=== PATIENT | female | born 1990 | race Caucasian/White ===

== ENCOUNTER 2019-03-07 17:06 | Emergency (ER) | payer MEDICARE, OTHER ==
[2019-03-07 17:26] VITALS: TEMP 98.6
[2019-03-07] MEDS ORDERED: SODIUM CHLORIDE 0.9% 1,000 ML IV STA (17:28)
[2019-03-07 18:34] LABS: Basophils % (A) 0 %; Eosinophils # (A) 0.1 k/uL (0-0.7); Eosinophils % (A) 2 %; HCT 38.7 % (34.0-46.0); HGB 12.7 gm/dL (11.4-16.0); Lymphocytes # (A) 0.8 k/uL (1.0-4.8); Lymphocytes % (A) 11 %; MCH 27.1 pg (25.0-35.0); MCHC 32.8 g/dL (31.0-37.0); MCV 82.4 fL (80.0-100.0); Mean Platelet Volume 7.7; Monocytes # (A) 0.3 k/uL (0-1.0); Monocytes % (A) 5 %; Neutrophils # (A) 5.6 k/uL (1.3-7.7); Neutrophils % (A) 82 %; Platelet Count 222 k/uL (150-450); RDW 13.9 % (11.5-15.5); WBC 6.9 k/uL (3.8-10.6)
[2019-03-07 18:42] LABS: ALT 19 U/L (9-52); AST 19 U/L (14-36); Acetaminophen <10.0 ug/mL; Albumin 4.2 g/dL (3.5-5.0); Alkaline Phosphatase 82 U/L (38-126); Anion Gap 9 mmol/L; Blood Urea Nitrogen 13 mg/dL (7-17); Carbon Dioxide 24 mmol/L (22-30); Chloride 105 mmol/L (98-107); Glucose 104 mg/dL (74-99); Potassium 3.7 mmol/L (3.5-5.1); Salicylate <1.0 mg/dL; Sodium 138 mmol/L (137-145); Total Bilirubin 0.7 mg/dL (0.2-1.3)
[2019-03-07 18:55] LABS: Carbamazepine (Tegretol) <3.0 ug/mL; Phenytoin (Dilantin) <3.0 ug/mL
[2019-03-07 18:56] LABS: Valproic Acid (Depakene) <10.0 ug/mL
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
[2019-03-07 20:35] VITALS: BP 115/70; PULSE 92; RESP 18
== END 2019-03-07 20:25 | disposition home or self-care (01) ==
LOC: EC 17:06
DX: G40.909 Epilepsy, unspecified, not intractable, without status epilepticus (principal); Z79.899 Other long term (current) drug therapy; Z88.5 Allergy status to narcotic agent
CPT/HCPCS: 36415; 93005; 80156; 80164; 80053; 80185; 85025; 83520; 99284; 96360; G0480; 80329

== ENCOUNTER 2019-08-04 00:09 | Emergency (ER) | payer MEDICARE, OTHER ==
[2019-08-04 00:19] VITALS: TEMP 98.1
--- NOTE | 2019-08-04 00:33 | ED ---
General Adult HPI - General Chief complaint: Recheck/Abnormal Lab/Rx Stated complaint: Medication Withdraw Time Seen by Provider: 08/04/19 00:25 Source: patient, family, RN notes reviewed Mode of arrival: ambulatory Limitations: physical limitation - History of Present Illness Initial comments: this a 29-year-old female presents emergency Department chief complaint of medication problems. Patient states that she stopped all of her medications 52 days ago because she does not want to take him and feels that she does not need them. Mom states that she's had increased aggressive and manic behavior. Patient states that she has a history of seizures, bipolar disorder, depression. Mom states that she does not feel safe with her. Patient denies being suicidal or homicidal. Patient denies any physical complaints. - Related Data Home Medications Medication Instructions Recorded Confirmed Omeprazole 20 mg PO HS 03/07/19 03/07/19 Previous Rx's Medication Instructions Recorded QUEtiapine [SEROquel] 100 mg PO HS #30 tab 07/26/14 QUEtiapine [SEROquel] 200 mg PO HS #7 tablet 08/04/19 Allergies Allergy/AdvReac Type Severity Reaction Status Date / Time morphine Allergy Itching Verified 08/04/19 00:19 Review of Systems ROS Statement: Those systems with pertinent positive or pertinent negative responses have been documented in the HPI. ROS Other: All systems not noted in ROS Statement are negative. Past Medical History Past Medical History: Seizure Disorder Additional Past Medical History / Comment(s): cerebral palsy History of Any Multi-Drug Resistant Organisms: None Reported Past Surgical History: Orthopedic Surgery Additional Past Surgical History / Comment(s): femurs rotated and achilles tendon lengthened and one yr. later metal hardware/plates were removed. Past Anesthesia/Blood Transfusion Reactions: No Reported Reaction Past Psychological History: Anxiety, Depression Smoking Status: Never smoker Past Alcohol Use History: None Reported Past Drug Use History: None Reported General Exam Limitations: physical limitation General appearance: alert, in no apparent distress Head exam: Present: atraumatic, normocephalic, normal inspection Eye exam: Present: normal appearance, PERRL, EOMI. Absent: scleral icterus, conjunctival injection, periorbital swelling ENT exam: Present: normal exam, mucous membranes moist Neck exam: Present: normal inspection, full ROM. Absent: tenderness, meningismus, lymphadenopathy Respiratory exam: Present: normal lung sounds bilaterally. Absent: respiratory distress, wheezes, rales, rhonchi, stridor Cardiovascular Exam: Present: normal rhythm, tachycardia, normal heart sounds. Absent: systolic murmur, diastolic murmur, rubs, gallop, clicks GI/Abdominal exam: Present: soft, normal bowel sounds. Absent: distended, tenderness, guarding, rebound, rigid Neurological exam: Present: alert, oriented X3 Psychiatric exam: Present: normal affect, normal mood Skin exam: Present: warm, dry, intact, normal color. Absent: rash Course Vital Signs 08/04/19 00:14 Temperature 98.1 F Pulse Rate 111 H Respiratory 20 Rate Blood Pressure 135/98 O2 Sat by Pulse 96 Oximetry Medical Decision Making - Medical Decision Making Patient evaluated by EPS case discussed with Dr. Shahid on-call for psychiatry, patient recommended to have increased her Seroquel at nighttime will follow-up outpatient return for any worsening symptoms. Disposition Clinical Impression: Depression, Nonadherence to medication Disposition: HOME SELF-CARE Condition: Stable Instructions (If sedation given, give patient instructions): Depression (ED) Additional Instructions: Please return to the Emergency Department if symptoms worsen or any other concerns. Prescriptions: QUEtiapine [SEROquel] 200 mg PO HS #7 tablet Is patient prescribed a controlled substance at d/c from ED?: No Referrals: Maximilian Rivera DO [Primary Care Provider] - 1-2 days Time of Disposition: 03:21
[2019-08-04] MEDS ORDERED: QUEtiapine 200 MG TAB PO STA (03:19)
[2019-08-04 03:36] VITALS: BP 125/82; PULSE 90; RESP 19
== END 2019-08-04 04:09 | disposition home or self-care (01) ==
LOC: EC 00:09
DX: F31.9 Bipolar disorder, unspecified (principal); Z91.14 Patient's other noncompliance with medication regimen; G80.9 Cerebral palsy, unspecified; G40.909 Epilepsy, unspecified, not intractable, without status epilepticus; Z88.5 Allergy status to narcotic agent
CPT/HCPCS: 82075; 99284

== ENCOUNTER 2019-08-04 05:02 | Inpatient (IN) | payer MEDICARE, MEDICAID ==
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
[2019-08-04] MEDS ORDERED: MAGNESIUM HYDROXIDE 2,400 MG/10 ML CUP PO PRN (13:12)
[2019-08-04] MEDS ORDERED: ACETAMINOPHEN TAB 325 MG TAB PO PRN (13:12)
[2019-08-04] MEDS ORDERED: MAG HYDROX/AL HYDROX/SIMETH 30 ML CUP PO PRN (13:12)
[2019-08-04 13:49] LABS: Appearance,Urine Clear (Clear); Bacteria,Urine Rare /hpf; Bilirubin,Urine Negative (Negative); Blood,Urine Moderate (Negative); Color,Urine Yellow; Glucose,Urine (UA) Negative (Negative); Ketones,Urine 4+ (Negative); Leukocyte Esterase,Urine Small (Negative); Mucus,Urine Few /hpf; Nitrite,Urine Negative (Negative); Protein,Urine 1+ (Negative); RBC,Urine 70 /hpf (0-5); Specific Gravity,Urine 1.033 (1.001-1.035); Squamous Epithelial Cell,Urine 3 /hpf (0-4); WBC,Urine 3 /hpf (0-5)
[2019-08-04 13:59] LABS: Amphetamine Screen,Urine Not Detected (NotDetected); Barbiturate Screen,Urine Not Detected (NotDetected); Benzodiazepines Screen,Urine Not Detected (NotDetected); Cocaine Screen,Urine Not Detected (NotDetected); Methadone Screen, Urine Not Detected (NotDetected); Opiate Screen,Urine Not Detected (NotDetected); Oxycodone Screen, Urine Not Detected (NotDetected); Phencyclidine Screen,Urine Not Detected (NotDetected); Tricyclic Antidepressant,Urine Detected (NotDetected); Urn Cannabinoid Scrn Not Detected (NotDetected)
[2019-08-04] MEDS: ESCITALOPRAM 10 MG TAB PO SCH (14:37)
[2019-08-04] MEDS: levETIRAcetam 500 MG TAB PO SCH ×2 (15:17→21:33)
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
[2019-08-04] MEDS: LORazepam 1 MG TAB PO PRN (19:43)
[2019-08-04] MEDS: QUEtiapine 200 MG TAB PO SCH (21:33)
[2019-08-05] MEDS: ESCITALOPRAM 10 MG TAB PO SCH (07:59)
[2019-08-05] MEDS: levETIRAcetam 500 MG TAB PO SCH ×3 (07:59→20:17)
[2019-08-05 09:02] LABS: Basophils # (A) 0.1 k/uL (0-0.2); Basophils % (A) 1 %; Eosinophils # (A) 0.1 k/uL (0-0.7); Eosinophils % (A) 1 %; HCT 43.5 % (34.0-46.0); HGB 14.1 gm/dL (11.4-16.0); Lymphocytes # (A) 2.5 k/uL (1.0-4.8); Lymphocytes % (A) 22 %; MCH 28.2 pg (25.0-35.0); MCHC 32.4 g/dL (31.0-37.0); MCV 86.9 fL (80.0-100.0); Mean Platelet Volume 6.5; Monocytes # (A) 0.6 k/uL (0-1.0); Monocytes % (A) 5 %; Neutrophils # (A) 7.9 k/uL (1.3-7.7); Neutrophils % (A) 69 %; Platelet Count 349 k/uL (150-450); RDW 13.9 % (11.5-15.5); WBC 11.4 k/uL (3.8-10.6)
[2019-08-05 09:11] LABS: ALT 15 U/L (9-52); AST 23 U/L (14-36); African American GFR (CKD) >90 (>60 ml/min/1.73 sqM); Albumin 4.7 g/dL (3.5-5.0); Alkaline Phosphatase 90 U/L (38-126); Anion Gap 18 mmol/L; Blood Urea Nitrogen 17 mg/dL (7-17); Calcium 9.6 mg/dL (8.4-10.2); Carbon Dioxide 20 mmol/L (22-30); Chloride 104 mmol/L (98-107); Cholesterol 139 mg/dL (<200); Glucose 58 mg/dL (74-99); HDL Cholesterol 51 mg/dL (40-60); LDL Cholesterol,Calculated 69 mg/dL (0-99); Potassium 3.6 mmol/L (3.5-5.1); Sodium 142 mmol/L (137-145); Total Bilirubin 1.4 mg/dL (0.2-1.3); Total Protein 7.9 g/dL (6.3-8.2); Triglycerides 94 mg/dL (<150)
[2019-08-05 09:17] LABS: T4, Free (Free Thyroxine) 2.02 ng/dL (0.78-2.19)
[2019-08-05 09:17] LABS: Glucose,Whole Blood 63 mg/dL (75-99)
[2019-08-05 09:57] LABS: Glucose,Whole Blood 85 mg/dL (75-99)
[2019-08-05] MEDS: LACTATED RINGERS 1,000 ML IV SCH ×2 (12:38→20:40)
--- NOTE | 2019-08-05 12:57 | P.PN ---
Progress Note - Text Progress Note Date: 08/05/19 Chief complaint: "I'm still hearing the voices " Subjective: The patient has been seen today as follow-up, chart reviewed, case discussed with the treatment team. Patient reports poor sleep last night. Patient has not been going to groups and other unit activities. Patient reports decreased appetite. Patient reports feeling tired and still hearing voices of her mother telling her" I would kill you". Patient reports visual hallucinations but she couldn't explain what this visual hallucinations about. She reports feeling paranoid but she couldn't give any further details. According to nursing report, the patient had any episodes yesterday of severe agitation and she was crying telling them" I don't want to hurt myself or hurt anybody". Patient is delusional about being and she was talking about wanting to get rid of the baby. Nursing report patient had episodes of severe tachycardia last night was incidence of her heart rate was 179, hospitalist was consulted and EKG was obtained and IV fluids recommended. Hospitalist/medical team will continue follow-up with the patient. The patient is compliant with her medications and denies any adverse reactions. Objective: Vital Signs - 8 hr 08/05/19 08/05/19 08/05/19 06:20 08:00 08:33 Temperature 97.6 F Pulse Rate [ Right Sitting] Pulse Rate [ Right Standing] Pulse Rate [ Right Supine] Pulse Rate [ 123 H 179 H 144 H Right] Respiratory 18 18 Rate Blood Pressure [Right Arm Sitting] Blood Pressure [Right Arm Standing] Blood Pressure [Right Arm Supine] Blood Pressure 99/56 166/87 [Right Arm] 08/05/19 08:57 Temperature Pulse Rate [ 127 H Right Sitting] Pulse Rate [ 137 H Right Standing] Pulse Rate [ 113 H Right Supine] Pulse Rate [ Right] Respiratory 20 Rate Blood Pressure 115/72 [Right Arm Sitting] Blood Pressure 112/80 [Right Arm Standing] Blood Pressure 131/76 [Right Arm Supine] Blood Pressure [Right Arm] Mental status examination; Appearance: Appears older than stated age, poorly groomed, above average body built, and 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 Gait/ posture: Unsteady waddling gait, increased arm swinging, no abnormal movements. Attitude and Behavior: Cooperative, engaged, intermittent eye contact during course of interview. Motor Activity: Increased psychomotor activity. Speech: spontaneous, abnormal rate, rhythm, and articulation which is most probably due to cerebral palsy. Normal volume. Not pressured. Language: Articulating, naming objects and repeat phrases. Mood: Irritable Affect: Constricted. Thought process: Disorganized, paranoid. Association: To some degree circumstantial. Thought content: Paranoid delusions, denies suicidal thoughts, denies homicidal thoughts, denies intentions, or plans. Perception: Denies any current auditory or visual hallucinations Alertness: No impairment. Concentration: Impaired Orientation: Oriented to place, person, and situation but not fully oriented to time Insight regarding psychiatric condition: Poor Judgment regarding daily activities and social situation: Limited Impulse control: Unpredictable Assessment: Bipolar disorder, unspecified with psychotic features. Unspecified anxiety disorder. Rule out generalized anxiety disorder. Rule out posttraumatic stress disorder. Cerebral palsy. Seizure disorder. Tachycardia Plan: Continue treatment of bipolar disorder, and psychotic symptoms. Psych education regarding her diagnosis, and treatment option. The patient will also be provided with individual therapy, group therapy, substance abuse counseling, gain insight, and coping skills. Consider medical consultation if any acute medical issue arise-medical team consultation for tachycardia. Medications: Continue Lexapro 10 mg daily for anxiety and depression symptoms. Increase Seroquel 50 mg in the morning and 200 mg at bedtime for mood stabilization and psychotic symptoms Continue trazodone 50 mg at bedtime as needed for insomnia. Continue Vistaril 25 mg 4 times a day daily as needed for anxiety. Continue Keppra 500 mg 3 times a day for seizure disorder. Labs: Obtain CBC and CMP results reviewed. hemoglobin A1c, lipid panel, and TSH still pending. Prognosis is guarded, considering the patient has limited coping skills, and has physical limitation due to seizure disorder and history of cerebral palsy. Prognosis could be fair Contingent on patient has been compliant with his medications and has been followed up closely with outpatient mental health provider after discharge. The patient will be assessed on daily basis for his depression, suicidal ideation, and will be discharged back to his outpatient mental health provider upon stabilization. EXPECTED LENGTH OF STAY: 5-7 days.
[2019-08-05] MEDS: QUEtiapine 50 MG TAB PO SCH (13:48)
[2019-08-05 15:08] LABS: Glucose,Whole Blood 99 mg/dL (75-99)
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
[2019-08-05] MEDS: QUEtiapine 200 MG TAB PO SCH (20:15)
[2019-08-05] MEDS: LORazepam 1 MG TAB PO PRN (20:15)
[2019-08-06] MEDS: ESCITALOPRAM 10 MG TAB PO SCH (09:21)
[2019-08-06] MEDS: levETIRAcetam 500 MG TAB PO SCH ×3 (09:22→22:41)
[2019-08-06] MEDS: QUEtiapine 50 MG TAB PO SCH (09:22)
[2019-08-06] MEDS: LACTATED RINGERS 1,000 ML IV SCH ×2 (09:47→10:12)
[2019-08-06 10:03] VITALS: BMI 25.2
--- NOTE | 2019-08-06 12:36 | P.PN ---
Progress Note - Text Progress Note Date: 08/06/19 Chief complaint: "My thoughts are still confused " Subjective: The patient has been seen today as follow-up, chart reviewed, case discussed with the treatment team. Patient reports still having the racing thoughts and her thoughts doesn't make sense. She reports is still feeling confused about her thoughts. Reports paranoid ideation that feels people against her. She reports is still having auditory hallucinations sometimes telling her positive things and other times negative things about her. She reports sometimes hearing her father's voice telling her to hurt herself but denies any commanding hallucinations to hurt others. She reports continued to have poor sleep and decreased appetite. Patient reports feeling frustrated but denies feeling hopeless and he denies any suicidal or homicidal ideation. The patient is compliant with her medications and denies any adverse reactions. Objective: Vital signs, reviewed patient is still showing tachycardia. 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 Gait/ posture: Patient is currently in wheelchair because she is not able to walk, increased arm swinging, no abnormal movements. Attitude and Behavior: Cooperative, engaged, intermittent eye contact during course of interview. Motor Activity: Increased psychomotor activity. Speech: spontaneous, abnormal rate, rhythm, and articulation which is most probably due to cerebral palsy. Normal volume. Not pressured. Mood: Irritable Affect: Constricted. Thought process: Disorganized, paranoid. Thought content: Paranoid delusions, denies suicidal thoughts, denies homicidal thoughts, denies intentions, or plans. Perception: Reports current auditory, denies visual hallucinations Alertness: No impairment. Concentration: Impaired Orientation: Oriented to place, person, and situation but not fully oriented to time Insight regarding psychiatric condition: Limited Judgment regarding daily activities and social situation: Limited Assessment: Bipolar disorder, unspecified with psychotic features. Unspecified anxiety disorder. Rule out generalized anxiety disorder. Rule out posttraumatic stress disorder. Cerebral palsy. Seizure disorder. Tachycardia Plan: Continue inpatient psychiatric hospitalization due to psychotic symptoms, mood instability, and for better stabilization on medications. Continue 15 minutes check. Continue treatment of bipolar disorder, and psychotic symptoms. Psych education regarding her diagnosis, and treatment option. The patient will also be provided with individual therapy, group therapy, substance abuse counseling, gain insight, and coping skills. Consulting the medical team-hospitalist- for abnormal heart rate patient continued to have tachycardia. Heart rate showing improvement currently 99, patient was seen by hospitalist today and no further treatment is recommended I recommend for patient to follow up with general service officer after discharge for further evaluation and treatment of tachycardia Medications: Continue Lexapro 10 mg daily for anxiety and depression symptoms. Increase Seroquel 100 mg in the morning and 300 mg at bedtime for mood stabilization and psychotic symptoms Continue trazodone 50 mg at bedtime as needed for insomnia. Continue Vistaril 25 mg 4 times a day daily as needed for anxiety. EKG reviewed and shows no QTC prolongation Continue Keppra 500 mg 3 times a day for seizure disorder. Labs: Obtain CBC and CMP results reviewed. hemoglobin A1c, lipid panel, and TSH results reviewed. Prognosis: Minimal improvement. The patient will be assessed on daily basis for his depression, suicidal ideation, and will be discharged back to his outpatient mental health provider upon stabilization. EXPECTED LENGTH OF STAY: 4-6 days.
--- NOTE | 2019-08-06 16:22 | P.PN ---
Progress Note - Text Progress Note Date: 08/06/19 Consultation: This is a 29-year-old patient who lives with her family. Has a history of cerebral palsy seizures. Patient overall. Her diabetes progressively becoming more and more depressed. Patient in the ER mentioned that she felt the room was bound and she was being washed, camera. At home apparently she was on the ground kicking and screaming. Patient did mention to the psychiatrist that she may have been reported recently. By her father. Mother doesn't believe the same. Patient is rather reluctant forthcoming with history. Has not been eating much. Not been drinking much. Feels tired and rundown. States she doesn't want to live like this. Admitted with bipolar disorder unspecified with psychotic features. Also with severe dehydration and sinus tachycardia therefore. Patient started and IV fluids. Today-patient received IV fluids overnight. This morning after eating better. Heart rate is come down. Patient does feel tired. Review of systems: Was done for constitutional, cardiovascular, GI, pulmonary. relevant finding as above Active Medications Acetaminophen (Tylenol Tab) 650 mg PO Q4HR PRN PRN Reason: Pain/Discomfort Al Hydroxide/Mg Hydroxide (Maalox) 30 ml PO Q4HR PRN PRN Reason: GI Upset Last Admin: 08/05/19 20:19 Dose: 30 ml Documented by: Escitalopram Oxalate (Lexapro) 10 mg PO DAILY [facility] Last Admin: 08/06/19 09:21 Dose: 10 mg Documented by: Levetiracetam (Keppra) 500 mg PO TID [facility] Last Admin: 08/06/19 09:22 Dose: 500 mg Documented by: Lorazepam (Ativan) 1 mg PO BID PRN PRN Reason: Anxiety, Agitation Last Admin: 08/05/19 20:15 Dose: 1 mg Documented by: Magnesium Hydroxide (Milk Of Magnesia) 2,400 mg PO DAILY PRN PRN Reason: Constipation Quetiapine Fumarate (Seroquel) 100 mg PO DAILY [facility] Quetiapine Fumarate (Seroquel) 300 mg PO HS [facility] Physical examination: VITAL SIGNS: 98, 92, 16, 138/100, 99% room air GENERAL: Laying in bed, appeared still withdrawn but less than yesterday. EYES: Pupils equal. Conjunctiva normal. HEENT: External appearance of nose and ears normal, oral cavity more moist today.. NECK: JVD not raised; masses not palpable. HEART: First and second heart sounds are normal; no edema. LUNGS: Respiratory rate normal; clear to auscultation. ABDOMEN: Soft, nontender, liver spleen not palpable, no masses palpable. PSYCH: Hesitant about asking answering questions INVESTIGATIONS, reviewed in the clinical context: No labs from today Previous testing: White count 11.4 hemoglobin 14.1 potassium 3.6 bun 17 creatinine 0.70 Accu-Cheks 63, 85, blood glucose 58 TSH normal, free T4 normal EKG tracing personally reviewed by me-sinus tachycardia Assessment: -Sinus tachycardia from dehydration from poor oral intake, currently improved -Severe dehydration from poor oral intake, improving -Hypoglycemia from poor oral intake -Cerebral palsy -Epilepsy disorder Plan: To discuss with nurse. Patient's oral intake has improved. If oral intake was down to slightly need IV fluids. With the help of the nurse I did wean the patient down to the group session. Patient relates constant encouragement for intake wishes very likely to get dehydrated again and would likely need IV fluids. Thank you Dr. bonds
[2019-08-06] MEDS: QUEtiapine 100 MG TAB PO SCH (21:53)
[2019-08-07] MEDS: QUEtiapine 100 MG TAB PO SCH ×2 (08:54→21:00)
[2019-08-07] MEDS: ESCITALOPRAM 10 MG TAB PO SCH (08:54)
[2019-08-07] MEDS: levETIRAcetam 500 MG TAB PO SCH ×3 (08:54→22:00)
--- NOTE | 2019-08-07 15:07 | P.PN ---
Progress Note - Text Progress Note Date: 08/07/19 Interval history: Patient is seen in cross coverage today. She makes reference to feeling as though she is writing for discharge. She seems to relay that sleep and appetite are improving. She does not verbalize any adverse psychotropic medication side effects. Mental status exam: She is alert and cooperative with the interview. Her speech is fluent, not rapid or pressured. She denies any thoughts of harm to self or others. She denies any hallucinations. Mood overall seems to be improved. She does not show any agitation. Plan: Patient will be maintained on current psychotropic medication regimen. Continue to monitor for any medication side effects and monitor her ongoing response to treatment.
[2019-08-07] MEDS: LORazepam 1 MG TAB PO PRN (16:43)
[2019-08-07] MEDS ORDERED: SODIUM CHLORIDE 0.9% 1,000 ML IV ONE (18:34)
[2019-08-08 08:18] LABS: ALT 15 U/L (9-52); AST 20 U/L (14-36); African American GFR (CKD) >90 (>60 ml/min/1.73 sqM); Albumin 3.9 g/dL (3.5-5.0); Alkaline Phosphatase 63 U/L (38-126); Anion Gap 8 mmol/L; Blood Urea Nitrogen 10 mg/dL (7-17); Calcium 9.4 mg/dL (8.4-10.2); Carbon Dioxide 29 mmol/L (22-30); Chloride 103 mmol/L (98-107); Glucose 81 mg/dL (74-99); Potassium 4.2 mmol/L (3.5-5.1); Sodium 140 mmol/L (137-145); Total Bilirubin 0.6 mg/dL (0.2-1.3); Total Protein 6.7 g/dL (6.3-8.2)
[2019-08-08] MEDS: QUEtiapine 100 MG TAB PO SCH ×2 (09:14→20:26)
[2019-08-08] MEDS: levETIRAcetam 500 MG TAB PO SCH ×3 (09:14→21:36)
[2019-08-08] MEDS: ESCITALOPRAM 10 MG TAB PO SCH (09:14)
[2019-08-08 11:01] LABS: Glucose,Whole Blood 102 mg/dL (75-99)
[2019-08-08] MEDS: LORazepam 1 MG TAB PO PRN ×2 (13:34→20:29)
--- NOTE | 2019-08-08 14:52 | P.PN ---
Progress Note - Text Progress Note Date: 08/08/19 Interval history: Patient seen in [facility] today again. She reports that she slept well last night. She feels like she is eating better but still could be improved. She did have some elevated pulses earlier today was given an Ativan and the most recent one was 97. She is encouraged to keep up her fluids. She inquires regarding discharge planning. New Mental status exam: She is alert and cooperative with the interview. She is seen with female nursing staff present. She seems to describe that her mood is doing good. She does not verbalize any thoughts of harm to self or others. She does not show any active symptoms of psychosis. There is no agitation present. Plan: Patient will be maintained on current psychotropic medication regimen. Continue to monitor for any medication side effects and monitor her ongoing response to treatment.
[2019-08-09] MEDS: QUEtiapine 100 MG TAB PO SCH ×2 (08:30→22:23)
[2019-08-09] MEDS: ESCITALOPRAM 10 MG TAB PO SCH (08:30)
[2019-08-09] MEDS: levETIRAcetam 500 MG TAB PO SCH ×3 (08:30→22:24)
--- NOTE | 2019-08-09 15:04 | P.PN ---
Progress Note - Text Progress Note Date: 08/09/19 Clinical Problems: Bipolar disorder unspecified with psychotic features, probable developmental disability, cerebral palsy, seizure disorder, dehydration resolved Interim history: I reviewed the medical record, interviewed the patient and discussed her treatment and treatment plan during team meeting. She is a 29-year-old single female admitted to psychiatric voluntarily with acute onset of agitation, paranoia and paranoid delusions and possible auditory and/or visual hallucinations. Since admission to the unit we increased the dose of Seroquel to 400 mg daily. Her speech was difficult to understand because of her dysarthria. She stated that she does not feel frightened or scared and denied experiencing auditory hallucinations. She is able to talk about the belief she held that her father had raped her. She stated that she no longer believes this and could not expla in why she held disbelief. She is attending therapeutic groups and activities. She shown no behavioral problems and is sleeping throughout most of the night. She has had no periods of agitation aggression or behavioral dyscontrol since admission to the unit. She denied side effects to her current psychotropic medications (Lexapro and Seroquel). Mental status exam: She presented as a tall disheveled appearing 29-year-old woman who was pleasant on approach. She did not appear to maintain eye contact but attended to the interview. Her gait was in stable and she showed a partial). She had a flat facial expression. Her speech was spontaneous and dysarthric. Her affect was blunted. She denied suicidal ideation or wishes. She denied homicidal ideation. She denied feeling hopeless, helpless or worthless. She did not express ideas reference, paranoid ideation, magical ideation or clear delusional thoughts. Her thinking was very concrete but her associations appeared organized. She denied hallucinations and did not appear to be responding to internal stimuli. Assessment: Her psychotic symptoms have appeared to resolve with the increased dose of the Seroquel. She continues have negative symptoms including a blunted affect and slowed cognition. Plan: Continue participation in a multimodal therapy. Continue safety precautions. Continue Seroquel 100 mg daily and 300 mg at bedtime, continue Lexapro 10 mg daily. Continue Keppra 500 mg by mouth 3 times a day for treatment of chronic seizure disorder. automotive worker to coordinate discharge and aftercare. Encouraged continued participation in therapeutic groups and activities. Evaluate clinical status response to treatment daily basis.
[2019-08-10] MEDS: LORazepam 1 MG TAB PO PRN ×2 (00:07→16:23)
[2019-08-10] MEDS: levETIRAcetam 500 MG TAB PO SCH ×3 (11:00→21:53)
[2019-08-10] MEDS: QUEtiapine 100 MG TAB PO SCH ×2 (11:00→21:54)
[2019-08-10] MEDS: ESCITALOPRAM 10 MG TAB PO SCH (11:00)
--- NOTE | 2019-08-10 13:26 | P.PN ---
Progress Note - Text Progress Note Date: 08/10/19 Clinical Problems: Bipolar disorder unspecified with psychotic features, probable developmental disability, cerebral palsy, seizure disorder, dehydration resolved Interim history: I reviewed the medical record, interviewed the patient and discuss her treatment and treatment plan during team meeting. She did not sleep well last night. She complained about frequent interruptions and again expressed her desire to be discharged and return home. She denied that she's been feeling paranoid or suspicious. She recognized the false beliefs that led to this hospitalization including the belief that her father had placed cameras inside the house despite her and her mother. She interprets her behavioral dyscontrol at home as an expression of her frustration and recognizes that it was inappropriate. She has not participated in therapeutic groups and activities. She stated that she feels uncomfortable in groups due to her physical disabilities. Mental status exam: She presented as a disheveled appearing 29-year-old female who was pleasant on approach. She maintained eye contact and appeared to attend to interview. She had prominent physical active abnormalities involving her lower limbs. Her gait was awkward and unsteady. She had a blunted facial expression. She was oriented to person, place and time. Her speech was spontaneous and at times dysarthric. Her affect is blunted but stable and appropriate. She denied suicidal ideation or wishes. She denied homicidal ideation. She denied experiencing such depressive cognitions as hopelessness, helplessness or worthlessness. He did not ruminate about her father or the paranoid beliefs that led to this hospitalizations. She denied ideas reference, paranoid ideation, magical ideation or delusional thoughts. Her thinking was concrete but her associations were coherent and logical. She denied hallucinations did not appear to be responding to internal stimuli. Assessment: Overall, she is much improved from admission and that her behaviors control, she is less paranoid and not experiencing auditory hallucinations or preoccupation with paranoid beliefs. Plan: Continue safety precautions, continue to encourage her to participate in therapeutic groups and activities, conversion worker to coordinate a family meeting, continue Lexapro 10 mg daily and Seroquel 100 mg daily and 300 mg at bedtime. Continue Keppra 500 mg 3 times a day with the treatment of chronic seizure disorder. Evaluate clinical status response to treatment daily basis. Plan for discharge on 08/11/2019.
[2019-08-10 14:54] VITALS: RESP 16
[2019-08-11 07:08] VITALS: BP 117/58; PULSE 88; TEMP 98
[2019-08-11] MEDS: ESCITALOPRAM 10 MG TAB PO SCH (09:52)
[2019-08-11] MEDS: QUEtiapine 100 MG TAB PO SCH (09:52)
[2019-08-11] MEDS: levETIRAcetam 500 MG TAB PO SCH (09:52)
--- NOTE | 2019-08-11 12:00 | P.DS ---
Providers Date of admission: 08/04/19 09:49 Attending physician: Gauarv Waldrop MD Consults: 08/04/19 13:12 Consult Physician Routine Consulting Provider: Venancio Lora Consult Reason/Comments: H and P Do you want consulting provider notified?: Yes Primary care physician: Maximilian Rivera - Discharge Diagnosis(es) (1) Agitation Current Visit: Yes Status: Resolved Priority: High (2) Psychosis Current Visit: Yes Status: Resolved Priority: High (3) Delusions Current Visit: No Status: Resolved Priority: Medium (4) Cerebral palsy Current Visit: Yes Status: Chronic Priority: Medium (5) Seizure disorder Current Visit: Yes Status: Chronic Priority: Medium Hospital Course: The patient is a 29-year-old single female with a history of cerebral palsy and seizure disorder. Her mother brought [facility] because she was "acting bizarre and psychotic". Her mother reported that she was "very agitated" and expressed belief that her father was in her room (her parents are and her father does not live in the house). She thought that her father had placed a "bug" in room and was watching her on cameras. She had an episode where she fell to ground and began kicking and screaming. She expressed a belief that her father had raped her and mother denied that father has been present recently on with her. We admitted her voluntarily to the psychiatric unit and provided a comprehensive multidisciplinary evaluation. When she arrived on the unit she was tachycardic and dehydrated. The medical staffing coordinator ordered lactated Ringer's initially at 150 mL/H and later decreased to 100 mL per hour. The tachycardia resolved following the electrolyte infusion. We continued Keppra 500 mg 3 times a day for treatment of her seizure disorder. We also continue Lexapro 10 mg daily prescribed outpatient for symptoms depression and anxiety. We increased her outpatient dose of Seroquel from 100 mg at night to 100 mg in the morning and 300 mg at nighttime. She did not participate in therapeutic groups and activities. She felt self- conscious about her physical disabilities and dysarthria. She had no seizures during this hospital admission. The agitation and delusional beliefs quickly subsided. She denied that she believes that her father had raped her or place cameras in her home. She was unable to explain the change her behavior other that she was "upset". At time of discharge she was pleasant on approach. She denied feeling depressed or having thoughts of or suicide. She denied the belief that her mother father had raped her or that her father was placing cameras and spying on her. [facility] the social media project manager has made arrangements [facility]. Patient Condition at Discharge: Stable Plan - Discharge Summary Discharge Rx Participant: No New Discharge Prescriptions: New QUEtiapine [SEROquel] 100 mg PO DAILY 30 Days #30 tab QUEtiapine [SEROquel] 300 mg PO HS 30 Days #30 tab Continue levETIRAcetam [Keppra] 500 mg PO TID 30 Days #90 tab Escitalopram Oxalate [Lexapro] 10 mg PO DAILY 30 Days #30 tab Discontinued QUEtiapine [SEROquel] 100 mg PO HS #30 tab Discharge Medication List Escitalopram Oxalate [Lexapro] 10 mg PO DAILY 30 Days #30 tab 08/11/19 [Rx] QUEtiapine [SEROquel] 100 mg PO DAILY 30 Days #30 tab 08/11/19 [Rx] QUEtiapine [SEROquel] 300 mg PO HS 30 Days #30 tab 08/11/19 [Rx] levETIRAcetam [Keppra] 500 mg PO TID 30 Days #90 tab 08/11/19 [Rx] Follow up Appointment(s)/Referral(s): [facility] [Outside] - 08/12/19 (walk in intake, tomorrow 08/12/19 between 830am - 3pm) Maximilian Rivera DO [Primary Care Provider] - 1-2 days Patient Instructions/Handouts: Bipolar Disorder (DC), Depression (DC) Activity/Diet/Wound Care/Special Instructions: Activity and diet as tolerated. Avoid the use of street drugs and alcohol. Take all medications as prescribed. When you are in need of refills on your medications please contact your medical provider and/or outpatient psychiatrist to have this done. Please go to scheduled outpatient appointment for aftercare. If symptoms return or become worse call the crisis line at and/or go to the nearest emergency room for an evaluation. Discharge Disposition: HOME SELF-CARE
== END 2019-08-11 12:01 | disposition home or self-care (01) | DRG 885 ==
LOC: EC 05:02 → 3MHU 09:49
PROVIDERS: ADMIT Psychiatry & Neurology Psychiatry; ATTEND Psychiatry & Neurology Psychiatry
DX: F29 Unspecified psychosis not due to a substance or known physiological condition (principal); R45.851 Suicidal ideations; G40.909 Epilepsy, unspecified, not intractable, without status epilepticus; E86.0 Dehydration; F31.9 Bipolar disorder, unspecified; F41.0 Panic disorder [episodic paroxysmal anxiety]; F43.10 Post-traumatic stress disorder, unspecified; G80.9 Cerebral palsy, unspecified; R00.0 Tachycardia, unspecified; E16.2 Hypoglycemia, unspecified; Z62.810 Personal history of physical and sexual abuse in childhood; Z79.899 Other long term (current) drug therapy; Z91.14 Patient's other noncompliance with medication regimen; Z88.5 Allergy status to narcotic agent; Z56.0 Unemployment, unspecified
CPT/HCPCS: 80053; 80061; 80306; 81001; 81025; 82075; 83036; 84439; 84443; 85025; 93005; 99285

== ENCOUNTER 2020-10-17 17:06 | Inpatient (IN) | payer MEDICARE, MEDICAID ==
--- NOTE | 2020-10-17 18:40 | ED ---
Psych HPI - General Chief Complaint: Psychiatric Symptoms Stated Complaint: Mental Health Time Seen by Provider: 10/17/20 17:35 Source: patient, family, RN notes reviewed Mode of arrival: ambulatory - History of Present Illness Initial Comments: This is a 30-year-old female who was brought in by her mother for evaluation. She apparently is becoming more paranoid thinking that her dad is trying to poison her. Is getting worse and worse she's now becoming confrontational with her mother. She denies any thoughts of hurting herself and my evaluation. No drugs were all reported she did apparently have her medication doses increase it to be in the mental health recently. He does not seem to be working. She apparently become more delusional per her mother. MD Complaint: other - Related Data Home Medications Medication Instructions Recorded Confirmed QUEtiapine FUMARATE [SEROquel] 25 mg PO TID 10/17/20 10/17/20 QUEtiapine FUMARATE [SEROquel] 600 mg PO HS 10/17/20 10/17/20 Previous Rx's Medication Instructions Recorded Escitalopram Oxalate [Lexapro] 10 mg PO DAILY 30 Days #30 tab 08/11/19 levETIRAcetam [Keppra] 500 mg PO TID 30 Days #90 tab 08/11/19 Allergies Allergy/AdvReac Type Severity Reaction Status Date / Time morphine Allergy Itching Verified 10/17/20 18:11 Review of Systems ROS Statement: Those systems with pertinent positive or pertinent negative responses have been documented in the HPI. ROS Other: All systems not noted in ROS Statement are negative. Past Medical History Past Medical History: Seizure Disorder Additional Past Medical History / Comment(s): cerebral palsy History of Any Multi-Drug Resistant Organisms: None Reported Past Surgical History: Orthopedic Surgery Additional Past Surgical History / Comment(s): femurs rotated and achilles tendon lengthened and one yr. later metal hardware/plates were removed. Past Anesthesia/Blood Transfusion Reactions: No Reported Reaction Past Psychological History: Anxiety, Depression Past Alcohol Use History: None Reported Past Drug Use History: None Reported General Exam - General Exam Comments Initial Comments: This is a well-developed well-nourished awake alert oriented 3 female Limitations: no limitations General appearance: in no apparent distress Head exam: Present: atraumatic, normocephalic, normal inspection Eye exam: Present: normal appearance, PERRL, EOMI. Absent: scleral icterus, conjunctival injection, periorbital swelling ENT exam: Present: normal exam, mucous membranes moist Neck exam: Present: normal inspection. Absent: tenderness, meningismus, lymphadenopathy Respiratory exam: Present: normal lung sounds bilaterally. Absent: respiratory distress, wheezes, rales, rhonchi, stridor Cardiovascular Exam: Present: regular rate, normal rhythm, normal heart sounds. Absent: systolic murmur, diastolic murmur, rubs, gallop, clicks GI/Abdominal exam: Present: soft, normal bowel sounds. Absent: distended, tenderness, guarding, rebound, rigid Extremities exam: Present: normal inspection, full ROM, normal capillary refill. Absent: tenderness, pedal edema, joint swelling, calf tenderness Back exam: Present: normal inspection Neurological exam: Present: alert, oriented X3, CN II-XII intact Psychiatric exam: Present: flat affect, other (Paranoid ideation) Skin exam: Present: warm, dry, intact, normal color. Absent: rash Course Vital Signs 10/17/20 17:07 Temperature 98.0 F Pulse Rate 92 Respiratory 18 Rate Blood Pressure 122/94 O2 Sat by Pulse 97 Oximetry Medical Decision Making - Medical Decision Making Patient was evaluated by the EPS service and will be admitted for inpatient treatment. Disposition Clinical Impression: Psychosis Disposition: TRANSFER TO PSYCH HOSP/UNIT Condition: Fair Referrals: Maximilian Rivera DO [Primary Care Provider] - 1-2 days
[2020-10-17] MEDS ORDERED: LORazepam 1 MG TAB PO STA (19:21)
[2020-10-17] MEDS ORDERED: LORazepam 1 MG TAB PO PRN (22:00)
[2020-10-17] MEDS: QUEtiapine 25 MG TAB PO SCH (22:19)
[2020-10-17] MEDS: QUEtiapine 200 MG TAB PO SCH (22:19)
[2020-10-17] MEDS: levETIRAcetam 500 MG TAB PO SCH (22:19)
[2020-10-17] MEDS ORDERED: HALOPERIDOL LACTATE 5 MG/ML 1 ML VIAL IM PRN (23:00)
[2020-10-17] MEDS ORDERED: haloperidoL 5 MG TAB PO PRN (23:00)
[2020-10-17] MEDS ORDERED: ACETAMINOPHEN TAB 325 MG TAB PO PRN (23:00)
[2020-10-18] MEDS ORDERED: MAG HYDROX/AL HYDROX/SIMETH 30 ML CUP PO PRN
[2020-10-18] MEDS ORDERED: LORazepam 2 MG/ML INJ IM PRN
[2020-10-18 07:44] LABS: Basophils % (A) 0 %; Eosinophils # (A) 0.1 k/uL (0-0.7); Eosinophils % (A) 1 %; Lymphocytes # (A) 2.1 k/uL (1.0-4.8); Lymphocytes % (A) 28 %; MCH 28.6 pg (25.0-35.0); MCHC 33.4 g/dL (31.0-37.0); MCV 85.6 fL (80.0-100.0); Mean Platelet Volume 7.2; Monocytes # (A) 0.5 k/uL (0-1.0); Monocytes % (A) 6 %; Neutrophils # (A) 4.7 k/uL (1.3-7.7); Neutrophils % (A) 63 %; Platelet Count 311 k/uL (150-450); RBC 4.56 m/uL (3.80-5.40); WBC 7.4 k/uL (3.8-10.6)
[2020-10-18 07:47] LABS: ALT 12 U/L (4-34); AST 20 U/L (14-36); African American GFR (CKD) >90 (>60 ml/min/1.73 sqM); Albumin 4.3 g/dL (3.5-5.0); Alkaline Phosphatase 93 U/L (38-126); Anion Gap 8 mmol/L; Blood Urea Nitrogen 12 mg/dL (7-17); Calcium 9.6 mg/dL (8.4-10.2); Carbon Dioxide 26 mmol/L (22-30); Chloride 105 mmol/L (98-107); Cholesterol 139 mg/dL (<200); Glucose 99 mg/dL (74-99); HDL Cholesterol 47 mg/dL (40-60); LDL Cholesterol,Calculated 79 mg/dL (0-99); Non-African American GFR(CKD) >90 (>60 ml/min/1.73 sqM); Sodium 139 mmol/L (137-145); Total Bilirubin 0.8 mg/dL (0.2-1.3); Total Protein 7.5 g/dL (6.3-8.2); Triglycerides 63 mg/dL (<150)
[2020-10-18] MEDS: QUEtiapine 25 MG TAB PO SCH ×3 (08:12→22:35)
[2020-10-18] MEDS: levETIRAcetam 500 MG TAB PO SCH ×3 (08:12→22:35)
[2020-10-18] MEDS ORDERED: MAGNESIUM HYDROXIDE 2,400 MG/10 ML CUP PO PRN (09:00)
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
[2020-10-18] MEDS: QUEtiapine 200 MG TAB PO SCH (22:35)
[2020-10-19] MEDS: QUEtiapine 25 MG TAB PO SCH ×3 (08:07→21:32)
[2020-10-19] MEDS: levETIRAcetam 500 MG TAB PO SCH ×3 (08:07→21:32)
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
--- NOTE | 2020-10-19 16:54 | EEG ---
ELECTROENCEPHALOGRAM REPORT DATE OF SERVICE: 10/19/2020 This is a 30-year-old woman with reported history of cerebral palsy and seizure that presents with acute schizophrenia versus psychotic disorder due to her seizures. The video EEG is obtained to evaluate for seizures and epileptiform activity. RELEVANT MEDICATION: The patient received 2 mg of Ativan on 10/18/2020. EEG TYPE: A routine 21 channel EEG is performed with video using the 10/20 electrode placement system. DESCRIPTION: Wakefulness and drowsiness are obtained. The patient is awake during most of the study. During wakefulness, there is a posterior dominant rhythm of low to moderate voltage, reactive, well modulated, of 6-7 hertz activity. During brief drowsiness there is slowing attenuation of the background activity. There is no physiological stage 2 sleep seen. INTERICTAL AND ICTAL: None. ACTIVATION PROCEDURES: Photic stimulation did not evoke a posterior driving response. Hyperventilation is not performed. CLINICAL INTERPRETATION: This is an abnormal routine EEG. The background slowing is suggestive of mild to moderate encephalopathy of unspecified etiology. There are no focal slowing, epileptiform discharges or seizure during the study. Clinical correlation is recommended. MMODL / IJN: [id number] / JIMMY
[2020-10-19] MEDS ORDERED: QUEtiapine 200 MG TAB PO SCH (21:00)
[2020-10-20] MEDS: QUEtiapine 25 MG TAB PO SCH ×3 (08:16→21:25)
[2020-10-20] MEDS: levETIRAcetam 500 MG TAB PO SCH ×3 (08:16→21:25)
[2020-10-20] MEDS: ARIPiprazole 10 MG TAB PO SCH (08:16)
--- NOTE | 2020-10-20 10:56 | P.PN ---
Progress Note - Text Progress Note Date: 10/20/20 Clinical Problems: Encephalopathy without epileptiform activity, psychotic disorder due to chronic seizure disorder, developmental disability, cerebral palsy, seizure disorder Interim history: I reviewed the medical record, interviewed the patient and discussed her treatment and treatment plan during team meeting. She denied side effects to the inital Dose of Abilify although she appears more sedated than on prior encounters. When I asked about her father she replied "that's not a problem." She denied that she is concerned that her father is trying to harm her or trying to harm her family. I asked her why she was sitting in a wheelchair she replied that I told her that Olaf Roman her legal guardian. She appeared confused when denied that I told her that Olaf Roman was her guardian and reminded her that she had told me that her mother's was her guardian. EEG report appreciated. Clinical interpretation is that the EEG was abnormal. The background slowing is suggestive of mild to moderate encephalopathy of unspecified etiology. There is no focal slowing, a little performed a charges or seizures during the study. Mental status exam: She presented as a mildly obese disheveled appearing 30-year-old female who was sitting in a wheelchair. She is pleasant on approach and engaged in interview. Hair was long and unkempt. Her speech was slightly dysarthric. She did not express feelings of hopelessness, helplessness or worthlessness. She denied suicidal ideation, intent or plan. Her thinking was concrete but her associations not fully coherent. She appeared confused. She she did not appear paranoid and denied paranoid ideation or paranoid delusional beliefs about her father. She denied hallucinations and did not appear to be responding to internal stimuli. Assessment: She is much less paranoid than on admission but she appears confused and sedated. The EEG suggesting an encephalopathy which might be the underlying reasons for the paranoia and confusion. Plan: Continue inpatient treatment. Safety precautions. Continue Keppra 500 mg 3 times a day. Obtain a levetiracetam level. Contue seroquel taper. Continue Abilify 10 mg daily and titrated according to clinical response and tolerance. Once we establish tolerance to Abilify and begin Abilify Maintena a 400 mg IM monthly. Consult neurology regarding evaluation of seizure disorder and encephalopathy. Encourage participation in therapeutic groups and activities. Evaluate clinical status response to treatment daily basis.
[2020-10-20] MEDS ORDERED: QUEtiapine 100 MG TAB PO SCH (21:00)
[2020-10-21] MEDS: ARIPiprazole 10 MG TAB PO SCH (08:34)
[2020-10-21] MEDS: QUEtiapine 25 MG TAB PO SCH ×3 (08:34→21:18)
[2020-10-21] MEDS: levETIRAcetam 500 MG TAB PO SCH ×3 (08:34→21:18)
--- NOTE | 2020-10-21 10:37 | P.PN ---
Progress Note - Text Progress Note Date: 10/21/20 Interval history: Patient was seen wandering the hallways and was directable and agreeable to speak with singer songwriter. The patient states that she is feeling "okay." She is not reporting any suicidal or homicidal ideation, intention, and/or plan. She is not reporting any auditory or visual hallucinations. She does continue to endorse paranoid delusional thoughts and does express concern for her safety at home. She reports that she feels like she is misunderstood and that what is going on at home is really happening. She has been adherent with her medications and not reporting any significant side effects. Abilify is being titrated and the patient appears to be tolerating the medication well. She appears to be alert and oriented in all spheres today. Mental status exam: General Appearance: Patient appears to be stated age is alert, directable, and cooperative. Hygiene and grooming are good. Obese body habitus. Behavior: No agitated behavior. Patient is calm and directable. Patient has cerebral palsy and ambulates with a wide-based gait. Speech: Patient's speech is fluent and nonpressured. Mood/Affect: Mood is improving mildly, affect is congruent and constricted. Suicidality/Homicidality: Patient denies having any suicidal or homicidal ideation intent or plan. Perceptions: Patient denies any auditory or visual hallucinations. Though content/process: Patient remains paranoid regarding her situation at home. She does report that she does not feel entirely safe. Memory and concentration: AOX3, grossly intact for the purposes of this session Judgment and insight: improving mildly Assessment/Plan: Continue with current diagnosis. Patient continues to meet criteria for inpatient psychiatric admission for symptom stabilization and safety. Patient will be maintained on current psychotropic medication regimen with the exception of her Abilify being increased to 15 mg by mouth daily. As per Dr Waldrop's plan, we will continue to titrate in response to treatment with plans to transition to abilify maintena. Monitor for medication compliance and for any psychotropic medication side effects. Will continue to monitor ongoing response to treatment. Encouraged participation in milieu.
[2020-10-21] MEDS ORDERED: QUEtiapine 200 MG TAB PO SCH (21:00)
[2020-10-22] MEDS: ARIPiprazole 15 MG TAB PO SCH (08:25)
[2020-10-22] MEDS: levETIRAcetam 500 MG TAB PO SCH ×3 (08:25→21:07)
[2020-10-22] MEDS: QUEtiapine 25 MG TAB PO SCH ×3 (08:25→21:07)
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
[2020-10-22] MEDS: QUEtiapine 100 MG TAB PO SCH (21:06)
[2020-10-23] MEDS: levETIRAcetam 500 MG TAB PO SCH ×3 (09:07→20:58)
[2020-10-23] MEDS: ARIPiprazole 15 MG TAB PO SCH (09:07)
[2020-10-23] MEDS: QUEtiapine 25 MG TAB PO SCH ×3 (09:08→20:58)
--- NOTE | 2020-10-23 11:05 | P.PN ---
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 She denied problems or concerns. She asked me to speak with her mother before we make any medication changes or discharge her. Over the weekend she had no episodes of behavioral dyscontrol. The covering physician noted that she remains paranoid and expressed the paranoid delusional belief that her father is attempting to harm her. He increased the Abilify to 15 mg daily. She admitted that she is "worried" about her father but denies that she believes her father will hurt her The high school social studies teacher spoke with her mother early this morning about guardianship. Mental status exam: She presented as a mildly obese casually groomed 30-year-old female who was pleasant on approach. She made eye contact and attended to the interview. Her speech was slightly dysarthric. She had a blunted but bright affect. She did not express feelings of hopelessness, helplessness or worthlessness. She denied suicidal ideation, intent or plan. Her thinking was concrete but her associations were organized and goal directed. She she did not appear paranoid and denied paranoid ideation or paranoid delusional beliefs about her father. She denied hallucinations and did not appear to be responding to internal stimuli. Assessment: She is less paranoid and less confused than on admission.. The EEG suggesting an encephalopathy which might be the underlying reasons for the paranoia and confusion. Plan: Continue inpatient treatment. Safety precautions. Continue Keppra 500 mg 3 times a day. Obtain a levetiracetam level. Contue seroquel taper. Continue Abilify 15 mg daily and titrated according to clinical response and tolerance. Begin Abilify Maintena a 400 mg IM monthly prior to discharge. Discuss with her mother follow-up with her neurologist. Encourage participation in therapeutic groups and activities. Evaluate clinical status response to treatment daily basis.
[2020-10-23] MEDS: QUEtiapine 100 MG TAB PO SCH (20:58)
[2020-10-24 06:31] VITALS: BP 130/72; PULSE 84; RESP 16; TEMP 97.5
[2020-10-24] MEDS: ARIPiprazole 15 MG TAB PO SCH (07:49)
[2020-10-24] MEDS: QUEtiapine 25 MG TAB PO SCH (07:49)
[2020-10-24] MEDS: levETIRAcetam 500 MG TAB PO SCH (08:37)
[2020-10-24] MEDS ORDERED: ARIPiprazole IM 400 MG VIAL (NO COST) PHARMACY STOCK IM SCH (08:45)
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
[2020-10-24] MEDS ORDERED: QUEtiapine 50 MG TAB PO SCH (21:00)
== END 2020-10-24 12:35 | disposition home or self-care (01) | DRG 72 ==
LOC: EC 17:06 → 3MHU 21:41
PROVIDERS: ADMIT Psychiatry & Neurology Psychiatry; ATTEND Psychiatry & Neurology Psychiatry
DX: G93.49 Other encephalopathy (principal); R45.850 Homicidal ideations; G80.9 Cerebral palsy, unspecified; G40.909 Epilepsy, unspecified, not intractable, without status epilepticus; Z20.822 Contact with and (suspected) exposure to COVID-19; F79 Unspecified intellectual disabilities; F41.9 Anxiety disorder, unspecified; E66.9 Obesity, unspecified; Z68.34 Body mass index [BMI] 34.0-34.9, adult; Z79.899 Other long term (current) drug therapy; Z87.39 Personal history of other diseases of the musculoskeletal system and connective tissue; Z98.890 Other specified postprocedural states; Z88.5 Allergy status to narcotic agent; Z81.8 Family history of other mental and behavioral disorders; Z81.1 Family history of alcohol abuse and dependence
CPT/HCPCS: 80053; 80061; 82075; 83036; 84443; 85025; 87635; 95816; 99285

== ENCOUNTER 2020-12-22 10:31 | Inpatient (IN) | payer MEDICARE, MEDICAID ==
[2020-12-22 11:58] LABS: Amphetamine Screen,Urine Not Detected (NotDetected); Barbiturate Screen,Urine Not Detected (NotDetected); Benzodiazepines Screen,Urine Not Detected (NotDetected); Cocaine Screen,Urine Not Detected (NotDetected); Methadone Screen, Urine Not Detected (NotDetected); Opiate Screen,Urine Not Detected (NotDetected); Oxycodone Screen, Urine Not Detected (NotDetected); Phencyclidine Screen,Urine Not Detected (NotDetected); Tricyclic Antidepressant,Urine Detected (NotDetected); Urn Cannabinoid Scrn Not Detected (NotDetected)
--- NOTE | 2020-12-22 12:16 | ED ---
General Adult HPI - General Source: patient, family, RN notes reviewed Mode of arrival: ambulatory Limitations: physical limitation <Rob Razo - Last Filed: 12/22/20 14:52> <Rm Correa - Last Filed: 12/22/20 15:52> - General Chief complaint: Psychiatric Symptoms Stated complaint: Mental Health - History of Present Illness Initial comments: 20-year-old female with a past medical history of cerebral palsy, seizure disorder, anxiety, depression presents to the emergency room for a chief complaint of suicidal thoughts. Patient reports that she has had suicidal thoughts for the past week or so. States she has not had these before. Patient has had bouts of depression however this is much worse than normal. Mother states that she is very concerned about patient. States that she has never seen her like this before. States that today patient told her and her sister that they would be better off without her. States that they have been making her sleep on the futon because they're afraid she is going to hurt herself. They have been trying to take her for drives and walks but it does not seem to be helping her state. They do see [facility] and her try to follow-up but haven't been able to get in and she seems to be worsening.Patient has no other complaints at this time including shortness of breath, chest pain, abdominal pain, nausea or vomiting, headache, or visual changes. (Rob Razo) - Related Data Home Medications Medication Instructions Recorded Confirmed ARIPiprazole [Abilify Maintena] 400 mg IM Q30D 12/22/20 12/22/20 Previous Rx's Medication Instructions Recorded QUEtiapine [SEROquel] 50 mg PO HS #30 tab 10/24/20 levETIRAcetam [Keppra] 500 mg PO TID 30 Days #90 tab 10/24/20 Allergies Allergy/AdvReac Type Severity Reaction Status Date / Time morphine Allergy Itching Verified 12/22/20 12:39 Review of Systems ROS Other: All systems not noted in ROS Statement are negative. <Rob Razo - Last Filed: 12/22/20 14:52> ROS Other: All systems not noted in ROS Statement are negative. <Rm Correa - Last Filed: 12/22/20 15:52> ROS Statement: Those systems with pertinent positive or pertinent negative responses have been documented in the HPI. Past Medical History Past Medical History: Seizure Disorder Additional Past Medical History / Comment(s): cerebral palsy History of Any Multi-Drug Resistant Organisms: None Reported Past Surgical History: Orthopedic Surgery Additional Past Surgical History / Comment(s): femurs rotated and achilles tendon lengthened and one yr. later metal hardware/plates were removed. Past Anesthesia/Blood Transfusion Reactions: No Reported Reaction Past Psychological History: Anxiety, Depression Smoking Status: Never smoker Past Alcohol Use History: None Reported Past Drug Use History: None Reported <Rob Razo - Last Filed: 12/22/20 14:52> General Exam Limitations: physical limitation General appearance: alert, in no apparent distress Head exam: Present: atraumatic, normocephalic, normal inspection Eye exam: Present: normal appearance, PERRL, EOMI. Absent: scleral icterus, conjunctival injection, periorbital swelling ENT exam: Present: normal exam, mucous membranes moist Neck exam: Present: normal inspection, full ROM. Absent: tenderness, meningismus, lymphadenopathy Respiratory exam: Present: normal lung sounds bilaterally. Absent: respiratory distress, wheezes, rales, rhonchi, stridor Cardiovascular Exam: Present: regular rate, normal rhythm, normal heart sounds. Absent: systolic murmur, diastolic murmur, rubs, gallop, clicks GI/Abdominal exam: Present: soft, normal bowel sounds. Absent: distended, tenderness, guarding, rebound, rigid Back exam: Absent: CVA tenderness (R), CVA tenderness (L) Neurological exam: Present: alert <Rob Razo - Last Filed: 12/22/20 14:52> Course Vital Signs 12/22/20 12/22/20 10:43 14:56 Temperature 98.5 F 97.9 F Pulse Rate 132 H 102 H Respiratory 22 18 Rate Blood Pressure 133/87 138/89 O2 Sat by Pulse 96 95 Oximetry Medical Decision Making <Rob Razo - Last Filed: 12/22/20 14:52> - Medical Decision Making EPS recommending admission, patient is signing in (Rob Razo) - Lab Data Lab Results 12/22/20 12/22/20 Range/Units 11:29 11:29 Urine Opiates Screen Not Detected (NotDetected) Ur Oxycodone Screen Not Detected (NotDetected) Urine Methadone Screen Not Detected (NotDetected) Ur Propoxyphene Screen Not Detected (NotDetected) Ur Barbiturates Screen Not Detected (NotDetected) U Tricyclic Antidepress Detected H (NotDetected) Ur Phencyclidine Scrn Not Detected (NotDetected) Ur Amphetamines Screen Not Detected (NotDetected) U Methamphetamines Scrn Not Detected (NotDetected) U Benzodiazepines Scrn Not Detected (NotDetected) Urine Cocaine Screen Not Detected (NotDetected) U Marijuana (THC) Screen Not Detected (NotDetected) Coronavirus (PCR) Not Detected (Not Detectd) Disposition Is patient prescribed a controlled substance at d/c from ED?: No Time of Disposition: 14:53 <Rob Razo - Last Filed: 12/22/20 14:52> <Rm Correa - Last Filed: 12/22/20 15:52> Clinical Impression: Suicidal thoughts Disposition: TRANSFER TO PSYCH HOSP/UNIT Condition: Stable
[2020-12-22] MEDS ORDERED: MAGNESIUM HYDROXIDE 2,400 MG/10 ML CUP PO PRN (15:37)
[2020-12-22] MEDS ORDERED: MAG HYDROX/AL HYDROX/SIMETH 30 ML CUP PO PRN (15:37)
[2020-12-22] MEDS ORDERED: LORazepam 2 MG/ML INJ IM PRN (15:44)
[2020-12-22] MEDS ORDERED: HALOPERIDOL LACTATE 5 MG/ML 1 ML VIAL IM PRN (15:46)
[2020-12-22] MEDS ORDERED: ARIPiprazole IM SYRINGE 400 MG (NO CHARGE) PHARMACY STOCK IM ONE (16:00)
[2020-12-22 18:32] LABS: Appearance,Urine Turbid (Clear); Bacteria,Urine Rare /hpf; Bilirubin,Urine Negative (Negative); Blood,Urine Small (Negative); Color,Urine Yellow; Glucose,Urine (UA) Negative (Negative); Ketones,Urine 4+ (Negative); Leukocyte Esterase,Urine Trace (Negative); Mucus,Urine Many /hpf; Nitrite,Urine Negative (Negative); PH, Urine 6.5 (5.0-8.0); Protein,Urine 1+ (Negative); RBC,Urine 33 /hpf (0-5); Specific Gravity,Urine 1.028 (1.001-1.035); Squamous Epithelial Cell,Urine 9 /hpf (0-4); Urobilinogen,Urine <2.0 mg/dL (<2.0); WBC,Urine 9 /hpf (0-5)
[2020-12-22] MEDS: LORazepam 1 MG TAB PO PRN (18:53)
[2020-12-23] MEDS: ACETAMINOPHEN TAB 325 MG TAB PO PRN (04:55)
[2020-12-23] MEDS: LORazepam 1 MG TAB PO PRN (04:55)
[2020-12-23] MEDS: levETIRAcetam 500 MG TAB PO SCH ×3 (09:23→21:06)
[2020-12-23 10:01] LABS: Basophils % (A) 0 %; Eosinophils # (A) 0.1 k/uL (0-0.7); Eosinophils % (A) 1 %; HCT 40.7 % (34.0-46.0); HGB 12.8 gm/dL (11.4-16.0); Lymphocytes % (A) 11 %; MCH 26.5 pg (25.0-35.0); MCHC 31.4 g/dL (31.0-37.0); MCV 84.3 fL (80.0-100.0); Monocytes # (A) 0.4 k/uL (0-1.0); Monocytes % (A) 4 %; Neutrophils # (A) 7.7 k/uL (1.3-7.7); Neutrophils % (A) 83 %; Platelet Count 339 k/uL (150-450); RBC 4.82 m/uL (3.80-5.40); RDW 14.5 % (11.5-15.5); WBC 9.3 k/uL (3.8-10.6)
[2020-12-23 10:24] LABS: ALT 21 U/L (4-34); AST 26 U/L (14-36); African American GFR (CKD) >90 (>60 ml/min/1.73 sqM); Alkaline Phosphatase 78 U/L (38-126); Anion Gap 8 mmol/L; Blood Urea Nitrogen 18 mg/dL (7-17); Calcium 9.5 mg/dL (8.4-10.2); Carbon Dioxide 27 mmol/L (22-30); Chloride 105 mmol/L (98-107); Cholesterol 126 mg/dL (<200); Glucose 114 mg/dL (74-99); HDL Cholesterol 57 mg/dL (40-60); LDL Cholesterol,Calculated 60 mg/dL (0-99); Non-African American GFR(CKD) >90 (>60 ml/min/1.73 sqM); Potassium 3.6 mmol/L (3.5-5.1); Sodium 140 mmol/L (137-145); Total Bilirubin 0.6 mg/dL (0.2-1.3); Total Protein 6.6 g/dL (6.3-8.2); Triglycerides 45 mg/dL (<150)
--- NOTE | 2020-12-23 16:23 | P.HP ---
Psychiatric H&P - . H&P Date: 12/23/20 History & Physical: Allergies Allergy/AdvReac Type Severity Reaction Status Date / Time morphine Allergy Itching Verified 12/22/20 12:39 Vital Signs Temp 98.1 F 12/23/20 04:49 Pulse 144 H 12/23/20 04:49 Resp 18 12/22/20 17:00 BP 144/91 12/23/20 04:49 Pulse Ox 96 12/22/20 17:00 Intake & Output 12/22/20 12/23/20 12/23/20 18:59 06:59 18:59 Weight 95.254 kg Laboratory Last Values WBC 9.3 k/uL (3.8-10.6) 12/23/20 09:40 RBC 4.82 m/uL (3.80-5.40) 12/23/20 09:40 Hgb 12.8 gm/dL (11.4-16.0) 12/23/20 09:40 Hct 40.7 % (34.0-46.0) 12/23/20 09:40 MCV 84.3 fL (80.0-100.0) 12/23/20 09:40 MCH 26.5 pg (25.0-35.0) 12/23/20 09:40 MCHC 31.4 g/dL (31.0-37.0) 12/23/20 09:40 RDW 14.5 % (11.5-15.5) 12/23/20 09:40 Plt Count 339 k/uL (150-450) 12/23/20 09:40 MPV 7.0 12/23/20 09:40 Neutrophils % 83 % 12/23/20 09:40 Lymphocytes % 11 % 12/23/20 09:40 Monocytes % 4 % 12/23/20 09:40 Eosinophils % 1 % 12/23/20 09:40 Basophils % 0 % 12/23/20 09:40 Neutrophils # 7.7 k/uL (1.3-7.7) 12/23/20 09:40 Lymphocytes # 1.0 k/uL (1.0-4.8) 12/23/20 09:40 Monocytes # 0.4 k/uL (0-1.0) 12/23/20 09:40 Eosinophils # 0.1 k/uL (0-0.7) 12/23/20 09:40 Basophils # 0.0 k/uL (0-0.2) 12/23/20 09:40 Sodium 140 mmol/L (137-145) 12/23/20 09:40 Potassium 3.6 mmol/L (3.5-5.1) 12/23/20 09:40 Chloride 105 mmol/L (98-107) 12/23/20 09:40 Carbon Dioxide 27 mmol/L (22-30) 12/23/20 09:40 Anion Gap 8 mmol/L 12/23/20 09:40 BUN 18 mg/dL (7-17) H 12/23/20 09:40 Creatinine 0.64 mg/dL (0.52-1.04) 12/23/20 09:40 Est GFR (CKD-EPI)AfAm >90 (>60 ml/min/1.73 sqM) 12/23/20 09:40 Est GFR (CKD-EPI)NonAf >90 (>60 ml/min/1.73 sqM) 12/23/20 09:40 Glucose 114 mg/dL (74-99) H 12/23/20 09:40 Calcium 9.5 mg/dL (8.4-10.2) 12/23/20 09:40 Total Bilirubin 0.6 mg/dL (0.2-1.3) 12/23/20 09:40 AST 26 U/L (14-36) 12/23/20 09:40 ALT 21 U/L (4-34) 12/23/20 09:40 Alkaline Phosphatase 78 U/L (38-126) 12/23/20 09:40 Total Protein 6.6 g/dL (6.3-8.2) 12/23/20 09:40 Albumin 4.0 g/dL (3.5-5.0) 12/23/20 09:40 Triglycerides 45 mg/dL (<150) 12/23/20 09:40 Cholesterol 126 mg/dL (<200) 12/23/20 09:40 LDL Cholesterol, Calc 60 mg/dL (0-99) 12/23/20 09:40 HDL Cholesterol 57 mg/dL (40-60) 12/23/20 09:40 TSH 3.960 mIU/L (0.465-4.680) 12/23/20 09:40 Urine Color Yellow 12/22/20 11:29 Urine Appearance Turbid (Clear) H 12/22/20 11:29 Urine pH 6.5 (5.0-8.0) 12/22/20 11:29 Ur Specific Agency 1.028 (1.001-1.035) 12/22/20 11:29 Urine Protein 1+ (Negative) H 12/22/20 11:29 Urine Glucose (UA) Negative (Negative) 12/22/20 11:29 Urine Ketones 4+ (Negative) H 12/22/20 11:29 Urine Blood Small (Negative) H 12/22/20 11:29 Urine Nitrite Negative (Negative) 12/22/20 11: Urine Bilirubin Negative (Negative) 12/22/20 11: Urine Urobilinogen <2.0 mg/dL (<2.0) 12/22/20 11:29 Ur Leukocyte Esterase Trace (Negative) H 12/22/20 11:29 Urine RBC 33 /hpf (0-5) H 12/22/20 11:29 Urine WBC 9 /hpf (0-5) H 12/22/20 11:29 Ur Squamous Epith Cells 9 /hpf (0-4) H 12/22/20 11:29 Urine Bacteria Rare /hpf (None) H 12/22/20 11:29 Urine Mucus Many /hpf (None) H 12/22/20 11:29 Urine HCG, Qual Not Detected (Not Detectd) 12/22/20 11:29 Urine Opiates Screen Not Detected (NotDetected) 12/22/20 11:29 Ur Oxycodone Screen Not Detected (NotDetected) 12/22/20 11:29 Urine Methadone Screen Not Detected (NotDetected) 12/22/20 11:29 Ur Propoxyphene Screen Not Detected (NotDetected) 12/22/20 11:29 Ur Barbiturates Screen Not Detected (NotDetected) 12/22/20 11:29 U Tricyclic Antidepress Detected (NotDetected) H 12/22/20 11:29 Ur Phencyclidine Scrn Not Detected (NotDetected) 12/22/20 11:29 Ur Amphetamines Screen Not Detected (NotDetected) 12/22/20 11:29 U Methamphetamines Scrn Not Detected (NotDetected) 12/22/20 11:29 U Benzodiazepines Scrn Not Detected (NotDetected) 12/22/20 11:29 Urine Cocaine Screen Not Detected (NotDetected) 12/22/20 11:29 U Marijuana (THC) Screen Not Detected (NotDetected) 12/22/20 11:29 Coronavirus (PCR) Not Detected (Not Detectd) 12/22/20 11:29 12/23/20 16:20 CC: Patient stated that she is really depressed and has suicidal thoughts. She does not feel like doing anything and does not find [place] in anything at all. History of present illness: She stated she feels depressed and anxious since 2013. She stated she usually has a psychosis. She stated that she has a history of seeing things and hearing voices that are not there. She stated she also has mood swings at times and goes from irritability depression to euphoria. Past history: She stated she has been in psychiatric hospital for 3 times since 2013. She is under treatment at the [facility] mental [facility] outpatient. She has been in treatment for 1 year now. Family history: She stated that her mother and sister have depression. She stat ed nobody in the family has attempted to suicide. She stated her mother drinks alcohol. She stated that her sister also drinks alcohol occasionally. She stated that alcohol is a quite heavy in her family. Medical history: She stated that she can usually walk with the help of a walker but has been given these care in the hospital. She stated she has a history of cerebral palsy, depression and psychosis. Social history: She stated she has a 2 years of college degree. 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 She stated she was working since 2008 and has quit her job. Medication history: Seroquel, Abilify,Keppra Substance abuse history: She denies any history of abusing alcohol or drugs. History of suicide and homicide: She never attempted suicide but just talked about it. She denies any history of assaulting others. Legal history: She denies any history of legal problems. ALLERGIES: Morphine Lamictal Mental status examination: This patient is alert and oriented to time place and person. she was laying in the bed had appearance is disheveled. Her behavior is cooperative and she was talking in a low monotonous voice. Her mood and affect is depressed and rather her affect is flat. She complains of auditory hallucinations but does not know the content of her voices. She denies history of any paranoia. She speaks in a low monotonous voice which is barely audible. She was able to do similarities and differences between the common objects she was able to interpret commonly used proverbs. Her judgment is poor and her impulse control is poor as well. Her cognitive functions including memory for immediate and remote memory is intact. Diagnostic impression: Major depression recurrent with psychotic features History of seizure disorder History of cerebral palsy Treatment plan: She will be maintained on her medications. She will be encouraged to participate in unit activities. She will be monitored in the milieu and will be helped because of walking problems.
[2020-12-23] MEDS: QUEtiapine 50 MG TAB PO SCH (21:06)
[2020-12-23 22:04] LABS: Hemoglobin A1C 5.3 % (4.0-6.0)
--- NOTE | 2020-12-23 22:28 | P.CONS ---
History of Present Illness - Reason for Consult Consult date: 12/23/20 Medical management Requesting physician: Berlin Grajeda - Chief Complaint Depressed - History of Present Illness Consultation: This is a 30-year-old patient who follows Dr. Zainab Rivera. Has a known history of cerebral palsy. Does use a walker. Also seizure disorder for which she takes Keppra. She been brought in because patient been having increasing depression and suicidal ideation. Appetite has been okay. No bowel or urinary symptoms. Denies respiratory symptoms. No fever no chills. No cough. Presented to the ER. She did eat earlier today. Patient somewhat of a limited historian Review of systems: GEN.: None EYES: None HEENT: None NECK: None RESPIRATORY: None CARDIOVASCULAR: None GASTROINTESTINAL: None GENITOURINARY: None MUSCULOSKELETAL: None LYMPHATICS: None HEMATOLOGICAL: None PSYCHIATRY: Depressed NEUROLOGICAL: None Past medical history to include: Cerebral palsy, use a walker, seizure disorder, anxiety depression Social history: No history of smoking or alcohol. Family history: Reviewed, noncontributory to presentation Physical examination: VITAL SIGNS: 98.1, 120, 18, 144/91, 96% room air GENERAL: BMI 32.9, laying in bed, comfortable a bit depressed appearing. EYES: Pupils equal. Conjunctiva normal. HEENT: External appearance of nose and ears normal, oral cavity grossly normal. NECK: JVD not raised; masses not palpable. HEART: First and second heart sounds are normal; no edema. LUNGS: Respiratory rate normal; clear to auscultation. ABDOMEN: Soft, nontender, liver spleen not palpable, no masses palpable. PSYCH: Answering simple questions. Mood affect withdrawnl. NEUROLOGICAL: Cranial nerves grossly intact; no facial asymmetry, power and sensation grossly intact. LYMPHATICS: No lymph nodes palpable in the axilla and neck INVESTIGATIONS, reviewed in the clinical context: WBC 9.3 hemoglobin 12.8 platelets 339 potassium 3.6 creatinine 0.64 UA-contaminated sample Urine drug screen-positive for tricyclic antidepressants Coronavirus [PCR]-not detected Assessment and plan: -Obesity BMI 32.9. Patient to: Restricted calorie diet when she returns to her place of residence. -Chronic epilepsy. Continue with Keppra -Chronic gait dysfunction does use a walker -Major depression recurrent with psychotic features. Treatment is per psychiatry. Patient should follow with the family doctor upon discharge. Thank you Dr. Grajeda Past Medical History Past Medical History: Seizure Disorder Additional Past Medical History / Comment(s): cerebral palsy History of Any Multi-Drug Resistant Organisms: None Reported Past Surgical History: Orthopedic Surgery Additional Past Surgical History / Comment(s): femurs rotated and achilles tendon lengthened and one yr. later metal hardware/plates were removed. Past Anesthesia/Blood Transfusion Reactions: No Reported Reaction Smoking Status: Never smoker Medications and Allergies Home Medications Medication Instructions Recorded Confirmed Type QUEtiapine [SEROquel] 50 mg PO HS #30 tab 10/24/20 12/22/20 Rx levETIRAcetam [Keppra] 500 mg PO TID 30 Days #90 tab 10/24/20 12/22/20 Rx ARIPiprazole [Abilify Maintena] 400 mg IM Q30D 12/22/20 12/22/20 History Allergies Allergy/AdvReac Type Severity Reaction Status Date / Time morphine Allergy Itching Verified 12/22/20 12:39 Physical Exam Vitals: Vital Signs Temp Pulse Pulse Resp BP BP Pulse Ox 12/23/20 04:49 98.1 F 144 H 144/91 12/22/20 19:01 138/79 12/22/20 17:00 98.9 F 120 H 18 148/109 96 12/22/20 14:56 97.9 F 102 H 18 138/89 95 Intake and Output 12/22/20 12/23/20 12/23/20 22:59 06:59 14:59 Other: Weight 95.254 kg Results CBC & Chem 7: 12/23/20 09:40 12/23/20 09:40 Labs: Abnormal Lab Results - Last 24 Hours (Table) 12/22/20 12/22/20 12/23/20 Range/Units 11:29 11:29 09:40 BUN 18 H (7-17) mg/dL Glucose 114 H (74-99) mg/dL Urine Appearance Turbid H (Clear) Urine Protein 1+ H (Negative) Urine Ketones 4+ H (Negative) Urine Blood Small H (Negative) Ur Leukocyte Esterase Trace H (Negative) Urine RBC 33 H (0-5) /hpf Urine WBC 9 H (0-5) /hpf Ur Squamous Epith Cells 9 H (0-4) /hpf Urine Bacteria Rare H (None) /hpf Urine Mucus Many H (None) /hpf U Tricyclic Antidepress Detected H (NotDetected)
[2020-12-24] MEDS: levETIRAcetam 500 MG TAB PO SCH ×3 (08:45→21:03)
--- NOTE | 2020-12-24 12:34 | P.PN ---
Progress Note - Text Progress Note Date: 12/24/20 Frances George continues to struggle with depression which rather severe. Affect is flattened. She is quiet and withdrawn and isolative. She walks with the help of a walker but her gait is unsteady so she was asked to be in wheelchair. She was asked not to walk with the help of a walker. Her speech is extremely low in volume and monotonous and monosyllable. Her speech is a hardly productive. Patient has a history of cerebral palsy. She does have multiple physical limitations. She continues to have suicidal thoughts. She stayed in her room and mostly in her bed. She continues to stare at the ceiling. Patient will continue to be encouraged to come out of room in wheel chair and participate in the milieu activity. She will be maintained on medication. She has no insight into her problems and her judgment is impaired. She continues to be a high risk for self-harm.
[2020-12-24] MEDS: LORazepam 1 MG TAB PO PRN (13:02)
[2020-12-24] MEDS: QUEtiapine 50 MG TAB PO SCH (21:03)
[2020-12-25] MEDS: levETIRAcetam 500 MG TAB PO SCH ×3 (08:19→20:32)
[2020-12-25] MEDS ORDERED: ESCITALOPRAM 10 MG TAB PO STA (09:57)
--- NOTE | 2020-12-25 11:58 | P.PN ---
Progress Note - Text Progress Note Date: 12/25/20 Interval History: Patient was seen attending group and was directable and agreeable to speak with adjusto writer operator in the office. The patient reports that she has been feeling increasingly depressed since she was last discharge. Furthermore, the patient was discharged with a prescription for Lexapro which she states that she has not been taking. The patient was also scheduled for her Abilify maintena to be administered on 12/22/2020 but did not get her dose due to concerns that she was exposed to COVID. She is currently not reporting any suicidal or homicidal ideation, intention, and/or plan. She is denying any auditory or visual hallucinations. She is denying any paranoia or other delusions. She reports sleep has been difficult. She reports low appetite. She is otherwise been adherent to the medication is not reporting any significant side effects at this time. Mental Status Exam: General Appearance: Patient appears to be stated age is alert, directable, and cooperative. Patient ambulates via wheelchair. She is also been noted to ambulate without a wheelchair and with a walker. Behavior: Patient is calmly seated without any agitated behavior. Psychomotor activity appears slow. Eye contact is poor. Speech: Patient's speech is fluent and nonpressured. Monotone and nonspontaneous. Mood/Affect: Mood is described as depressed, affect is congruent and blunted. Suicidality/Homicidality: Patient denies having any suicidal or homicidal ideation intent or plan. Perceptions: Patient denies any visual hallucinations and denies any auditory hallucinations Though content/process: There is no evidence of any delusional thought content and thought process is linear and goal-directed. Memory and concentration: AOX3, grossly intact for the purposes of this session Judgment and insight: Improving mildly Assessment Major depressive disorder Seizure disorder Cerebral palsy Development mental disability Plan: -Patient continues to meet criteria for inpatient psychiatric admission for symptom stabilization and safety. Patient has signed adult voluntary form and medication consent and was placed in patient's chart. -Medications: Restart Lexapro 10 mg by mouth daily for depression/anxiety Start Remeron 7.5 mg by mouth at bedtime for insomnia/depression/appetite stimulation We will administer Abilify maintena 400 mg IM tomorrow Stop Seroquel 50 mg by mouth at bedtime. -When necessary Ativan and Haldol for agitation/aggression. -SW on board for discharge planning. Encouraged the patient to participate in milieu.
[2020-12-25] MEDS ORDERED: MIRTAZAPINE 15 MG TAB PO SCH (21:00)
[2020-12-26] MEDS: levETIRAcetam 500 MG TAB PO SCH ×3 (08:34→22:12)
[2020-12-26] MEDS ORDERED: ESCITALOPRAM 10 MG TAB PO SCH (09:00)
--- NOTE | 2020-12-26 11:29 | P.PN ---
Progress Note - Text Progress Note Date: 12/26/20 Interval History: Patient was seen attending group and was directable and agreeable to speak with film writer in her room. Patient reports that she is feeling depressed. She states that she feels like she is unable to do anything. Despite this, the patient has been more active and ambulating without her wheelchair and using a walker. She is also been able to address her ADLs and her personal hygiene. The patient states that she has been feeling depressed and endorses mild suicidal ideation. She denies any intention or plan at this time. She denies any homicidal ideation, intention, and/or plan. She is not reporting any auditory or visual hallucinations. She denies any paranoia or other delusions. She has been adherent with her medications and reports slightly increased appetite but no other significant side effects at this time. Mental Status Exam: General Appearance: Patient appears to be stated age is alert, directable, and cooperative. Patient relates with a walker. Hygiene and grooming appear good. Behavior: Patient is calmly seated without any agitated behavior. Psychomotor activity appears slow. Eye contact is intermittent. Speech: Patient's speech is fluent and nonpressured. Monotone and nonspontaneous. Mood/Affect: Mood is described as depressed, affect is congruent and blunted. Suicidality/Homicidality: Patient denies having any suicidal or homicidal ideation intent or plan. Perceptions: Patient denies any visual hallucinations and denies any auditory hallucinations Though content/process: There is no evidence of any delusional thought content and thought process is linear and goal-directed. Memory and concentration: AOX3, grossly intact for the purposes of this session Judgment and insight: Improving mildly Assessment Major depressive disorder Seizure disorder Cerebral palsy Development mental disability Plan: -Patient continues to meet criteria for inpatient psychiatric admission for symptom stabilization and safety. Patient has signed adult voluntary form and medication consent and was placed in patient's chart. -This provider will reattempt to contact the patient's mother. -Medications: Increase Lexapro to 20 mg by mouth daily for depression/anxiety Increase Remeron to 15 mg by mouth at bedtime for insomnia/depression/appetite stimulation Abilify Maintena 400 mg IM was given on 12/22/2020. -When necessary Ativan and Haldol for agitation/aggression. -SW on board for discharge planning. Encouraged the patient to participate in milieu.
[2020-12-26 15:11] VITALS: BMI 30.8
[2020-12-26] MEDS ORDERED: MIRTAZAPINE 15 MG TAB PO SCH (21:00)
[2020-12-27] MEDS: ESCITALOPRAM 20 MG TAB PO SCH (10:00)
[2020-12-27] MEDS: levETIRAcetam 500 MG TAB PO SCH ×3 (10:00→21:29)
--- NOTE | 2020-12-27 10:29 | P.PN ---
Progress Note - Text Progress Note Date: 12/27/20 Interval History: Patient was seen attending group and was directable and agreeable to speak with journalists and other writers in her room. The patient continues to endorse significant depression. She is requesting that she goes home, but despite this she states that her depression is bad and that she has been expressing suicidal ideation. She denies any intention or plan at this time. Furthermore, the patient continues to report low appetite and difficulty swallowing her meals. She is not reporting any homicidal ideation, intention, and/or plan. She denied any paranoia or delusions. She is not reporting any auditory or visual hallucinations. She has been adherent with her medications not been any significant side effects at this time. The patient is agreeable to increasing her dose of Remeron to help address her lack of appetite. Mental Status Exam: General Appearance: Patient appears to be stated age is alert, directable, and cooperative. Hygiene and grooming appear good. Patient is lying in bed comfortably. Behavior: Patient is calmly seated without any agitated behavior. Psychomotor activity appears slow. Eye contact is poor. Speech: Patient's speech is fluent and nonpressured. Monotone and nonspontaneous. Mood/Affect: Mood is described as depressed, affect is congruent and blunted. Suicidality/Homicidality: Patient denies having any suicidal or homicidal ideation intent or plan. Perceptions: Patient denies any visual hallucinations and denies any auditory hallucinations Though content/process: There is no evidence of any delusional thought content and thought process is linear and goal-directed. Some somatic symptoms are endorsed. Memory and concentration: AOX3, grossly intact for the purposes of this session Judgment and insight: Improving mildly Assessment Major depressive disorder Seizure disorder Cerebral palsy Development mental disability Plan: -Patient continues to meet criteria for inpatient psychiatric admission for symptom stabilization and safety. Patient has signed adult voluntary form and medication consent and was placed in patient's chart. -This provider will reattempt to contact the patient's mother. -Medications: Continue Lexapro 20 mg by mouth daily for depression/anxiety Increase Remeron to 30 mg by mouth at bedtime for insomnia/depression/appetite stimulation Abilify Maintena 400 mg IM was given on 12/22/2020. -When necessary Ativan and Haldol for agitation/aggression. -SW on board for discharge planning. Encouraged the patient to participate in milieu.
[2020-12-27] MEDS: LORazepam 1 MG TAB PO PRN (15:32)
[2020-12-27] MEDS: ACETAMINOPHEN TAB 325 MG TAB PO PRN (15:32)
[2020-12-27] MEDS ORDERED: CYCLOBENZAPRINE 5 MG TAB PO PRN (18:03)
[2020-12-27] MEDS: BENZTROPINE MESYLATE 1 MG TAB PO SCH (21:29)
[2020-12-27] MEDS: MIRTAZAPINE 15 MG TAB PO SCH (21:29)
[2020-12-28] MEDS: ESCITALOPRAM 20 MG TAB PO SCH (09:42)
[2020-12-28] MEDS: levETIRAcetam 500 MG TAB PO SCH (09:42)
[2020-12-28] MEDS: BENZTROPINE MESYLATE 1 MG TAB PO SCH ×2 (09:42→21:48)
--- NOTE | 2020-12-28 11:55 | P.PN ---
Progress Note - Text Progress Note Date: 12/28/20 Interval History: Patient was seen attending group and was directable and agreeable to speak with the fiction writer in her room. The patient is reporting she is feeling better and is requesting to go home. She is currently not endorsing any suicidal or homicidal ideation, intention, or plan. She is not reporting any auditory or visual hallucinations. She is denying any paranoia or delusions. The patient continues to endorse low appetite. She denies any issues with sleep. Staff and patient note her movements have improved. She did have a fall this morning but states no serious harm happened. Mental Status Exam: General Appearance: Patient appears to be stated age is alert, directable, and cooperative. Hygiene and grooming appear good. Patient is ambulating with a wheelchair. Behavior: Patient is calmly seated without any agitated behavior. Psychomotor activity appears slow at baseline. Eye contact is good. Speech: Patient's speech is fluent and nonpressured. Monotone and nonspontaneous. Mood/Affect: Mood is described as depressed, affect is congruent and blunted. Suicidality/Homicidality: Patient denies having any suicidal or homicidal ideation intent or plan. Perceptions: Patient denies any visual hallucinations and denies any auditory hallucinations Though content/process: There is no evidence of any delusional thought content and thought process is linear and goal-directed. Memory and concentration: AOX3, grossly intact for the purposes of this session Judgment and insight: Improving mildly Assessment Major depressive disorder Seizure disorder Cerebral palsy Development mental disability Plan: -Patient continues to meet criteria for inpatient psychiatric admission for symptom stabilization and safety. Patient has signed adult voluntary form and medication consent and was placed in patient's chart. -This provider will reattempt to contact the patient's mother. -Medications: Continue Lexapro 20 mg by mouth daily for depression/anxiety Continue Remeron 30 mg by mouth at bedtime for insomnia/depression/appetite stimulation Discontinue Keppra due to concern for anorexia. Start Depakote 500 mg by mouth twice daily for seizure disorder. Abilify Maintena 400 mg IM was given on 12/22/2020. -When necessary Ativan and Haldol for agitation/aggression. -SW on board for discharge planning. Encouraged the patient to participate in milieu.
[2020-12-28 12:21] LABS: ALT 22 U/L (4-34); AST 49 U/L (14-36); African American GFR (CKD) >90 (>60 ml/min/1.73 sqM); Albumin 4.6 g/dL (3.5-5.0); Alkaline Phosphatase 91 U/L (38-126); Anion Gap 10 mmol/L; Blood Urea Nitrogen 23 mg/dL (7-17); Calcium 9.8 mg/dL (8.4-10.2); Carbon Dioxide 29 mmol/L (22-30); Chloride 103 mmol/L (98-107); Glucose 100 mg/dL (74-99); Non-African American GFR(CKD) >90 (>60 ml/min/1.73 sqM); Potassium 3.8 mmol/L (3.5-5.1); Sodium 142 mmol/L (137-145); Total Bilirubin 0.9 mg/dL (0.2-1.3); Total Protein 7.4 g/dL (6.3-8.2)
[2020-12-28] MEDS ORDERED: levETIRAcetam 500 MG TAB PO SCH (21:00)
[2020-12-28] MEDS: MIRTAZAPINE 15 MG TAB PO SCH (21:47)
[2020-12-28] MEDS: DIVALPROEX 500 MG TABLET.DR PO SCH (21:47)
[2020-12-29 03:53] LABS: Folate, Serum 12.5 ng/mL
[2020-12-29] MEDS: DIVALPROEX 500 MG TABLET.DR PO SCH ×2 (08:48→20:59)
[2020-12-29] MEDS: ESCITALOPRAM 20 MG TAB PO SCH (08:48)
[2020-12-29] MEDS: BENZTROPINE MESYLATE 1 MG TAB PO SCH ×2 (08:48→20:59)
--- NOTE | 2020-12-29 11:33 | P.PN ---
Progress Note - Text Progress Note Date: 12/29/20 Clinical Problems: Depressive disorder, rule out major depressive disorder, rule out medication induced depressive disorder, rule out parkinsonism secondary to antipsychotic medications, seizure disorder, cerebral palsy, developmental disability Interim history: I reviewed the medical record, interviewed the patient and discussed her treatment and treatment plan during team meeting. She is a 30-year-old single female known to this rewriter from prior admissions. 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 Her mother brought her to the [facility] concerns that she had been expressing suicidal ideation. She told the [facility] nurse that she is a burden to her family and they would be better off if she were gone. Mother reported that she has never seen her daughter distressed depressed. During our interview she spoke little. She had difficulty concentrating and attending to the interview. She she expresses feelings depression and vague thoughts of suicide without plan. Nursing staff reported that she is unsteady on her feet and is having difficulties performing ADLs. She is not currently taking the antipsychotic and, according to record, she is past due for her monthly injection of Abilify. During team meeting we discussed referred her to a specialized neuro psychiatric facility. Mental status exam: She presented as a disheveled 30-year-old occasion female who was sitting in a wheelchair. She did not make eye contact. She was able to focus on my finger and showed no abnormality in horizontal or vertical eye movements. She had masked faces, marked psychomotor slowing and increased muscle tone in her wrist, elbows and shoulder. Her gait was slow and unsteady. Her speech was slow, soft and at times difficult to understand. She had marked paucity of speech. Her affect was flat and unreactive. She express suicidal ideation and wishes. She expressed feelings of hopelessness, helplessness and worthlessness. She has vague paranoid ideation regarding her father wishing to harm her and her family. She did not express ideas reference or clear delusional thoughts. Her thinking was very concrete. She had poverty of thought content poverty of content. She denied hallucinations and did not appear to be responding to internal stimuli. Assessment: She has marked psychomotor slowing, depressive cognitions with suicidal ideation and signs and symptoms of parkinsonism. Differential diagnosis includes a major mood disorder as well as adverse effects to her psychotropic medications. Plan: Continue inpatient treatment. Safety precautions. Continue use of the walker and/or wheelchair to assist with ambulation. Hold antipsychotic medications. Increase Cogentin 1 mg twice a day. Continue current dose of Lexapro and mirtazapine. Flexeril 5 mg by mouth every 6 hours when necessary for muscle contractures spasms. Continue Depakote 500 mg twice a day for the treatment of her chronic seizure disorder. conversion worker to discuss transfer to a specialized unit with her mother. Encouraged continued participation in therapeutic groups and activities. Evaluate clinical status response to treatment daily basis.
[2020-12-29] MEDS: MIRTAZAPINE 15 MG TAB PO SCH (20:59)
[2020-12-30] MEDS: DIVALPROEX 500 MG TABLET.DR PO SCH ×2 (08:51→21:21)
[2020-12-30] MEDS: ESCITALOPRAM 20 MG TAB PO SCH (08:51)
[2020-12-30] MEDS: BENZTROPINE MESYLATE 1 MG TAB PO SCH ×2 (08:51→21:21)
--- NOTE | 2020-12-30 14:30 | P.PN ---
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 She complained of feeling depressed, hopeless and helpless. She has no energy and was not able to participate in therapeutic activities. She has difficulty with concentration and attention. She told nursing that she believes that her physical condition is getting worse. She was not able to get herself out of bed yesterday and was incontinent. She could not use the walker to go to the bathroom. Mental status exam: She presented as a moderately obese disheveled appearing 30-year-old female who was sitting complained wheelchair. She had marked psychomotor slowing and a flat facial expression. She continued to have bilateral muscle stiffness but without cogwheeling Her speech was not sp ontaneous and had decreased rate and volume. She did not express suicidal ideation or wishes but described persistent hopelessness, helplessness and worthlessness. She did not express paranoid ideation or delusional thoughts. Thinking was concrete and slowed. She had poverty of thought and content of thought. She denied hallucinations did not appear to be responding to internal stimuli. Assessment: She has marked declined and her self-care and mobility. She appears markedly depressed, lethargic and sedated. Primary concern that her condition is related to her medications and she may still be withdrawing from the effects of Abilify. She also may be experiencing sedation and declining functional impairment from Depakote. Plan: Continue inpatient treatment. Safety precautions. Continue Cogentin 1 mg twice a day, Lexapro 20 mg daily and Remeron 30 mg at bedtime. Continue Depakote 5 mg twice a day but consider an alternative antiseizure medication. Encourage participation in therapeutic groups and activities. Evaluate clinical status response to treatment daily basis.
[2020-12-30] MEDS: MIRTAZAPINE 15 MG TAB PO SCH (21:21)
[2020-12-31 06:44] VITALS: BP 144/98; PULSE 107; RESP 20; TEMP 97.8
[2020-12-31] MEDS: ESCITALOPRAM 20 MG TAB PO SCH (09:06)
[2020-12-31] MEDS: DIVALPROEX 500 MG TABLET.DR PO SCH ×2 (09:06→21:16)
[2020-12-31] MEDS: BENZTROPINE MESYLATE 1 MG TAB PO SCH ×2 (09:06→21:16)
--- NOTE | 2020-12-31 15:10 | P.PN ---
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 She is feeling better today. She reports that her affect has improved, she is smiling and she has demonstrated improved self care. However, she complains of continued problems with concentration and attention where she is unable to maintain sustained focus to read. She began attending therapeutic groups and activities yesterday. Therapy staff note that her psychomotor activity as improved but her focus remains poor. She slept 6 hours last night. Mental status exam: She presented as a moderately obese disheveled appearing 30-year-old female who is now walking with the assistance of a wheeled walker. She continues to have psychomotor slowing. She has a blunted but bright facial expression. There is less resistance with passive movements of her wrist, elbow and shoulder. She has a slight hand tremor is worse on the right and left. Her speech was not spontaneous and had decreased rate and volume. She did not express suicidal ideation or wishes and denied persistent hopelessness, helplessness and worthlessness. She did not express paranoid ideation or delusional thoughts. Thinking was concrete and slowed. She had poverty of thought and content of thought. She denied hallucinations did not appear to be responding to internal stimuli. Assessment: Her self-care, ability to to ambulate independently and engagement in activities has improved. She is showing decrease muscle stiffness to passive movement. I suspect that she developed a parkinsonism from the long-acting Abilify that is improved since admission. Given her history of psychosis and paranoia she will probably need treatment with an antipsychotic but at lower doses. Plan: Continue inpatient treatment. Safety precautions. Continue Cogentin 1 mg twice a day, Lexapro 20 mg daily and Remeron 30 mg at bedtime. Continue Depakote 500 mg twice a day but consider an alternative antiseizure medication. Encourage participation in therapeutic groups and activities. Evaluate clinical status response to treatment daily basis.
[2020-12-31] MEDS: MIRTAZAPINE 15 MG TAB PO SCH (21:15)
[2021-01-01] MEDS: ESCITALOPRAM 20 MG TAB PO SCH (08:37)
[2021-01-01] MEDS: DIVALPROEX 500 MG TABLET.DR PO SCH (08:37)
[2021-01-01] MEDS: BENZTROPINE MESYLATE 1 MG TAB PO SCH (08:37)
--- NOTE | 2021-01-01 10:13 | P.DS ---
Providers Date of admission: 12/22/20 15:28 Expected date of discharge: 01/01/21 Attending physician: Sunny Winslow MD Consults: 12/22/20 15:37 Consult Physician Routine Consulting Provider: Venancio Lora Consult Reason/Comments: medical management Do you want consulting provider notified?: Yes Primary care physician: Maximilian Rivera - Discharge Diagnosis(es) (1) Major depressive disorder Current Visit: Yes Status: Acute Priority: High (2) Cerebral palsy Current Visit: Yes Status: Chronic Priority: Medium (3) Developmental disability Current Visit: Yes Status: Chronic Priority: Medium (4) Seizure disorder Current Visit: No Status: Chronic Priority: Medium Hospital Course: Admission HPI: Initial psychiatric evaluation was completed by Dr. Gonzalez on 12/23/20 who wrote: "Patient stated that she is really depressed and has suicidal thoughts. She does not feel like doing anything and does not find [place] in anything at all. History of present illness: She stated she feels depressed and anxious since 2013. She stated she usually has a psychosis. She stated that she has a history of seeing things and hearing voices that are not there. She stated she also has mood swings at times and goes from irritability depression to euphoria. Past history: She stated she has been in psychiatric hospital for 3 times since 2013. She is under treatment at the [facility] mental health outpatient. She has been in treatment for 1 year now. Family history: She stated that her mother and sister have depression. She stated nobody in the family has attempted to suicide. She stated her mother drinks alcohol. She stated that her sister also drinks alcohol occasionally. She stated that alcohol is a quite heavy in her family. Medical history: She stated that she can usually walk with the help of a walker but has been given these care in the hospital. She stated she has a history of cerebral palsy, depression and psychosis. Social history: She stated she has a 2 years of college degree. 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 She stated she was working since 2008 and has quit her job." Hospital course: Upon admission to the unit patient was initially was significant symptoms of depression including psychomotor slowing, anorexia, and suicidal ideation. Patient was however directable and agreeable to commence treatment. The patient was restarted on her Abilify maintena on 12/22/2020 and was administered 400 mg IM. Upon evaluation by this provider, the patient was also started on Remeron for management of depression and anorexia. Furthermore, the patient's Seroquel was discontinued due to concern for EPS symptoms and pseudoparkinsonism secondary to antipsychotic medications. The patient's Remeron was gradually titrated and the patient was continued on her home dose of Lexapro. Furthermore, the patient was switched from Keppra for seizure disorder to Depakote after significant discussion over the risks, benefits, and alternatives treatments for the management of her seizure disorder. Keppra has a significant side effect of anorexia and therefore was discontinued. The patient denied any plans to get and was agreeable to starting Depakote. Over the course of hospitalization, the patient gradually improved and regards to her mood, suicidal thoughts, appetite, and sleep. She tolerated her medications well. She was also started on Cogentin 1 mg by mouth twice a day for management of EPS symptoms. On the day of discharge, the patient is not reporting any suicidal or homicidal ideation, intention, and/or plan. She displays and increased ability to care for self was improved hygiene and grooming. She is not reporting any auditory or visual hallucinations. She denies any active firearms or other weapons. She reports no paranoia or other delusions. The patient was counseled on her medications and need for regular compliance was encouraged to follow-up with her outpatient appointments for mental health and for primary care. Her to discharge, family meeting will be arranged by home health care social worker to answer any questions to ensure safety. Mental status exam: General Appearance: Patient appears to be stated age is alert, pleasant, and cooperative. Patient presents with good hygiene and grooming and is ambulating with the assistance of a walker. Patient is in no acute distress. Behavior: Patient is calmly seated without any agitated behavior. Speech: Patient's speech is fluent and nonpressured. Monotone but spontaneous. Mood/Affect: Patient reports their mood is "much better", affect is congruent and constricted at baseline. Suicidality/Homicidality: Patient denies having any suicidal or homicidal ideation intent or plan. Perceptions: Patient denies any auditory or visual hallucinations. Though content/process: There is no evidence of any delusional thought content and thought process is linear and goal-directed. Future oriented. Memory and concentration: AOX3, grossly intact for the purposes of this session. Can spell "WORLD" backwards correctly. Judgment and insight: Improved with guarded prognosis Impression: Major depressive disorder Seizure disorder Cerebral palsy Development disability Plan: -Continue with discharge today as patient has improved and stabilized psychiatrically and is not currently an imminent threat to herself and/or others. Patient will remain at chronically elevated risk for harm to self and/or others due to her disability and treatment resistant depression -Continue medications: Lexapro 20 mg daily for depressionanxiety Cogentin 1 mg by mouth twice a day for EPS symptoms Depakote 500 mg by mouth twice a day for seizure disorder - Recommend Depakote level in the outpatient setting to monitor for therapeutic dose and toxicity. Remeron 30 mg daily at bedtime for depression/insomnia/appetite stimulation Abilify maintena 400 mg IM every 30 days - Consider decreasing to 300 mg IM due to concern for pseudoparkinsonism and other EPS symptoms. -Patient was counseled on the need for medication compliance and appropriate follow-up at mental health and also primary care for medical issues. Patient verbalized understanding and agreed. -Social work to arrange for and conduct family meeting to ensure safety upon discharge and answer any questions/concerns. Social work also to arrange for [facility] follow up appointments with [facility] for psychiatric care along with follow up with primary care provider. -Patient counseled on abstaining from recreational drugs and marijuana and alcohol. Was informed/educated on the adverse effects on their physical and mental health. Patient verbally agreed and understood. -Patient was instructed to return to the hospital or seek immediate medical care if their psychiatric or medical symptoms do worsen or reoccur. -Psychoeducation and supportive therapy provided to patient. Risks and benefits of pharmacological treatment versus the risks and benefits of nontreatment weight and discussed. Informed consent discussion held. Common side effects of psychotropics discussed such as, but not limited to headache, GI disturbance, sexual dysfunction, movement disorders, sedation, and orthostatic hypotension. Life threatening and blackbox warnings of prescribed medications also discussed. Potential risks of operating a vehicle or heavy machinery discussed with patient at length. Advised on importance of compliance and a reliable and responsible manner. Patient advised to review FDA consumer labeling of all medications prior to taking. Patient verbalized understanding of potential risks, and agrees with current treatment plan. Patient advised to medically contact physician/emergency personnel if any acute changes in condition occur. Vital Signs Temp 97.8 F 03/21/21 06:42 Pulse 107 H 12/31/20 06:42 Resp 20 12/31/20 06:42 BP 144/98 12/31/20 06:42 Pulse Ox 93 L 12/29/20 07:05 Laboratory Results WBC 9.3 k/uL (3.8-10.6) 12/23/20 09:40 RBC 4.82 m/uL (3.80-5.40) 12/23/20 09:40 Hgb 12.8 gm/dL (11.4-16.0) 12/23/20 09:40 Hct 40.7 % (34.0-46.0) 12/23/20 09:40 MCV 84.3 fL (80.0-100.0) 12/23/20 09:40 MCH 26.5 pg (25.0-35.0) 12/23/20 09:40 MCHC 31.4 g/dL (31.0-37.0) 12/23/20 09:40 RDW 14.5 % (11.5-15.5) 12/23/20 09:40 Plt Count 339 k/uL (150-450) 12/23/20 09:40 MPV 7.0 12/23/20 09:40 Neutrophils % 83 % 12/23/20 09:40 Lymphocytes % 11 % 12/23/20 09:40 Monocytes % 4 % 12/23/20 09:40 Eosinophils % 1 % 12/23/20 09:40 Basophils % 0 % 12/23/20 09:40 Neutrophils # 7.7 k/uL (1.3-7.7) 12/23/20 09:40 Lymphocytes # 1.0 k/uL (1.0-4.8) 12/23/20 09:40 Monocytes # 0.4 k/uL (0-1.0) 12/23/20 09:40 Eosinophils # 0.1 k/uL (0-0.7) 12/23/20 09:40 Basophils # 0.0 k/uL (0-0.2) 12/23/20 09:40 Sodium 142 mmol/L (137-145) 12/28/20 11:40 Potassium 3.8 mmol/L (3.5-5.1) 12/28/20 11:40 Chloride 103 mmol/L (98-107) 12/28/20 11:40 Carbon Dioxide 29 mmol/L (22-30) 12/28/20 11:40 Anion Gap 10 mmol/L 12/28/20 11:40 BUN 23 mg/dL (7-17) H 12/28/20 11:40 Creatinine 0.62 mg/dL (0.52-1.04) 12/28/20 11:40 Est GFR (CKD-EPI)AfAm >90 (>60 ml/min/1.73 sqM) 12/28/20 11:40 Est GFR (CKD-EPI)NonAf >90 (>60 ml/min/1.73 sqM) 12/28/20 11:40 Glucose 100 mg/dL (74-99) H 12/28/20 11:[address] Glu mg/dL 105 12/23/20 09:40 Hemoglobin A1c 5.3 % (4.0-6.0) 12/23/20 09:40 Calcium 9.8 mg/dL (8.4-10.2) 12/28/20 11:40 Magnesium 2.0 mg/dL (1.6-2.3) 12/27/20 16:24 Total Bilirubin 0.9 mg/dL (0.2-1.3) 12/28/20 11:40 AST 49 U/L (14-36) H 12/28/20 11:40 ALT 22 U/L (4-34) 12/28/20 11:40 Alkaline Phosphatase 91 U/L (38-126) 12/28/20 11:40 Total Protein 7.4 g/dL (6.3-8.2) 12/28/20 11:40 Albumin 4.6 g/dL (3.5-5.0) 12/28/20 11:40 Triglycerides 45 mg/dL (<150) 12/23/20 09:40 Cholesterol 126 mg/dL (<200) 12/23/20 09:40 LDL Cholesterol, Calc 60 mg/dL (0-99) 12/23/20 09:40 HDL Cholesterol 57 mg/dL (40-60) 12/23/20 09:40 Vitamin B12 421.0 pg/mL (200.0-944.0) 12/28/20 11:40 Folate 12.5 ng/mL 12/28/20 11:40 TSH 3.960 mIU/L (0.465-4.680) 12/23/20 09:40 Urine Color Yellow 12/22/20 11:29 Urine Appearance Turbid (Clear) H 12/22/20 11:29 Urine pH 6.5 (5.0-8.0) 12/22/20 11:29 Ur Specific [place] 1.028 (1.001-1.035) 12/22/20 11:29 Urine Protein 1+ (Negative) H 12/22/20 11:29 Urine Glucose (UA) Negative (Negative) 12/22/20 11:29 Urine Ketones 4+ (Negative) H 12/22/20 11:29 Urine Blood Small (Negative) H 12/22/20 11: Urine Nitrite Negative (Negative) 12/22/20 11: Urine Bilirubin Negative (Negative) 12/22/20 11:29 Urine Urobilinogen <2.0 mg/dL (<2.0) 12/22/20 11:29 Ur Leukocyte Esterase Trace (Negative) H 12/22/20 11:29 Urine RBC 33 /hpf (0-5) H 12/22/20 11:29 Urine WBC 9 /hpf (0-5) H 12/22/20 11:29 Ur Squamous Epith Cells 9 /hpf (0-4) H 12/22/20 11:29 Urine Bacteria Rare /hpf (None) H 12/22/20 11:29 Urine Mucus Many /hpf (None) H 12/22/20 11:29 Urine HCG, Qual Not Detected (Not Detectd) 12/22/20 11:29 Urine Opiates Screen Not Detected (NotDetected) 12/22/20 11:29 Ur Oxycodone Screen Not Detected (NotDetected) 12/22/20 11:29 Urine Methadone Screen Not Detected (NotDetected) 12/22/20 11:29 Ur Propoxyphene Screen Not Detected (NotDetected) 12/22/20 11:29 Ur Barbiturates Screen Not Detected (NotDetected) 12/22/20 11:29 U Tricyclic Antidepress Detected (NotDetected) H 12/22/20 11:29 Ur Phencyclidine Scrn Not Detected (NotDetected) 12/22/20 11:29 Ur Amphetamines Screen Not Detected (NotDetected) 12/22/20 11:29 U Methamphetamines Scrn Not Detected (NotDetected) 12/22/20 11:29 U Benzodiazepines Scrn Not Detected (NotDetected) 12/22/20 11:29 Urine Cocaine Screen Not Detected (NotDetected) 12/22/20 11:29 U Marijuana (THC) Screen Not Detected (NotDetected) 12/22/20 11:29 Coronavirus (PCR) Not Detected (Not Detectd) 12/22/20 11:29 Allergies Allergy/AdvReac Type Severity Reaction Status Date / Time morphine Allergy Itching Verified 12/22/20 12:39 Patient Condition at Discharge: Stable Plan - Discharge Summary New Discharge Prescriptions: New Escitalopram [Lexapro] 20 mg PO DAILY 30 Days tab Benztropine Mesylate [Cogentin] 1 mg PO BID 30 Days tab Divalproex [Depakote] 500 mg PO BID 30 Days tablet. Mirtazapine [Remeron] 30 mg PO HS 30 Days tab Continue ARIPiprazole [Abilify Maintena] 400 mg IM Q30D #1 Discontinued QUEtiapine [SEROquel] 50 mg PO HS #30 tab levETIRAcetam [Keppra] 500 mg PO TID 30 Days #90 tab Discharge Medication List ARIPiprazole [Abilify Maintena] 400 mg IM Q30D #1 01/01/21 [Rx] Benztropine Mesylate [Cogentin] 1 mg PO BID 30 Days tab 01/01/21 [Rx] Divalproex [Depakote] 500 mg PO BID 30 Days tablet. 01/01/21 [Rx] Escitalopram [Lexapro] 20 mg PO DAILY 30 Days tab 01/01/21 [Rx] Mirtazapine [Remeron] 30 mg PO HS 30 Days tab 01/01/21 [Rx] Follow up Appointment(s)/Referral(s): [facility] [Outside] - 12/28/20 1:30 pm (12-28-20 @ 1:30 with HIPOLITO Damico at [facility] office 01-04-21 @ 11:00 with Mikki Salomon at [facility] office) Maximilian Rivera DO [Primary Care Provider] - 1-2 days Patient Instructions/Handouts: Bipolar Disorder (GEN) Activity/Diet/Wound Care/Special Instructions: Activity and diet as tolerated. Avoid the use of street drugs and alcohol. Take all medications as prescribed. When you are in need of refills on your medications please contact your medical provider and/or outpatient psychiatrist to have this done. Please go to scheduled outpatient appointment for aftercare treatment. If symptoms return or become worse, call the crisis line at and/or go to the nearest emergency room for evaluation.
== END 2021-01-01 11:48 | disposition home or self-care (01) | DRG 885 ==
LOC: EC 10:31 → 3MHU 15:28
PROVIDERS: ADMIT Psychiatry & Neurology Psychiatry; ATTEND Psychiatry & Neurology Psychiatry
DX: F33.3 Major depressive disorder, recurrent, severe with psychotic symptoms (principal); R45.851 Suicidal ideations; G40.909 Epilepsy, unspecified, not intractable, without status epilepticus; F41.8 Other specified anxiety disorders; E66.9 Obesity, unspecified; G47.00 Insomnia, unspecified; G80.9 Cerebral palsy, unspecified; R13.10 Dysphagia, unspecified; Z91.81 History of falling; Z20.822 Contact with and (suspected) exposure to COVID-19; Z68.32 Body mass index [BMI] 32.0-32.9, adult; Z79.899 Other long term (current) drug therapy; Z81.8 Family history of other mental and behavioral disorders; R63.0 Anorexia; Z81.1 Family history of alcohol abuse and dependence; R26.9 Unspecified abnormalities of gait and mobility; Z88.5 Allergy status to narcotic agent
CPT/HCPCS: 80053; 80061; 80306; 81001; 81025; 82075; 82607; 82746; 83036; 83735; 84443; 85025; 87635; 99285

== ENCOUNTER 2021-03-27 10:25 | Inpatient (IN) | payer MEDICARE, MEDICAID ==
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
[2021-03-27 12:25] LABS: Amphetamine Screen,Urine Not Detected (NotDetected); Barbiturate Screen,Urine Not Detected (NotDetected); Benzodiazepines Screen,Urine Not Detected (NotDetected); Cocaine Screen,Urine Not Detected (NotDetected); Methadone Screen, Urine Not Detected (NotDetected); Opiate Screen,Urine Not Detected (NotDetected); Oxycodone Screen, Urine Not Detected (NotDetected); Phencyclidine Screen,Urine Not Detected (NotDetected); Tricyclic Antidepressant,Urine Not Detected (NotDetected); Urn Cannabinoid Scrn Not Detected (NotDetected)
[2021-03-27 13:47] LABS: Basophils % (A) 1 %; Eosinophils % (A) 0 %; HCT 38.5 % (34.0-46.0); Lymphocytes # (A) 1.1 k/uL (1.0-4.8); Lymphocytes % (A) 13 %; MCH 28.6 pg (25.0-35.0); MCHC 33.7 g/dL (31.0-37.0); MCV 84.8 fL (80.0-100.0); Mean Platelet Volume 7.1; Monocytes # (A) 0.4 k/uL (0-1.0); Monocytes % (A) 5 %; Neutrophils # (A) 7.2 k/uL (1.3-7.7); Neutrophils % (A) 81 %; Platelet Count 301 k/uL (150-450); RBC 4.55 m/uL (3.80-5.40); RDW 14.2 % (11.5-15.5); WBC 8.9 k/uL (3.8-10.6)
[2021-03-27 14:00] LABS: ALT 17 U/L (4-34); AST 30 U/L (14-36); African American GFR (CKD) >90 (>60 ml/min/1.73 sqM); Albumin 4.1 g/dL (3.5-5.0); Alkaline Phosphatase 79 U/L (38-126); Anion Gap 10 mmol/L; Blood Urea Nitrogen 16 mg/dL (7-17); Calcium 9.5 mg/dL (8.4-10.2); Carbon Dioxide 27 mmol/L (22-30); Chloride 103 mmol/L (98-107); Glucose 97 mg/dL (74-99); Non-African American GFR(CKD) >90 (>60 ml/min/1.73 sqM); Potassium 3.3 mmol/L (3.5-5.1); Sodium 140 mmol/L (137-145); Total Bilirubin 0.4 mg/dL (0.2-1.3); Total Protein 6.8 g/dL (6.3-8.2)
[2021-03-27 14:07] LABS: Valproic Acid (Depakene) 104.1 ug/mL
[2021-03-27] MEDS ORDERED: LORazepam 1 MG TAB PO PRN (17:12)
[2021-03-27] MEDS ORDERED: MAG HYDROX/AL HYDROX/SIMETH 30 ML CUP PO PRN (18:19)
[2021-03-27] MEDS ORDERED: MAGNESIUM HYDROXIDE 2,400 MG/10 ML CUP PO PRN (18:19)
[2021-03-27] MEDS ORDERED: ACETAMINOPHEN TAB 325 MG TAB PO PRN (18:19)
[2021-03-27 21:42] LABS: Hemoglobin A1C 4.9 % (4.0-6.0)
[2021-03-27] MEDS: DIVALPROEX 500 MG TABLET.DR PO SCH (21:49)
[2021-03-27] MEDS: MIRTAZAPINE 15 MG TAB PO SCH (21:49)
[2021-03-28 05:36] LABS: Chol/HDL Ratio 2.88; Cholesterol 150 mg/dL (0-200); LDL Cholesterol,Calculated 87.8 mg/dL (0.0-131.0)
[2021-03-28] MEDS: LEVOTHYROXINE 25 MCG TAB PO SCH (06:28)
[2021-03-28] MEDS: DIVALPROEX 500 MG TABLET.DR PO SCH ×2 (08:36→21:12)
[2021-03-28] MEDS: ESCITALOPRAM 20 MG TAB PO SCH (08:37)
[2021-03-28] MEDS: hydroCHLOROthiazide 25 MG TAB PO SCH (08:37)
--- NOTE | 2021-03-28 15:23 | P.HP ---
Psychiatric H&P - . H&P Date: 03/28/21 History & Physical: Allergies Allergy/AdvReac Type Severity Reaction Status Date / Time lamotrigine From Lamictal Allergy Rash/Hives Verified 03/27/21 11:33 morphine Allergy Itching Verified 03/27/21 11:32 Vital Signs Temp 97.4 F L 03/28/21 08:39 Pulse 129 H 03/28/21 08:39 Resp 20 03/28/21 08:39 BP 136/86 03/28/21 08:39 Pulse Ox 97 03/27/21 16:42 Intake & Output 03/27/21 03/28/21 03/28/21 18:59 06:59 18:59 Weight 95.283 kg Laboratory Last Values WBC 8.9 k/uL (3.8-10.6) 03/27/21 13:24 RBC 4.55 m/uL (3.80-5.40) 03/27/21 13:24 Hgb 13.0 gm/dL (11.4-16.0) 03/27/21 13:24 Hct 38.5 % (34.0-46.0) 03/27/21 13:24 MCV 84.8 fL (80.0-100.0) 03/27/21 13:24 MCH 28.6 pg (25.0-35.0) 03/27/21 13:24 MCHC 33.7 g/dL (31.0-37.0) 03/27/21 13:24 RDW 14.2 % (11.5-15.5) 03/27/21 13:24 Plt Count 301 k/uL (150-450) 03/27/21 13:24 MPV 7.1 03/27/21 13:24 Neutrophils % 81 % 03/27/21 13:24 Lymphocytes % 13 % 03/27/21 13:24 Monocytes % 5 % 03/27/21 13:24 Eosinophils % 0 % 03/27/21 13:24 Basophils % 1 % 03/27/21 13:24 Neutrophils # 7.2 k/uL (1.3-7.7) 03/27/21 13:24 Lymphocytes # 1.1 k/uL (1.0-4.8) 03/27/21 13:24 Monocytes # 0.4 k/uL (0-1.0) 03/27/21 13:24 Eosinophils # 0.0 k/uL (0-0.7) 03/27/21 13:24 Basophils # 0.0 k/uL (0-0.2) 03/27/21 13:24 Sodium 140 mmol/L (137-145) 03/27/21 13:24 Potassium 3.3 mmol/L (3.5-5.1) L 03/27/21 13:24 Chloride 103 mmol/L (98-107) 03/27/21 13:24 Carbon Dioxide 27 mmol/L (22-30) 03/27/21 13:24 Anion Gap 10 mmol/L 03/27/21 13:24 BUN 16 mg/dL (7-17) 03/27/21 13:24 Creatinine 0.59 mg/dL (0.52-1.04) 03/27/21 13:24 Est GFR (CKD-EPI)AfAm >90 (>60 ml/min/1.73 sqM) 03/27/21 13:24 Est GFR (CKD-EPI)NonAf >90 (>60 ml/min/1.73 sqM) 03/27/21 13:24 Glucose 97 mg/dL (74-99) 03/27/21 13:[address] Glu mg/dL 94 03/27/21 13:24 Hemoglobin A1c 4.9 % (4.0-6.0) 03/27/21 13:24 Calcium 9.5 mg/dL (8.4-10.2) 03/27/21 13:24 Total Bilirubin 0.4 mg/dL (0.2-1.3) 03/27/21 13:24 AST 30 U/L (14-36) 03/27/21 13:24 ALT 17 U/L (4-34) 03/27/21 13:24 Alkaline Phosphatase 79 U/L (38-126) 03/27/21 13:24 Total Protein 6.8 g/dL (6.3-8.2) 03/27/21 13:24 Albumin 4.1 g/dL (3.5-5.0) 03/27/21 13:24 Triglycerides 51.0 mg/dL (0.0-149.0) 03/27/21 13:24 Cholesterol 150 mg/dL (0-200) 03/27/21 13:24 LDL Cholesterol, Calc 87.8 mg/dL (0.0-131.0) 03/27/21 13:24 VLDL Cholesterol, Calc 10.20 mg/dL (5.00-40.00) 03/27/21 13:24 HDL Cholesterol 52.0 mg/dL (40.0-60.0) 03/27/21 13:24 Cholesterol/HDL Ratio 2.88 03/27/21 13:24 TSH 5.240 mIU/L (0.465-4.680) H 03/27/21 13:24 Free T4 2.00 ng/dL (0.78-2.19) 03/27/21 13:24 Urine Opiates Screen Not Detected (NotDetected) 03/27/21 12:07 Ur Oxycodone Screen Not Detected (NotDetected) 03/27/21 12:07 Urine Methadone Screen Not Detected (NotDetected) 03/27/21 12:07 Ur Propoxyphene Screen Not Detected (NotDetected) 03/27/21 12:07 Ur Barbiturates Screen Not Detected (NotDetected) 03/27/21 12:07 Valproic Acid 104.1 ug/mL 03/27/21 13:24 U Tricyclic Antidepress Not Detected (NotDetected) 03/27/21 12:07 Ur Phencyclidine Scrn Not Detected (NotDetected) 03/27/21 12:07 Ur Amphetamines Screen Not Detected (NotDetected) 03/27/21 12:07 U Methamphetamines Scrn Not Detected (NotDetected) 03/27/21 12:07 U Benzodiazepines Scrn Not Detected (NotDetected) 03/27/21 12:07 Urine Cocaine Screen Not Detected (NotDetected) 03/27/21 12:07 U Marijuana (THC) Screen Not Detected (NotDetected) 03/27/21 12:07 Coronavirus (PCR) Not Detected (Not Detectd) 03/27/21 12:45 03/28/21 15:15 IDENTIFYING DATA: Patient is a 30-year-old female with a history of cerebral palsy who is currently living with her mother and sister and [id number] and niece in the house. HPI: Patient presented to the hospital with depression and suicidal thoughts. She had cleaned in the ER that she was not feeling safe to go home. She claimed that she had a knife and put it to her wrist and has superficial cuts on it. Patient's mother apparently has stated that patient has been "manic" and not sleeping for the past 3 days. Patient's UDS was negative for any substances. Patient was admitted voluntarily and agreeable to speak to policy writer today. She claims that she has been feeling depressed. Anxiety as well. She states that she has been having poor sleep for the past few days. She claims that she had did have a stressor recently where she believes that her father was doing harmful things to her family and was fairly focused on this during the in [place]. She states that she has been taking her medications at home is denying any issues with it. She claims to have poor energy during the day however has fair appetite. She states that she has been doing mildly better since being in the hospital and feels safer. She is claiming that she still has suicidal thoughts at times however they have been improving since she has been admitted. No intent or plan. Denies any homicidal ideations intent or plan. At this time patient denies any auditory or visual hallucinations. Patient denies any flight of ideas racing thoughts and increased in goal directed behavior. Patient admits to using no recreational drugs PAST PSYCHIATRIC HISTORY: Patient states that she has a history of depression and anxiety. Patient is on Abilify Maintenna 300 mg IM every monthly and also Depakote 500 mg twice a day. Patient is also on Lexapro and Remeron. Patient has been psychiatrically hospitalized several times in the past most recently in December 2020. [facility] patient currently follows up with [facility]. Patient denies any history of suicide attempts in the past. PMH: Seizures and cerebral palsy ALLERGIES: as per EMR CHEMICAL DEPENDENCY HISTORY: as per HPI FAMILY PSYCHIATRIC/SUBSTANCE USE HISTORY: She stated that her mother and sister have depression. She stated nobody in the family has attempted to suicide. She stated her mother drinks alcohol. She stated that her sister also drinks alcohol occasionally. She stated that alcohol is a quite heavy in her family. SOCIAL HISTORY: She stated she has a 2 years of college degree. 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 She stated she was working since 2008 and has quit her job. MENTAL STATUS EXAM: General Appearance: Patient appears to be overweight, wearing glasses, stated a ge is alert, directable, and attempts to cooperate. Patient appears to have poor hygiene and grooming. Behavior: Patient is seated without any agitated behavior. Appears to be depressed Speech: Patient's speech is fluent and nonpressured. Mood/Affect: Patient reports their mood is depressed and anxious, affect is congruent and constricted. Suicidality/Homicidality: Patient denies having any homicidal ideation intent or plan. Admitting to suicidal thoughts however no intent or plan. Perceptions: Patient denies any visual hallucinations and denies any auditory hallucinations Though content/process: There is no evidence of any delusional thought content and thought process is linear and goal-directed. [place] and focused on her stressors. Memory and concentration: AOX3, grossly intact for the purposes of this session. Can spell "WORLD" backwards Judgment and insight: poor STRENGTHS/WEAKNESSES: strength is that patient is resilient. Weakness is that patient has poor judgment and is impulsive INTELLECT: Below average IMPRESSIONS: Major depressive disorder, recurrent, severe Intellectual disability Cerebral palsy Anxiety disorder unspecified PLAN: -Patient is admitted under voluntary status to MHU for stabilization of psychiatric symptoms and safety. Patient has signed adult voluntary form and is placed in patient's chart. -Medications : Will start patient on her home dose of Lexapro 20 mg daily for mood/anxiety, Remeron 30 mg daily at bedtime for insomnia/mood, Depakote 500 mg twice a day for mood stabilization. I added melatonin 5 mg daily at bedtime for insomnia. Patient receives Abilify Maintenna long-acting injection 300 mg every monthly, according to [facility] report, her last dose was given on 03/19 and will be due for her next dose on 04/22 -Ativan and Haldol PRN for agitation/aggression -Patient was informed of the risks, benefits and side effects of the medication and patient verbally consented to taking the medications. Patient signed med consent form and was placed in chart. -Internal Medicine consult to perform medical evaluation and physical. -NRT - not needed as patient does not smoke -SW on board for discharge planning. Encourage patient to participate in groups to work on coping skills.
[2021-03-28] MEDS: MIRTAZAPINE 15 MG TAB PO SCH (21:12)
[2021-03-28] MEDS: MELATONIN 3 MG TABLET PO SCH (21:12)
--- NOTE | 2021-03-28 21:12 | P.MDCNMH ---
History of Present Illness H&P Date: 03/28/21 Chief Complaint: Suicidal ideation. Patient is a 30-year-old female with a known history of cerebral opacity, seizure disorder, anxiety/depression was sent to left wrist ER due to complaints of depression suicidal ideation. Patient has not slept for the past 3 days and try to cut her left wrist with a knife. Otherwise patient denied any complaints of recent illness. No chest pain or shortness of breath. No headache or dizziness or lightheadedness. No fever no chills. No cough or sputum production. Laboratory data showed diabetes 8.9 hemoglobin 13.0 platelets 301 sodium 140 potassium 3.3 chloride 103 BUN 16 creatinine 0.59 TSH 5.24 and free T4 level is 2.0 Review of Systems Constitutional: Patient denies any fever or chills . No generalized weakness or weight loss. Abdomen: Patient denied nausea vomiting and diarrhea and abdominal pain. Cardiovascular: Patient denies any chest pain or short of breath no palpitations. Respiratory: patient denied any cough or sputum production. No shortness of breath Neurologic: Patient denied any numbness or tingling headache. Musculoskeletal: Patient denies any complaints of joint swelling or deformity. Skin: Negative Psychiatric: Negative Endocrine: No heat or cold intolerance. No recent weight gain. Genitourinary: No dysuria or hematuria. All other 14 point ROS negative except the above Past Medical History Past Medical History: Seizure Disorder Additional Past Medical History / Comment(s): cerebral palsy, pt unsure of date of last seizure and states that "it's been a long time." pt also states that she takes medications which have been effective in preventing seizures. History of Any Multi-Drug Resistant Organisms: None Reported Past Surgical History: Orthopedic Surgery Additional Past Surgical History / Comment(s): femurs rotated and achilles tendon lengthened and one yr. later metal hardware/plates were removed. Past Anesthesia/Blood Transfusion Reactions: No Reported Reaction Past Psychological History: Anxiety, Depression Additional Psychological History / Comment(s): Hx. of [facility] Counseling/[facility] Smoking Status: Never smoker Past Alcohol Use History: None Reported Past Drug Use History: None Reported - Past Family History Father Family Medical History: No Reported History Mother Family Medical History: No Reported History Medications and Allergies Home Medications Medication Instructions Recorded Confirmed Type RX: ARIPiprazole [Abiliryan Maintena] 400 mg IM Q30D #1 01/01/21 03/27/21 Rx RX: Divalproex [Depakote] 500 mg PO BID 30 Days tablet. 01/01/21 03/27/21 Rx RX: Escitalopram [Lexapro] 20 mg PO DAILY 30 Days tab 01/01/21 03/27/21 Rx RX: Mirtazapine [Remeron] 30 mg PO HS 30 Days tab 01/01/21 03/27/21 Rx Acetaminophen/Diphenhydramine 2 tab PO ONCE PRN 03/27/21 03/27/21 History [Tylenol PM 500-25mg] Levothyroxine Sodium [Synthroid] 25 mcg PO DAILY 03/27/21 03/27/21 History RX: hydroCHLOROthiazide 25 mg PO DAILY 03/27/21 03/27/21 History [Hydrodiuril] Allergies Allergy/AdvReac Type Severity Reaction Status Date / Time lamotrigine [From Lamictal] Allergy Rash/Hives Verified 03/27/21 11:33 morphine Allergy Itching Verified 03/27/21 11:32 Physical Exam Vitals: Vital Signs Temp Pulse Pulse Resp BP BP Pulse Ox 03/28/21 08:39 97.4 F L 129 H 20 136/86 03/27/21 16:42 98.5 F 102 H 18 128/91 97 PHYSICAL EXAMINATION: Patient is lying in the bed comfortably, no acute distress, awake alert and oriented.Slow to respond and appears depressed.. HEENT: Normocephalic. Neck is supple. Pupils reactive. Nostrils clear. Oral cavity is moist. Neck reveals no JVD, carotid bruits, or thyromegaly. CHEST EXAMINATION: Trachea is central. Symmetrical expansion. Lung dejesus clear to auscultation and percussion. CARDIAC: Normal S1, S2 with no gallops. No murmurs ABDOMEN: Soft. Bowel sounds normal. No organomegaly. No abdominal bruits. Extremities: reveal no edema. No clubbing or cyanosis Neurologically awake, alert, oriented x3 with well-coordinated movements. No gross focal deficits noted Skin: No rash or skin lesions. Psychiatric: Coperative. Nonsuicidal currently. Musculoskeletal: No joint swelling or deformity. Normal range of motion. Cranial Nerve Examination - Cranial Nerves Cranial Nerve I- Olfactory: Intact Cranial Nerve II- Optic: Intact Cranial Nerve III- Oculomotor: Intact Cranial Nerve IV- Trochlear: Intact Cranial Nerve V- Trigeminal: Intact Cranial Nerve - Abducens: Intact Cranial Nerve VII- Facial: Intact Cranial Nerve VIII- Auditory: Intact Cranial Nerve IX- Glossopharyngeal: Intact Cranial Nerve X- Vagus: Intact Cranial Nerve XI- Accessory: Intact Cranial Nerve XII- Hypoglossal: Intact Results CBC & Chem 7: 03/27/21 13:24 03/27/21 13:24 Assessment and Plan Assessment: Major depression with suicidal ideation Cerebral palsy Seizure disorder Anxiety/depression Hypokalemia DVT prophylaxis with early ambulation. Plan: Patient will be continued on current psychiatric medications and management. Continue with antiplatelet medications. Slight elevated TSH level but free T4 level is within normal limits. Request to follow-up with primary care physician and repeat levels in the next 6 weeks. Encourage oral intake and replace potassium. Further recommendations based on clinical course. Thank you for your consult.
[2021-03-29] MEDS: LEVOTHYROXINE 25 MCG TAB PO SCH (05:52)
[2021-03-29 06:55] VITALS: RESP 16
[2021-03-29] MEDS: hydroCHLOROthiazide 25 MG TAB PO SCH (09:30)
[2021-03-29] MEDS: DIVALPROEX 500 MG TABLET.DR PO SCH ×2 (09:30→20:36)
[2021-03-29] MEDS: ESCITALOPRAM 20 MG TAB PO SCH (09:30)
--- NOTE | 2021-03-29 11:48 | P.PN ---
Progress Note - Text Progress Note Date: 03/29/21 Interval History: Patient was seen [wandering the hallways] and was directable and agreeable to speak with video game script writer in her room. Patient claims that she just finished showering and attempted to go to a group earlier. She initially stated that she was doing better overall however when asked further she states that "I'm still feeling suicidal" and when asked about a plan she claims that she did not have one. She states that she does not feel safe to go home today and appears to be fairly anxious. She claims that she was able to see better last night and has been eating her meals 3 times a day. She claims that she is having no problems with her medications. She was asking about potential discharge soon. At this time patient denies any homical ideations, intent or plan. Patient denies any auditory, visual hallucinations and denies any paranoia. Patient denies any side effects from the medications and has been compliant with meds. Mental Status Exam: General Appearance: Patient appears to be overweight, wearing glasses, stated age is alert, directable, and attempts to cooperate. Patient appears to have improving hygiene and grooming. Behavior: Patient is seated without any agitated behavior. Appears to be anxious Speech: Patient's speech is fluent and nonpressured. Mood/Affect: Patient reports their mood is depressed and , improving mildly affect is congruent and constricted. Suicidality/Homicidality: Patient denies having any homicidal ideation intent or plan. Admitting to suicidal thoughts however no intent or plan. Perceptions: Patient denies any visual hallucinations and denies any auditory hallucinations Though content/process: Poverty of content. [place]. Vague Memory and concentration: AOX3, grossly intact for the purposes of this session. Judgment and insight: poor, improving mildly Assessment Major depressive disorder, recurrent, severe Intellectual disability Cerebral palsy Anxiety disorder unspecified Plan: -Patient continues to meet criteria for inpatient psychiatric admission for symptom stabilization and safety. Patient has signed [adult voluntary form and] was placed in patient's chart. -Medications: Continue Lexapro 20 mg daily for mood/anxiety, increase Remeron 45 mg daily at bedtime for insomnia/mood, Depakote 500 mg twice a day for mood stabilization. continue with melatonin 5 mg daily at bedtime for insomnia. added lithium 150 mg bid for mood stabilization/suicidal thoughts. Patient receives Abilify Maintenna long-acting injection 300 mg every monthly, according to [facility] report, her last dose was given on 03/19 and will be due for her next dose on 04/22 -When necessary Ativan and Haldol for agitation/aggression. -NRT - not needed as patient does not smoke. -SW on board for discharge planning. Encouraged the patient to participate in milieu. likely discharge in 1-2 days back home.
[2021-03-29] MEDS: LITHIUM CARBONATE 150 MG CAP PO SCH ×2 (12:25→20:36)
[2021-03-29] MEDS: MELATONIN 3 MG TABLET PO SCH (20:36)
[2021-03-29] MEDS ORDERED: MIRTAZAPINE 45 MG TABLET PO SCH (21:00)
[2021-03-30] MEDS: LEVOTHYROXINE 25 MCG TAB PO SCH (07:02)
[2021-03-30 07:08] VITALS: PULSE 111; TEMP 98
[2021-03-30 07:09] VITALS: BP 133/68
[2021-03-30] MEDS: DIVALPROEX 500 MG TABLET.DR PO SCH (09:45)
[2021-03-30] MEDS: hydroCHLOROthiazide 25 MG TAB PO SCH (09:46)
[2021-03-30] MEDS: LITHIUM CARBONATE 150 MG CAP PO SCH (09:46)
[2021-03-30] MEDS: ESCITALOPRAM 20 MG TAB PO SCH (09:46)
--- NOTE | 2021-03-30 11:22 | P.DS ---
Providers Date of admission: 03/27/21 16:05 Expected date of discharge: 03/30/21 Attending physician: Berlin Grajeda MD Consults: 03/27/21 18:19 Consult Physician Routine Consulting Provider: Donavon Strickland Consult Reason/Comments: H&P and medical Do you want consulting provider notified?: Already Contacted Primary care physician: Maximilian Rivera - Discharge Diagnosis(es) (1) Major depressive disorder, severe Current Visit: Yes Status: Acute Priority: High (2) Intellectual disability Current Visit: Yes Status: Acute Priority: Medium (3) Cerebral palsy Current Visit: Yes Status: Acute Priority: Medium (4) Anxiety disorder, unspecified Current Visit: Yes Status: Acute Priority: Medium Hospital Course: Admission HPI: Admission note was completed by ad writer "Patient is a 30-year-old female with a history of cerebral palsy who is currently living with her mother and sister and [id number] and niece in the house. Patient presented to the hospital with depression and suicidal thoughts. She had cleaned in the ER that she was not feeling safe to go home. She claimed that she had a knife and put it to her wrist and has superficial cuts on it. Patient's mother apparently has stated that patient has been "manic" and not sleeping for the past 3 days. Patient's UDS was negative for any substances. Patient was admitted voluntarily and agreeable to speak to ad writer today. She claims that she has been feeling depressed. Anxiety as well. She states that she has been having poor sleep for the past few days. She claims that she had did have a stressor recently where she believes that her father was doing harmful things to her family and was fairly focused on this during the interview. She states that she has been taking her medications at home is denying any issues with it. She claims to have poor energy during the day however has fair appetite. She states that she has been doing mildly better since being in the hospital and feels safer. She is claiming that she still has suicidal thoughts at times however they have been improving since she has been admitted. No intent or plan. Denies any homicidal ideations intent or plan. At this time patient denies any auditory or visual hallucinations. Patient denies any flight of ideas racing thoughts and increased in goal directed behavior. Patient admits to using no recreational drugs." Hospital course: Upon admission to the unit patient was initially depressed and suicidal. Patient was however directable and agreeable to commence treatment and signed adult voluntary form. Patient got along well with other patients on the unit and followed unit protocol. Patient was compliant with the medications and denied any side effects throughout hospital course. Patient was started on her home dose of Lexapro 20 mg daily for mood/anxiety, Remeron was increased to 45 mg daily at bedtime for insomnia/mood. Patient was resumed back on her Depakote 500 mg twice a day for mood stabilization. I did melatonin 5 mg daily at bedtime for insomnia. Added lithium 150 mg twice a day for mood stabilization/suicidal thoughts. Patient currently receives Abilify Maintenna long-acting injection 300 mg every monthly at [facility] and her last dose was given on 03/19 and will be due for her next dose on 04/22. Patient spoke of her stressors and engaged in therapy both group and individual. Patient was also seen by medical team for history and physical exam. Throughout the course of the hospitalization patient gradually improved with regards to mood, anxiety, suicidal thoughts, sleep and became more future oriented and returned back to her baseline level of functioning. On the day of discharge patient denied any suicidal or homicidal ideations intent or plan denied any auditory or visual hallucinations. Patient endorsed wanting to live for her future and her family. The patient denied any access to guns or weapons. Patient denied any paranoia and did not endorse any delusions. Patient does not have a significant history of substance abuse however was counseled on abstaining from all substances including alcohol and marijuana. Patient was also counseled on the medications and need for regular compliance and was encouraged to follow-up with their outpatient appointment for mental health and also for primary care. Prior to discharge a family meeting will be arranged by psychosocial rehabilitation counselor to answer any questions and ensure safety upon discharge. Mental status exam: General Appearance: Patient appears to be overweight, using a walker, wearing glasses, stated age is alert, pleasant, and cooperative. Patient is in no acute distress and has improved hygiene and grooming Behavior: Patient is calmly seated without any agitated behavior. Speech: Patient's speech is fluent and nonpressured. Mood/Affect: Patient reports their mood is "better", affect is congruent and euthymic. Suicidality/Homicidality: Patient denies having any suicidal or homicidal ideation intent or plan. Perceptions: Patient denies any auditory or visual hallucinations. Though content/process: There is no evidence of any delusional thought content and thought process is linear and goal-directed. more future oriented Memory and concentration: AOX3, grossly intact for the purposes of this session. Can spell "WORLD" backwards correctly. Judgment and insight: chronically poor, however has improved with guarded prognosis Impression: Major depressive disorder, recurrent, severe Anxiety disorder unspecified Intellectual disability Cerebral palsy Plan: -Continue with discharge today as patient has improved and stabilized psychiatrically and is not currently an imminent threat to herself and/or others. Patient will remain at chronically elevated risk for harm to self and/or others due to her chronically poor impulse control and insight. -Continue medications: Patient currently receives Abilify Maintenna long-acting injection 300 mg every monthly at [facility] and her last dose was given on 03/19 and will be due for her next dose on 04/22. Continue lithium 1500 mg twice a day for mood stabilization/suicidal thoughts, Depakote 500 mg twice a day for mood stabilization, melatonin 500 mg daily at bedtime for insomnia, Remeron 45 mg daily at bedtime for insomnia/mood, Lexapro 20 mg daily for mood/anxiety. -Patient was counseled on the need for medication compliance and appropriate follow-up at mental health and also primary care for medical issues. Patient verbalized understanding and agreed. -Social work to arrange for and conduct family meeting to ensure safety upon discharge and answer any questions/concerns. Social work also to arrange for patients follow up appointments with [facility] for psychiatric care along with follow up with primary care provider. Patient will need a lithium and depakote level check in one to 2 weeks. -Patient counseled on abstaining from recreational drugs and marijuana and alcohol. Was informed/educated on the adverse effects on their physical and mental health. Patient verbally agreed and understood. -Patient was instructed to return to the hospital or seek immediate medical care if their psychiatric or medical symptoms do worsen or reoccur. Allergies Allergy/AdvReac Type Severity Reaction Status Date / Time lamotrigine [From Lamictal] Allergy Rash/Hives Verified 03/27/21 11:33 morphine Allergy Itching Verified 03/27/21 11:32 Laboratory Results WBC 8.9 k/uL (3.8-10.6) 03/27/21 13:24 RBC 4.55 m/uL (3.80-5.40) 03/27/21 13:24 Hgb 13.0 gm/dL (11.4-16.0) 03/27/21 13:24 Hct 38.5 % (34.0-46.0) 03/27/21 13:24 MCV 84.8 fL (80.0-100.0) 03/27/21 13:24 MCH 28.6 pg (25.0-35.0) 03/27/21 13:24 MCHC 33.7 g/dL (31.0-37.0) 03/27/21 13:24 RDW 14.2 % (11.5-15.5) 03/27/21 13:24 Plt Count 301 k/uL (150-450) 03/27/21 13:24 MPV 7.1 03/27/21 13:24 Neutrophils % 81 % 03/27/21 13:24 Lymphocytes % 13 % 03/27/21 13:24 Monocytes % 5 % 03/27/21 13:24 Eosinophils % 0 % 03/27/21 13:24 Basophils % 1 % 03/27/21 13:24 Neutrophils # 7.2 k/uL (1.3-7.7) 03/27/21 13:24 Lymphocytes # 1.1 k/uL (1.0-4.8) 03/27/21 13:24 Monocytes # 0.4 k/uL (0-1.0) 03/27/21 13:24 Eosinophils # 0.0 k/uL (0-0.7) 03/27/21 13:24 Basophils # 0.0 k/uL (0-0.2) 03/27/21 13:24 Sodium 140 mmol/L (137-145) 03/27/21 13:24 Potassium 3.3 mmol/L (3.5-5.1) L 03/27/21 13:24 Chloride 103 mmol/L (98-107) 03/27/21 13:24 Carbon Dioxide 27 mmol/L (22-30) 03/27/21 13:24 Anion Gap 10 mmol/L 03/27/21 13:24 BUN 16 mg/dL (7-17) 03/27/21 13:24 Creatinine 0.59 mg/dL (0.52-1.04) 03/27/21 13:24 Est GFR (CKD-EPI)AfAm >90 (>60 ml/min/1.73 sqM) 03/27/21 13:24 Est GFR (CKD-EPI)NonAf >90 (>60 ml/min/1.73 sqM) 03/27/21 13:24 Glucose 97 mg/dL (74-99) 03/27/21 13:[address] Glu mg/dL 94 03/27/21 13:24 Hemoglobin A1c 4.9 % (4.0-6.0) 03/27/21 13:24 Calcium 9.5 mg/dL (8.4-10.2) 03/27/21 13:24 Total Bilirubin 0.4 mg/dL (0.2-1.3) 03/27/21 13:24 AST 30 U/L (14-36) 03/27/21 13:24 ALT 17 U/L (4-34) 03/27/21 13:24 Alkaline Phosphatase 79 U/L (38-126) 03/27/21 13:24 Total Protein 6.8 g/dL (6.3-8.2) 03/27/21 13:24 Albumin 4.1 g/dL (3.5-5.0) 03/27/21 13:24 Triglycerides 51.0 mg/dL (0.0-149.0) 03/27/21 13:24 Cholesterol 150 mg/dL (0-200) 03/27/21 13:24 LDL Cholesterol, Calc 87.8 mg/dL (0.0-131.0) 03/27/21 13:24 VLDL Cholesterol, Calc 10.20 mg/dL (5.00-40.00) 03/27/21 13:24 HDL Cholesterol 52.0 mg/dL (40.0-60.0) 03/27/21 13:24 Cholesterol/HDL Ratio 2.88 03/27/21 13:24 TSH 5.240 mIU/L (0.465-4.680) H 03/27/21 13:24 Free T4 2.00 ng/dL (0.78-2.19) 03/27/21 13:24 Urine Opiates Screen Not Detected (NotDetected) 03/27/21 12:07 Ur Oxycodone Screen Not Detected (NotDetected) 03/27/21 12:07 Urine Methadone Screen Not Detected (NotDetected) 03/27/21 12:07 Ur Propoxyphene Screen Not Detected (NotDetected) 03/27/21 12:07 Ur Barbiturates Screen Not Detected (NotDetected) 03/27/21 12:07 Valproic Acid 104.1 ug/mL 03/27/21 13:24 U Tricyclic Antidepress Not Detected (NotDetected) 03/27/21 12:07 Ur Phencyclidine Scrn Not Detected (NotDetected) 03/27/21 12:07 Ur Amphetamines Screen Not Detected (NotDetected) 03/27/21 12:07 U Methamphetamines Scrn Not Detected (NotDetected) 03/27/21 12:07 U Benzodiazepines Scrn Not Detected (NotDetected) 03/27/21 12:07 Urine Cocaine Screen Not Detected (NotDetected) 03/27/21 12:07 U Marijuana (THC) Screen Not Detected (NotDetected) 03/27/21 12:07 Coronavirus (PCR) Not Detected (Not Detectd) 03/27/21 12:45 Vital Signs Temp 98 F 03/30/21 06:56 Pulse 111 H 03/30/21 06:56 Resp 16 03/30/21 06:56 BP 133/68 03/30/21 06:56 Pulse Ox 97 03/27/21 16:42 Patient Condition at Discharge: Stable Plan - Discharge Summary Discharge Rx Participant: No New Discharge Prescriptions: New [place] Carbonate 150 mg PO BID 30 Days cap Mirtazapine [Remeron] 45 mg PO HS 30 Days tablet Divalproex [Depakote] 500 mg PO BID 30 Days tablet. Escitalopram [Lexapro] 20 mg PO DAILY 30 Days tab Melatonin 6 mg PO HS 30 Days tablet Levothyroxine Sodium [Synthroid] 25 mcg PO DAILY@0630 30 Days tab Acetaminophen Tab [Tylenol] 650 mg PO Q4HR PRN tab PRN Reason: Pain/Discomfort Continue ARIPiprazole [Abilify Maintena] 400 mg IM Q30D #1 hydroCHLOROthiazide [Hydrodiuril] 25 mg PO DAILY 30 Days tab Acetaminophen/Diphenhydramine [Tylenol PM 500-25mg] 2 tab PO ONCE PRN PRN Reason: Insomnia Discontinued Escitalopram [Lexapro] 20 mg PO DAILY 30 Days tab Levothyroxine Sodium [Synthroid] 25 mcg PO DAILY Divalproex [Depakote] 500 mg PO BID 30 Days tablet. Mirtazapine [Remeron] 30 mg PO HS 30 Days tab Discharge Medication List ARIPiprazole [Abilify Maintena] 400 mg IM Q30D #1 01/01/21 [Rx] Acetaminophen/Diphenhydramine [Tylenol PM 500-25mg] 2 tab PO ONCE PRN 03/27/21 [History] Acetaminophen Tab [Tylenol] 650 mg PO Q4HR PRN tab 03/30/21 [Rx] Divalproex [Depakote] 500 mg PO BID 30 Days tablet. 03/30/21 [Rx] Escitalopram [Lexapro] 20 mg PO DAILY 30 Days tab 03/30/21 [Rx] Levothyroxine Sodium [Synthroid] 25 mcg PO DAILY@0630 30 Days tab 03/30/21 [Rx] [place] Carbonate 150 mg PO BID 30 Days cap 03/30/21 [Rx] Melatonin 6 mg PO HS 30 Days tablet 03/30/21 [Rx] Mirtazapine [Remeron] 45 mg PO HS 30 Days tablet 03/30/21 [Rx] hydroCHLOROthiazide [Hydrodiuril] 25 mg PO DAILY 30 Days tab 03/30/21 [Rx] Follow up Appointment(s)/Referral(s): Maximilian Rivera DO [Primary Care Provider] - 1-2 days Activity/Diet/Wound Care/Special Instructions: Activity and diet as tolerated. Avoid the use of street drugs and alcohol. Take all medications as prescribed. When you are in need of refills on your medications please contact your medical provider and/or outpatient psychiatrist to have this done. Please go to scheduled outpatient appointment for aftercare treatment. If symptoms return or become worse, call the crisis line at [phone]- [phone] and/or go to the nearest emergency room for evaluation. Discharge Disposition: HOME SELF-CARE
== END 2021-03-30 15:05 | disposition home or self-care (01) | DRG 885 ==
LOC: EC 10:25 → 3MHU 16:05
PROVIDERS: ADMIT Psychiatry & Neurology Psychiatry; ATTEND Psychiatry & Neurology Psychiatry
DX: F32.2 Major depressive disorder, single episode, severe without psychotic features (principal); R45.851 Suicidal ideations; F41.9 Anxiety disorder, unspecified; F79 Unspecified intellectual disabilities; G40.909 Epilepsy, unspecified, not intractable, without status epilepticus; G47.00 Insomnia, unspecified; G80.9 Cerebral palsy, unspecified; S61.512A Laceration without foreign body of left wrist, initial encounter; Z79.890 Hormone replacement therapy; Z79.899 Other long term (current) drug therapy; Z81.8 Family history of other mental and behavioral disorders; Z20.822 Contact with and (suspected) exposure to COVID-19
CPT/HCPCS: 36415; 80053; 80061; 80164; 80306; 82075; 83036; 84439; 84443; 85025; 87635; 99285

== ENCOUNTER 2021-11-17 02:31 | Emergency (ER) | payer MEDICARE, OTHER ==
[2021-11-17 02:40] VITALS: TEMP 98.1
--- NOTE | 2021-11-17 03:03 | ED ---
Psych HPI - General Chief Complaint: Psychiatric Symptoms Stated Complaint: Mental health Time Seen by Provider: 11/17/21 02:43 Source: patient Mode of arrival: ambulatory - History of Present Illness MD Complaint: suicidal ideation, feels depressed -: week(s) Associated Psychiatric Symptoms: depression, suicidal ideation History of same: Yes Quality: getting worse Improves With: none Worsens With: none Associated Symptoms: insomnia - Related Data Previous Rx's Medication Instructions Recorded ARIPiprazole [Abilify Maintena] 400 mg IM Q30D #1 each 11/27/21 Divalproex [Depakote] 1,000 mg PO HS 30 Days tablet 11/27/21 Levothyroxine Sodium [Synthroid] 50 mcg PO DAILY@0630 30 Days tab 11/27/21 Mirtazapine [Remeron] 15 mg PO HS 30 Days tab 11/27/21 Venlafaxine HCl ER [Effexor XR] 150 mg PO DAILY 30 Days 11/27/21 Allergies Allergy/AdvReac Type Severity Reaction Status Date / Time lamotrigine [From Lamictal] Allergy Rash/Hives Verified 11/19/21 14:30 morphine Allergy Itching Verified 11/19/21 14:30 Review of Systems ROS Statement: Those systems with pertinent positive or pertinent negative responses have been documented in the HPI. ROS Other: All systems not noted in ROS Statement are negative. Constitutional: Denies: fever Eyes: Denies: vision change Respiratory: Denies: cough, dyspnea Cardiovascular: Denies: chest pain, palpitations, syncope Gastrointestinal: Denies: abdominal pain, vomiting, diarrhea Genitourinary: Denies: dysuria, hematuria Musculoskeletal: Denies: back pain Skin: Denies: rash Neurological: Denies: headache, weakness Psychiatric: Reports: depression, auditory hallucinations, suicidal thoughts. Denies: visual hallucinations, homicidal thoughts Past Medical History Past Medical History: Seizure Disorder Additional Past Medical History / Comment(s): cerebral palsy, pt unsure of date of last seizure and states that "it's been a long time." pt also states that she takes medications which have been effective in preventing seizures. History of Any Multi-Drug Resistant Organisms: None Reported Past Surgical History: Orthopedic Surgery Additional Past Surgical History / Comment(s): femurs rotated and achilles tendon lengthened and one yr. later metal hardware/plates were removed. Past Anesthesia/Blood Transfusion Reactions: No Reported Reaction Past Psychological History: Anxiety, Depression Smoking Status: Never smoker Past Alcohol Use History: None Reported Past Drug Use History: None Reported - Past Family History Father Family Medical History: No Reported History Mother Family Medical History: No Reported History General Exam General appearance: alert, in no apparent distress Head exam: Present: atraumatic, normocephalic Eye exam: Present: normal appearance Respiratory exam: Present: normal lung sounds bilaterally. Absent: respiratory distress, wheezes, rales, rhonchi, stridor Cardiovascular Exam: Present: normal rhythm, tachycardia, normal heart sounds. Absent: systolic murmur, diastolic murmur, rubs, gallop GI/Abdominal exam: Present: soft. Absent: distended, tenderness, guarding, rebound, rigid, mass Extremities exam: Present: normal inspection, normal capillary refill. Absent: pedal edema, calf tenderness Back exam: Present: normal inspection. Absent: CVA tenderness (R), CVA tenderness (L) Neurological exam: Present: alert Psychiatric exam: Present: depressed, flat affect, suicidal ideation. Absent: agitated, anxious, homicidal ideation Skin exam: Present: warm, dry, intact, normal color. Absent: rash Course Vital Signs 11/17/21 11/17/21 02:35 04:40 Temperature 98.1 F Pulse Rate 115 H 72 Respiratory 19 16 Rate Blood Pressure 152/90 142/91 O2 Sat by Pulse 96 98 Oximetry Disposition Clinical Impression: Mood disorder Disposition: HOME SELF-CARE Condition: Good Instructions (If sedation given, give patient instructions): Depression (ED) Is patient prescribed a controlled substance at d/c from ED?: No Referrals: Maximilian Rivera DO [Primary Care Provider] - 1-2 days
[2021-11-17 04:48] VITALS: BP 142/91; PULSE 72; RESP 16
== END 2021-11-17 05:24 | disposition home or self-care (01) ==
LOC: EC 02:31
DX: F39 Unspecified mood [affective] disorder (principal); F32.A Depression, unspecified; F41.9 Anxiety disorder, unspecified; G40.909 Epilepsy, unspecified, not intractable, without status epilepticus; Z79.890 Hormone replacement therapy; Z79.899 Other long term (current) drug therapy
CPT/HCPCS: 99284

== ENCOUNTER 2022-01-03 13:51 | Inpatient (IN) | payer MEDICARE, OTHER ==
--- NOTE | 2022-01-03 18:01 | ED ---
Psych HPI - General Source: patient, RN notes reviewed, old records reviewed Mode of arrival: wheelchair - History of Present Illness MD Complaint: suicidal ideation, feels depressed -: days(s) (1) Associated Psychiatric Symptoms: depression, suicidal ideation History of same: Yes (d/c 11/27/21) Improves With: none Associated Symptoms: denies other symptoms Treatments Prior to Arrival: none If Self Harm: admits thoughts of self harm, has plan (OD on depakote) <Aguilar Guzmán - Last Filed: 01/03/22 19:23> <Rm Correa - Last Filed: 01/03/22 23:00> - General Chief Complaint: Psychiatric Symptoms Stated Complaint: Mental health eval Time Seen by Provider: 01/03/22 17:48 - History of Present Illness Initial Comments: 31-year-old female, alert and oriented 4, presents to the emergency room with complaints of suicidal ideation today. Patient states that she was going to take all her Depakote pills in attempt to kill herself. Patient states that she was recently discharged from the hospital for suicidal ideation and depression on November 27. She states that she was off of her medications for 6 days and just started taking them again yesterday. She has a history of cerebral palsy, depression, bipolar and seizure disorder. (Aguilar Guzmán) - Related Data Previous Rx's Medication Instructions Recorded ARIPiprazole [Abilify Maintena] 400 mg IM Q30D #1 each 11/27/21 Divalproex [Depakote] 1,000 mg PO HS 30 Days tablet 11/27/21 Levothyroxine Sodium [Synthroid] 50 mcg PO DAILY@0630 30 Days tab 11/27/21 Mirtazapine [Remeron] 15 mg PO HS 30 Days tab 11/27/21 Venlafaxine HCl ER [Effexor XR] 150 mg PO DAILY 30 Days 11/27/21 Allergies Allergy/AdvReac Type Severity Reaction Status Date / Time lamotrigine [From Lamictal] Allergy Rash/Hives Verified 01/03/22 22:30 morphine Allergy Itching Verified 01/03/22 22:30 Review of Systems ROS Other: All systems not noted in ROS Statement are negative. <Aguilar Guzmán - Last Filed: 01/03/22 19:23> ROS Other: All systems not noted in ROS Statement are negative. <Rm Correa - Last Filed: 01/03/22 23:00> ROS Statement: Those systems with pertinent positive or pertinent negative responses have been documented in the HPI. Past Medical History Past Medical History: Seizure Disorder Additional Past Medical History / Comment(s): cerebral palsy, pt's mother reports that last seizure was over a year ago and that her seizures have been managed well with medications. History of Any Multi-Drug Resistant Organisms: None Reported Past Surgical History: Orthopedic Surgery Additional Past Surgical History / Comment(s): femurs rotated and achilles tendon lengthened and one yr. later metal hardware/plates were removed. Past Anesthesia/Blood Transfusion Reactions: No Reported Reaction Past Psychological History: Anxiety, Depression Smoking Status: Never smoker Past Alcohol Use History: None Reported Past Drug Use History: None Reported - Past Family History Father Family Medical History: No Reported History Mother Family Medical History: No Reported History <Aguilar Guzmán - Last Filed: 01/03/22 19:23> General Exam Limitations: no limitations General appearance: alert, in no apparent distress Head exam: Present: atraumatic Eye exam: Present: EOMI, nystagmus (Bilateral horizontal). Absent: scleral icterus, conjunctival injection, periorbital swelling, periorbital tenderness ENT exam: Present: mucous membranes dry (Lips are cracked) Neck exam: Present: full ROM. Absent: tenderness, meningismus Respiratory exam: Present: normal lung sounds bilaterally. Absent: respiratory distress, wheezes, rhonchi, stridor, accessory muscle use Cardiovascular Exam: Present: tachycardia, normal heart sounds. Absent: JVD GI/Abdominal exam: Present: soft. Absent: distended, tenderness Extremities exam: Present: normal capillary refill Back exam: Present: normal inspection. Absent: tenderness, CVA tenderness (R), CVA tenderness (L), rash noted Neurological exam: Present: alert, oriented X3 Expanded Patient oriented to: Present: person, place, time Speech: Present: fluid speech Eye Response: (4) open spontaneously Motor Response: (6) obeys commands Verbal Response: (5) oriented Carlos Total: 15 Psychiatric exam: Present: normal affect, normal mood, depressed, suicidal ideation. Absent: agitated, homicidal ideation Skin exam: Present: warm, dry, normal color. Absent: cyanosis, diaphoretic, petechiae, pallor <Aguilar Guzmán - Last Filed: 01/03/22 19:23> Course <Rm Correa - Last Filed: 01/03/22 23:00> Vital Signs 01/03/22 01/03/22 01/03/22 14:24 19:42 21:23 Temperature 98.5 F Pulse Rate 133 H 137 H 131 H Respiratory 18 17 Rate Blood Pressure 129/78 145/88 O2 Sat by Pulse 97 95 Oximetry - Reevaluation(s) Reevaluation #1: 01/03/22 22:59 Patient was endorsed me at sign out pending completion evaluation the patient remains tachycardic with sinus tachycardia opiate rate of 140. Interval 161 QRS 82 QT since QTC 320/410 patient's heart rate did not very much from 11/12/1939 units IV fluids. I did discuss the case with Dr. Logan patient will be admitted with cardiology consultation as well as psychiatric consultation a sitter will be ordered (Rm Correa) Medical Decision Making - Lab Data Result diagrams: 01/03/22 19:12 - EKG Data Rate: tachycardia (Ventricular rate of 140, [place] interval 0.161, QRS 0.82, QTC 0.410) <Aguilar Gzumán - Last Filed: 01/03/22 19:23> - Lab Data Result diagrams: 01/03/22 19:12 01/03/22 19:12 <Rm Correa - Last Filed: 01/03/22 23:00> - Medical Decision Making 31-year-old female presents to the emergency room with suicidal ideations. She had intentions of taking all her Depakote in an attempt to kill herself today. Patient states that she's been off of her medications for the past 6 days and just resumed them yesterday. Upon arrival patient's heart rate was 133, EKG was performed showing sinus tachycardia with a rate of 140. Patient denies any chest pain or difficulty breathing no nausea vomiting diarrhea or fevers. Labs were ordered along with chest x-ray. Patient is tolerating oral fluids. Case was signed out to Dr. Correa for continuation of care. (Aguilar Guzmán) - Lab Data Lab Results 01/03/22 01/03/22 01/03/22 Range/Units 19:12 19:12 19:12 WBC 10.0 (3.8-10.6) k/uL RBC 4.54 (3.80-5.40) m/uL Hgb 13.3 (11.4-16.0) gm/dL Hct 40.2 (34.0-46.0) % MCV 88.5 (80.0-100.0) fL MCH 29.4 (25.0-35.0) pg MCHC 33.2 (31.0-37.0) g/dL RDW 14.8 (11.5-15.5) % Plt Count 321 (150-450) k/uL MPV 7.3 Neutrophils % 74 % Lymphocytes % 20 % Monocytes % 4 % Eosinophils % 1 % Basophils % 0 % Neutrophils # 7.4 (1.3-7.7) k/uL Lymphocytes # 2.0 (1.0-4.8) k/uL Monocytes # 0.4 (0-1.0) k/uL Eosinophils # 0.1 (0-0.7) k/uL Basophils # 0.0 (0-0.2) k/uL PT 10.5 (9.0-12.0) sec INR 1.0 (<1.2) APTT 22.6 (22.0-30.0) sec D-Dimer 0.54 (<0.60) mg/L FEU Sodium 138 (137-145) mmol/L Potassium 3.6 (3.5-5.1) mmol/L Chloride 106 (98-107) mmol/L Carbon Dioxide 21 L (22-30) mmol/L Anion Gap 11 mmol/L BUN 15 (7-17) mg/dL Creatinine 0.62 (0.52-1.04) mg/dL Est GFR (CKD-EPI)AfAm >90 (>60 ml/min/1.73 sqM) Est GFR (CKD-EPI)NonAf >90 (>60 ml/min/1.73 sqM) Glucose 111 H (74-99) mg/dL Calcium 9.1 (8.4-10.2) mg/dL Magnesium 1.7 (1.6-2.3) mg/dL Total Bilirubin 0.6 (0.2-1.3) mg/dL AST 42 H (14-36) U/L ALT 26 (4-34) U/L Alkaline Phosphatase 91 (38-126) U/L Troponin I (0.000-0.034) ng/mL Total Protein 7.6 (6.3-8.2) g/dL Albumin 4.3 (3.5-5.0) g/dL TSH 6.620 H (0.465-4.680) mIU/L Free T4 2.23 H (0.78-2.19) ng/dL Free T3 pg/mL 5.7 H (2.8-5.3) pg/ml HCG, Qual Urine Color Urine Appearance (Clear) Urine pH (5.0-8.0) Ur Specific [place] (1.001-1.035) Urine Protein (Negative) Urine Glucose (UA) (Negative) Urine Ketones (Negative) Urine Blood (Negative) Urine Nitrite (Negative) Urine Bilirubin (Negative) Urine Urobilinogen (<2.0) mg/dL Ur Leukocyte Esterase (Negative) Urine RBC (0-5) /hpf Urine WBC (0-5) /hpf Ur Squamous Epith Cells (0-4) /hpf Urine Bacteria (None) /hpf Hyaline Casts (0-2) /lpf Urine Mucus (None) /hpf Urine Opiates Screen (NotDetected) Ur Oxycodone Screen (NotDetected) Urine Methadone Screen (NotDetected) Ur Propoxyphene Screen (NotDetected) Ur Barbiturates Screen (NotDetected) Valproic Acid ug/mL U Tricyclic Antidepress (NotDetected) Ur Phencyclidine Scrn (NotDetected) Ur Amphetamines Screen (NotDetected) U Methamphetamines Scrn (NotDetected) U Benzodiazepines Scrn (NotDetected) Urine Cocaine Screen (NotDetected) U Marijuana (THC) Screen (NotDetected) 01/03/22 01/03/22 01/03/22 Range/Units 19:12 19:12 19:40 WBC (3.8-10.6) k/uL RBC (3.80-5.40) m/uL Hgb (11.4-16.0) gm/dL Hct (34.0-46.0) % MCV (80.0-100.0) fL MCH (25.0-35.0) pg MCHC (31.0-37.0) g/dL RDW (11.5-15.5) % Plt Count (150-450) k/uL MPV Neutrophils % % Lymphocytes % % Monocytes % % Eosinophils % % Basophils % % Neutrophils # (1.3-7.7) k/uL Lymphocytes # (1.0-4.8) k/uL Monocytes # (0-1.0) k/uL Eosinophils # (0-0.7) k/uL Basophils # (0-0.2) k/uL PT (9.0-12.0) sec INR (<1.2) APTT (22.0-30.0) sec D-Dimer (<0.60) mg/L FEU Sodium (137-145) mmol/L Potassium (3.5-5.1) mmol/L Chloride (98-107) mmol/L Carbon Dioxide (22-30) mmol/L Anion Gap mmol/L BUN (7-17) mg/dL Creatinine (0.52-1.04) mg/dL Est GFR (CKD-EPI)AfAm (>60 ml/min/1.73 sqM) Est GFR (CKD-EPI)NonAf (>60 ml/min/1.73 sqM) Glucose (74-99) mg/dL Calcium (8.4-10.2) mg/dL Magnesium (1.6-2.3) mg/dL Total Bilirubin (0.2-1.3) mg/dL AST (14-36) U/L ALT (4-34) U/L Alkaline Phosphatase (38-126) U/L Troponin I <0.012 (0.000-0.034) ng/mL Total Protein (6.3-8.2) g/dL Albumin (3.5-5.0) g/dL TSH (0.465-4.680) mIU/L Free T4 (0.78-2.19) ng/dL Free T3 pg/mL (2.8-5.3) pg/ml HCG, Qual Not Detected Urine Color Yellow Urine Appearance Cloudy H (Clear) Urine pH 6.0 (5.0-8.0) Ur Specific [place] 1.029 (1.001-1.035) Urine Protein 1+ H (Negative) Urine Glucose (UA) Negative (Negative) Urine Ketones 2+ H (Negative) Urine Blood Moderate H (Negative) Urine Nitrite Negative (Negative) Urine Bilirubin Negative (Negative) Urine Urobilinogen <2.0 (<2.0) mg/dL Ur Leukocyte Esterase Moderate H (Negative) Urine RBC 122 H (0-5) /hpf Urine WBC 38 H (0-5) /hpf Ur Squamous Epith Cells 46 H (0-4) /hpf Urine Bacteria Rare H (None) /hpf Hyaline Casts 4 H (0-2) /lpf Urine Mucus Many H (None) /hpf Urine Opiates Screen (NotDetected) Ur Oxycodone Screen (NotDetected) Urine Methadone Screen (NotDetected) Ur Propoxyphene Screen (NotDetected) Ur Barbiturates Screen (NotDetected) Valproic Acid ug/mL U Tricyclic Antidepress (NotDetected) Ur Phencyclidine Scrn (NotDetected) Ur Amphetamines Screen (NotDetected) U Methamphetamines Scrn (NotDetected) U Benzodiazepines Scrn (NotDetected) Urine Cocaine Screen (NotDetected) U Marijuana (THC) Screen (NotDetected) 01/03/22 01/03/22 Range/Units 19:40 19:53 WBC (3.8-10.6) k/uL RBC (3.80-5.40) m/uL Hgb (11.4-16.0) gm/dL Hct (34.0-46.0) % MCV (80.0-100.0) fL MCH (25.0-35.0) pg MCHC (31.0-37.0) g/dL RDW (11.5-15.5) % Plt Count (150-450) k/uL MPV Neutrophils % % Lymphocytes % % Monocytes % % Eosinophils % % Basophils % % Neutrophils # (1.3-7.7) k/uL Lymphocytes # (1.0-4.8) k/uL Monocytes # (0-1.0) k/uL Eosinophils # (0-0.7) k/uL Basophils # (0-0.2) k/uL PT (9.0-12.0) sec INR (<1.2) APTT (22.0-30.0) sec D-Dimer (<0.60) mg/L FEU Sodium (137-145) mmol/L Potassium (3.5-5.1) mmol/L Chloride (98-107) mmol/L Carbon Dioxide (22-30) mmol/L Anion Gap mmol/L BUN (7-17) mg/dL Creatinine (0.52-1.04) mg/dL Est GFR (CKD-EPI)AfAm (>60 ml/min/1.73 sqM) Est GFR (CKD-EPI)NonAf (>60 ml/min/1.73 sqM) Glucose (74-99) mg/dL Calcium (8.4-10.2) mg/dL Magnesium (1.6-2.3) mg/dL Total Bilirubin (0.2-1.3) mg/dL AST (14-36) U/L ALT (4-34) U/L Alkaline Phosphatase (38-126) U/L Troponin I (0.000-0.034) ng/mL Total Protein (6.3-8.2) g/dL Albumin (3.5-5.0) g/dL TSH (0.465-4.680) mIU/L Free T4 (0.78-2.19) ng/dL Free T3 pg/mL (2.8-5.3) pg/ml HCG, Qual Urine Color Urine Appearance (Clear) Urine pH (5.0-8.0) Ur Specific [place] (1.001-1.035) Urine Protein (Negative) Urine Glucose (UA) (Negative) Urine Ketones (Negative) Urine Blood (Negative) Urine Nitrite (Negative) Urine Bilirubin (Negative) Urine Urobilinogen (<2.0) mg/dL Ur Leukocyte Esterase (Negative) Urine RBC (0-5) /hpf Urine WBC (0-5) /hpf Ur Squamous Epith Cells (0-4) /hpf Urine Bacteria (None) /hpf Hyaline Casts (0-2) /lpf Urine Mucus (None) /hpf Urine Opiates Screen Not Detected (NotDetected) Ur Oxycodone Screen Not Detected (NotDetected) Urine Methadone Screen Not Detected (NotDetected) Ur Propoxyphene Screen Not Detected (NotDetected) Ur Barbiturates Screen Not Detected (NotDetected) Valproic Acid 46.5 ug/mL U Tricyclic Antidepress Not Detected (NotDetected) Ur Phencyclidine Scrn Not Detected (NotDetected) Ur Amphetamines Screen Not Detected (NotDetected) U Methamphetamines Scrn Not Detected (NotDetected) U Benzodiazepines Scrn Not Detected (NotDetected) Urine Cocaine Screen Not Detected (NotDetected) U Marijuana (THC) Screen Not Detected (NotDetected) Disposition <Aguialr Guzmán - Last Filed: 01/03/22 19:23> <Rm Correa - Last Filed: 01/03/22 23:00> Clinical Impression: Suicidal ideation, Tachycardia Disposition: ADMITTED IP TO THIS [facility] Condition: Fair Referrals: Maximilian Rivera DO [Primary Care Provider] - 1-2 days
[2022-01-03] MEDS ORDERED: SODIUM CHLORIDE 0.9% 1,000 ML IV STA (19:01)
[2022-01-03 19:20] LABS: Basophils % (A) 0 %; Eosinophils # (A) 0.1 k/uL (0-0.7); Eosinophils % (A) 1 %; HCT 40.2 % (34.0-46.0); HGB 13.3 gm/dL (11.4-16.0); Lymphocytes % (A) 20 %; MCH 29.4 pg (25.0-35.0); MCHC 33.2 g/dL (31.0-37.0); MCV 88.5 fL (80.0-100.0); Mean Platelet Volume 7.3; Monocytes # (A) 0.4 k/uL (0-1.0); Monocytes % (A) 4 %; Neutrophils # (A) 7.4 k/uL (1.3-7.7); Neutrophils % (A) 74 %; Platelet Count 321 k/uL (150-450); RBC 4.54 m/uL (3.80-5.40); RDW 14.8 % (11.5-15.5)
[2022-01-03 19:32] LABS: ALT 26 U/L (4-34); AST 42 U/L (14-36); African American GFR (CKD) >90 (>60 ml/min/1.73 sqM); Albumin 4.3 g/dL (3.5-5.0); Alkaline Phosphatase 91 U/L (38-126); Anion Gap 11 mmol/L; Blood Urea Nitrogen 15 mg/dL (7-17); Calcium 9.1 mg/dL (8.4-10.2); Carbon Dioxide 21 mmol/L (22-30); Chloride 106 mmol/L (98-107); Glucose 111 mg/dL (74-99); Magnesium 1.7 mg/dL (1.6-2.3); Non-African American GFR(CKD) >90 (>60 ml/min/1.73 sqM); Potassium 3.6 mmol/L (3.5-5.1); Sodium 138 mmol/L (137-145); Total Bilirubin 0.6 mg/dL (0.2-1.3); Total Protein 7.6 g/dL (6.3-8.2)
[2022-01-03 19:37] LABS: Partial Thromboplastin Time 22.6 sec (22.0-30.0); Prothrombin Time 10.5 sec (9.0-12.0)
[2022-01-03 19:56] LABS: Appearance,Urine Cloudy (Clear); Bacteria,Urine Rare /hpf; Bilirubin,Urine Negative (Negative); Blood,Urine Moderate (Negative); Color,Urine Yellow; Glucose,Urine (UA) Negative (Negative); Hyaline Casts,Urine 4 /lpf (0-2); Ketones,Urine 2+ (Negative); Leukocyte Esterase,Urine Moderate (Negative); Mucus,Urine Many /hpf; Nitrite,Urine Negative (Negative); Protein,Urine 1+ (Negative); RBC,Urine 122 /hpf (0-5); Specific Gravity,Urine 1.029 (1.001-1.035); Squamous Epithelial Cell,Urine 46 /hpf (0-4); Urobilinogen,Urine <2.0 mg/dL (<2.0); WBC,Urine 38 /hpf (0-5)
--- NOTE | 2022-01-03 19:59 | XR ---
EXAMINATION TYPE: XR chest 3V DATE OF EXAM: 01/03/2022 COMPARISON: None HISTORY: dysrhythmia TECHNIQUE: AP and 2 lateral views of the chest are obtained. FINDINGS: There is no focal air space opacity, pleural effusion, or pneumothorax seen. The cardiac silhouette size is within normal limits. The osseous structures are intact. IMPRESSION: No acute cardiopulmonary process.
[2022-01-03 20:03] LABS: Amphetamine Screen,Urine Not Detected (NotDetected); Barbiturate Screen,Urine Not Detected (NotDetected); Benzodiazepines Screen,Urine Not Detected (NotDetected); Cocaine Screen,Urine Not Detected (NotDetected); Methadone Screen, Urine Not Detected (NotDetected); Opiate Screen,Urine Not Detected (NotDetected); Oxycodone Screen, Urine Not Detected (NotDetected); Phencyclidine Screen,Urine Not Detected (NotDetected); Tricyclic Antidepressant,Urine Not Detected (NotDetected); Urn Cannabinoid Scrn Not Detected (NotDetected)
[2022-01-03 20:54] LABS: T4, Free (Free Thyroxine) 2.23 ng/dL (0.78-2.19)
[2022-01-03] MEDS ORDERED: NALOXONE 0.4 MG/ML 1 ML VIAL IV PRN (23:04)
[2022-01-03] MEDS ORDERED: METOPROLOL TARTRATE 25 MG TAB PO SCH (23:45)
[2022-01-03] MEDS ORDERED: atenoloL 25 MG TAB PO SCH (23:45)
[2022-01-04] MEDS: SODIUM CHLORIDE 0.9% 1,000 ML IV SCH ×4 (00:19→21:22)
[2022-01-04] MEDS: MIRTAZAPINE 15 MG TAB PO SCH ×2 (00:19→21:00)
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
[2022-01-04] MEDS: ACETAMINOPHEN TAB 325 MG TAB PO PRN ×2 (04:44→16:20)
[2022-01-04] MEDS: atenoloL 25 MG TAB PO SCH ×2 (04:46→10:04)
[2022-01-04] MEDS ORDERED: LEVOTHYROXINE 50 MCG TAB PO SCH (06:30)
[2022-01-04] MEDS: VENLAFAXINE HCL ER 150 MG CAP PO SCH (10:04)
[2022-01-04] MEDS: HEPARIN SODIUM,PORCINE/PF 5,000 UNIT/0.5 ML SYRINGE SQ SCH ×3 (10:04→23:46)
--- NOTE | 2022-01-04 10:24 | P.CRDCN ---
History of Present Illness Consult date: 01/04/22 History of present illness: HISTORY OF PRESENT ILLNESS: This is a 31 year old female with a past medical history significant for hypothyroidism, cerebral palsy, seizures, depression, and bipolar disorder. Patient does not follow with a outsole paraffiner. We have been asked to see the patient in consultation for tachycardia. Patient examined at the bedside. Patient presented to the hospital with suicidal ideations. Patient has a health and safety trainer at the bedside. EKG on arrival revealed sinus tachycardia. Patient was started on atenolol 25mg daily per internal medicine. Patient denies chest pain or pressure. She denies shortness of breath. She does report occasion palpitations. She has a history of hypothyroidism. It is unclear if she has been taking her medications or not at home. * EKG reveals sinus tachycardia * Chest xray negative for acute process * Laboratory data: WBC 10.0. Hemoglobin 13.3. Platelet count 321. D-dimer 0.54. Sodium 130. Potassium 3.6. BUN 15. Creatinine 0.62. Troponin negative 3. TSH 6.6-0. Free T4 2.23. * Current home cardiac medications include none REVIEW OF SYSTEMS: At the time of my exam: CONSTITUTIONAL: Denies fever or chills. HEENT: Denies blurred vision, vision changes, or eye pain. Denies hemoptysis CARDIOVASCULAR: Denies chest pain. Denies orthopnea. Denies PND. Denies palpitations RESPIRATORY: Denies shortness of breath. GASTROINTESTINAL: Denies abdominal pain. Denies nausea or vomiting. HEMATOLOGIC: Denies bleeding disorders. GENITOURINARY: Denies any blood in urine. SKIN: Denies pruitis. Denies rash. PHYSICAL EXAM: VITAL SIGNS: Reviewed. GENERAL: Well-developed in no acute distress. HEENT: Head is normocephalic. Pupils are equal, round. Sclerae anicteric. Mucous membranes of the mouth are moist. Neck supple. No JVD or thyromegaly LUNGS: Respirations even and unlabored. Lungs essentially clear to auscultation bilaterally. HEART: Tachycardic. Regular rate and rhythm. S1 and S2 heard. ABDOMEN: Soft. Nondistended. Nontender. EXTREMITIES: Normal range of motion. No clubbing or cyanosis. Peripheral pulses intact. No lower extremity edema NEUROLOGIC: Awake and alert. Oriented x 3. ASSESSMENT: Suicidal ideation Sinus tachycardia History of hypothyroidism Secondary hyperthyroidism History of cerebral palsy History of seizures Depression Bipolar disorder PLAN: Obtain 2D echo to assess cardiac structure and function Continue atenolol Tachycardia likely secondary to hyperthyroidism and psychological conditions. Recommend treatment of underlying conditions and suspect improvement of tachycardia We will sign off. Please reconsult if needed. Nurse practitioner note has been reviewed by physician. Signing provider agrees with the documented findings, assessment, and plan of care. Past Medical History Past Medical History: Seizure Disorder Additional Past Medical History / Comment(s): cerebral palsy, pt's mother reports that last seizure was over a year ago and that her seizures have been managed well with medications History of Any Multi-Drug Resistant Organisms: None Reported Past Surgical History: Orthopedic Surgery Additional Past Surgical History / Comment(s): femurs rotated and achilles tendon lengthened and one yr. later metal hardware/plates were removed. Past Anesthesia/Blood Transfusion Reactions: No Reported Reaction Past Psychological History: Anxiety, Bipolar, Depression Additional Psychological History / Comment(s): Hx. of [facility] Smoking Status: Never smoker Past Alcohol Use History: None Reported Past Drug Use History: None Reported - Past Family History Father Family Medical History: No Reported History Mother Family Medical History: No Reported History Medications and Allergies Home Medications Medication Instructions Recorded Confirmed Type ARIPiprazole [Abilify Maintena] 400 mg IM Q30D #1 each 11/27/21 01/03/22 Rx Divalproex [Depakote] 1,000 mg PO HS 30 Days tablet 11/27/21 01/03/22 Rx Levothyroxine Sodium [Synthroid] 50 mcg PO DAILY@0630 30 Days tab 11/27/21 01/03/22 Rx Mirtazapine [Remeron] 15 mg PO HS 30 Days tab 11/27/21 01/03/22 Rx Venlafaxine HCl ER [Effexor XR] 150 mg PO DAILY 30 Days 11/27/21 01/03/22 Rx Allergies Allergy/AdvReac Type Severity Reaction Status Date / Time lamotrigine [From Lamictal] Allergy Rash/Hives Verified 01/03/22 22:30 morphine Allergy Itching Verified 01/03/22 22:30 Physical Exam Vitals: Vital Signs Temp Pulse Pulse Resp BP BP Pulse Ox 01/04/22 04:00 98.0 F 106 H 18 127/77 96 01/04/22 01:51 117 H 17 01/03/22 23:35 118 H 18 150/97 97 01/03/22 21:23 131 H 17 145/88 95 01/03/22 19:42 137 H 01/03/22 14:24 98.5 F 133 H 18 129/78 97 Intake and Output 01/03/22 01/04/22 01/04/22 22:59 06:59 14:59 Other: Voiding Method Bedside Commode # Voids 1 Weight 104.326 kg Results 01/03/22 19:12 01/03/22 19:12 Cardiac Enzymes 01/03/22 01/03/22 01/04/22 Range/Units 19:12 19:12 01:02 AST 42 H (14-36) U/L Troponin I <0.012 <0.012 (0.000-0.034) ng/mL 01/04/22 Range/Units 02:47 AST (14-36) U/L Troponin I <0.012 (0.000-0.034) ng/mL Coagulation 01/03/22 Range/Units 19:12 PT 10.5 (9.0-12.0) sec APTT 22.6 (22.0-30.0) sec CBC 01/03/22 Range/Units 19:12 WBC 10.0 (3.8-10.6) k/uL RBC 4.54 (3.80-5.40) m/uL Hgb 13.3 (11.4-16.0) gm/dL Hct 40.2 (34.0-46.0) % Plt Count 321 (150-450) k/uL Comprehensive Metabolic Panel 01/03/22 Range/Units 19:12 Sodium 138 (137-145) mmol/L Potassium 3.6 (3.5-5.1) mmol/L Chloride 106 (98-107) mmol/L Carbon Dioxide 21 L (22-30) mmol/L BUN 15 (7-17) mg/dL Creatinine 0.62 (0.52-1.04) mg/dL Glucose 111 H (74-99) mg/dL Calcium 9.1 (8.4-10.2) mg/dL AST 42 H (14-36) U/L ALT 26 (4-34) U/L Alkaline Phosphatase 91 (38-126) U/L Total Protein 7.6 (6.3-8.2) g/dL Albumin 4.3 (3.5-5.0) g/dL Current Medications Generic Name Dose Route Start Last Admin Trade Name Freq PRN Reason Stop Dose Admin Acetaminophen 650 mg 01/04/22 03:06 01/04/22 04:44 Acetaminophen Tab 325 Mg Tab PO 650 mg Q6HR PRN Administration Fever and/ or Pain Aripiprazole 400 mg 01/16/22 09:00 Aripiprazole Im Syringe 400 Mg (No Charge) Pharmacy Stock IM Q30D [facility] Atenolol 25 mg 01/03/22 23:45 01/04/22 04:46 Atenolol 25 Mg Tab PO Not Given DAILY EVA Divalproex Sodium 1,000 mg 01/04/22 21:00 Divalproex 500 Mg Tablet.Dr PO HS EVA Heparin Sodium (Porcine) 5,000 unit 01/04/22 08:00 Heparin Sodium,Porcine/Pf 5,000 Unit/0.5 Ml Syringe SQ Q8HR [facility] Sodium Chloride 1,000 mls @ 130 mls/hr 01/03/22 23:15 01/04/22 06:09 Saline 0.9% IV Not Given .Q7H42M EVA Mirtazapine 15 mg 01/04/22 00:00 01/04/22 00:19 Mirtazapine 15 Mg Tab PO 15 mg HS EVA Administration Naloxone HCl 0.2 mg 01/03/22 23:04 Naloxone 0.4 Mg/Ml 1 Ml Vial IV Q2M PRN Opioid Reversal Venlafaxine HCl 150 mg 01/04/22 09:00 Venlafaxine Hcl Er 150 Mg Cap PO DAILY EVA Intake and Output 01/03/22 01/04/22 01/04/22 22:59 06:59 14:59 Other: Voiding Method Bedside Commode # Voids 1 Weight 104.326 kg 01/03/22 19:12 01/03/22 19:12
[2022-01-04 10:32] VITALS: BMI 36.0
--- NOTE | 2022-01-04 10:58 | ECHOF ---
Referral Reason:tachycardia MEASUREMENTS -------- HEIGHT: 170.2 cm WEIGHT: 104.3 kg BP: 127/77 RVIDd: 3.6 cm (< 3.3) IVSd: 1.3 cm (0.6 - 1.1) LVIDd: 3.6 cm (3.9 - 5.3) LVPWd: 1.2 cm (0.6 - 1.1) IVSs: 1.4 cm LVIDs: 2.6 cm LVPWs: 1.6 cm LAESV Index (A-L): 25.34 ml/m Ao Diam: 2.5 cm (2.0 - 3.7) AV Cusp: 2.0 cm (1.5 - 2.6) LA Diam: 3.5 cm (2.7 - 3.8) MV EXCURSION: 24.595 mm (> 18.000) MV EF SLOPE: 178 mm/s (70 - 150) EPSS: 0.5 cm MV E Moisés: 0.95 m/s MV DecT: 69 ms MV A Moisés: 1.31 m/s MV E/A Ratio: 0.72 RAP: 5.00 mmHg RVSP: 42.25 mmHg FINDINGS -------- Resting tachycardia (HR>100bpm). This was a technically difficult study with suboptimal apical views. The left ventricular size is normal. There is mild concentric left ventricular hypertrophy. Overa ll left ventricular systolic function is normal with, an EF between 55 - 60 %. The right ventricle is mildly enlarged. Normal LA size by volume 22+/-6 ml/m2. The right atrial size is normal. 5.0mg of Lumason was utilized for enhancement of images Interatrial and interventricular septum intact. There is no evidence of aortic regurgitation. There is no evidence of aortic stenosis. No mitral regurgitation. Mild tricuspid regurgitation present. There is mild pulmonary hypertension. The right ventricular systolic pressure, as measured by Doppler, is 42.25mmHg. There is no pulmonic regurgitation present. The aortic root size is normal. IVC Not well visulized. There is no pericardial effusion. CONCLUSIONS -------- 1. The left ventricular size is normal. 2. There is mild concentric left ventricular hypertrophy. 3. Overall left ventricular systolic function is normal with, an EF between 55 - 60 %. 4. The right ventricle is mildly enlarged. 5. There is mild pulmonary hypertension. 6. The right ventricular systolic pressure, as measured by Doppler, is 42.25mmHg. HOME CARE PHYSICAL THERAPIST: Jamila Montana RDCS
--- NOTE | 2022-01-04 13:47 | P.CN ---
Psychiatric Consult - . Consult date: 01/04/22 Consult:: 01/04/22 13:45 IDENTIFYING DATA: This patient is a Patient is a 31-year-old female significant history of cerebral palsy who lives with her mother and family was presenting to the emergency department for suicidal ideation with a plan to overdose on her Depakote medication. HISTORY OF PRESENT ILLNESS: The patient presented to the hospital on 01/03/2022, who presents emergency Department with suicidal ideation with a plan to overdose on her Depakote pills. She was admitted medically due to a heart rate of 140 with a cardiac consultation and psychiatric consultation. The patient reports that she has been off her medication for the past 6 days after missing an appointment with [facility]. She reports that she began experiencing worsening depression and suicidal ideation. Furthermore, the patient reports that she has been experiencing auditory hallucinations and visual hallucinations. She describes hearing voices that are telling her to hurt herself and seeing masked figures around. Furthermore, the patient expresses severe paranoia. She states that her family, her father in particular, are going to try to kill her. The patient was last admitted onto our psychiatric unit from 11/20/21 to 11/27/21. She was discharged on a regimen of Depakote, Effexor, Remeron, and Abilify maintena 400 mg IM with her next dose scheduled for 12/18/2021. It is uncertain whether the patient received her next dose of abilify maintena. PAST PSYCHIATRIC HISTORY: Patient has a significant history of major depressive disorder, intellectual disability, cervical palsy, and delusional disorder. The patient's home regimen currently includes Remeron, Lexapro, Abilify maintena, lithium, and Depakote. She has also had previous trials of Seroquel. Due to seizure disorder, patient is also been previously on Keppra and is receiving Depakote for seizure disorder at this time. The patient has had 6 prior inpatient psychiatric hospitalization since 2013. She was last hospitalized on this mental health unit in November of 2021. She currently receives care with [facility]. Patient does admit to prior attempts at suicide. PAST MEDICAL HISTORY: Past Medical History: Seizure Disorder Additional Past Medical History / Comment(s): cerebral palsy, pt's mother reports that last seizure was over a year ago and that her seizures have been managed well with medications. History of Any Multi-Drug Resistant Organisms: None Reported Past Surgical History: Orthopedic Surgery Additional Past Surgical History / Comment(s): femurs rotated and achilles tendon lengthened and one yr. later metal hardware/plates were removed. Past Anesthesia/Blood Transfusion Reactions: No Reported Reaction Past Psychological History: Anxiety, Depression Smoking Status: Never smoker Past Alcohol Use History: None Reported Past Drug Use History: None Reported ALLERGIES: Lamotrigine, morphine CHEMICAL DEPENDENCY HISTORY:Patient denies any tobacco, alcohol, marijuana, or illicit drug use. FAMILY PSYCHIATRIC/SUBSTANCE USE HISTORY: Sister with depression SOCIAL HISTORY: Patient has attended some college. 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 She currently lives with her mother, sister, [id number], nephew, and niece. MENTAL STATUS EXAM: General Appearance: Patient appears to be stated age is alert and cooperative. Patient appears to have poor hygiene and grooming wearing hospital gown with poor eye contact. Patient appears diaphoretic. Behavior: Elevated psychomotor activity. Speech: Patient's speech is fluent and nonpressured. Mood/Affect: Patient reports their mood is "depressed and suicidal", affect is congruent and anxious. Suicidality/Homicidality: Patient endorses suicidal ideation. Perceptions: Patient reports with auditory and visual hallucinations. Though content/process: There is no evidence of any delusional thought content and thought process is linear and goal-directed. Memory and concentration: AOX3, grossly intact for the purposes of this session. Can spell "WORLD" backwards Judgment and insight: Fair Vital Signs Temp 98.1 F 01/04/22 08:00 Pulse 94 01/04/22 12:00 Resp 18 01/04/22 12:00 BP 134/89 01/04/22 12:00 Pulse Ox 96 01/04/22 12:00 Intake & Output 01/03/22 01/04/22 01/04/22 18:59 06:59 18:59 Intake Total 120 Balance 120 Weight 104.326 kg 104.326 kg 104.326 kg Intake: Oral 120 Other: Voiding Method Bedside Commode # Voids 1 1 # Bowel Movements 1 Laboratory Results - Last 24 Hours 01/03/22 01/03/22 01/03/22 19:12 19:12 19:12 WBC 10.0 RBC 4.54 Hgb 13.3 Hct 40.2 MCV 88.5 MCH 29.4 MCHC 33.2 RDW 14.8 Plt Count 321 MPV 7.3 Neutrophils % 74 Lymphocytes % 20 Monocytes % 4 Eosinophils % 1 Basophils % 0 Neutrophils # 7.4 Lymphocytes # 2.0 Monocytes # 0.4 Eosinophils # 0.1 Basophils # 0.0 PT 10.5 INR 1.0 APTT 22.6 D-Dimer 0.54 Sodium 138 Potassium 3.6 Chloride 106 Carbon Dioxide 21 L Anion Gap 11 BUN 15 Creatinine 0.62 Est GFR (CKD-EPI)AfAm >90 Est GFR (CKD-EPI)NonAf >90 Glucose 111 H Calcium 9.1 Magnesium 1.7 Total Bilirubin 0.6 AST 42 H ALT 26 Alkaline Phosphatase 91 Troponin I Total Protein 7.6 Albumin 4.3 TSH 6.620 H Free T4 2.23 H Free T3 pg/mL 5.7 H HCG, Qual Urine Color Urine Appearance Urine pH Ur Specific [place] Urine Protein Urine Glucose (UA) Urine Ketones Urine Blood Urine Nitrite Urine Bilirubin Urine Urobilinogen Ur Leukocyte Esterase Urine RBC Urine WBC Ur Squamous Epith Cells Urine Bacteria Hyaline Casts Urine Mucus Urine Opiates Screen Ur Oxycodone Screen Urine Methadone Screen Ur Propoxyphene Screen Ur Barbiturates Screen Valproic Acid U Tricyclic Antidepress Ur Phencyclidine Scrn Ur Amphetamines Screen U Methamphetamines Scrn U Benzodiazepines Scrn Urine Cocaine Screen U Marijuana (THC) Screen 01/03/22 01/03/22 01/03/22 19:12 19:12 19:40 WBC RBC Hgb Hct MCV MCH MCHC RDW Plt Count MPV Neutrophils % Lymphocytes % Monocytes % Eosinophils % Basophils % Neutrophils # Lymphocytes # Monocytes # Eosinophils # Basophils # PT INR APTT D-Dimer Sodium Potassium Chloride Carbon Dioxide Anion Gap BUN Creatinine Est GFR (CKD-EPI)AfAm Est GFR (CKD-EPI)NonAf Glucose Calcium Magnesium Total Bilirubin AST ALT Alkaline Phosphatase Troponin I <0.012 Total Protein Albumin TSH Free T4 Free T3 pg/mL HCG, Qual Not Detected Urine Color Yellow Urine Appearance Cloudy H Urine pH 6.0 Ur Specific [place] 1.029 Urine Protein 1+ H Urine Glucose (UA) Negative Urine Ketones 2+ H Urine Blood Moderate H Urine Nitrite Negative Urine Bilirubin Negative Urine Urobilinogen <2.0 Ur Leukocyte Esterase Moderate H Urine RBC 122 H Urine WBC 38 H Ur Squamous Epith Cells 46 H Urine Bacteria Rare H Hyaline Casts 4 H Urine Mucus Many H Urine Opiates Screen Ur Oxycodone Screen Urine Methadone Screen Ur Propoxyphene Screen Ur Barbiturates Screen Valproic Acid U Tricyclic Antidepress Ur Phencyclidine Scrn Ur Amphetamines Screen U Methamphetamines Scrn U Benzodiazepines Scrn Urine Cocaine Screen U Marijuana (THC) Screen 01/03/22 01/03/22 01/04/22 19:40 19:53 01:02 WBC RBC Hgb Hct MCV MCH MCHC RDW Plt Count MPV Neutrophils % Lymphocytes % Monocytes % Eosinophils % Basophils % Neutrophils # Lymphocytes # Monocytes # Eosinophils # Basophils # PT INR APTT D-Dimer Sodium Potassium Chloride Carbon Dioxide Anion Gap BUN Creatinine Est GFR (CKD-EPI)AfAm Est GFR (CKD-EPI)NonAf Glucose Calcium Magnesium Total Bilirubin AST ALT Alkaline Phosphatase Troponin I <0.012 Total Protein Albumin TSH Free T4 Free T3 pg/mL HCG, Qual Urine Color Urine Appearance Urine pH Ur Specific [place] Urine Protein Urine Glucose (UA) Urine Ketones Urine Blood Urine Nitrite Urine Bilirubin Urine Urobilinogen Ur Leukocyte Esterase Urine RBC Urine WBC Ur Squamous Epith Cells Urine Bacteria Hyaline Casts Urine Mucus Urine Opiates Screen Not Detected Ur Oxycodone Screen Not Detected Urine Methadone Screen Not Detected Ur Propoxyphene Screen Not Detected Ur Barbiturates Screen Not Detected Valproic Acid 46.5 U Tricyclic Antidepress Not Detected Ur Phencyclidine Scrn Not Detected Ur Amphetamines Screen Not Detected U Methamphetamines Scrn Not Detected U Benzodiazepines Scrn Not Detected Urine Cocaine Screen Not Detected U Marijuana (THC) Screen Not Detected 01/04/22 02:47 WBC RBC Hgb Hct MCV MCH MCHC RDW Plt Count MPV Neutrophils % Lymphocytes % Monocytes % Eosinophils % Basophils % Neutrophils # Lymphocytes # Monocytes # Eosinophils # Basophils # PT INR APTT D-Dimer Sodium Potassium Chloride Carbon Dioxide Anion Gap BUN Creatinine Est GFR (CKD-EPI)AfAm Est GFR (CKD-EPI)NonAf Glucose Calcium Magnesium Total Bilirubin AST ALT Alkaline Phosphatase Troponin I <0.012 Total Protein Albumin TSH Free T4 Free T3 pg/mL HCG, Qual Urine Color Urine Appearance Urine pH Ur Specific [place] Urine Protein Urine Glucose (UA) Urine Ketones Urine Blood Urine Nitrite Urine Bilirubin Urine Urobilinogen Ur Leukocyte Esterase Urine RBC Urine WBC Ur Squamous Epith Cells Urine Bacteria Hyaline Casts Urine Mucus Urine Opiates Screen Ur Oxycodone Screen Urine Methadone Screen Ur Propoxyphene Screen Ur Barbiturates Screen Valproic Acid U Tricyclic Antidepress Ur Phencyclidine Scrn Ur Amphetamines Screen U Methamphetamines Scrn U Benzodiazepines Scrn Urine Cocaine Screen U Marijuana (THC) Screen Allergies Allergy/AdvReac Type Severity Reaction Status Date / Time lamotrigine [From Lamictal] Allergy Rash/Hives Verified 01/03/22 22:30 morphine Allergy Itching Verified 01/03/22 22:30 IMPRESSIONS: Major depressive disorder, recurrent, severe, with psychotic features Intellectual disability Cerebral palsy Rule out delusional disorder PLAN: -At this time patient DOES meet criteria for inpatient psychiatric admission. -Would recommend the following medication changes/additions: No medication changes will be made at this time. Continue Abilify maintena, effexor, depakote, and remeron. -Cardiology note reviewed. Suspect tachycardia due to thyroid disorder and underlying psychological conditions -Continue 1:1 sitter for safety -Cannot leave AMA at this time. Patient will need a petition and certification if attempting to leave AMA. -When medically stable, patient is eligible for transfer to a psych bed when available. -Psychiatry will sign off at this point, please contact with any questions. 01/04/22 13:46 01/04/22 13:47
--- NOTE | 2022-01-04 14:44 | P.PN ---
Subjective Progress Note Date: 01/04/22 Patient continues to report depression, suicidal ideation. Still tachycardic. Thyroid function tests reveal likely secondary hyperthyroidism. Patient declines any visual disturbance. Pending MRI of the brain. Gen: awake, alert HEENT: normocephalic, atraumatic, good hearing acuity, moist mucous membranes Resp: good air exchange, breathing comfortably with no accessory muscle use CVS: good distal perfusion x 4, GI: soft, NTTP, ND : no SPT, no CVAT, cruz catheter not present MSK: no pitting edema, no clubbing Neuro: non-focal, moving all extremities Psych: cooperative, euthymic mood Assessment/plan: Depression and suicidal ideation Management per psych Transfer to MHU after medical stabilization Secondary hyperthyroidism Sinus Tachycardia Patient initiated on atenolol Patient claims that normally she is hypothyroid she takes levothyroxine at home however she is not compliant with that. This needs further verification ordered to better understand her thyroid pathology MRI of the brain Patient was started on atenolol Full code DVT prophylaxis heparin subcu 3 times a day Anticipated length of stay less than 2 midnights Objective - Vital Signs Vital signs: Vital Signs Temp 98.1 F 01/04/22 08:00 Pulse 94 01/04/22 12:00 Resp 18 01/04/22 12:00 BP 134/89 01/04/22 12:00 Pulse Ox 96 01/04/22 12:00 Intake & Output 01/03/22 01/04/22 01/04/22 18:59 06:59 18:59 Intake Total 120 Balance 120 Weight 104.326 kg 104.326 kg 104.326 kg Intake: Oral 120 Other: Voiding Method Bedside Commode # Voids 1 1 # Bowel Movements 1 - Labs CBC & Chem 7: 01/03/22 19:12 01/03/22 19:12 Labs: Abnormal Lab Results - Last 24 Hours (Table) 01/03/22 01/03/22 Range/Units 19:12 19:40 Carbon Dioxide 21 L (22-30) mmol/L Glucose 111 H (74-99) mg/dL AST 42 H (14-36) U/L TSH 6.620 H (0.465-4.680) mIU/L Free T4 2.23 H (0.78-2.19) ng/dL Free T3 pg/mL 5.7 H (2.8-5.3) pg/ml Urine Appearance Cloudy H (Clear) Urine Protein 1+ H (Negative) Urine Ketones 2+ H (Negative) Urine Blood Moderate H (Negative) Ur Leukocyte Esterase Moderate H (Negative) Urine RBC 122 H (0-5) /hpf Urine WBC 38 H (0-5) /hpf Ur Squamous Epith Cells 46 H (0-4) /hpf Urine Bacteria Rare H (None) /hpf Hyaline Casts 4 H (0-2) /lpf Urine Mucus Many H (None) /hpf Microbiology - Last 24 Hours (Table) 01/03/22 19:40 Urine Culture - Preliminary Urine,Clean Catch
[2022-01-04] MEDS: DIVALPROEX 500 MG TABLET.DR PO SCH (21:00)
[2022-01-05] MEDS: SODIUM CHLORIDE 0.9% 1,000 ML IV SCH ×3 (06:35→20:00)
[2022-01-05] MEDS: VENLAFAXINE HCL ER 150 MG CAP PO SCH (08:57)
[2022-01-05] MEDS: atenoloL 25 MG TAB PO SCH (08:57)
[2022-01-05] MEDS: HEPARIN SODIUM,PORCINE/PF 5,000 UNIT/0.5 ML SYRINGE SQ SCH ×3 (08:58→23:15)
--- NOTE | 2022-01-05 13:12 | MR ---
EXAMINATION TYPE: MR brain wo/w con DATE OF EXAM: 01/05/2022 COMPARISON: MR brain 06/12/2016. HISTORY: Suicidal ideation, thyroid function test reveal possible hyperthyroidism. TECHNIQUE: Multiplanar, multisequence images of the brain and brainstem is performed without and with IV contras t, utilizing 10 mL intravenous Gadavist . FINDINGS: Diffusion weighted images demonstrate no evidence of a recent infarct or other diffusion ab normality. There is no extra-axial fluid collection or significant white matter signal abnormality. The ventricular system and cisternal spaces are normal in size and appearance. The brain volume is age appropriate. Midline structures redemonstrate diffuse atrophy of the corpus callosum. Ventricles are symmetric bu t has similar irregular shape. There is periventricular T2 hyperintensity present. The craniocervic al junction appears within normal limits. Post contrast images demonstrate no abnormal enhancement. The dural venous sinuses appear patent. The lenses show divergent gaze. The visualized paranasal sin uses are clear. After administration of gadolinium, homogeneous pituitary enhancement is seen. IMPRESSION: 1. No pituitary gland abnormality. 2. No evidence of intracranial mass nor acute/subacute CVA. 3. Similar Atrophy or thinning of the corpus callosum which is performed from genu to splenium. 4. Similar Abnormal symmetric shape to the ventricular system with periventricular increased T2 signa l. 5. Similar Findings presumed congenital in etiology, perhaps product of intrauterine infection. Pinky elation with old outside studies may be beneficial.
--- NOTE | 2022-01-05 13:39 | P.PN ---
Subjective Progress Note Date: 01/05/22 Patient continues to report depression, suicidal ideation. Still tachycardic. Thyroid function tests reveal likely secondary hyperthyroidism. Patient declines any visual disturbance. MRI of the brain reveals chronic findings, but no mass. Plan to keep patient and repeat TFTs given ongoing tachycardia. Unclear whether patient was recently started on thyroid medication and we are seeing an improvement in but still elevated TSH while overtreating primary hypothryoidism with too high dose of levothyroxine, or if we're seeing true secondary hyperthyroidism, and if so unclear what the etiology is. Will continue to monitor. I will discuss this case with our [facility] colleagues and hand over care of this inpatient. Gen: awake, alert HEENT: normocephalic, atraumatic, good hearing acuity, moist mucous membranes Resp: good air exchange, breathing comfortably with no accessory muscle use CVS: good distal perfusion x 4, GI: soft, NTTP, ND : no SPT, no CVAT, cruz catheter not present MSK: no pitting edema, no clubbing Neuro: non-focal, moving all extremities Psych: cooperative, euthymic mood Assessment/plan: Depression and suicidal ideation Management per psych Transfer to MHU after medical stabilization Secondary hyperthyroidism vs overtreated primary hyperthyroidism Sinus Tachycardia Patient initiated on atenolol Patient claims that normally she is hypothyroid she takes levothyroxine at home however she is not compliant with that. This needs further verification ordered to better understand her thyroid patho logy MRI of the brain with chronic changes, no pituitary mass; consider ordering other anterior/posterior pituitary hormones, I will defer to [facility] Patient was started on atenolol Holding levothyroxine for now pending further workup Full code DVT prophylaxis heparin subcu 3 times a day Anticipated length of stay less than 2 midnights Objective - Vital Signs Vital signs: Vital Signs Temp 98.1 F 01/05/22 12:59 Pulse 96 01/05/22 12:59 Resp 18 01/05/22 12:59 BP 144/90 01/05/22 12:59 Pulse Ox 93 L 01/05/22 12:59 Intake & Output 01/04/22 01/05/22 01/05/22 18:59 06:59 18:59 Intake Total 480 0 Output Total 100 Balance 380 0 Weight 104.326 kg Intake: Oral 480 0 Output: Urine 100 Other: Voiding Method Bedside Commode Bedside Commode External Catheter External Catheter # Voids 1 2 2 # Bowel Movements 1 - Labs CBC & Chem 7: 01/03/22 19:12 01/03/22 19:12 Labs: Microbiology - Last 24 Hours (Table) 01/03/22 19:40 Urine Culture - Final Urine,Clean Catch
[2022-01-05] MEDS ORDERED: LORazepam 2 MG/ML INJ IV PRN (14:38)
[2022-01-05] MEDS: DIVALPROEX 500 MG TABLET.DR PO SCH (20:00)
[2022-01-05] MEDS: MIRTAZAPINE 15 MG TAB PO SCH (20:00)
[2022-01-06] MEDS: SODIUM CHLORIDE 0.9% 1,000 ML IV SCH ×3 (04:04→19:28)
[2022-01-06] MEDS: atenoloL 25 MG TAB PO SCH (10:01)
[2022-01-06] MEDS: VENLAFAXINE HCL ER 150 MG CAP PO SCH (10:01)
[2022-01-06] MEDS: HEPARIN SODIUM,PORCINE/PF 5,000 UNIT/0.5 ML SYRINGE SQ SCH ×3 (10:01→23:17)
--- NOTE | 2022-01-06 13:20 | PN ---
PROGRESS NOTE DATE OF SERVICE: 01/06/2022 This 31-year-old woman who was admitted with apparent psychiatric suicidal ideation, depression, was been admitted to a different service. The patient was transferred to [place] today. The MRI showed multiple abnormalities, including atrophy of corpus callosum; could be congenital. Psychiatric evaluation is in progress at this time. The patient continues to be slightly drowsy. The patient also had features of sick euthyroid syndrome with elevated free T3 and free T4 and TSH also. Patient is being closely monitored. Past medical history reviewed. Review of systems could not be taken; patient is rather drowsy. CURRENT MEDICATIONS: Reviewed. They include Tylenol and Abilify. Doses are reviewed. PHYSICAL EXAMINATION: Pulse is 87, blood pressure 120/72, respiration 18. CHEST: Clear to auscultation. CARDIOVASCULAR: S1, S2 muffled. ABDOMEN: Soft, nontender. NERVOUS SYSTEM: Diffusely weak. No focal deficit. LABS: Reviewed; as mentioned earlier. ASSESSMENT: 1. Suicidal ideations and depression. 2. Change in mental status. 3. Abnormal MRI. 4. Tachycardia. 5. Elevated TSH and free T3 and free T4; possibly sick euthyroid syndrome. 6. Rule out urinary tract infection. RECOMMENDATIONS AND DISCUSSION: In this 31-year-old woman who presented with multiple medical issues, at this time I recommend to continue to monitor. Repeat labs. Continue with DVT prophylaxis. Closely follow with Psychiatry. I also recommend a neurology consultation. Guarded prognosis. Further recommendations to follow. MMODL / IJN: [id number] / MTDD
[2022-01-06 16:22] LABS: Appearance,Urine Cloudy (Clear); Bacteria,Urine Rare /hpf; Bilirubin,Urine Negative (Negative); Blood,Urine Small (Negative); Color,Urine Yellow; Glucose,Urine (UA) Negative (Negative); Ketones,Urine 2+ (Negative); Leukocyte Esterase,Urine Moderate (Negative); Mucus,Urine Rare /hpf; Nitrite,Urine Negative (Negative); Protein,Urine Negative (Negative); RBC,Urine 9 /hpf (0-5); Specific Gravity,Urine 1.023 (1.001-1.035); Squamous Epithelial Cell,Urine 10 /hpf (0-4); WBC,Urine 5 /hpf (0-5)
[2022-01-06] MEDS: MIRTAZAPINE 15 MG TAB PO SCH (20:44)
[2022-01-06] MEDS: DIVALPROEX 500 MG TABLET.DR PO SCH (20:44)
--- NOTE | 2022-01-06 22:26 | P.CNNES ---
History of Present Illness Consult date: 01/06/22 Requesting physician: Wilfrido Rogers Reason for Consult: abnormal MRI, ? congenital?? History of Present Illness: Patient is a 31-year-old left-handed female with history of mild cerebral palsy, came to the hospital on 01/03/2022 at 1:51 PM for depression, suicidal ideation. She was planning to take all her Depakote pills in attempt to kill herself. She was recently discharged from Hospital for suicidal idea tion and depression on 11/27/2021. Patient has history of cerebral palsy, depression, bipolar and seizure disorder. Patient had an MRI of the brain with and without contrast performed yesterday, which revealed no pituitary gland abnormality. No evidence of intracranial mass or acute/subacute CVA. Similar atrophy or thinning of the corpus callosum which is performed from genu to splenium. Similar abnormal symmetric shape to the ventricular system with periventricular increased T2 signal. Similar findings presumed congenital in etiology, perhaps product of either intrauterine infection. Correlate with outside studies may be beneficial. I personally reviewed MRI of the brain from 01/05/2022 with 06/12/2016. There is no significant change at all. Except for slight advancement of the atrophy likely over a period of 6 years. Neurology was consulted for abnormal MRI. Patient states with her cerebral palsy, she had issues with whole-body. She walks with a walker. Patient says that she started having seizures since she was age [age] years of age. She used to have grand mal seizures, but as she has grown older, they are more minor seizures. The last seizure she had was about 1-2 years ago. Currently she is taking Depakote for seizures. Patient's blood test shows normal CBC PT/PTT, Chem-20 with mildly elevated AST 42. UA shows moderate leukocyte esterase. Urine drug screen negative. Depakote level is 46.5. Patient had an abnormal EEG on 10/19/2020 because of background slowing, suggestive of [id number] encephalopathy of unspecified etiology. There are no focal slowing, epileptiform discharges or seizure during the study. Clinical correlation is recommended. Patient denies any tobacco or alcohol use. She lives with her mother, sister, [id number], niece and nephew. She walks with a walker. Patient does take Abilify 400 mg IM every 30 days, levothyroxine, Remeron 15 mg at bedtime, Effexor XR 150 mg daily and Depakote 1000 mg at bedtime. I can't. Review of Systems As mentioned above in HPI. Denies any headache. She has some problem with the vision. Denies any hoarseness, sore throat, dysphagia. Denies any bowel pain nausea vomiting. No rash, fever or chills. Patient has depression. Patient has gait problems. No hearing loss or tinnitus. All other 14 point review systems reviewed and noncontributory Past Medical History Past Medical History: Seizure Disorder Additional Past Medical History / Comment(s): cerebral palsy, pt's mother reports that last seizure was over a year ago and that her seizures have been managed well with medications History of Any Multi-Drug Resistant Organisms: None Reported Past Surgical History: Orthopedic Surgery Additional Past Surgical History / Comment(s): femurs rotated and achilles tendon lengthened and one yr. later metal hardware/plates were removed. Past Anesthesia/Blood Transfusion Reactions: No Reported Reaction Past Psychological History: Anxiety, Bipolar, Depression Additional Psychological History / Comment(s): Hx. of [employer] [facility] Counseling/[facility] Smoking Status: Never smoker Past Alcohol Use History: None Reported Past Drug Use History: None Reported - Past Family History Father Family Medical History: No Reported History Mother Family Medical History: No Reported History Medications and Allergies Home Medications Medication Instructions Recorded Confirmed Type ARIPiprazole [Abilify Maintena] 400 mg IM Q30D #1 each 11/27/21 01/03/22 Rx Divalproex [Depakote] 1,000 mg PO HS 30 Days tablet 11/27/21 01/03/22 Rx Levothyroxine Sodium [Synthroid] 50 mcg PO DAILY@0630 30 Days tab 11/27/21 01/03/22 Rx Mirtazapine [Remeron] 15 mg PO HS 30 Days tab 11/27/21 01/03/22 Rx Venlafaxine HCl ER [Effexor XR] 150 mg PO DAILY 30 Days 11/27/21 01/03/22 Rx Allergies Allergy/AdvReac Type Severity Reaction Status Date / Time lamotrigine [From Lamictal] Allergy Rash/Hives Verified 01/03/22 22:30 morphine Allergy Itching Verified 01/03/22 22:30 Physical Examination - Vital Signs Vital Signs: Vital Signs Temp Pulse Resp BP Pulse Ox 01/06/22 13:00 97.5 F L 75 18 116/70 96 01/06/22 04:47 98.9 F 87 18 122/72 92 L 01/05/22 21:00 97.6 F 92 16 137/88 95 01/05/22 19:50 16 01/05/22 17:54 98.6 F 102 H 12 135/91 95 Intake and Output 01/06/22 01/06/22 01/06/22 06:59 14:59 22:59 Intake Total 1700 Balance 1700 Intake: Intake, IV Titration 1400 Amount Sodium Chloride 0.9% 1, 1400 000 ml @ 130 mls/hr IV . Q7H42M [facility] Rx#:[id number] Oral 300 Other: Voiding Method Bedside Commode Diaper # Voids 3 3 Weight 105.5 kg Patient is a young female, in no acute distress. Patient was slightly somnolent, but does wake up and becomes alert awake oriented to time place and person. She knows it is December and the year is 2021 and the day is Friday. She knows that she is in [facility], her age and name of the current president. Speech and language functions are normal. Attention, concentration and fund of knowledge is adequate. Detailed testing deferred. On cranial examination, pupils are equal, round and reacting to light, visual dejesus are full on confrontation, extraocular muscles reveal patient has baseline eggs or tropia on the left. Patient has slight restriction of abduction bilaterally. She has nystagmus with end gaze bilaterally. Patient says her visual acuity is 20/50 of one eye, and 20/25 on the other eye. Face is symmetric, tongue protrudes to the midline. Palatal elevation and sensation normal, hearing and shoulder shrug normal, facial sensation normal. Shoulder shrug normal. Patient's mouth is very dry. On muscle strength testing, there is left-sided pronation, no drift. Patient's strength is normal in arms and legs distally and proximally. Deep tendon reflexes are 2+ to 3 at bilateral biceps and brachioradialis, 3 at the right knee, 3+ left. Patient's plantars are withdrawal versus up. Sensory to touch is equal with no neglect. Cerebellar function showed no ataxia for iysheh-dy-hqwg testing, although she is slightly tremulous for cyjvfh-ku-[id number] bilaterally. Tone is moderately increased bilaterally and bulk of muscles normal. Patient is obviously bradykinetic. No obvious tremors at rest were noted. Gait deferred. On general examination, there is no carotid bruit or murmur, S1-S2 audible. Abdomen is soft nontender. Bowel sounds present. No organomegaly. Chest is clear. Peripheral pulses are present. No edema. 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 Her MRI of the brain is completely unchanged as compared to the MRI from 06/12/2016. 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 * Depression with suicidal ideation * Seizure disorder, well controlled on Depakote Plan: * Patient's MRI of the brain is stable. No other workup indicated. * Continue Depakote at the current dose for seizure prophylaxis. Depakote level is borderline 46.5, but no need to change the dose. * Patient appears to have significant parkinsonian features, likely extrapyramidal side effects of antipsychotic medication (Abilify). Consider adding Cogentin. * Patient's last B12 was normal 421, folate 12.5. Patient's TSH is slightly elevated as well as free T4. Will defer to IM to address abnormal thyroid functions. * Neurologically clear. We will sign off. Please reconsult if any other concerns. * Thank you for the consult.
[2022-01-07] MEDS: SODIUM CHLORIDE 0.9% 1,000 ML IV SCH ×2 (02:39→09:49)
[2022-01-07 05:51] VITALS: RESP 16
[2022-01-07 08:43] LABS: Basophils # (A) 0.05 X 10*3/uL (0.00-0.10); Basophils % (A) 0.6 %; Eosinophils # (A) 0.07 X 10*3/uL (0.04-0.35); Eosinophils % (A) 0.8 %; HCT 36.9 % (37.2-46.3); HGB 11.5 g/dL (12.0-15.0); Immature Grans, Automated 0.6 %; Lymphocytes # (A) 2.76 X 10*3/uL (0.90-5.00); Lymphocytes % (A) 33.3 %; MCH 28.3 pg (27.0-32.0); MCHC 31.2 g/dL (32.0-37.0); MCV 90.7 fL (80.0-97.0); Mean Platelet Volume 10.6 fL (9.5-12.2); Monocytes # (A) 0.59 X 10*3/uL (0.20-1.00); Monocytes % (A) 7.1 %; NRBC Per 100 WBC 0 /100 WBCS (0.0-0.0); Neutrophils # (A) 4.76 X 10*3/uL (1.80-7.70); Neutrophils % (A) 57.6 %; Platelet Count 234 X 10*3/uL (140-440); RBC 4.07 X 10*6/uL (4.10-5.20); RDW 14.9 % (11.5-14.5); WBC 8.28 X 10*3/uL (4.50-10.00)
[2022-01-07 09:30] LABS: African American GFR (CKD) 151.2 (60.0-200.0); Albumin 3.5 g/dL (3.8-4.9); Albumin/Globulin Ratio 1.64 (1.60-3.17); BUN/Creat Ratio 24.52 Ratio (12.00-20.00); Blood Urea Nitrogen 11.6 mg/dL (9.0-27.0); Calcium 8.5 mg/dL (8.7-10.3); Carbon Dioxide 22.8 mmol/L (20.0-27.5); Globulin 2.1 g/dL (1.6-3.3); Non-African American GFR(CKD) 130.4 (60.0-200.0); Potassium 3.7 mmol/L (3.5-5.5); Total Bilirubin 0.4 mg/dL (0.30-1.20); Total Protein 5.7 g/dL (6.2-8.2)
[2022-01-07] MEDS: VENLAFAXINE HCL ER 150 MG CAP PO SCH (09:49)
[2022-01-07] MEDS: HEPARIN SODIUM,PORCINE/PF 5,000 UNIT/0.5 ML SYRINGE SQ SCH (09:49)
[2022-01-07] MEDS: atenoloL 25 MG TAB PO SCH (09:49)
[2022-01-07 13:17] VITALS: BP 135/76; PULSE 83; TEMP 97.7
--- NOTE | 2022-01-07 13:44 | P.PN ---
Progress Note - Text Progress Note Date: 01/07/22 Interval History: Patient was seen seated upright in her room. Currently, the patient is not reporting any suicidal or homicidal ideation, intention, and/or plan. She is denying any auditory or visual hallucinations. She is not reporting any paranoia or other delusions. The patient stresses that she is feeling significantly better since being placed on her medications. She reports that she feels like she is ready to go home. She reports no issues regarding her sleep or her appetite. She denies any side effects of her medications. She has been able to address her hygiene and grooming. Mental Status Exam: General Appearance: Patient appears to be stated age is alert, directable, and cooperative. Behavior: Patient is calmly seated without any agitated behavior. Eye contact is appropriate. More spontaneous. Speech: Patient's speech is fluent and nonpressured. Mood/Affect: Mood is "feeling a lot better." Affect appears to be with a slightly constricted range and bright. Suicidality/Homicidality: Patient denies having any suicidal or homicidal ideat ion intent or plan. Perceptions: Patient denies any visual hallucinations and denies any auditory hallucinations Though content/process: There is no evidence of any delusional thought content and thought process is linear and goal-directed. Memory and concentration: AOX3, grossly intact for the purposes of this session Judgment and insight: Improved Vital Signs Temp 97.7 F 01/07/22 12:50 Pulse 83 01/07/22 12:50 Resp 16 01/07/22 12:50 BP 135/76 01/07/22 12:50 Pulse Ox 99 01/07/22 12:50 Intake & Output 01/06/22 01/07/22 01/07/22 18:59 06:59 18:59 Intake Total 2490 Balance 2490 Weight 103.5 kg Intake: Intake, IV Titration 1400 Amount Sodium Chloride 0.9% 1, 1400 000 ml @ 130 mls/hr IV . Q7H42M [facility] Rx#:[id number] Oral 1090 Other: Voiding Method Bedside Commode Bedside Commode Bedside Commode Diaper Diaper Diaper # Voids 3 3 3 Laboratory Results - Last 24 Hours 01/06/22 01/07/22 01/07/22 16:00 05:35 05:35 WBC 8.28 RBC 4.07 L Hgb 11.5 L Hct 36.9 L MCV 90.7 MCH 28.3 MCHC 31.2 L RDW 14.9 H Plt Count 234 MPV 10.6 Immature Gran % (Auto) 0.6 Absolute Nucleated RBC 0 Neutrophils % 57.6 Lymphocytes % 33.3 Monocytes % 7.1 Eosinophils % 0.8 Basophils % 0.6 Immature Gran # 0.05 H Neutrophils # 4.76 Lymphocytes # 2.76 Monocytes # 0.59 Eosinophils # 0.07 Basophils # 0.05 NRBC/100 WBC Diff 0 Sodium 139 Potassium 3.7 Chloride 106 Carbon Dioxide 22.8 Anion Gap 11.00 BUN 11.6 Creatinine 0.5 L Est GFR (CKD-EPI)AfAm 151.2 Est GFR (CKD-EPI)NonAf 130.4 BUN/Creatinine Ratio 24.52 H Glucose 75 Calcium 8.5 L Total Bilirubin 0.40 AST 47 H ALT 35 Alkaline Phosphatase 71 Total Protein 5.7 L Albumin 3.5 L Globulin 2.1 Albumin/Globulin Ratio 1.64 Urine Color Yellow Urine Appearance Cloudy H Urine pH 6.0 Ur Specific [place] 1.023 Urine Protein Negative Urine Glucose (UA) Negative Urine Ketones 2+ H Urine Blood Small H Urine Nitrite Negative Urine Bilirubin Negative Urine Urobilinogen 3.0 Ur Leukocyte Esterase Moderate H Urine RBC 9 H Urine WBC 5 Ur Squamous Epith Cells 10 H Urine Bacteria Rare H Urine Mucus Rare H Assessment Major depressive disorder, recurrent, severe, with psychotic features Intellectual disability Cerebral palsy Rule out delusional disorder Plan -At this time patient DOES NOT meet criteria for inpatient psychiatric admission. Patient has returned to her baseline. She is back on the medications which she was nonadherent to prior to this admission as currently not reporting any acute psychiatric pathology that warrants inpatient psychiatric treatment. She is not presenting with any imminent risk of harm to self or others and appears to be psychiatrically stable at this time. She will remain however at elevated risk compared to the general population due to the severity of her mental illness and chronicity. -Would recommend the following medication changes/additions: Continue Abilify maintena, effexor, depakote, and remeron. -Cardiology note reviewed. Suspect tachycardia due to thyroid disorder and underlying psychological conditions -Discontinue one-to-one sitter -Recommend outpatient psychiatric follow-up with [facility]. -Psychiatry will sign off at this point, please contact with any questions.
--- NOTE | 2022-01-07 13:49 | P.DS ---
Providers Date of admission: 01/04/22 15:04 Expected date of discharge: 01/07/22 Attending physician: Wilfrido Rogers Consults: 01/03/22 23:06 Consult Physician Routine Consulting Provider: Sunny Winslow Consult Reason/Comments: Suicidal ideation Do you want consulting provider notified?: Already Contacted 01/06/22 11:25 Consult Physician Routine Consulting Provider: January Chauhan Consult Reason/Comments: abnormal MRI, ? congenital?? Do you want consulting provider notified?: Yes Primary care physician: Maximilian Rivera [facility] Course: Final diagnosis Suicidal ideations and depression Change in mental status Abnormal MRI Tachycardia Elevated TSH and free T3 and free T4, sick euthyroid syndrome Ruled out urinary tract infection Full code Discharge disposition Patient is being transferred in a stable condition with guarded prognosis to [facility] inpatient psychiatric unit for further evaluation. Patient will follow-up with Dr. Rivera in the outpatient setting upon discharge. Patient is to continue with current medications as prescribed. Patient will need outpatient follow-up with neurologist once discharged. Total time taken is greater than 35 minutes. HOSPITAL course This is a 31-year-old female who was recently admitted with suicidal ideations and depression and is being closely monitored. Neurology also evaluating the patient for the abnormal MRI although found to be stable as compared to previous MRI. Patient will need outpatient neurology follow-up with her neurologist. Patient is recommended to continue with current medication recommendations and will need further psychiatric evaluation on [facility]. Patient is medically stable and clear for transfer to inpatient psychiatric unit today. Currently no reports of chest pain, shortness of breath, or palpitations. Patient is afebrile. No reports of nausea or vomiting and patient is tolerating diet. Patient will be going to [facility] inpatient psychiatric unit today. On exam vital signs are stable. Cardio S1, S2 are muffled. Respiratory system shows diminished breath sounds at the bases with no wheezing or rhonchi noted. Abdomen is soft and obese, and nontender. Nervous system shows Please refer to medication reconciliation sheet for a list of medications. The impression and plan of care has been dictated by Nan Kwon, Nurse Practitioner as directed. Dr. Ken MD I have performed a history and examination and MDM of this patient, discussed the same with the dictator, and agree with the dictator's assessment and plan as written ,documented as a scribe. Based on total visit time, I have performed more than 50% of the visit. Patient Condition at Discharge: Stable Plan - Discharge Summary Discharge Rx Participant: No New Discharge Prescriptions: New atenoloL [Tenormin] 25 mg PO DAILY #30 tab Acetaminophen Tab [Tylenol] 650 mg PO Q6HR PRN tab PRN Reason: Fever And/ Or Pain Continue Divalproex [Depakote] 1,000 mg PO HS 30 Days tablet Venlafaxine HCl ER [Effexor XR] 150 mg PO DAILY 30 Days Mirtazapine [Remeron] 15 mg PO HS 30 Days tab Levothyroxine Sodium [Synthroid] 50 mcg PO DAILY@0630 30 Days tab ARIPiprazole [Abilify Maintena] 400 mg IM Q30D #1 each Discharge Medication List ARIPiprazole [Abilify Maintena] 400 mg IM Q30D #1 each 11/27/21 [Rx] Divalproex [Depakote] 1,000 mg PO HS 30 Days tablet 11/27/21 [Rx] Levothyroxine Sodium [Synthroid] 50 mcg PO DAILY@0630 30 Days tab 11/27/21 [Rx] Mirtazapine [Remeron] 15 mg PO HS 30 Days tab 11/27/21 [Rx] Venlafaxine HCl ER [Effexor XR] 150 mg PO DAILY 30 Days 11/27/21 [Rx] Acetaminophen Tab [Tylenol] 650 mg PO Q6HR PRN tab 01/07/22 [Rx] atenoloL [Tenormin] 25 mg PO DAILY #30 tab 01/07/22 [Rx] Follow up Appointment(s)/Referral(s): Maximilian Rivera DO [Primary Care Provider] - 1-2 days Activity/Diet/Wound Care/Special Instructions: Patient is medically stable and cleared for transfer to inpatient psychiatric unit Activity Limited until follow-up Follow-up with primary care provider on discharge Follow-up with neurology outpatient Continue taking medications as prescribed Continue current diet dysphagia 3 chopped heart healthy Discharge Disposition: TRANSFER TO PSYCH HOSP/UNIT
[2022-01-16] MEDS ORDERED: ARIPiprazole IM SYRINGE 400 MG (NO CHARGE) PHARMACY STOCK IM SCH (09:00)
== END 2022-01-07 16:02 | disposition home or self-care (01) | DRG 948 ==
LOC: EC 13:51 → 3SCARD 23:04 → OBSVTOIN 01-04 15:04 → 5NMEDONC 01-05 17:42
PROVIDERS: ADMIT Hospitalist; ATTEND Hospitalist
DX: E07.81 Sick-euthyroid syndrome (principal); R45.851 Suicidal ideations; R00.0 Tachycardia, unspecified; E05.90 Thyrotoxicosis, unspecified without thyrotoxic crisis or storm; F79 Unspecified intellectual disabilities; G31.89 Other specified degenerative diseases of nervous system; G40.909 Epilepsy, unspecified, not intractable, without status epilepticus; Z68.35 Body mass index [BMI] 35.0-35.9, adult; E66.9 Obesity, unspecified; F31.9 Bipolar disorder, unspecified; G20 Parkinson's disease; G80.9 Cerebral palsy, unspecified; E03.9 Hypothyroidism, unspecified; F41.9 Anxiety disorder, unspecified; Z79.890 Hormone replacement therapy; Z79.899 Other long term (current) drug therapy; Z88.8 Allergy status to other drugs, medicaments and biological substances; Z88.5 Allergy status to narcotic agent
CPT/HCPCS: 36415; 70553; 71046; 80053; 80164; 80306; 81001; 82075; 83735; 84439; 84443; 84481; 84484; 84703; 85025; 85379; 85610; 85730; 87086; 93005; 93306; 96360; 96361; 99285

== ENCOUNTER 2022-05-01 09:10 | Inpatient (IN) | payer MEDICARE, MEDICAID ==
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
[2022-05-01 11:44] LABS: Appearance,Urine Clear (Clear); Bilirubin,Urine Negative (Negative); Blood,Urine Large (Negative); Color,Urine Yellow; Glucose,Urine (UA) Negative (Negative); Ketones,Urine 1+ (Negative); Leukocyte Esterase,Urine Small (Negative); Mucus,Urine Moderate /hpf; Nitrite,Urine Negative (Negative); PH, Urine 5.5 (5.0-8.0); Protein,Urine Trace (Negative); RBC,Urine 16 /hpf (0-5); Specific Gravity,Urine 1.032 (1.001-1.035); Squamous Epithelial Cell,Urine 6 /hpf (0-4); Urobilinogen,Urine <2.0 mg/dL (<2.0); WBC,Urine 12 /hpf (0-5)
[2022-05-01 12:13] LABS: Amphetamine Screen,Urine Not Detected (NotDetected); Barbiturate Screen,Urine Not Detected (NotDetected); Benzodiazepines Screen,Urine Not Detected (NotDetected); Cocaine Screen,Urine Not Detected (NotDetected); Methadone Screen, Urine Not Detected (NotDetected); Opiate Screen,Urine Not Detected (NotDetected); Oxycodone Screen, Urine Not Detected (NotDetected); Phencyclidine Screen,Urine Not Detected (NotDetected); Tricyclic Antidepressant,Urine Not Detected (NotDetected); Urn Cannabinoid Scrn Not Detected (NotDetected)
[2022-05-01] MEDS ORDERED: MAG HYDROX/AL HYDROX/SIMETH 30 ML CUP PO PRN (16:37)
[2022-05-01] MEDS ORDERED: ACETAMINOPHEN TAB 325 MG TAB PO PRN (16:37)
[2022-05-01] MEDS ORDERED: MAGNESIUM HYDROXIDE 2,400 MG/10 ML CUP PO PRN (16:37)
[2022-05-01] MEDS ORDERED: LORazepam 1 MG TAB PO PRN (16:37)
[2022-05-01] MEDS ORDERED: LEVOTHYROXINE 50 MCG TAB PO SCH (16:45)
[2022-05-01] MEDS ORDERED: MELATONIN 5 MG TABLET PO PRN (16:45)
[2022-05-01] MEDS ORDERED: diphenhydrAMINE 25 MG CAP PO PRN (16:45)
[2022-05-01] MEDS ORDERED: LORazepam 2 MG/ML INJ IM PRN (16:50)
[2022-05-01] MEDS ORDERED: haloperidoL 1 MG TAB PO PRN (16:50)
[2022-05-01] MEDS ORDERED: HALOPERIDOL LACTATE 5 MG/ML 1 ML VIAL IM PRN (16:54)
[2022-05-01] MEDS ORDERED: HALOPERIDOL LACTATE 5 MG/ML 1 ML VIAL IM SCH (18:00)
[2022-05-01] MEDS ORDERED: LORazepam 1 MG/0.5 ML VIAL IM PRN (18:20)
[2022-05-01] MEDS: DIVALPROEX 500 MG TABLET.DR PO SCH (20:43)
[2022-05-01] MEDS ORDERED: MIRTAZAPINE 15 MG TAB PO SCH (21:00)
[2022-05-01 22:13] LABS: ALT 23 U/L (4-34); AST 38 U/L (14-36); African American GFR (CKD) >90 (>60 ml/min/1.73 sqM); Albumin 4.3 g/dL (3.5-5.0); Alkaline Phosphatase 76 U/L (38-126); Anion Gap 9 mmol/L; Bilirubin, Delta 0.2 mg/dL (0.0-0.2); Bilirubin,Unconjugated 0.3 mg/dL (0.0-1.1); Blood Urea Nitrogen 19 mg/dL (7-17); Calcium 9.2 mg/dL (8.4-10.2); Carbon Dioxide 24 mmol/L (22-30); Chloride 104 mmol/L (98-107); Glucose 98 mg/dL (74-99); Non-African American GFR(CKD) >90 (>60 ml/min/1.73 sqM); Potassium 3.8 mmol/L (3.5-5.1); Sodium 137 mmol/L (137-145); Total Bilirubin 0.5 mg/dL (0.2-1.3); Total Protein 7.1 g/dL (6.3-8.2)
[2022-05-01 23:09] LABS: T4, Free (Free Thyroxine) 1.85 ng/dL (0.78-2.19)
[2022-05-02 03:32] LABS: Chol/HDL Ratio 2.79 Ratio; LDL Cholesterol,Calculated 84.9 mg/dL (0.0-131.0); VLDL Calculation 11.92 mg/dL (5.00-40.00)
[2022-05-02 05:07] VITALS: RESP 18
[2022-05-02] MEDS: VENLAFAXINE HCL ER 150 MG CAP PO SCH (09:17)
[2022-05-02] MEDS: VERAPAMIL SR 120 MG TABLET.ER PO SCH (09:19)
[2022-05-02 10:18] LABS: Basophils % (A) 1 %; Eosinophils % (A) 1 %; HCT 37.1 % (34.0-46.0); HGB 11.7 gm/dL (11.4-16.0); Lymphocytes # (A) 1.9 k/uL (1.0-4.8); Lymphocytes % (A) 33 %; MCH 28.8 pg (25.0-35.0); MCHC 31.4 g/dL (31.0-37.0); MCV 91.6 fL (80.0-100.0); Mean Platelet Volume 7.9; Monocytes # (A) 0.3 k/uL (0-1.0); Monocytes % (A) 6 %; Neutrophils # (A) 3.5 k/uL (1.3-7.7); Neutrophils % (A) 59 %; Platelet Count 185 k/uL (150-450); RBC 4.05 m/uL (3.80-5.40); RDW 13.6 % (11.5-15.5); WBC 5.9 k/uL (3.8-10.6)
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
[2022-05-02] MEDS: MIRTAZAPINE 15 MG TAB PO SCH (21:44)
[2022-05-02] MEDS: DIVALPROEX 500 MG TABLET.DR PO SCH (21:44)
[2022-05-02] MEDS: MELATONIN 5 MG TABLET PO SCH (21:45)
[2022-05-03] MEDS: LEVOTHYROXINE 50 MCG TAB PO SCH (06:50)
[2022-05-03] MEDS: VENLAFAXINE HCL ER 150 MG CAP PO SCH (08:57)
[2022-05-03] MEDS: VERAPAMIL SR 120 MG TABLET.ER PO SCH (08:57)
--- NOTE | 2022-05-03 14:21 | P.PN ---
Progress Note - Text Progress Note Date: 05/03/22 Interval History: Patient was seen wandering the hallways and was directable and agreeable to speak with documentation writer in the office. The patient reports that she is feeling significantly better. She is currently denying any suicidal or homicidal ideation, intention, and/or plan. She is not reporting any auditory or visual hallucinations. She is denying any paranoia or delusions. She reports that she is able to sleep well last night. She denies any side effects of the medication has been adherent. She is reporting no significant stressors at this time. She was noted by staff to sleep for 7 hours. She has been attending groups with a high level of participation. Mental Status Exam: General Appearance: Patient appears to be stated age is alert, directable, and cooperative. Behavior: Patient is calmly seated without any agitated behavior. Speech: Patient's speech is fluent and nonpressured. Mood/Affect: Mood is improving mildly, affect is congruent and constricted. Suicidality/Homicidality: Patient denies having any suicidal or homicidal ideation intent or plan. Perceptions: Patient denies any visual hallucinations and denies any auditory hallucinations Though content/process: There is no evidence of any delusional thought content and thought process is linear and goal-directed. Memory and concentration: AOX3, grossly intact for the purposes of this session Judgment and insight: Improving mildly Vital Signs Temp 97.9 F 05/02/22 05:06 Pulse 103 H 05/02/22 09:23 Resp 18 05/02/22 05:06 BP 120/74 05/02/22 09:23 Pulse Ox 98 05/02/22 05:06 FiO2 Laboratory Results - Last 24 Hours 05/02/22 15:50 Ammonia 10 Assessment Major depressive disorder, recurrent, severe, with psychotic features Intellectual disability Cerebral palsy Plan: -Patient continues to meet criteria for inpatient psychiatric admission for symptom stabilization and safety. Patient has signed adult voluntary form and medication consent and was placed in patient's chart. -Medications: Continue Abilify maintena 400 mg IM qMonthly- Next dose due on 05/09/2022. Continue Depakote 1000 g by mouth at bedtime for mood stabilization and seizure disorder Continue melatonin 10 mg by mouth at bedtime Continue Remeron 7.5 mg by mouth at bedtime Continue Effexor XR 150 mg by mouth daily for depression/anxiety Continue Benadryl 50 mg by mouth at bedtime when necessary for insomnia -When necessary Ativan and Haldol for agitation/aggression. -SW on board for discharge planning. Encouraged the patient to participate in milieu.
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
[2022-05-03] MEDS: MIRTAZAPINE 15 MG TAB PO SCH (20:07)
[2022-05-03] MEDS: DIVALPROEX 500 MG TABLET.DR PO SCH (20:07)
[2022-05-03] MEDS: MELATONIN 5 MG TABLET PO SCH (20:08)
[2022-05-04 07:09] VITALS: BP 111/52; PULSE 86; TEMP 97.4
[2022-05-04] MEDS: VENLAFAXINE HCL ER 150 MG CAP PO SCH (09:03)
[2022-05-04] MEDS: VERAPAMIL SR 120 MG TABLET.ER PO SCH (09:03)
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
[2022-05-04] MEDS: MIRTAZAPINE 15 MG TAB PO SCH (20:38)
[2022-05-04] MEDS: DIVALPROEX 500 MG TABLET.DR PO SCH (20:38)
[2022-05-04] MEDS: MELATONIN 5 MG TABLET PO SCH (20:38)
[2022-05-05] MEDS: VENLAFAXINE HCL ER 150 MG CAP PO SCH (09:27)
[2022-05-05] MEDS: VERAPAMIL SR 120 MG TABLET.ER PO SCH (09:27)
--- NOTE | 2022-05-05 12:03 | P.PN ---
Progress Note - Text Progress Note Date: 05/05/22 Clinical Problems: Major depressive disorder recurrent severe with psychotic features, intellectual disability, cerebral palsy Interim history: I reviewed the medical record and interviewed the patient. Frances denied problems or concerns. She continues to feel depressed, sad and hopeless. She denied thoughts of or suicide. She attended one therapeutic groups yesterday. She spends most for time in bed not interacting with staff or peers. She slept 6 hours last night. Mental status exam: He presented as an obese disheveled appearing 31-year-old woman who looked younger than her stated age. She made eye contact and appeared to attend to the interview. She has asymmetrical eye movements with the left eye drifting bilaterally. She had a flat facial expression. She was alert and oriented to person and place. She had marked psychomotor slowing and difficulty ambulating without assistance. Her speech was not spontaneous and had decreased rate, rhythm and volume. Her affect was flat and expressive. She denied current suicidal ideation or wishes. She denied homicidal ideation. She did not express feelings of hopelessness, helplessness or worthlessness. She did not express clear ideas reference or paranoid ideation. Her thinking was very concrete but her associations appeared goal directed. She denied hallucinations did not appear to responding to internal stimuli. Assessment: She is so severely mentally ill and moderately improve from admission. She remains depressed and withdrawn. Her weight has increased substantially since 2014. Plan: Continue inpatient treatment. Safety precautions. Continue Abilify 400 mg IM monthly, Benadryl 50 mg at bedtime when necessary for sleep, melatonin 10 mg at bedtime, Remeron simply 5 mg at bedtime and Effexor XR 150 mg daily. Consider alternatives to Depakote considering her weight gain. Continue other medications as recommended by the medical technical writer. Encourage participation in therapeutic groups and activities. Evaluate clinical status response to treatment daily basis.
[2022-05-05] MEDS: MELATONIN 5 MG TABLET PO SCH (21:02)
[2022-05-05] MEDS: DIVALPROEX 500 MG TABLET.DR PO SCH (21:02)
[2022-05-05] MEDS: MIRTAZAPINE 15 MG TAB PO SCH (21:02)
[2022-05-06] MEDS: VERAPAMIL SR 120 MG TABLET.ER PO SCH (09:08)
[2022-05-06] MEDS: VENLAFAXINE HCL ER 150 MG CAP PO SCH (09:08)
[2022-05-06] MEDS: LEVOTHYROXINE 50 MCG TAB PO SCH (11:55)
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
[2022-05-09] MEDS ORDERED: ARIPiprazole IM SYRINGE 400 MG (NO CHARGE) PHARMACY STOCK IM SCH (09:00)
== END 2022-05-06 14:22 | disposition home or self-care (01) | DRG 885 ==
LOC: EEVIPCON 09:10 → EC 09:10 → 3MHU 16:24
PROVIDERS: ADMIT Psychiatry & Neurology Psychiatry; ATTEND Psychiatry & Neurology Psychiatry
DX: F31.5 Bipolar disorder, current episode depressed, severe, with psychotic features (principal); R45.851 Suicidal ideations; T76.21XA Adult sexual abuse, suspected, initial encounter; G40.909 Epilepsy, unspecified, not intractable, without status epilepticus; G80.9 Cerebral palsy, unspecified; Z20.822 Contact with and (suspected) exposure to COVID-19; F79 Unspecified intellectual disabilities; G47.00 Insomnia, unspecified; F43.10 Post-traumatic stress disorder, unspecified; E03.9 Hypothyroidism, unspecified; I10 Essential (primary) hypertension; E66.9 Obesity, unspecified; Z68.35 Body mass index [BMI] 35.0-35.9, adult; Z79.890 Hormone replacement therapy; Z79.899 Other long term (current) drug therapy; Z91.51 Personal history of suicidal behavior; Z71.41 Alcohol abuse counseling and surveillance of alcoholic; Z71.51 Drug abuse counseling and surveillance of drug abuser; Z88.5 Allergy status to narcotic agent; Z88.8 Allergy status to other drugs, medicaments and biological substances; Z81.8 Family history of other mental and behavioral disorders
CPT/HCPCS: 80053; 80061; 80164; 80306; 81001; 81025; 82075; 82140; 82248; 83036; 84439; 84443; 85025; 87086; 87635; 99285

== ENCOUNTER → 2022-06-13 | Outpatient (CLI) | payer MEDICARE, MEDICAID ==
[2022-06-13 18:01] LABS: Basophils # (A) 0.04 X 10*3/uL (0.00-0.10); Basophils % (A) 0.6 %; Eosinophils # (A) 0.02 X 10*3/uL (0.04-0.35); Eosinophils % (A) 0.3 %; HCT 38.5 % (37.2-46.3); HGB 12.5 g/dL (12.0-15.0); Immature Grans, Automated 0.6 %; Lymphocytes # (A) 2.16 X 10*3/uL (0.90-5.00); Lymphocytes % (A) 33.7 %; MCH 29.3 pg (27.0-32.0); MCHC 32.5 g/dL (32.0-37.0); MCV 90.2 fL (80.0-97.0); Mean Platelet Volume 10.4 fL (9.5-12.2); Monocytes # (A) 0.44 X 10*3/uL (0.20-1.00); Monocytes % (A) 6.9 %; NRBC Per 100 WBC 0 /100 WBCS (0.0-0.0); Neutrophils # (A) 3.71 X 10*3/uL (1.80-7.70); Neutrophils % (A) 57.9 %; Platelet Count 269 X 10*3/uL (140-440); RBC 4.27 X 10*6/uL (4.10-5.20); RDW 13.8 % (11.5-14.5); WBC 6.41 X 10*3/uL (4.50-10.00)
== END | disposition home or self-care (01) ==
LOC: LABWHC1 13:09
PROVIDERS: ATTEND Psychiatry & Neurology Neurology
DX: G40.009 Localization-related (focal) (partial) idiopathic epilepsy and epileptic syndromes with seizures of localized onset, not intractable, without status epilepticus (principal)
CPT/HCPCS: 36415; 80164; 84450; 84460; 85025

== ENCOUNTER 2022-07-31 02:08 | Inpatient (IN) | payer MEDICARE, MEDICAID ==
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
[2022-07-31 03:20] LABS: Amphetamine Screen,Urine Not Detected (NotDetected); Barbiturate Screen,Urine Not Detected (NotDetected); Benzodiazepines Screen,Urine Not Detected (NotDetected); Cocaine Screen,Urine Not Detected (NotDetected); Methadone Screen, Urine Not Detected (NotDetected); Opiate Screen,Urine Not Detected (NotDetected); Oxycodone Screen, Urine Not Detected (NotDetected); Phencyclidine Screen,Urine Not Detected (NotDetected); Tricyclic Antidepressant,Urine Not Detected (NotDetected); Urn Cannabinoid Scrn Not Detected (NotDetected)
[2022-07-31] MEDS ORDERED: LORazepam 1 MG TAB PO PRN (06:58)
[2022-07-31] MEDS ORDERED: MAG HYDROX/AL HYDROX/SIMETH 30 ML CUP PO PRN (06:58)
[2022-07-31] MEDS ORDERED: MAGNESIUM HYDROXIDE 2,400 MG/10 ML CUP PO PRN (06:58)
[2022-07-31] MEDS ORDERED: ACETAMINOPHEN TAB 325 MG TAB PO PRN (06:58)
[2022-07-31] MEDS ORDERED: LORazepam 1 MG/0.5 ML VIAL IM PRN (07:03)
[2022-07-31] MEDS ORDERED: haloperidoL 1 MG TAB PO PRN (07:04)
[2022-07-31] MEDS ORDERED: HALOPERIDOL LACTATE 5 MG/ML 1 ML VIAL IM PRN (07:04)
[2022-07-31] MEDS ORDERED: diphenhydrAMINE 50 MG CAP PO PRN (11:54)
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
[2022-07-31 12:01] LABS: Basophils % (A) 0 %; Eosinophils % (A) 0 %; HCT 39.6 % (34.0-46.0); Lymphocytes # (A) 2.2 k/uL (1.0-4.8); Lymphocytes % (A) 20 %; MCH 29.5 pg (25.0-35.0); MCHC 32.8 g/dL (31.0-37.0); Mean Platelet Volume 8.2; Monocytes # (A) 0.6 k/uL (0-1.0); Monocytes % (A) 5 %; Neutrophils % (A) 73 %; Platelet Count 256 k/uL (150-450); RDW 13.7 % (11.5-15.5); WBC 10.9 k/uL (3.8-10.6)
[2022-07-31] MEDS: VENLAFAXINE HCL ER 150 MG CAP PO SCH (12:14)
[2022-07-31] MEDS: LEVOTHYROXINE 50 MCG TAB PO SCH (12:14)
[2022-07-31 12:29] LABS: ALT 20 U/L (4-34); AST 41 U/L (14-36); African American GFR (CKD) >90 (>60 ml/min/1.73 sqM); Albumin 4.7 g/dL (3.5-5.0); Alkaline Phosphatase 84 U/L (38-126); Anion Gap 17 mmol/L; Bilirubin, Delta 0.1 mg/dL (0.0-0.2); Bilirubin,Unconjugated 0.4 mg/dL (0.0-1.1); Blood Urea Nitrogen 19 mg/dL (7-17); Calcium 9.3 mg/dL (8.4-10.2); Carbon Dioxide 23 mmol/L (22-30); Chloride 101 mmol/L (98-107); Glucose 103 mg/dL (74-99); Non-African American GFR(CKD) >90 (>60 ml/min/1.73 sqM); Potassium 4.1 mmol/L (3.5-5.1); Sodium 141 mmol/L (137-145); Total Bilirubin 0.5 mg/dL (0.2-1.3); Total Protein 7.7 g/dL (6.3-8.2)
[2022-07-31] MEDS: VERAPAMIL SR 120 MG TABLET.ER PO SCH (14:09)
[2022-07-31 18:10] LABS: Chol/HDL Ratio 3.14 Ratio; LDL Cholesterol,Calculated 104.8 mg/dL (0.0-131.0); VLDL Calculation 17.16 mg/dL (5.00-40.00)
[2022-07-31] MEDS: MIRTAZAPINE 15 MG TAB PO SCH (20:38)
[2022-07-31] MEDS: MELATONIN 5 MG TABLET PO SCH (20:38)
[2022-07-31] MEDS: DIVALPROEX 500 MG TABLET.DR PO SCH (20:39)
--- NOTE | 2022-08-01 01:42 | P.CONS ---
History of Present Illness - History of Present Illness This is this is a pleasant 32 years old female with past medical history of c erebral palsy, her mother is her legal guardian, she has history of seizure last seizure was more than a year ago. Patient also with history of depression Was admitted to the mental health unit with diagnosis of bipolar, intellectual disability. Patient was seen walking using her walker when she is fully awake and oriented, she denies any specific symptoms, no chest pain or vomiting or diarrhea or dysuria. No headache or weakness or numbness. She denies smoking, alcohol or illicit drugs. TSH elevated around 19,000 Vitals are stable and patient is afebrile. Patient is slightly tachycardic which could be related to her anxiety WBC is 10.9, other CBCs and BMP and liver enzymes were unremarkable. TSH is high 19.1. Urine drug screen is negative panchal negative unetected Review of Systems Review of systems CONSTITUTIONAL: No fever, no malaise, no fatigue. HEENT: No recent visual problems or hearing problems. Denied any sore throat. CARDIOVASCULAR: No orthopnea, PND, no palpitations, no syncope. PULMONARY: No shortness of breath, no cough, no hemoptysis. GASTROINTESTINAL: No diarrhea, no nausea, no vomiting, no abdominal pain. Normo active bowel sounds. NEUROLOGICAL: No headaches, no weakness, no numbness. HEMATOLOGICAL: Denies any bleeding or petechiae. GENITOURINARY: Denies any burning micturition, frequency, or urgency. MUSCULOSKELETAL/RHEUMATOLOGICAL: Denies any joint pain, swelling, or any muscle pain. ENDOCRINE: Denies any polyuria or polydipsia. Past Medical History Past Medical History: Seizure Disorder Additional Past Medical History / Comment(s): cerebral palsy, pt's mother reports that last seizure was over a year ago and that her seizures have been managed well with medications History of Any Multi-Drug Resistant Organisms: None Reported Past Surgical History: Orthopedic Surgery Additional Past Surgical History / Comment(s): femurs rotated and achilles tendon lengthened and one yr. later metal hardware/plates were removed. Past Anesthesia/Blood Transfusion Reactions: No Reported Reaction Past Psychological History: Anxiety, Bipolar, Depression Smoking Status: Never smoker Past Alcohol Use History: None Reported Past Drug Use History: None Reported - Past Family History Father Family Medical History: No Reported History Mother Family Medical History: No Reported History Medications and Allergies Home Medications Medication Instructions Recorded Confirmed Type ARIPiprazole [Abilify Maintena] 400 mg IM QMONTHLY 05/01/22 07/31/22 History Levothyroxine Sodium [Synthroid] 50 mcg PO MOWEFR 05/01/22 05/01/22 History Verapamil HCl [Verapamil ER] 120 mg PO DAILY 05/01/22 07/31/22 History Divalproex [Depakote] 1,000 mg PO HS 30 Days tab 05/06/22 07/31/22 Rx Melatonin 10 mg PO HS 30 Days tab 05/06/22 07/31/22 Rx Mirtazapine [Remeron] 7.5 mg PO HS 30 Days tab 05/06/22 07/31/22 Rx Venlafaxine HCl ER [Effexor XR] 150 mg PO DAILY 30 Days cap 05/06/22 07/31/22 Rx diphenhydrAMINE [Benadryl] 50 mg PO HS PRN 30 Days cap 05/06/22 07/31/22 Rx Allergies Allergy/AdvReac Type Severity Reaction Status Date / Time lamotrigine [From Lamictal] Allergy Rash/Hives Verified 07/31/22 02:16 - full body morphine Allergy Itching Verified 07/31/22 02:16 Physical Exam Vitals: Vital Signs Temp Pulse Pulse Resp BP BP Pulse Ox 07/31/22 08:00 98.1 F 120 H 20 131/86 96 07/31/22 02:54 90 07/31/22 02:14 98.3 F 133 H 20 134/91 96 Intake and Output 07/30/22 07/31/22 07/31/22 22:59 06:59 14:59 Other: Weight 104.326 kg 104.1 kg GENERAL: The patient is alert and oriented x3, not in any acute distress. Well developed, well nourished. HEENT: Pupils are round and equally reacting to light. EOMI. No scleral icterus. No conjunctival pallor. Normocephalic, atraumatic. No pharyngeal erythema. No thyromegaly. CARDIOVASCULAR: S1 and S2 present. No murmurs, rubs, or gallops. PULMONARY: Chest is clear to auscultation, no wheezing or crackles. ABDOMEN: Soft, nontender, nondistended, normoactive bowel sounds. No palpable organomegaly. MUSCULOSKELETAL: No joint swelling or deformity. EXTREMITIES: No cyanosis, clubbing, or pedal edema. NEUROLOGICAL: Gross neurological examination did not reveal any focal deficits. SKIN: No rashes. no petechiae. Results CBC & Chem 7: 07/31/22 11:19 07/31/22 11:19 Assessment and Plan Assessment: -Hypothyroidism with elevated TSH at 19.1. Patient currently on levothyroxine. Recheck stat function test. -Hypertension: Continue with the same medication of their panel and -Cerebral palsy with mother her legal guardian -History of seizure, continue with Depakote -Obesity with BMI of 35.9 -Walking difficulty using her walker. Patient requested wheelchair, medical service and aware of all the characters of wheelchair and their safety and potential use and misuse, therefore we prefer patient to be evaluated by physical therapy Plan discussed with bed side nurse Patient was instructed to follow up with Dr. Rivera in 1 week after discharge and she agrees Thank you for consulting us
[2022-08-01] MEDS: VENLAFAXINE HCL ER 150 MG CAP PO SCH (08:20)
[2022-08-01] MEDS: VERAPAMIL SR 120 MG TABLET.ER PO SCH (08:20)
[2022-08-01 10:28] LABS: HCG,Qualitative Serum Not Detected
--- NOTE | 2022-08-01 11:30 | P.PN ---
Progress Note - Text Progress Note Date: 08/01/22 Interval History: Patient was seen in the hallways near the nurse's desk and was directable and agreeable to speak with singer songwriter in the office. The patient appears to have a constricted affect today. She states that she is doing a bit better compared to yesterday. She states she did not have any complaints overnight and states that she slept fairly. She continues to state that she does feel that her father is on the unit however feels a bit calmer today. She is less focused on her father today. She appears to be more directable. Continues to be fairly concrete and a poverty of content. She states that she is going to some groups and coming to participate. We spoke about her medications in the treatment planning which she was okay with. Denying any anxiety at this time. At this time patient denies any suicidal or homical ideations, intent or plan. Patient denies any side effects from the medications and has been compliant with meds. Mental Status Exam: General Appearance: Patient appears to be overweight, disheveled hair, stated age is alert, directable, and attempts to cooperate. Patient appears to have fair hygiene and grooming. Wearing hospital gown. Behavior: Patient is seated without any agitated behavior. Attempts to cooperate. Speech: Patient's speech is spontaneous but monotone and low in volume. Mood/Affect: Patient reports their mood is "a bit better, less anxious" affect is congruent and constricted Suicidality/Homicidality: Patient is currently denying any suicidal or homicidal ideation, intention, and/or plan. Perceptions: Patient admits to hearing her father's voice and also visual hallucinations, which appear to be improving Though content/process: Patient continues to endorse delusional belief, however is less preoccupied today. Not endorsing paranoia. Memory and concentration: AOX3, grossly intact for the purposes of this session Judgment and insight: Limited, improving mildly IMPRESSIONS: Bipolar disorder, current episode depressed Intellectual disability Cerebral palsy Plan: -Patient continues to meet criteria for inpatient psychiatric admission for symptom stabilization and safety. Patient has signed adult voluntary form and was placed in patient's chart. -Medications: Abilify maintena 400 mg IM last dose through [facility] on 07/30. added prolixin PO yesterday and increasing to 3 mg bid for psychosis with plan to transition onto ACEVEDO. Continue Depakote 1000 g by mouth at bedtime for mood stabilization and seizure disorder, melatonin 10 mg by mouth at bedtime, Remeron 7.5 mg by mouth at bedtime, Continue Effexor XR 150 mg by mouth daily for depression/anxiety, Continue Benadryl 50 mg by mouth at bedtime when necessary for insomnia -Ativan and Haldol PRN for agitation/aggression -NRT - not needed at this time -SW on board for discharge planning. Encouraged the patient to participate in milieu.
[2022-08-01] MEDS: MELATONIN 5 MG TABLET PO SCH (20:09)
[2022-08-01] MEDS: MIRTAZAPINE 15 MG TAB PO SCH (20:09)
[2022-08-01] MEDS: DIVALPROEX 500 MG TABLET.DR PO SCH (20:09)
[2022-08-02] MEDS: LEVOTHYROXINE 50 MCG TAB PO SCH (06:49)
[2022-08-02] MEDS: VENLAFAXINE HCL ER 150 MG CAP PO SCH (08:10)
[2022-08-02] MEDS: VERAPAMIL SR 120 MG TABLET.ER PO SCH (08:10)
--- NOTE | 2022-08-02 10:43 | P.PN ---
Progress Note - Text Progress Note Date: 08/02/22 Interval History: Patient was seen in the hallways near the nurse's desk and was directable and agreeable to speak with marine underwriter in the office. Patient claims that she is doing a bit better with regards to her mood. She continues to have a constricted affect. She states that she is not having any more feelings that her father is after her. She claims that she last heard his voice about 2 days ago. She claims that she is tolerating the medications fairly well at this time. We spoke more about the side effects and benefits of this medication and patient appears to be more agreeable to it. She we also spoke about the transition onto long-acting injection which she is agreeable to. We'll likely aim for early next week to give the long-acting injection if she is tolerating it well over the weekend. She claims that she is going to groups and trying to participate. She states that she is eating fairly. Claims that she is sleeping well at night time. Continues to be fairly concrete and a poverty of content. At this time patient denies any suicidal or homical ideations, intent or plan. Patient denies any side effects from the medications and has been compliant with meds. Mental Status Exam: General Appearance: Patient appears to be overweight, disheveled hair, stated age is alert, directable, and attempts to cooperate. Patient appears to have fair hygiene and grooming. Wearing hospital gown. Behavior: Patient is seated without any agitated behavior. Attempts to teresa ate. Speech: Patient's speech is spontaneous but monotone and low in volume. Mood/Affect: Patient reports their mood is "a bit better" affect is congruent and constricted Suicidality/Homicidality: Patient is currently denying any suicidal or homicidal ideation, intention, and/or plan. Perceptions: Patient denying any auditory hallucinations and visual hallucinations Though content/process: Patient is not endorsing delusions today. Not endorsing paranoia. [place]. Memory and concentration: AOX3, grossly intact for the purposes of this session Judgment and insight: Limited, improving mildly IMPRESSIONS: Bipolar disorder, current episode depressed Intellectual disability Cerebral palsy Plan: -Patient continues to meet criteria for inpatient psychiatric admission for symptom stabilization and safety. Patient has signed adult voluntary form and was placed in patient's chart. -Medications: Abilify maintena 400 mg IM last dose through [facility] on 07/30 however due to ineffectiveness will discontinue this. prolixin PO 3 mg bid for psychosis with plan to transition onto ACEVEDO, likely give 25 mg IM over the weekend or friday prior to discharge if patient is tolerating PO over the weekend well. Continue Depakote 1000 g by mouth at bedtime for mood stabilization and seizure disorder, melatonin 10 mg by mouth at bedtime, Remeron 7.5 mg by mouth at bedtime, Continue Effexor XR 150 mg by mouth daily for depression/anxiety, Continue Benadryl 50 mg by mouth at bedtime when necessary for insomnia -Ativan and Haldol PRN for agitation/aggression -NRT - not needed at this time -SW on board for discharge planning. Encouraged the patient to participate in milieu. likely discharge early next week after patient is transitioned onto ACEVEDO. SW to connect with pts mother to prepare for likely d/c next week.
[2022-08-02] MEDS: MIRTAZAPINE 15 MG TAB PO SCH (21:05)
[2022-08-02] MEDS: MELATONIN 5 MG TABLET PO SCH (21:05)
[2022-08-02] MEDS: DIVALPROEX 500 MG TABLET.DR PO SCH (21:05)
[2022-08-03] MEDS: VERAPAMIL SR 120 MG TABLET.ER PO SCH (09:07)
[2022-08-03] MEDS: VENLAFAXINE HCL ER 150 MG CAP PO SCH (09:07)
[2022-08-03] MEDS: MIRTAZAPINE 15 MG TAB PO SCH (20:18)
[2022-08-03] MEDS: DIVALPROEX 500 MG TABLET.DR PO SCH (20:19)
[2022-08-03] MEDS: MELATONIN 5 MG TABLET PO SCH (20:19)
[2022-08-04] MEDS: VERAPAMIL SR 120 MG TABLET.ER PO SCH (09:40)
[2022-08-04] MEDS: VENLAFAXINE HCL ER 150 MG CAP PO SCH (09:40)
--- NOTE | 2022-08-04 14:18 | P.PN ---
Progress Note - Text Progress Note Date: 08/03/22 Interval history: Patient was seen laying in bed and was directable and agreeable to speak with bond underwriter. She reports good mood. At this time, patient denies any suicidal or homicidal ideation, intent or plan, and denies any auditory or visual hallucinations. Patient denies any side effects from the medications and has been compliant with meds. Vital signs reviewed and are stable. Mental status exam: General Appearance: Patient appears to be stated age, overweight, fair hygiene and grooming. Behavior: No agitated behavior. Patient is calm and directable Speech: Patient's speech is fluent, low tone and volume. Mood/Affect: Mood is improving mildly, affect is congruent and constricted. Suicidality/Homicidality: Patient denies having any suicidal or homicidal ideation intent or plan. Perceptions: Patient denies any auditory or visual hallucinations. Though content/process: There is no evidence of overt delusional thought content and thought process is concrete. Memory and concentration: AOX3, grossly intact for the purposes of this session Judgment and insight: improving mildly Assessment/Plan: Continue with current diagnosis. Patient continues to meet criteria for inpatient psychiatric admission for symptom stabilization and safety. Patient will be maintained on current psychotropic medication regimen. Monitor for medication compliance and for any psychotropic medication side effects. Will continue to monitor ongoing response to treatment. Encouraged participation in milieu.
[2022-08-04] MEDS ORDERED: fluPHENAZine DECANOATE 25 MG/ML 5ML MDV IM SCH ×2 (18:15→21:00)
--- NOTE | 2022-08-04 18:20 | P.PN ---
Progress Note - Text Progress Note Date: 08/04/22 Interval history: Patient was seen asleep in bed and was directable and agreeable to speak with policy writer typist. She reports feeling "depressed, and in bed all day". She states she is looking forward to going home. We discussed her Prolixin decanoate injection and she agrees to get the injection today. At this time, patient denies any suicidal or homicidal ideation, intent or plan, and denies any auditory or visual hallucinations. Patient denies any side effects from the medications and has been compliant with meds. Mental status exam: General Appearance: Patient appears to be stated age, overweight, fair hygiene and grooming. Behavior: No agitated behavior. Patient is calm and directable Speech: Patient's speech is fluent, nonpressured. Mood/Affect: Mood is improving mildly, affect is congruent and constricted. Suicidality/Homicidality: Patient denies having any suicidal or homicidal ideation intent or plan. Perceptions: Patient denies any auditory or visual hallucinations. Though content/process: There is no evidence of overt delusional thought content and thought process is concrete. Memory and concentration: AOX3, grossly intact for the purposes of this session Judgment and insight: improving mildly Assessment/Plan: Continue with current diagnosis. Patient continues to meet criteria for inpatient psychiatric admission for symptom stabilization and safety. Start Prolixin decanoate 25 mg IM every 2 weeks for psychosis. Discontinue oral Prolixin 3 mg BID in favor on ACEVEDO. Monitor for medication compliance and for any psychotropic medication side effects. Will continue to monitor ongoing response to treatment. Encouraged participation in milieu.
[2022-08-04] MEDS: MIRTAZAPINE 15 MG TAB PO SCH (21:38)
[2022-08-04] MEDS: DIVALPROEX 500 MG TABLET.DR PO SCH (21:39)
[2022-08-04] MEDS: MELATONIN 5 MG TABLET PO SCH (21:39)
[2022-08-05] MEDS: LEVOTHYROXINE 50 MCG TAB PO SCH (09:19)
[2022-08-05] MEDS: VERAPAMIL SR 120 MG TABLET.ER PO SCH (09:19)
[2022-08-05] MEDS: VENLAFAXINE HCL ER 150 MG CAP PO SCH (09:19)
--- NOTE | 2022-08-05 13:41 | P.PN ---
Progress Note - Text Progress Note Date: 08/05/22 Interval history: Patient was seen awake today and was directable and agreeable to speak with rfp writer. She is not asleep or drowsy today as she has been over the past several days, since we discontinued her oral Prolixin for today and gave her Prolixin decanoate 25 mg IM x 1 last night, which she appears to be tolerating without any reported side effects. She denies any concerns today. She states she is looking forward to going home. At this time, patient denies any suicidal or homicidal ideation, intent or plan, and denies any auditory or visual hallucinations. Patient denies any side effects from the medications and has been compliant with meds. Mental status exam: General Appearance: Patient appears to be stated age, overweight, fair hygiene and grooming. Behavior: No agitated behavior. Patient is calm and directable. Speech: Patient's speech is fluent, non-pressured. Mood/Affect: Mood is good, affect is congruent and constricted. Suicidality/Homicidality: Patient denies having any suicidal or homicidal ideation intent or plan. Perceptions: Patient denies any auditory or visual hallucinations. Though content/process: There is no evidence of overt delusional thought content and thought process is concrete. Memory and concentration: AOX3, grossly intact for the purposes of this session Judgment and insight: improving mildly Assessment/Plan: Continue with current diagnosis. Patient continues to meet criteria for inpatient psychiatric admission for symptom stabilization and safety. Prolixin decanoate 25 mg IM every 2 weeks for psychosis given yesterday . Continue other psychotropic meds as prescribed. Monitor for medication compliance and for any psychotropic medication side effects. Will continue to monitor ongoing response to treatment. Encouraged participation in milieu. Consider discharge tomorrow 08/06/22 if continues to stabilize.
[2022-08-05] MEDS: MELATONIN 5 MG TABLET PO SCH (20:54)
[2022-08-05] MEDS: DIVALPROEX 500 MG TABLET.DR PO SCH (20:54)
[2022-08-05] MEDS: MIRTAZAPINE 15 MG TAB PO SCH (20:54)
[2022-08-06 06:53] VITALS: TEMP 97.9
[2022-08-06] MEDS: VENLAFAXINE HCL ER 150 MG CAP PO SCH (09:22)
[2022-08-06] MEDS: VERAPAMIL SR 120 MG TABLET.ER PO SCH (09:23)
[2022-08-06 09:25] VITALS: BP 133/86; PULSE 115; RESP 16
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
== END 2022-08-06 12:37 | disposition home or self-care (01) | DRG 885 ==
LOC: EC 02:08 → 3MHU 06:56
PROVIDERS: ADMIT Psychiatry & Neurology Psychiatry; ATTEND Psychiatry & Neurology Psychiatry
DX: F31.30 Bipolar disorder, current episode depressed, mild or moderate severity, unspecified (principal); R45.851 Suicidal ideations; E03.9 Hypothyroidism, unspecified; E66.9 Obesity, unspecified; F22 Delusional disorders; F41.9 Anxiety disorder, unspecified; F79 Unspecified intellectual disabilities; G40.909 Epilepsy, unspecified, not intractable, without status epilepticus; G47.00 Insomnia, unspecified; G80.9 Cerebral palsy, unspecified; Z68.35 Body mass index [BMI] 35.0-35.9, adult; Z79.890 Hormone replacement therapy; Z79.899 Other long term (current) drug therapy; Z81.8 Family history of other mental and behavioral disorders; Z91.51 Personal history of suicidal behavior; Z20.822 Contact with and (suspected) exposure to COVID-19
CPT/HCPCS: 80053; 80061; 80306; 82075; 82248; 83036; 84439; 84443; 84703; 85025; 87635; 99285

== ENCOUNTER 2022-10-31 03:03 | Inpatient (IN) | payer MEDICARE, OTHER ==
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
[2022-10-31 04:52] LABS: Amphetamine Screen,Urine Not Detected (NotDetected); Barbiturate Screen,Urine Not Detected (NotDetected); Benzodiazepines Screen,Urine Not Detected (NotDetected); Cocaine Screen,Urine Not Detected (NotDetected); Methadone Screen, Urine Not Detected (NotDetected); Opiate Screen,Urine Not Detected (NotDetected); Oxycodone Screen, Urine Not Detected (NotDetected); Phencyclidine Screen,Urine Not Detected (NotDetected); Tricyclic Antidepressant,Urine Not Detected (NotDetected); Urn Cannabinoid Scrn Not Detected (NotDetected)
[2022-10-31] MEDS ORDERED: NALOXONE 0.4 MG/ML 1 ML VIAL IV PRN (07:01)
[2022-10-31 08:03] LABS: Basophils % (A) 0 %; Eosinophils # (A) 0.1 k/uL (0-0.7); Eosinophils % (A) 1 %; HCT 38.2 % (34.0-46.0); HGB 12.8 gm/dL (11.4-16.0); Lymphocytes # (A) 1.6 k/uL (1.0-4.8); Lymphocytes % (A) 19 %; MCH 29.4 pg (25.0-35.0); MCHC 33.4 g/dL (31.0-37.0); Mean Platelet Volume 8.1; Monocytes # (A) 0.3 k/uL (0-1.0); Monocytes % (A) 4 %; Neutrophils % (A) 74 %; Platelet Count 236 k/uL (150-450); RBC 4.34 m/uL (3.80-5.40); RDW 13.6 % (11.5-15.5); WBC 8.1 k/uL (3.8-10.6)
[2022-10-31 12:28] LABS: African American GFR (CKD) >90 (>60 ml/min/1.73 sqM); Anion Gap 6 mmol/L; Blood Urea Nitrogen 15 mg/dL (7-17); Calcium 8.7 mg/dL (8.4-10.2); Carbon Dioxide 26 mmol/L (22-30); Chloride 104 mmol/L (98-107); Glucose 94 mg/dL (74-99); Non-African American GFR(CKD) >90 (>60 ml/min/1.73 sqM); Potassium 4.3 mmol/L (3.5-5.1); Sodium 136 mmol/L (137-145)
[2022-10-31] MEDS ORDERED: diphenhydrAMINE 50 MG CAP PO PRN (13:34)
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
[2022-10-31] MEDS: VENLAFAXINE HCL ER 150 MG CAP PO SCH (14:18)
--- NOTE | 2022-10-31 15:22 | P.HPIM ---
History of Present Illness H&P Date: 10/31/22 This is a 32-year-old female who presented to the emergency department with suicidal ideations. Patient lives with her mother who is her guardian and follows with psychiatry Dr. Oneil in the outpatient setting. Patient also follows with Dr. Zainab Rivera in the outpatient setting as her primary care provider with a past medical history of cerebral palsy, anxiety, bipolar, depression, seizure disorder. Patient reports she has been feeling increased suicidal ideations with increased depression and feeling that she is hearing voices and having hallucinations of her family members. Patient is fearful her father is going to harm her family and feels unsafe in the home. Patient was placed on suicide precautions with suicide sitter and admitted for psychiatric evaluation. Initially medically stable for 3 W. admission although patient was incidentally found to be Covid positive. Patient denies any recent sickness denies shortness of breath and is asymptomatic. Patient reports her nephew was sick 2 weeks ago and had Covid. Patient is very anxious and guarded on exam and does have suicide sitter at the bedside. Patient is pleasant and willing to talk with compliance. Per mother patient has had recent medication changes as well. Recommend to resume home medications and monitor the patient closely. Urine drug screen was negative, CBC was within normal limits, BMP within normal limits as well and COVID-19 was detected. Review Of Systems: Constitutional: No fever, no chills, no night sweats. No weight change. No weakness, fatigue or lethargy. Reports daytime sleepiness. EENT: No headache. No blurred vision or double vision, no loss of vision. No loss of Hearing, no ringing in the ears, no dizziness. No nasal drainage or congestion. No epistaxis. No sore throat. Lungs: No shortness of breath, cough, no sputum production. No wheezing. Cardiovascular: No chest pain, no lower extremity edema. No palpitations. No paroxysmal nocturnal dyspnea. No orthopnea. No lightheadedness or dizziness. No syncopal episodes. Abdominal: No abdominal pain. No nausea, vomiting. No diarrhea. No constipation. No bloody or tarry stools.. Reports loss of appetite. Genitourinary: No dysuria, increased frequency, urgency. No urinary retention. Musculoskeletal: No myalgias. No muscle weakness, no gait dysfunction, no frequent falls. No back pain. No neck pain. Integumentary: No wounds, no lesions. No rash or pruritus. No unusual bruising. No change in hair or nails. Neurologic: No aphasia. No facial droop. No change in mentation. No head injury. No headache. No paralysis. No paresthesia. Psychiatric: Reports depression. Reports increased anxiety. Reports suicidal ideation . Patient reporting visual and auditory hallucinations as well. No mood swings. Endocrine: No abnormal blood sugars. No weight change. No excessive sweating or thirst. No cold intolerance. PHYSICAL EXAMINATION: GENERAL: The patient is alert and oriented x3, Well developed, well nourished. Anxious although cooperative HEENT: Pupils are round and equally reacting to light. EOMI. no scleral icterus. No conjunctival pallor. Normocephalic, atraumatic. No pharyngeal erythema. No thyromegaly. CARDIOVASCULAR: S1 and S2 muffled PULMONARY: diminished breath sounds bilaterally with no wheezing or rhonchi noted. ABDOMEN: soft. Nontender on exam. obese. non-distended, normoactive bowel sounds. No palpable organomegaly. MUSCULOSKELETAL: No joint swelling or deformity. EXTREMITIES: No cyanosis, clubbing, or pedal edema. NEUROLOGICAL: Gross neurological examination did not reveal any focal deficits. SKIN: No rashes. Assessment: Suicidal ideations History of cerebral palsy Acute COVID-19 infection, with no respiratory or GI symptoms History of seizure disorder Anxiety/bipolar/depression GI prophylaxis DVT prophylaxis Full code Plan: Recommend to continue with current medications and management with psychiatry on consult. Patient did have suicidal ideations and emergency room evaluated the patient recommending 3 W. hospitalization although patient was incidentally found to be COVID-19 positive and unable to go to the unit with a positive r eading. Patient is completely asymptomatic of Covid denies any shortness of breath, cough, nausea, vomiting, diarrhea. Will initiate some vitamin supplements and resume home medications. Suicide sitter at the bedside and psychiatry will follow. Adjustments to medications per psychiatry as well. Encouraged oral intake and increased activity as tolerated and will continue to monitor the patient closely. Prognosis is guarded The impression and plan of care has been dictated by Nan Kwon, nurse practitioner as directed. Dr. Em MD I have performed a history and examination and MDM of this patient, discussed the same with the dictator, and agree with the dictator's assessment and plan as written ,documented as a scribe. Based on total visit time, I have performed more than 50% of the visit. Any additional findings or plans will be noted. Past Medical History Past Medical History: Seizure Disorder Additional Past Medical History / Comment(s): cerebral palsy, History of Any Multi-Drug Resistant Organisms: None Reported Past Surgical History: Orthopedic Surgery Additional Past Surgical History / Comment(s): femurs rotated and achilles tendon lengthened and one yr. later metal hardware/plates were removed. Past Anesthesia/Blood Transfusion Reactions: No Reported Reaction Past Psychological History: Anxiety, Bipolar, Depression Additional Psychological History / Comment(s): Hx. of [facility] Smoking Status: Never smoker Past Alcohol Use History: None Reported Past Drug Use History: None Reported - Past Family History Father Family Medical History: No Reported History Mother Family Medical History: No Reported History Medications and Allergies Home Medications Medication Instructions Recorded Confirmed Type Venlafaxine HCl ER [Effexor XR] 150 mg PO DAILY 30 Days cap 08/06/22 10/31/22 Rx Verapamil HCl [Verapamil ER] 120 mg PO DAILY 30 Days tab 08/06/22 10/31/22 Rx Divalproex ER [Depakote ER] 1,000 mg PO HS 10/31/22 10/31/22 History Levothyroxine Sodium [Synthroid] 25 mcg PO Q48H 10/31/22 10/31/22 History diphenhydrAMINE [Benadryl] 50 mg PO HS 10/31/22 10/31/22 History fluPHENAZine decanoate [Prolixin 37.5 mg IM Q14D 10/31/22 10/31/22 History Decanoate] Allergies Allergy/AdvReac Type Severity Reaction Status Date / Time lamotrigine [From Lamictal] Allergy Rash/Hives Verified 10/31/22 09:39 - full body morphine Allergy Itching Verified 10/31/22 09:39 Physical Exam Vitals: Vital Signs Temp Pulse Pulse Resp BP BP Pulse Ox 10/31/22 08:34 98.7 F 114 H 18 130/88 96 10/31/22 08:12 98.6 F 118 H 18 146/86 96 10/31/22 03:58 114 H 16 135/87 100 10/31/22 03:11 98.1 F 120 H 18 135/85 98 Intake and Output 10/30/22 10/31/22 10/31/22 22:59 06:59 14:59 Other: Voiding Method Toilet Weight 104.326 kg 104.326 kg Results CBC & Chem 7: 10/31/22 07:49 10/31/22 11:48 Labs: Abnormal Lab Results - Last 24 Hours (Table) 10/31/22 10/31/22 Range/Units 05:56 11:48 Sodium 136 L (137-145) mmol/L Coronavirus (PCR) Detected A (Not Detectd) Thrombosis Risk Factor Assmnt - DVT/VTE Prophylaxis DVT/VTE Prophylaxis: Pharmacologic Prophylaxis ordered - Choose All That Apply Any of the Below Risk Factors Present?: Yes Each Factor Represents 1 point: Obesity (BMI >25) Other congenital or acquired thrombophilia - If yes, enter type in comment: No Thrombosis Risk Factor Assessment Total Risk Factor Score: 1 Thrombosis Risk Factor Assessment Level: Low Risk Assessment and Plan Time with Patient: Greater than 30
[2022-10-31] MEDS: CHOLECALCIFEROL 25 MCG (1000 IU) TABLET PO SCH (16:42)
[2022-10-31] MEDS: ENOXAPARIN 40 MG/0.4 ML SYRINGE SQ SCH (16:42)
[2022-10-31] MEDS: ASCORBIC ACID 500 MG TAB PO SCH (16:42)
[2022-10-31] MEDS: ZINC SULFATE 220 MG CAP PO SCH (16:42)
[2022-10-31] MEDS: MIRTAZAPINE 15 MG TAB PO SCH (21:40)
[2022-10-31] MEDS: DIVALPROEX ER 500 MG TAB.ER.24H PO SCH (21:40)
[2022-11-01] MEDS: ENOXAPARIN 40 MG/0.4 ML SYRINGE SQ SCH (09:54)
[2022-11-01] MEDS: VERAPAMIL SR 120 MG TABLET.ER PO SCH (09:54)
[2022-11-01] MEDS: VENLAFAXINE HCL ER 150 MG CAP PO SCH (09:54)
[2022-11-01] MEDS: ZINC SULFATE 220 MG CAP PO SCH (09:54)
[2022-11-01] MEDS: CHOLECALCIFEROL 25 MCG (1000 IU) TABLET PO SCH (09:54)
[2022-11-01] MEDS: LEVOTHYROXINE 25 MCG TAB PO SCH (09:54)
[2022-11-01] MEDS: ASCORBIC ACID 500 MG TAB PO SCH (09:55)
[2022-11-01] MEDS ORDERED: VENLAFAXINE HCL ER 75 MG CAP PO STA (13:56)
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
--- NOTE | 2022-11-01 16:36 | XR ---
EXAMINATION TYPE: XR chest 1V portable DATE OF EXAM: 11/01/2022 COMPARISON: 01/03/2022 HISTORY: Dysrhythmia TECHNIQUE: Single view FINDINGS: Heart and mediastinum are normal. Lungs are clear. Diaphragm is normal. Bony thorax appears normal. IMPRESSION: Normal chest. No change.
[2022-11-01] MEDS: DIVALPROEX ER 500 MG TAB.ER.24H PO SCH (20:07)
[2022-11-01] MEDS: MIRTAZAPINE 15 MG TAB PO SCH (20:07)
[2022-11-02] MEDS: ASCORBIC ACID 500 MG TAB PO SCH (09:43)
[2022-11-02] MEDS: VENLAFAXINE HCL ER 75 MG CAP PO SCH (09:43)
[2022-11-02] MEDS: VERAPAMIL SR 120 MG TABLET.ER PO SCH (09:43)
[2022-11-02] MEDS: ZINC SULFATE 220 MG CAP PO SCH (09:43)
[2022-11-02] MEDS: CHOLECALCIFEROL 25 MCG (1000 IU) TABLET PO SCH (09:43)
[2022-11-02] MEDS: ENOXAPARIN 40 MG/0.4 ML SYRINGE SQ SCH (09:44)
--- NOTE | 2022-11-02 15:21 | P.PN ---
Progress Note - Text Progress Note Date: 11/02/22 Psychiatry follow-up note Interval history: Patient was seen resting in her bed with sitter at bedside and was agreeable to speak with this sports book writer. She reports her mood is "I have good day and bad days, I'm better today". She appears to be a fair historian and is somewhat childlike. She reports she talked to her mother and this has helped her mood. Today she states she was afraid her dad was hurting her family, but she has asked her family and they said he is not hurting them, and today she is trying to believe her family when they tell her this. She denies SI/HI or thoughts of self-harm. She denies auditory or visual hallucinations. Nurse reports patient has been sl eeping on and off most of the morning and ate less than half of her meals. Patient reports good sleep last night and reports fair appetite but she just doesn't like the food. She is compliant with her medications and denies side effects. She is positive for COVID and denies shortness of breath. No agitation reported today. Mental status exam: General Appearance: Patient appears to be stated age, is disheveled with marginal hygiene/grooming, dressed in hospital gown. Behavior: No agitated behavior. Patient is calm and directable, attempts to cooperate. Speech: Patient's speech is fluent and non-pressured, but appears slowed. Mood/Affect: Mood is "better today", affect is congruent and constricted. Suicidality/Homicidality: Patient denies having any suicidal or homicidal ideation intent or plan. Perceptions: Patient denies any auditory or visual hallucinations. Though content/process: There is some evidence of delusional thought content and thought process is concrete. Memory and concentration: AOX3, grossly intact for the purposes of this session Judgment and insight: chronically limited IMPRESSIONS: Schizoaffective disorder, depressive type Intellectual disability Cerebral palsy PLAN: -At this time patient DOES meet criteria for inpatient psychiatric admission HOWEVER due to patient testing positive for COVID, psychiatry will follow patient along on the medical floors. -Would recommend the following medication changes/additions: Continue Depakote ER 1000 mg qhs for mood stabilization. Depakote level ordered for Friday morning. Continue Remeron 15 mg QHS for insomnia/depression/anxiety. Continue Effexor XR 225 mg daily for mood/anxiety. Continue Benadryl 50 mg qhs prn insomnia, however she does not appear to need this and may consider discontinuing this prior to discharge. Patient received 37.5 mg IM of Prolixin Decanoate on 10/30/[address] Finney. Continue prolixin 2.5 mg po bid as supplementation for now to help stabilize patients psychosis. -Continue 1:1 sitter for safety for now -Cannot leave AMA at this time. Patient will need a petition and certification if attempting to leave AMA. -Communicated plan to patient's nurse -Will continue to follow along -Please contact with any questions.
--- NOTE | 2022-11-02 19:18 | P.PN ---
Subjective Progress Note Date: 11/02/22 This is a 32-year-old female who presented to the emergency department with suicidal ideations. Patient lives with her mother who is her guardian and follows with psychiatry Dr. Oneil in the outpatient setting. Patient also follows with Dr. Zainab Rivera in the outpatient setting as her primary care provider with a past medical history of cerebral palsy, anxiety, bipolar, depression, seizure disorder. Patient reports she has been feeling increased suicidal ideations with increased depression and feeling that she is hearing voices and having hallucinations of her family members. Patient is fearful her father is going to harm her family and feels unsafe in the home. Patient was placed on suicide precautions with suicide sitter and admitted for psychiatric evaluation. Initially medically stable for 3 W. admission although patient was incidentally found to be Covid positive. Patient denies any recent sickness denies shortness of breath and is asymptomatic. Patient reports her nephew was sick 2 weeks ago and had Covid. Patient is very anxious and guarded on exam and does have suicide sitter at the bedside. Patient is pleasant and willing to talk with compliance. Per mother patient has had recent medication changes as well. Recommend to resume home medications and monitor the patient closely. Urine drug screen was negative, CBC was within normal limits, BMP within normal limits as well and COVID-19 was detected. 11/01/2022 Patient is seen and evaluated in follow-up this morning continues with the suicide sitter at the bedside with psychiatry following. Patient does per psychiatry meet inpatient requirements for psychiatric facility although patient is Covid positive and unable to go to [facility]. due to this. Adjustments to medications being made and psychiatry in collaboration with patient's psychiatrist Dr. Finney in the outpatient setting. Adjustments being made to medications and patient reports feeling somewhat improved from yesterday. Case management following and looking at other facilities that can accommodate inpatient psychiatric services with Covid patients. No beds available at this time. Patient is afebrile denies chest pain or shortness of breath. Patient reports the tolerating diet and sleeping a little better last night with no reports of nausea or vomiting noted. We'll continue to monitor closely and appreciate input and recommendations from psychiatry. There was a documented oxygen saturation of 91% on room air and patient denies shortness of breath although will obtain a chest x-ray as one has not been done previously. 11/02/2022 Patient is currently lying in bed. Awake alert and oriented and able to communicate. No complaints of chest pain. Patient is on room air. No complaints of shortness of breath. Patient states that she feels better otherwise. Constant observer in the room. Denied any suicidal or homicidal ideation. Patient is being continued on Lovenox subcu for anticoagulation and home medication including Synthroid and multivitamin supplementation. Patient is also on verapamil. Currently And Remeron as per psychiatry recommendations. Previous laboratory data reviewed. Review of systems: Constitutional: No reports of fatigue, fever, or chills Cardiovascular: No reports of chest pain or palpitations Respiratory: No reports of shortness of breath or cough GI: No reports of nausea, vomiting, or diarrhea : No reports of dysuria or retention Neurovascular: No reports of weakness or numbness All medications have been reviewed Active Medications Ascorbic Acid (Ascorbic Acid 500 Mg Tab) 500 mg PO DAILY [facility] Last Admin: 11/02/22 09:43 Dose: 500 mg Cholecalciferol (Cholecalciferol 25 Mcg (1000 Iu) Tablet) 50 mcg PO DAILY [facility] Last Admin: 11/02/22 09:43 Dose: 50 mcg Diphenhydramine HCl (Diphenhydramine 50 Mg Cap) 50 mg PO HS PRN PRN Reason: Insomnia Divalproex Sodium (Divalproex Er 500 Mg Tab.Er.24h) 1,000 mg PO HS [facility] Last Admin: 11/01/22 20:07 Dose: 1,000 mg Enoxaparin Sodium (Enoxaparin 40 Mg/0.4 Ml Syringe) 40 mg SQ DAILY [facility] Last Admin: 11/02/22 09:44 Dose: 40 mg Fluphenazine HCl (Fluphenazine 5 Mg Tab) 2.5 mg PO BID [facility] Last Admin: 11/02/22 09:44 Dose: 2.5 mg Levothyroxine Sodium (Levothyroxine 25 Mcg Tab) 25 mcg PO Q48H [facility] Last Admin: 11/01/22 09:54 Dose: 25 mcg Mirtazapine (Mirtazapine 15 Mg Tab) 15 mg PO HS [facility] Last Admin: 11/01/22 20:07 Dose: 15 mg Naloxone HCl (Naloxone 0.4 Mg/Ml 1 Ml Vial) 0.2 mg IV Q2M PRN PRN Reason: Opioid Reversal Venlafaxine HCl (Venlafaxine Hcl Er 75 Mg Cap) 225 mg PO DAILY [facility] Last Admin: 11/02/22 09:43 Dose: 225 mg Verapamil HCl (Verapamil Sr 120 Mg Tablet.Er) 120 mg PO DAILY [facility] Last Admin: 11/02/22 09:43 Dose: 120 mg Zinc Sulfate (Zinc Sulfate 220 Mg Cap) 220 mg PO DAILY [facility] Last Admin: 11/02/22 09:43 Dose: 220 mg PHYSICAL EXAMINATION: GENERAL: The patient is alert and oriented x3, Well developed, well nourished. Less Anxious today HEENT: Pupils are round and equally reacting to light. EOMI. no scleral icterus. No conjunctival pallor. Normocephalic, atraumatic. No pharyngeal erythema. No thyromegaly. CARDIOVASCULAR: S1 and S2 muffled PULMONARY: diminished breath sounds bilaterally with no wheezing or rhonchi noted. ABDOMEN: soft. Nontender on exam. obese. non-distended, normoactive bowel sounds. No palpable organomegaly. MUSCULOSKELETAL: No joint swelling or deformity. EXTREMITIES: No cyanosis, clubbing, or pedal edema. NEUROLOGICAL: Gross neurological examination did not reveal any focal deficits. SKIN: No rashes. Assessment: Schizoaffective disorder. Depressive type. Suicidal ideations History of cerebral palsy Acute COVID-19 infection, with no respiratory or GI symptoms History of seizure disorder Anxiety/bipolar/depression GI prophylaxis DVT prophylaxis Full code Plan: Recommend to continue with current medications and management with psychiatry following. Patient did have suicidal ideations and emergency room evaluated the patient recommending 3 W. hospitalization although patient was incidentally found to be COVID-19 positive and unable to go to the unit with a positive reading. Case management/social work following looking for other facilities for psychiatric services that can accommodate Covid positive patients although none available at this time. Chest x-ray 11/01/2019 showed normal chest. No change. continue with vitamin supplements along with zinc and subcutaneous Lovenox and resume home medications. Adjustments to medications being made per psychiatry in collaboration with her psychiatrist Dr. Finney from the outpatient setting. Suicide sitter at the bedside and psychiatry will follow. Encouraged oral intake and increased activity as tolerated and will continue to monitor the patient closely. Prognosis is guarded Objective - Vital Signs Vital signs: Vital Signs Temp 98.0 F 11/02/22 07:12 Pulse 107 H 11/02/22 10:18 Resp 18 11/02/22 10:18 BP 90/64 11/02/22 07:12 Pulse Ox 95 11/02/22 07:12 FiO2 Intake & Output 11/01/22 11/02/22 11/02/22 18:59 06:59 18:59 Other: Voiding Method Toilet Toilet # Voids 2 2 - Labs CBC & Chem 7: 10/31/22 07:49 10/31/22 11:48
[2022-11-02] MEDS: MIRTAZAPINE 15 MG TAB PO SCH (20:37)
[2022-11-02] MEDS: DIVALPROEX ER 500 MG TAB.ER.24H PO SCH (20:37)
[2022-11-03] MEDS: ENOXAPARIN 40 MG/0.4 ML SYRINGE SQ SCH (09:28)
[2022-11-03] MEDS: VENLAFAXINE HCL ER 75 MG CAP PO SCH (09:28)
[2022-11-03] MEDS: CHOLECALCIFEROL 25 MCG (1000 IU) TABLET PO SCH (09:28)
[2022-11-03] MEDS: ASCORBIC ACID 500 MG TAB PO SCH (09:28)
[2022-11-03] MEDS: ZINC SULFATE 220 MG CAP PO SCH (09:28)
[2022-11-03] MEDS: LEVOTHYROXINE 25 MCG TAB PO SCH (09:28)
[2022-11-03] MEDS: VERAPAMIL SR 120 MG TABLET.ER PO SCH (09:29)
--- NOTE | 2022-11-03 14:46 | P.PN ---
Progress Note - Text Progress Note Date: 11/03/22 Psychiatry follow-up note Interval history: Patient was found awake in her bed with sitter at bedside and was agreeable to speak with this law writer. She reports her mood is "good". She reports she talked to her family briefly this morning and would like to talk to them again later today. She denies SI/HI or thoughts of self-harm. She denies auditory or visual hallucinations. No delusions thoughts expressed today. Patient reports good sleep again last night and reports fair appetite but she just doesn't like the food. She is compliant with her medications and denies side effects. She is positive for COVID and denies shortness of breath. No agitation reported. I spoke with her mother Giuliana George ([phone]) who is also patient's legal guardian, and Giuliana reports patient sounds "a lot more positive" today and denies patient has made any delusional, suicidal or homicidal statements to her today. We discussed the sitter at bedside will be discontinued today and if patient continues to do well overnight then mother/guardian is supportive of discharge home tomorrow. Mental status exam: General Appearance: Patient appears to be stated age, with marginal hygiene/grooming, dressed in hospital gown. Behavior: No agitated behavior. Patient is calm and directable, attempts to cooperate, good eye contact. Speech: Patient's speech is fluent and non-pressured, but appears slowed. Mood/Affect: Mood is "good, affect is congruent and constricted. Suicidality/Homicidality: Patient denies having any suicidal or homicidal ideation intent or plan. Perceptions: Patient denies any auditory or visual hallucinations. Though content/process: There is no evidence of any delusional thought content and thought process is concrete. Memory and concentration: AOX3, grossly intact for the purposes of this session Judgment and insight: chronically limited IMPRESSIONS: Schizoaffective disorder, depressive type Intellectual disability Cerebral palsy PLAN: -At this time patient DOES NOT meet criteria for inpatient psychiatric admission HOWEVER please do NOT discharge patient without further discussion with psychiatry. -1:1 sitter at bedside can be discontinued since patient denies suicidal or homicidal ideations, or thoughts of self-harm. -If patient continues to stabilize overnight without the 1:1 sitter, then mother/guardian is supportive of discharge home tomorrow. -Would recommend the following medication changes/additions: Continue Depakote ER 1000 mg qhs for mood stabilization. Depakote level ordered for Friday morning. Continue Remeron 15 mg QHS for insomnia/depression/anxiety. Continue Effexor XR 225 mg daily for mood/anxiety. Continue Benadryl 50 mg qhs prn insomnia, however she does not appear to need this and may consider discontinuing this prior to discharge. Patient received 37.5 mg IM of Prolixin Decanoate on 10/30/[address] Finney. Continue prolixin 2.5 mg po bid as supplementation for now to help stabilize patients psychosis. -Communicated plan to patient's nurse -Will continue to follow along -Please contact with any questions.
[2022-11-03] MEDS: MIRTAZAPINE 15 MG TAB PO SCH (20:13)
[2022-11-03] MEDS: DIVALPROEX ER 500 MG TAB.ER.24H PO SCH (20:13)
[2022-11-04] MEDS: CHOLECALCIFEROL 25 MCG (1000 IU) TABLET PO SCH (09:13)
[2022-11-04] MEDS: ZINC SULFATE 220 MG CAP PO SCH (09:13)
[2022-11-04] MEDS: ENOXAPARIN 40 MG/0.4 ML SYRINGE SQ SCH (09:14)
[2022-11-04] MEDS: VERAPAMIL SR 120 MG TABLET.ER PO SCH (09:14)
[2022-11-04] MEDS: VENLAFAXINE HCL ER 75 MG CAP PO SCH (09:14)
[2022-11-04] MEDS: ASCORBIC ACID 500 MG TAB PO SCH (09:14)
--- NOTE | 2022-11-04 14:12 | P.PN ---
Progress Note - Text Progress Note Date: 11/04/22 Interval history: Patient was seen today for psychiatric follow-up. Patient's nurse had no com plaints states the patient has been doing well. Patient was seen lying in her bed today and agreeable to speak to residential mortgage underwriter. She did not have a sitter at her side. Patient appears to be more bright today and her affect and states that she is doing well. She claims that her mood is "good" and continues to be concrete. She states that she is not having paranoid thoughts at this time and does not believe that her father is out to harm her. She claims that she slept fairly last night and has a fair appetite. She was asking about being discharged home. She will continue to follow-up at [facility] with her psychiatrist. She denies SI/HI or thoughts of self-harm. She denies auditory or visual hallucinations. No delusions thoughts expressed today. Mental status exam: General Appearance: Patient appears to be overweight, stated age, with marginal hygiene/grooming, dressed in hospital gown. Behavior: No agitated behavior. Patient is calm and directable, attempts to cooperate, good eye contact. Speech: Patient's speech is fluent and non-pressured, but appears slowed. [facility] Mood/Affect: Mood is "good", affect is congruent and constricted. Suicidality/Homicidality: Patient denies having any suicidal or homicidal ideation intent or plan. Perceptions: Patient denies any auditory or visual hallucinations. Though content/process: There is no evidence of any delusional thought content and thought process is concrete. more future oriented today. Memory and concentration: AOX3, grossly intact for the purposes of this session Judgment and insight: chronically limited, improved IMPRESSIONS: Schizoaffective disorder, depressive type Intellectual disability Cerebral palsy PLAN: -At this time patient DOES NOT meet criteria for inpatient psychiatric admission -Would recommend the following medication changes/additions: Continue Depakote ER 1000 mg qhs for mood stabilization. Depakote level on 11/04 - 98.4 Continue Remeron 15 mg QHS for insomnia/depression/anxiety. Continue Effexor XR 225 mg daily for mood/anxiety. Patient received 37.5 mg IM of Prolixin Decanoate on 10/30/[address] Finney. Continue prolixin 2.5 mg po bid as supplementation for now to help stabilize patients psychosis -Communicated plan to patient's nurse -at this time psychiatry will sign off. Patient can continue her outpt MH follow up with Dr Finney at [facility]. -Please contact with any questions.
[2022-11-04 15:03] VITALS: BP 117/74; PULSE 108; RESP 17; TEMP 98.4
--- NOTE | 2022-11-05 17:01 | P.DS ---
Providers Date of admission: 10/31/22 07:01 Expected date of discharge: 11/04/22 Attending physician: Viviana Salazar Consults: 10/31/22 06:21 Consult Physician Routine Consulting Provider: Sunny Winslow Reason/Comments: Suicidal, depression Do you want consulting provider notified?: Yes Primary care physician: Maximilian Rivera [facility] Course: Final diagnosis Suicidal ideations History of cerebral palsy Acute COVID-19 infection, with no respiratory or GI symptoms History of seizure disorder Anxiety/bipolar/depression GI prophylaxis DVT prophylaxis Full code Discharge disposition Patient is being discharged in a stable condition with guarded prognosis to home Patient will follow-up with Dr. Rivera in the outpatient setting upon discharge. Patient is to also follow-up with psychiatry Dr. Finney as scheduled. And tenuous current medications as mentioned below. Total time taken is greater than 35 minutes. Hospital course This is a 32year-old female who was recently admitted with suicidal ideations thoughts of wanting to harm herself and also having visual and auditory hallucinations and was placed on suicide precautions. Patient was seen and evaluated by psychiatry recommending inpatient initially although due to her COVID-19 being positive patient unable to go to the unit. Patient was maintained on medical floor with continued sitter and adjustments to medications being made with the collaboration of her psychiatrist Dr. Finney in the outpatient setting from [facility]. Patient showed improvement and has been cleared for discharge with close outpatient follow-up. Patient and mother are agreeable and will be discharged today. She continues to have no signs of Covid denies any shortness of breath, cough, congestion, nausea, vomiting, or diarrhea. Recommend continue vitamin supplements and follow-up with primary care provider on discharge. Currently no reports of chest pain, shortness of breath, or palpitations. Patient is afebrile. No reports of nausea or vomiting and patient is tolerating diet. Patient will be discharged home today.Guarded prognosis. Physical exam: Gen: This is a 32-year-old female who is awake, alert and oriented 3, well- developed, well-nourished, obese HEENT: Head is atraumatic, normocephalic. Pupils equal, round. Sclerae is anicteric. NECK: Supple. No JVD. No lymphadenopathy. No thyromegaly. LUNGS: Clear to auscultation. No wheezes or rhonchi. No intercostal retractions. HEART: Regular rate and rhythm. No murmur. ABDOMEN: Soft. Bowel sounds are present. No masses. No tenderness. EXTREMITIES: No pedal edema. No calf tenderness. NEUROLOGICAL: Patient is awake, alert and oriented x3. Cranial nerves 2 through 12 are grossly intact. Please refer to medication reconciliation sheet for a list of medications. The impression and plan of care has been dictated by Nan Kwon, Nurse Practitioner as directed. Dr. Marie MD I have performed a history and examination and MDM of this patient, discussed the same with the dictator, and agree with the dictator's assessment and plan as written ,documented as a scribe. Based on total visit time, I have performed more than 50% of the visit. Patient Condition at Discharge: Stable Plan - Discharge Summary New Discharge Prescriptions: New fluPHENAZine [Prolixin] 2.5 mg PO BID 30 Days #30 tab Ascorbic Acid [Vitamin C] 500 mg PO DAILY #30 tab Cholecalciferol [Vitamin D3 (25 Mcg = 1000 Iu)] 50 mcg PO DAILY #60 tab Venlafaxine HCl ER [Effexor XR] 225 mg PO DAILY 30 Days #90 cap Mirtazapine [Remeron] 15 mg PO HS 30 Days #30 tab Continue Verapamil HCl [Verapamil ER] 120 mg PO DAILY 30 Days tab fluPHENAZine decanoate [Prolixin Decanoate] 37.5 mg IM Q14D Divalproex ER [Depakote ER] 1,000 mg PO HS diphenhydrAMINE [Benadryl] 50 mg PO HS Levothyroxine Sodium [Synthroid] 25 mcg PO Q48H Discontinued Venlafaxine HCl ER [Effexor XR] 150 mg PO DAILY 30 Days cap Discharge Medication List Verapamil HCl [Verapamil ER] 120 mg PO DAILY 30 Days tab 08/06/22 [Rx] Divalproex ER [Depakote ER] 1,000 mg PO HS 10/31/22 [History] Levothyroxine Sodium [Synthroid] 25 mcg PO Q48H 10/31/22 [History] diphenhydrAMINE [Benadryl] 50 mg PO HS 10/31/22 [History] fluPHENAZine decanoate [Prolixin Decanoate] 37.5 mg IM Q14D 10/31/22 [History] Ascorbic Acid [Vitamin C] 500 mg PO DAILY #30 tab 11/04/22 [Rx] Cholecalciferol [Vitamin D3 (25 Mcg = 1000 Iu)] 50 mcg PO DAILY #60 tab 11/04/22 [Rx] Mirtazapine [Remeron] 15 mg PO HS 30 Days #30 tab 11/04/22 [Rx] Venlafaxine HCl ER [Effexor XR] 225 mg PO DAILY 30 Days #90 cap 11/04/22 [Rx] fluPHENAZine [Prolixin] 2.5 mg PO BID 30 Days #30 tab 11/04/22 [Rx] Follow up Appointment(s)/Referral(s): Maximilian Rivera DO [Primary Care Provider] - 1-2 days Patient Instructions/Handouts: COVID-19 (Coronavirus Disease 2019) (DC) Activity/Diet/Wound Care/Special Instructions: Follow up with Lesia at [facility] on 11/07/22 at 2:00PM. Activity Limited until follow-up Follow-up primary care provider on discharge Follow-up [facility] with Dr. Finney psychiatry Continue taking medications as prescribed Discharge Disposition: HOME SELF-CARE
== END 2022-11-04 17:17 | disposition home or self-care (01) | DRG 885 ==
LOC: EC 03:03 → 4SSUR 07:01
PROVIDERS: ADMIT Internal Medicine; ATTEND Internal Medicine
DX: F25.1 Schizoaffective disorder, depressive type (principal); U07.1 COVID-19; R45.851 Suicidal ideations; G40.909 Epilepsy, unspecified, not intractable, without status epilepticus; G80.9 Cerebral palsy, unspecified; F31.9 Bipolar disorder, unspecified; F79 Unspecified intellectual disabilities; F41.9 Anxiety disorder, unspecified; Z00.8 Encounter for other general examination; Z88.5 Allergy status to narcotic agent; Z88.8 Allergy status to other drugs, medicaments and biological substances; Z79.890 Hormone replacement therapy; Z79.899 Other long term (current) drug therapy
CPT/HCPCS: 71045; 80048; 80164; 80306; 82075; 85025; 87635; 99285

== ENCOUNTER 2023-04-19 18:28 | Inpatient (IN) | payer MEDICARE, MEDICAID ==
--- NOTE | 2023-04-19 19:00 | ED ---
General Adult HPI - General Chief complaint: Psychiatric Symptoms Stated complaint: mental health Time Seen by Provider: 04/19/23 18:35 Source: patient, family, RN notes reviewed Mode of arrival: wheelchair Limitations: physical limitation - History of Present Illness Initial comments: Patient is a pleasant 32-year-old female presenting to the emergency Department with mother with concerns for depression and suicidal thoughts. Symptoms have progressed over several months, especially the past couple weeks. Patient does have planned to overdose with pills. Patient has skipped her pills occasionally. Patient has some decreased appetite. Patient feels like she is sleeping too much. No new physical complaints. No alcohol or street drug use. Patient denies hallucinations. - Related Data Home Medications Medication Instructions Recorded Confirmed Divalproex ER [Depakote ER] 1,000 mg PO HS 10/31/22 04/19/23 fluPHENAZine decanoate [Prolixin 25 mg IM Q14D 10/31/22 04/19/23 Decanoate] Benztropine Mesylate [Cogentin] 0.5 mg PO TID 04/19/23 04/19/23 Venlafaxine HCl ER [Effexor Xr] 150 mg PO DAILY 04/19/23 04/19/23 Previous Rx's Medication Instructions Recorded Verapamil HCl [Verapamil ER] 120 mg PO DAILY 30 Days tab 08/06/22 Allergies Allergy/AdvReac Type Severity Reaction Status Date / Time lamotrigine [From Lamictal] Allergy Rash/Hives Verified 04/19/23 21:34 - full body morphine Allergy Itching Verified 04/19/23 21:34 Review of Systems ROS Statement: Those systems with pertinent positive or pertinent negative responses have been documented in the HPI. ROS Other: All systems not noted in ROS Statement are negative. Constitutional: Denies: fever Eyes: Denies: eye pain ENT: Denies: ear pain Respiratory: Denies: cough Cardiovascular: Denies: chest pain Endocrine: Denies: fatigue Gastrointestinal: Denies: abdominal pain Genitourinary: Denies: dysuria Musculoskeletal: Denies: back pain Skin: Denies: rash Neurological: Denies: headache, weakness Psychiatric: Reports: as per HPI, depression, suicidal thoughts. Denies: auditory hallucinations, visual hallucinations Past Medical History Past Medical History: Seizure Disorder Additional Past Medical History / Comment(s): cerebral palsy, History of Any Multi-Drug Resistant Organisms: None Reported Past Surgical History: Orthopedic Surgery Additional Past Surgical History / Comment(s): femurs rotated and achilles tendon lengthened and one yr. later metal hardware/plates were removed. Past Anesthesia/Blood Transfusion Reactions: No Reported Reaction Past Psychological History: Anxiety, Bipolar, Depression Smoking Status: Never smoker Past Alcohol Use History: None Reported Past Drug Use History: None Reported - Past Family History Father Family Medical History: No Reported History Mother Family Medical History: No Reported History General Exam Limitations: physical limitation General appearance: alert, in no apparent distress Head exam: Present: normocephalic Eye exam: Present: other (Disconjugate gaze. Difficulty with medial left thigh movement. Patient states is chronic.) ENT exam: Present: normal oropharynx Neck exam: Present: normal inspection Respiratory exam: Present: normal lung sounds bilaterally Cardiovascular Exam: Present: regular rate, normal rhythm GI/Abdominal exam: Present: soft. Absent: tenderness Extremities exam: Present: normal inspection Neurological exam: Present: alert Psychiatric exam: Present: depressed Skin exam: Present: normal color Course Vital Signs 04/19/23 04/19/23 04/19/23 18:32 19:20 22:55 Temperature 97.6 F 97.9 F 98.0 F Pulse Rate 91 87 Pulse Rate [ 84 Right] Respiratory 18 20 18 Rate Blood Pressure 117/81 Blood Pressure 133/83 [Right Arm] O2 Sat by Pulse 98 98 96 Oximetry Medical Decision Making - Medical Decision Making Was pt. sent in by a medical professional or institution (, PA, INSURANCE VERIFIER, urgent care, hospital, or care home...) When possible be specific @ -No Did you speak to anyone other than the patient for history (EMS, parent, family, police, friend...)? What history was obtained from this source @ -Mother is present and helps right history as patient is somewhat a poor historian Did you review nursing and triage notes (agree or disagree)? Why? @ -I reviewed and agree with nursing and triage notes Were old charts reviewed (outside hosp., previous admission, EMS record, old EKG, old radiological studies, urgent care reports/EKG's, care home records)? Report findings @ -No old charts were reviewed Differential Diagnosis (chest pain, altered mental status, abdominal pain women, abdominal pain men, vaginal bleeding, weakness, fever, dyspnea, syncope, headache, dizziness, GI bleed, back pain, seizure, CVA, palpatations, mental health, musculoskeletal)? @ -Differential Mental Health Depression, anxiety, bipolar, psychosis, schizophrenia, borderline personality, situational depression, adjustment disorder, behavioral disorder, brain tumor, malingering, substance abuse, encephalopathy, medication reaction, dementia, hypothyroidism, degenerative neurologic disorder, lupus.... This is not meant to be all-inclusive list EKG interpreted by me (3pts min.). @ -As above X-rays interpreted by me (1pt min.). @ -None done CT interpreted by me (1pt min.). @ -None done U/S interpreted by me (1pt. min.). @ -None done What testing was considered but not performed or refused? (CT, X-rays, U/S, l abs)? Why? @ -None What meds were considered but not given or refused? Why? @ -None Did you discuss the management of the patient with other professionals (professionals i.e. , PA, INSURANCE VERIFIER, lab, RT, psych nurse, manager social work, manager of corporate, teacher, senior credit officer, case monitor)? Give summary @ -Case was discussed with mental health nurse and patient will be admitted Was smoking cessation discussed for >3mins.? @ -No Was critical care preformed (if so, how long)? @ -No Were there social determinants of health that impacted care today? How? (Homelessness, low income, unemployed, alcoholism, drug addiction, trans portation, low edu. Level, literacy, decrease access to med. care, custodial, rehab)? @ -No Was there de-escalation of care discussed even if they declined (Discuss DNR or withdrawal of care, Hospice)? DNR status @ -No What co-morbidities impacted this encounter? (DM, HTN, Smoking, COPD, CAD, Cancer, CVA, ARF, Chemo, Hep., AIDS, mental health diagnosis, sleep apnea, morbid obesity)? @ -None Was patient admitted / discharged? Hospital course, mention meds given and route, prescriptions, significant lab abnormalities, going to OR and other pertinent info. @ -Patient will be admitted for psychiatric care Undiagnosed new problem with uncertain prognosis? @ -No Drug Therapy requiring intensive monitoring for toxicity (Heparin, Nitro, Insulin, Cardizem)? @ -No Were any procedures done? @ -No Diagnosis/symptom? @ -Depression, suicidal ideation Acute, or Chronic, or Acute on Chronic? @ -Acute on chronic, acute Uncomplicated (without systemic symptoms) or Complicated (systemic symptoms)? @ -default Side effects of treatment? @ -No Exacerbation, Progression, or Severe Exacerbation? @ -No Poses a threat to life or bodily function? How? (Chest pain, [place], [place], pneumonia, PE, COPD, DKA, ARF, appy, cholecystitis, CVA, Diverticulitis, Homicidal, Suicidal, threat to staff... and all critical care pts) @ -No - Lab Data Result diagrams: 04/20/23 08:03 04/20/23 08:03 Lab Results 04/19/23 Range/Units 21:40 Coronavirus (PCR) Not Detected (Not Detectd) Disposition Clinical Impression: Suicidal ideation, Depression Disposition: TRANSFER TO PSYCH HOSP/UNIT Is patient prescribed a controlled substance at d/c from ED?: No
[2023-04-19] MEDS ORDERED: LORazepam 2 MG/ML INJ IM PRN (22:25)
[2023-04-19] MEDS ORDERED: MAGNESIUM HYDROXIDE 2,400 MG/30 ML CUP PO PRN (22:25)
[2023-04-19] MEDS ORDERED: HALOPERIDOL LACTATE 5 MG/ML 1 ML VIAL IM PRN (22:25)
[2023-04-19] MEDS ORDERED: LORazepam 1 MG TAB PO PRN (22:25)
[2023-04-19] MEDS ORDERED: IBUPROFEN 600 MG TAB PO PRN (22:25)
[2023-04-19] MEDS ORDERED: MAG HYDROX/AL HYDROX/SIMETH 30 ML CUP PO PRN (22:25)
[2023-04-19] MEDS ORDERED: ACETAMINOPHEN TAB 325 MG TAB PO PRN (22:25)
[2023-04-19] MEDS ORDERED: traZODone HCL 50 MG TAB PO PRN (22:25)
[2023-04-19] MEDS ORDERED: fluPHENAZine DECANOATE 25 MG/ML 5ML MDV IM SCH (23:30)
[2023-04-19] MEDS: VERAPAMIL SR 120 MG TABLET.ER PO SCH ×2 (23:39→23:45)
[2023-04-19] MEDS: BENZTROPINE MESYLATE 0.5 MG TAB PO SCH (23:39)
[2023-04-19] MEDS: DIVALPROEX ER 500 MG TAB.ER.24H PO SCH (23:39)
[2023-04-19] MEDS: VENLAFAXINE HCL ER 150 MG CAP PO SCH ×2 (23:39→23:45)
[2023-04-20 08:39] LABS: Basophils % (A) 0 %; Eosinophils % (A) 0 %; HCT 43.6 % (34.0-46.0); HGB 13.9 gm/dL (11.4-16.0); Lymphocytes # (A) 3.2 k/uL (1.0-4.8); Lymphocytes % (A) 41 %; MCH 29.7 pg (25.0-35.0); MCHC 31.9 g/dL (31.0-37.0); MCV 93.1 fL (80.0-100.0); Mean Platelet Volume 8.4; Monocytes # (A) 0.4 k/uL (0-1.0); Monocytes % (A) 5 %; Neutrophils # (A) 4.1 k/uL (1.3-7.7); Neutrophils % (A) 52 %; Platelet Count 196 k/uL (150-450); RBC 4.68 m/uL (3.80-5.40); RDW 13.1 % (11.5-15.5); WBC 7.9 k/uL (3.8-10.6)
[2023-04-20 08:55] LABS: ALT 20 U/L (4-34); AST 31 U/L (14-36); African American GFR (CKD) >90 (>60 ml/min/1.73 sqM); Albumin 4.1 g/dL (3.5-5.0); Alkaline Phosphatase 69 U/L (38-126); Anion Gap 8 mmol/L; Blood Urea Nitrogen 15 mg/dL (7-17); Calcium 9.3 mg/dL (8.4-10.2); Carbon Dioxide 30 mmol/L (22-30); Chloride 101 mmol/L (98-107); Glucose 77 mg/dL (74-99); Non-African American GFR(CKD) >90 (>60 ml/min/1.73 sqM); Potassium 4.5 mmol/L (3.5-5.1); Sodium 139 mmol/L (137-145); Total Bilirubin 0.6 mg/dL (0.2-1.3); Total Protein 7.1 g/dL (6.3-8.2)
[2023-04-20] MEDS: NICOTINE 14MG/24HR PATCH TRANSDERM SCH (09:29)
[2023-04-20] MEDS: VENLAFAXINE HCL ER 150 MG CAP PO SCH (09:32)
[2023-04-20] MEDS: BENZTROPINE MESYLATE 0.5 MG TAB PO SCH ×3 (09:32→20:51)
[2023-04-20] MEDS: VERAPAMIL SR 120 MG TABLET.ER PO SCH (09:33)
--- NOTE | 2023-04-20 10:16 | P.HP ---
Psychiatric H&P - . History & Physical: Allergies Allergy/AdvReac Type Severity Reaction Status Date / Time lamotrigine [From Lamictal] Allergy Rash/Hives Verified 04/19/23 21:34 - full body morphine Allergy Itching Verified 04/19/23 21:34 Vital Signs Temp 98.0 F 04/19/23 22:55 Pulse 84 04/19/23 22:55 Resp 18 04/19/23 22:55 BP 133/83 04/19/23 22:55 Pulse Ox 96 04/19/23 22:55 FiO2 Intake & Output 04/19/23 04/20/23 04/20/23 18:59 06:59 18:59 Weight 104.326 kg 97.2 kg 97.2 kg Laboratory Last Values WBC 7.9 k/uL (3.8-10.6) 04/20/23 08:03 RBC 4.68 m/uL (3.80-5.40) 04/20/23 08:03 Hgb 13.9 gm/dL (11.4-16.0) 04/20/23 08:03 Hct 43.6 % (34.0-46.0) 04/20/23 08:03 MCV 93.1 fL (80.0-100.0) 04/20/23 08:03 MCH 29.7 pg (25.0-35.0) 04/20/23 08:03 MCHC 31.9 g/dL (31.0-37.0) 04/20/23 08:03 RDW 13.1 % (11.5-15.5) 04/20/23 08:03 Plt Count 196 k/uL (150-450) 04/20/23 08:03 MPV 8.4 04/20/23 08:03 Neutrophils % 52 % 04/20/23 08:03 Lymphocytes % 41 % 04/20/23 08:03 Monocytes % 5 % 04/20/23 08:03 Eosinophils % 0 % 04/20/23 08:03 Basophils % 0 % 04/20/23 08:03 Neutrophils # 4.1 k/uL (1.3-7.7) 04/20/23 08:03 Lymphocytes # 3.2 k/uL (1.0-4.8) 04/20/23 08:03 Monocytes # 0.4 k/uL (0-1.0) 04/20/23 08:03 Eosinophils # 0.0 k/uL (0-0.7) 04/20/23 08:03 Basophils # 0.0 k/uL (0-0.2) 04/20/23 08:03 Sodium 139 mmol/L (137-145) 04/20/23 08:03 Potassium 4.5 mmol/L (3.5-5.1) 04/20/23 08:03 Chloride 101 mmol/L (98-107) 04/20/23 08:03 Carbon Dioxide 30 mmol/L (22-30) 04/20/23 08:03 Anion Gap 8 mmol/L 04/20/23 08:03 BUN 15 mg/dL (7-17) 04/20/23 08:03 Creatinine 0.71 mg/dL (0.52-1.04) 04/20/23 08:03 Est GFR (CKD-EPI)AfAm >90 (>60 ml/min/1.73 sqM) 04/20/23 08:03 Est GFR (CKD-EPI)NonAf >90 (>60 ml/min/1.73 sqM) 04/20/23 08:03 Glucose 77 mg/dL (74-99) 04/20/23 08:03 Calcium 9.3 mg/dL (8.4-10.2) 04/20/23 08:03 Total Bilirubin 0.6 mg/dL (0.2-1.3) 04/20/23 08:03 AST 31 U/L (14-36) 04/20/23 08:03 ALT 20 U/L (4-34) 04/20/23 08:03 Alkaline Phosphatase 69 U/L (38-126) 04/20/23 08:03 Total Protein 7.1 g/dL (6.3-8.2) 04/20/23 08:03 Albumin 4.1 g/dL (3.5-5.0) 04/20/23 08:03 TSH 7.990 mIU/L (0.465-4.680) H 04/20/23 08:03 Coronavirus (PCR) Not Detected (Not Detectd) 04/19/23 21:40 04/20/23 10:10 IDENTIFYING DATA: Patient is a 32-year-old female who lives with her mom who is her guardian, her sister, her [id number]-kor, and her nephew and niece and is on SSI and SSA. She is admitted for suicidal ideations HPI: Patient reports that she has been suicidal for the past week has been hopeless. She is unsure of what triggered it. She states that while she was at home, she had a plan to overdose on her pills. She states that their car guns at home, but they are locked up and she does not know where the fisher is. She states that she has been compliant with her medications as her mom make sure that she gets her all of her medications. She also states she that she has been compliant with her Prolixin Decanoate shot Patient denies any homicidal ideations intent or plan. At this time patient denies any auditory or visual hallucinations. Patient denies any flight of ideas racing thoughts and increased in goal directed behavior. Denies substance use PAST PSYCHIATRIC HISTORY: -h/o bipolar disorder -multiple admissions for SI and psychosis, last in July 2022 for SI and psychosis, d/c on prolixin D 25 mg q2 weeks, depakote 1000 hs, melatonin 10 hs, remeron 7.5 hs, Effexor 150 daily -past meds: abilify maintena, lithium, Lexapro, Cogentin, Seroquel radha, cog, ser -Current Meds: depakote 1000 hs, cogentin 0.5 tid, Effexor 150 daily, prolixin D 25 mg q4 weeks PMH: CP, intellectual disability ALLERGIES: as per EMR CHEMICAL DEPENDENCY HISTORY: as per HPI FAMILY PSYCHIATRIC/SUBSTANCE USE HISTORY: father has psychosis SOCIAL HISTORY: Her mother is her guardian, she lives with her mother, sister, [id number], nephew, and a niece. She is on SSI and SSA. No legal issues MENTAL STATUS EXAM: General Appearance: Patient appears to be older than stated age is alert, [directable, and attempts to cooperate]. Patient appears to have fair hygiene and grooming. Has tremors that are likely BL from her CP Behavior: Patient is seated without any agitated behavior. Speech: Patient's speech is [fluent and nonpressured.] Low volume and low rate Mood/Affect: Patient reports their mood is a little better", affect is congruent and constricted. Suicidality/Homicidality: Patient denies having any homicidal ideation intent or plan. He has suicidal ideations without intent or plan Perceptions: Patient denies any visual hallucinations [and denies any auditory hallucinations] Though content/process: [There is no evidence of any delusional thought content and thought process is linear and goal-directed.] Memory and concentration: AOX3, grossly intact for the purposes of this session. Judgment and insight: [poor] STRENGTHS/WEAKNESSES: strength is that patient is [resilient]. Weakness is that patient [has poor judgment and is impulsive] INTELLECT: [average] IMPRESSIONS: Bipolar disorder, currently depressed Intellectual disability PLAN: -Patient is admitted under [voluntary] status to MHU for stabilization of psychiatric symptoms and safety. -Medications : depakote 1000 hs, cogentin 0.5 tid, Effexor 225 daily (increased from home dose of 150), prolixin D 25 mg q4 weeks -Ativan [and Haldol] PRN for agitation/aggression -Patient was informed of the risks, benefits and side effects of the medication and patient verbally consented to taking the medications. P -Internal Medicine consult to perform medical evaluation and physical. -SW on board for discharge planning. Encourage patient to participate in groups to work on coping skills. ]
[2023-04-20 13:55] LABS: Chol/HDL Ratio 3.45 Ratio; LDL Cholesterol,Calculated 99.6 mg/dL (0.0-131.0)
--- NOTE | 2023-04-20 16:49 | P.CONS ---
History of Present Illness - Reason for Consult Consult date: 04/20/23 - Chief Complaint Depression/suicidal ideation - History of Present Illness 32-year-old female, history of hypertension, depression, presenting to the emergency Department with mother with concerns for depression and suicidal thoughts. Symptoms have progressed over several months, especially the past couple weeks. Patient does have planned to overdose with pills. Patient has skipped her pills occasionally. Patient has some decreased appetite. Patient feels like she is sleeping too much. No new physical complaints. No alcohol or street drug use. Patient denies hallucinations. Blood work completed upon admission reveals WBC of 7.9, hemoglobin of 13.8 and platelet count of 196, sodium 139, potassium 4.5, BUN of 15, creatinine 0.71, TSH is elevated at 7.99; patient medical records indicate history of hypothyroidism. Patient is currently not on any replacement therapy Review of Systems REVIEW OF SYSTEMS: CONSTITUTIONAL: No fever, no malaise, no fatigue. HEENT: No recent visual problems or hearing problems. Denied any sore throat. CARDIOVASCULAR: No chest pain, orthopnea, PND, no palpitations, no syncope. PULMONARY: No shortness of breath, no cough, no hemoptysis. GASTROINTESTINAL: No diarrhea, no nausea, no vomiting, no abdominal pain. NEUROLOGICAL: No headaches, no weakness, no numbness. HEMATOLOGICAL: Denies any bleeding or petechiae. GENITOURINARY: Denies any burning micturition, frequency, or urgency. MUSCULOSKELETAL/RHEUMATOLOGICAL: Denies any joint pain, swelling, or any muscle pain. ENDOCRINE: Denies any polyuria or polydipsia. The rest of the 14-point review of systems is negative. Past Medical History Past Medical History: Seizure Disorder Additional Past Medical History / Comment(s): cerebral palsy, History of Any Multi-Drug Resistant Organisms: None Reported Past Surgical History: Orthopedic Surgery Additional Past Surgical History / Comment(s): femurs rotated and achilles tendon lengthened and one yr. later metal hardware/plates were removed. Past Anesthesia/Blood Transfusion Reactions: No Reported Reaction Past Psychological History: Anxiety, Bipolar, Depression Additional Psychological History / Comment(s): Hx. of [facility] Smoking Status: Never smoker Past Alcohol Use History: None Reported Past Drug Use History: None Reported - Past Family History Father Family Medical History: No Reported History Mother Family Medical History: No Reported History Medications and Allergies Home Medications Medication Instructions Recorded Confirmed Type Verapamil HCl [Verapamil ER] 120 mg PO DAILY 30 Days tab 08/06/22 04/19/23 Rx Divalproex ER [Depakote ER] 1,000 mg PO HS 10/31/22 04/19/23 History fluPHENAZine decanoate [Prolixin 25 mg IM Q14D 10/31/22 04/19/23 History Decanoate] Benztropine Mesylate [Cogentin] 0.5 mg PO TID 04/19/23 04/19/23 History Venlafaxine HCl ER [Effexor Xr] 150 mg PO DAILY 04/19/23 04/19/23 History Allergies Allergy/AdvReac Type Severity Reaction Status Date / Time lamotrigine [From Lamictal] Allergy Rash/Hives Verified 04/19/23 21:34 - full body morphine Allergy Itching Verified 04/19/23 21:34 Physical Exam Vitals: Vital Signs Temp Pulse Pulse Resp BP BP Pulse Ox 04/19/23 22:55 98.0 F 84 18 133/83 96 04/19/23 19:20 97.9 F 87 20 117/81 98 04/19/23 18:32 97.6 F 91 18 98 Intake and Output 04/20/23 04/20/23 04/20/23 06:59 14:59 22:59 Other: Weight 97.2 kg PHYSICAL EXAMINATION: GENERAL: The patient is alert and oriented x3, not in any acute distress. Well developed, well nourished. HEENT: Pupils are round and equally reacting to light. EOMI. No scleral icterus. No conjunctival pallor. Normocephalic, atraumatic. No pharyngeal erythema. No thyromegaly. CARDIOVASCULAR: S1 and S2 present. No murmurs, rubs, or gallops. PULMONARY: Chest is clear to auscultation, no wheezing or crackles. ABDOMEN: Soft, nontender, nondistended, normoactive bowel sounds. No palpable organomegaly. MUSCULOSKELETAL: No joint swelling or deformity. EXTREMITIES: No cyanosis, clubbing, or pedal edema. NEUROLOGICAL: Gross neurological examination did not reveal any focal deficits. SKIN: No rashes. Results CBC & Chem 7: 04/20/23 08:03 04/20/23 08:03 Labs: Abnormal Lab Results - Last 24 Hours (Table) 04/20/23 Range/Units 08:03 TSH 7.990 H (0.465-4.680) mIU/L Assessment and Plan Assessment: 1. Depression/suicidal ideation; your management 2. Elevated TSH; records indicate history of hypothyroidism; patient currently not on any thyroid replacement therapy; not sure if she has taken in ED placement in the past - We will order free T4 levels and initiate replacement therapy as indicated 3. Hypertension; continue with home dose of verapamil; monitor blood pressure closely
[2023-04-20 19:07] LABS: Appearance,Urine Cloudy (Clear); Bacteria,Urine Rare /hpf; Bilirubin,Urine 1+ (Negative); Blood,Urine Small (Negative); Color,Urine Dark Yellow; Glucose,Urine (UA) Negative (Negative); Hyaline Casts,Urine 1 /lpf (0-2); Ketones,Urine 1+ (Negative); Leukocyte Esterase,Urine Moderate (Negative); Mucus,Urine Few /hpf; Nitrite,Urine Negative (Negative); Protein,Urine 1+ (Negative); RBC,Urine 10 /hpf (0-5); Specific Gravity,Urine 1.036 (1.001-1.035); Squamous Epithelial Cell,Urine 17 /hpf (0-4); WBC,Urine 14 /hpf (0-5)
[2023-04-20 19:08] LABS: Amphetamine Screen,Urine Not Detected (NotDetected); Barbiturate Screen,Urine Not Detected (NotDetected); Benzodiazepines Screen,Urine Not Detected (NotDetected); Cocaine Screen,Urine Not Detected (NotDetected); Methadone Screen, Urine Not Detected (NotDetected); Opiate Screen,Urine Not Detected (NotDetected); Oxycodone Screen, Urine Not Detected (NotDetected); Phencyclidine Screen,Urine Not Detected (NotDetected); Tricyclic Antidepressant,Urine Not Detected (NotDetected); Urn Cannabinoid Scrn Not Detected (NotDetected)
[2023-04-20] MEDS: DIVALPROEX ER 500 MG TAB.ER.24H PO SCH (20:51)
[2023-04-21] MEDS: VERAPAMIL SR 120 MG TABLET.ER PO SCH (08:50)
[2023-04-21] MEDS: NICOTINE 14MG/24HR PATCH TRANSDERM SCH (08:50)
[2023-04-21] MEDS: VENLAFAXINE HCL ER 75 MG CAP PO SCH (08:50)
[2023-04-21] MEDS: BENZTROPINE MESYLATE 0.5 MG TAB PO SCH ×2 (08:50→20:54)
--- NOTE | 2023-04-21 11:43 | P.PN ---
Progress Note - Text Progress Note Date: 04/21/23 Interval History: Patient was seen sitting in on group today and was directable and agreeable to speak with television writer in the office. Patient claims that she has been undergoing the [facility] and receiving her Prolixin D injections. She claims that at home she is feeling somewhat weak and tired during the day. She claims that she was feeling depressed and suicidal before coming in the hospital. She was not endorsing any delusions or paranoia at this time and it did not appear to be anxious. Claims that her mood is gradually improving since being on the unit. States that her sleep is also fair at this time, has been eating and participating in groups and on the unit. At this time patient denies any current suicidal or homical ideations, intent or plan. Patient denies any auditory, visual hallucinations and denies any paranoia or delusions. Patient has been compliant with her medications. Mental Status Exam: General Appearance: Patient appears to be older than stated age is alert, sitting in a wheelchair, directable, and attempts to cooperate. Patient appears to have fair hygiene and grooming. Behavior: Patient is seated without any agitated behavior. Constricted. Speech: Patient's speech is fluent and nonpressured. Low volume and low rate, proving mildly Mood/Affect: Patient reports their mood is a "better", affect is congruent and constricted. Suicidality/Homicidality: Patient denies having any homicidal ideation intent or plan. She denies any suicidal ideations without intent or plan Perceptions: Patient denies any visual hallucinations and denies any auditory hallucinations Though content/process: There is no evidence of any delusional thought content and thought process is linear and goal-directed. Focused on her medications and her mood. Memory and concentration: AOX3, grossly intact for the purposes of this session. Judgment and insight: poor/limited chronically. IMPRESSIONS: Bipolar disorder, currently depressed Intellectual disability PLAN: -Patient is admitted under voluntary status to MHU for stabilization of psychiatric symptoms and safety. -Medications : Continue with depakote 1000 hs, decrease cogentin 0.5 bid, Effexor 225 daily for mood/anxiety, prolixin D 25 mg q4 weeks, last dose given on 04/16 and next dose due on 04/30 -Ativan and Haldol PRN for agitation/aggression -SW on board for discharge planning. Encourage patient to participate in groups to work on coping skills. likely discharge in 2-3 days back home with [facility] f/u
[2023-04-21] MEDS: DIVALPROEX ER 500 MG TAB.ER.24H PO SCH (20:54)
[2023-04-22] MEDS: NICOTINE 14MG/24HR PATCH TRANSDERM SCH (09:22)
[2023-04-22] MEDS: VERAPAMIL SR 120 MG TABLET.ER PO SCH (09:23)
[2023-04-22] MEDS: VENLAFAXINE HCL ER 75 MG CAP PO SCH (09:23)
[2023-04-22] MEDS: BENZTROPINE MESYLATE 0.5 MG TAB PO SCH ×2 (09:23→20:38)
--- NOTE | 2023-04-22 12:58 | P.PN ---
Progress Note - Text Progress Note Date: 04/22/23 Interval History: Patient was seen laying in bed today and was agreeable to speak to commercial insurance underwriter. Yandel neville states that she feels less tired compared to yesterday. She today was more focused on discharge. She asked her questions about her medications and commercial insurance underwriter informed her of the side effects. She claims that she has been using her walker today and trying to go to more groups. Has been off her meals. She was more pleasant today during the interaction. She claims that she is feeling less tired during the day. She was not endorsing any delusions or paranoia at this time and it did not appear to be anxious. She claims that she is able to sleep fairly last night. At this time patient denies any current suicidal or homical ideations, intent or plan. Patient denies any auditory, visual hallucinations and denies any paranoia or delusions. Patient has been compliant with her medications. Mental Status Exam: General Appearance: Patient appears to be older than stated age is alert, sitting in a wheelchair, directable, and attempts to cooperate. Patient appears to have fair hygiene and grooming. Behavior: Patient is seated without any agitated behavior. Constricted. Speech: Patient's speech is fluent and nonpressured. Low volume and low rate, proving mildly Mood/Affect: Patient reports their mood is a "a bit better", affect is congruent and constricted, improving mildly Suicidality/Homicidality: Patient denies having any homicidal ideation intent or plan. She denies any suicidal ideations without intent or plan Perceptions: Patient denies any visual hallucinations and denies any auditory hallucinations Though content/process: There is no evidence of any delusional thought content and thought process is linear and goal-directed. Focused on her medications and now discharge Memory and concentration: AOX3, grossly intact for the purposes of this session. Judgment and insight: poor/limited chronically, improving mildlly IMPRESSIONS: Bipolar disorder, currently depressed Intellectual disability PLAN: -Patient is admitted under voluntary status to MHU for stabilization of psychiatric symptoms and safety. -Medications : Continue with depakote 1000 hs, continue cogentin 0.5 bid for eps reactions, Effexor 225 daily for mood/anxiety, prolixin D 25 mg q4 weeks, last dose given on 04/16 and next dose due on 04/30 -Ativan and Haldol PRN for agitation/aggression -SW on board for discharge planning. Encourage patient to participate in groups to work on coping skills. likely discharge in 1-2 days back home with h f/u
[2023-04-22] MEDS: DIVALPROEX ER 500 MG TAB.ER.24H PO SCH (20:38)
[2023-04-23] MEDS: VERAPAMIL SR 120 MG TABLET.ER PO SCH (08:46)
[2023-04-23] MEDS: VENLAFAXINE HCL ER 75 MG CAP PO SCH (08:46)
[2023-04-23] MEDS: BENZTROPINE MESYLATE 0.5 MG TAB PO SCH ×2 (08:46→21:04)
[2023-04-23] MEDS: NICOTINE 14MG/24HR PATCH TRANSDERM SCH (08:47)
--- NOTE | 2023-04-23 10:38 | P.PN ---
Progress Note - Text Progress Note Date: 04/23/23 Interval History: Patient was seen in the hallways today with her walker today and was agreeable to speak to ad writer. She appears to have improvement in her hygiene and grooming today. She claims that she is doing better overall today and states that her mood and anxiety even improving. She claims that she is not having paranoid thoughts today. She claims that she is going to some groups, remaining positive about her medications. She has been out for meals. She was more pleasant today during the interaction. She claims that she is feeling less tired during the day. She claims that she is able to sleep fairly last night. At this time patient denies any current suicidal or homical ideations, intent or plan. Patient denies any auditory, visual hallucinations and denies any paranoia or delusions. Patient has been compliant with her medications. Mental Status Exam: General Appearance: Patient appears to be older than stated age is alert, sitting in a wheelchair, directable, and attempts to cooperate. Patient appears to have fair hygiene and grooming. Behavior: Patient is seated without any agitated behavior. Constricted. Speech: Patient's speech is fluent and nonpressured. Low volume and low rate, improving mildly Mood/Affect: Patient reports their mood is a "better", affect is congruent and constricted, improving mildly Suicidality/Homicidality: Patient denies having any homicidal ideation intent or plan. She denies any suicidal ideations without intent or plan Perceptions: Patient denies any visual hallucinations and denies any auditory hallucinations Though content/process: There is no evidence of any delusional thought content and thought process is linear and goal-directed. [place]. Memory and concentration: AOX3, grossly intact for the purposes of this session. Judgment and insight: limited chronically, improving mildlly IMPRESSIONS: Bipolar disorder, currently depressed Intellectual disability cerebral palsy PLAN: -Patient is admitted under voluntary status to [facility] for stabilization of psychiatric symptoms and safety. -Medications : Continue depakote 1000 hs, continue cogentin 0.5 bid for eps reactions, Effexor 225 daily for mood/anxiety, prolixin D 25 mg q4 weeks, last dose given on 04/16 and next dose due on 04/30 -Ativan and Haldol PRN for agitation/aggression -SW on board for discharge planning. Encourage patient to participate in groups to work on coping skills. likely discharge back home tomorrow with [facility] f/u.
[2023-04-23] MEDS: DIVALPROEX ER 500 MG TAB.ER.24H PO SCH (21:04)
[2023-04-24 07:11] VITALS: BP 106/72; PULSE 68; RESP 14; TEMP 97.3
[2023-04-24] MEDS: VENLAFAXINE HCL ER 75 MG CAP PO SCH (09:04)
[2023-04-24] MEDS: NICOTINE 14MG/24HR PATCH TRANSDERM SCH (09:05)
[2023-04-24] MEDS: BENZTROPINE MESYLATE 0.5 MG TAB PO SCH (09:05)
[2023-04-24] MEDS: VERAPAMIL SR 120 MG TABLET.ER PO SCH (09:05)
--- NOTE | 2023-04-24 10:15 | P.DS ---
Providers Date of admission: 04/19/23 22:25 Expected date of discharge: 04/24/23 Attending physician: Berlin Grajeda MD Consults: 04/19/23 22:25 Consult Physician Routine Consulting Provider: Wilfrido Rogers Consult Reason/Comments: h and p Do you want consulting provider notified?: Yes, Notify in am Primary care physician: Maximilian Rivera - Discharge Diagnosis(es) (1) Bipolar disorder current episode depressed Current Visit: Yes Status: Acute Priority: High (2) Intellectual disability Current Visit: Yes Status: Acute Priority: Medium (3) Cerebral palsy Current Visit: Yes Status: Acute Priority: Medium Hospital Course: Admission HPI: Admission note was completed by Dr Goldstein "Patient is a 32-year-old female who lives with her mom who is her guardian, her sister, her bfyxmaa-[id number]-ang, and her nephew and niece and is on SSI and SSA. She is admitted for suicidal ideations. Patient reports that she has been suicidal for the past week has been hopeless. She is unsure of what triggered it. She states that while she was at home, she had a plan to overdose on her pills. She states that their car guns at home, but they are locked up and she does not know where the fisher is. She states that she has been compliant with her medications as her mom make sure that she gets her all of her medications. She also states she that she has been compliant with her Prolixin Decanoate shot. Patient denies any homicidal ideations intent or plan. At this time patient denies any auditory or visual hallucinations. Patient denies any flight of ideas racing thoughts and increased in goal directed behavior. Denies substance use." Hospital course: Upon admission to the unit patient was directable and agreeable to commence treatment and signed adult voluntary form. Patient got along well with other patients on the unit and followed unit protocol. Patient was compliant with the medications and denied any side effects throughout hospital course. Patient was started on Cogentin however decreased down to 0.5 mg twice a day for EPS prophylaxis/muscle spasms, Effexor XR was increased to 225 mg daily for mood/anxiety, continued on depakote 1000 mg qhs for mood stabilization. Patient is currently on Prolixin D 25 mg IM last dose given on 04/16 and next dose due on 7/19. Patient spoke of her stressors and engaged in therapy both group and individual. Patient was also seen by medical team for history and physical exam. Throughout the course of the hospitalization patient gradually improved with regards to mood, anxiety, paranoia, weakness/lethargy, sleep and returned back to their baseline level of functioning. On the day of discharge patient denied any suicidal or homicidal ideations intent or plan denied any auditory or visual hallucinations. Patient endorsed wanting to live for her health and family. The patient denied any access to guns or weapons. Patient denied any paranoia and did not endorse any delusions. Patient does not have a significant history of substance abuse and was counseled on abstaining from all substances including alcohol and marijuana. Patient was also counseled on the medications and need for regular compliance and was encouraged to follow-up with their outpatient appointment for mental health and also for primary care. Prior to discharge a family meeting will be arranged by social science professor to answer any questions and ensure safety upon discharge. patient will continue f/u care with [facility]. Mental status exam: General Appearance: Patient appears to be mildly overweight, using a walker, stated age is alert, pleasant, and cooperative. Patient is in no acute distress and has improved hygiene and grooming Behavior: Patient is calmly seated without any agitated behavior. cooperative Speech: Patient's speech is fluent and nonpressured. Mood/Affect: Patient reports their mood is "better", affect is congruent and e uthymic. Suicidality/Homicidality: Patient denies having any suicidal or homicidal ideation intent or plan. Perceptions: Patient denies any auditory or visual hallucinations. Though content/process: There is no evidence of any delusional thought content and thought process is linear and goal-directed. more future oriented. concrete Memory and concentration: AOX3, grossly intact for the purposes of this session. Can spell "WORLD" backwards correctly. Judgment and insight: improved with guarded prognosis Impression: Bipolar disorder, current episode depressed Intellectual disability Cerebral palsy Plan: -Continue with discharge today as patient has improved and stabilized psychiatrically and is not currently an imminent threat to herself and/or others. -Continue medications: Depakote 1000 mg daily at bedtime for mood stabilization, Cogentin 0.5 mg twice a day for EPS reactions/muscle spasms, Effexor XR 225 mg daily for mood/anxiety, patient is currently on Prolixin D 25 mg IM given every 2 weeks, last dose was given on 04/16 and next dose to be given at [facility] will be due on 04/30. -Patient was counseled on the need for medication compliance and appropriate follow-up at mental health and also primary care for medical issues. Patient verbalized understanding and agreed. -Social work to arrange for and conduct family meeting to ensure safety upon discharge and answer any questions/concerns. Social work also to arrange for patients follow up appointments with [facility] for psychiatric care along with follow up with primary care provider. -Patient counseled on abstaining from recreational drugs and marijuana and alcohol. Was informed/educated on the adverse effects on their physical and mental health. Patient verbally agreed and understood. -Patient was instructed to return to the hospital or seek immediate medical care if their psychiatric or medical symptoms do worsen or reoccur. Allergies Allergy/AdvReac Type Severity Reaction Status Date / Time lamotrigine [From Lamictal] Allergy Rash/Hives Verified 04/19/23 21:34 - full body morphine Allergy Itching Verified 04/19/23 21:34 Laboratory Results WBC 7.9 k/uL (3.8-10.6) 04/20/23 08:03 RBC 4.68 m/uL (3.80-5.40) 04/20/23 08:03 Hgb 13.9 gm/dL (11.4-16.0) 04/20/23 08:03 Hct 43.6 % (34.0-46.0) 04/20/23 08:03 MCV 93.1 fL (80.0-100.0) 04/20/23 08:03 MCH 29.7 pg (25.0-35.0) 04/20/23 08:03 MCHC 31.9 g/dL (31.0-37.0) 04/20/23 08:03 RDW 13.1 % (11.5-15.5) 04/20/23 08:03 Plt Count 196 k/uL (150-450) 04/20/23 08:03 MPV 8.4 04/20/23 08:03 Neutrophils % 52 % 04/20/23 08:03 Lymphocytes % 41 % 04/20/23 08:03 Monocytes % 5 % 04/20/23 08:03 Eosinophils % 0 % 04/20/23 08:03 Basophils % 0 % 04/20/23 08:03 Neutrophils # 4.1 k/uL (1.3-7.7) 04/20/23 08:03 Lymphocytes # 3.2 k/uL (1.0-4.8) 04/20/23 08:03 Monocytes # 0.4 k/uL (0-1.0) 04/20/23 08:03 Eosinophils # 0.0 k/uL (0-0.7) 04/20/23 08:03 Basophils # 0.0 k/uL (0-0.2) 04/20/23 08:03 Sodium 139 mmol/L (137-145) 04/20/23 08:03 Potassium 4.5 mmol/L (3.5-5.1) 04/20/23 08:03 Chloride 101 mmol/L (98-107) 04/20/23 08:03 Carbon Dioxide 30 mmol/L (22-30) 04/20/23 08:03 Anion Gap 8 mmol/L 04/20/23 08:03 BUN 15 mg/dL (7-17) 04/20/23 08:03 Creatinine 0.71 mg/dL (0.52-1.04) 04/20/23 08:03 Est GFR (CKD-EPI)AfAm >90 (>60 ml/min/1.73 sqM) 04/20/23 08:03 Est GFR (CKD-EPI)NonAf >90 (>60 ml/min/1.73 sqM) 04/20/23 08:03 Glucose 77 mg/dL (74-99) 04/20/23 08:[address] Glu mg/dL 103 mg/dL 04/20/23 08:03 Hemoglobin A1c 5.2 % (<=6.0) 04/20/23 08:03 Calcium 9.3 mg/dL (8.4-10.2) 04/20/23 08:03 Total Bilirubin 0.6 mg/dL (0.2-1.3) 04/20/23 08:03 AST 31 U/L (14-36) 04/20/23 08:03 ALT 20 U/L (4-34) 04/20/23 08:03 Alkaline Phosphatase 69 U/L (38-126) 04/20/23 08:03 Total Protein 7.1 g/dL (6.3-8.2) 04/20/23 08:03 Albumin 4.1 g/dL (3.5-5.0) 04/20/23 08:03 Triglycerides 77.00 mg/dL (0.00-149.00) 04/20/23 08:03 Cholesterol 162.00 mg/dL (0.00-200.00) 04/20/23 08:03 LDL Cholesterol, Calc 99.6 mg/dL (0.0-131.0) 04/20/23 08:03 VLDL Cholesterol, Calc 15.40 mg/dL (5.00-40.00) 04/20/23 08:03 HDL Cholesterol 47.00 mg/dL (40.00-60.00) 04/20/23 08:03 Cholesterol/HDL Ratio 3.45 Ratio 04/20/23 08:03 TSH 7.990 mIU/L (0.465-4.680) H 04/20/23 08:03 Free T4 1.45 ng/dL (0.80-1.80) 04/20/23 08:03 Urine Color Dark Yellow 04/20/23 18:50 Urine Appearance Cloudy (Clear) H 04/20/23 18:50 Urine pH 6.0 (5.0-8.0) 04/20/23 18:50 Ur Specific [place] 1.036 (1.001-1.035) H 04/20/23 18:50 Urine Protein 1+ (Negative) H 04/20/23 18:50 Urine Glucose (UA) Negative (Negative) 04/20/23 18:50 Urine Ketones 1+ (Negative) H 04/20/23 18:50 Urine Blood Small (Negative) H 04/20/23 18:50 Urine Nitrite Negative (Negative) 04/20/23 18:50 Urine Bilirubin 1+ (Negative) H 04/20/23 18:50 Urine Urobilinogen 6.0 mg/dL (<2.0) 04/20/23 18:50 Ur Leukocyte Esterase Moderate (Negative) H 04/20/23 18:50 Urine RBC 10 /hpf (0-5) H 04/20/23 18:50 Urine WBC 14 /hpf (0-5) H 04/20/23 18:50 Ur Squamous Epith Cells 17 /hpf (0-4) H 04/20/23 18:50 Urine Bacteria Rare /hpf (None) H 04/20/23 18:50 Hyaline Casts 1 /lpf (0-2) 04/20/23 18:50 Urine Mucus Few /hpf (None) H 04/20/23 18:50 Urine HCG, Qual Not Detected (Not Detectd) 04/20/23 18:50 Urine Opiates Screen Not Detected (NotDetected) 04/20/23 18:50 Ur Oxycodone Screen Not Detected (NotDetected) 04/20/23 18:50 Urine Methadone Screen Not Detected (NotDetected) 04/20/23 18:50 Ur Propoxyphene Screen Not Detected (NotDetected) 04/20/23 18:50 Ur Barbiturates Screen Not Detected (NotDetected) 04/20/23 18:50 U Tricyclic Antidepress Not Detected (NotDetected) 04/20/23 18:50 Ur Phencyclidine Scrn Not Detected (NotDetected) 04/20/23 18:50 Ur Amphetamines Screen Not Detected (NotDetected) 04/20/23 18:50 U Methamphetamines Scrn Not Detected (NotDetected) 04/20/23 18:50 U Benzodiazepines Scrn Not Detected (NotDetected) 04/20/23 18:50 Urine Cocaine Screen Not Detected (NotDetected) 04/20/23 18:50 U Marijuana (THC) Screen Not Detected (NotDetected) 04/20/23 18:50 Coronavirus (PCR) Not Detected (Not Detectd) 04/19/23 21:40 Vital Signs Temp 97.3 F L 04/24/23 06:45 Pulse 68 04/24/23 06:45 Resp 14 04/24/23 06:45 BP 106/72 04/24/23 06:45 Pulse Ox 98 04/23/23 06:37 FiO2 Patient Condition at Discharge: Stable Plan - Discharge Summary Discharge Rx Participant: Yes New Discharge Prescriptions: New Venlafaxine HCl [Effexor XR] 225 mg PO DAILY 30 Days #30 tab Benztropine Mesylate [Cogentin] 0.5 mg PO BID 30 Days #60 tab Continue Verapamil HCl [Verapamil ER] 120 mg PO DAILY 30 Days tab fluPHENAZine decanoate [Prolixin Decanoate] 25 mg IM Q14D #1 ml Divalproex ER [Depakote ER] 1,000 mg PO HS 30 Days #60 tab Discontinued Benztropine Mesylate [Cogentin] 0.5 mg PO TID Venlafaxine HCl ER [Effexor Xr] 150 mg PO DAILY Discharge Medication List Verapamil HCl [Verapamil ER] 120 mg PO DAILY 30 Days tab 08/06/22 [Rx] Benztropine Mesylate [Cogentin] 0.5 mg PO BID 30 Days #60 tab 04/24/23 [Rx] Divalproex ER [Depakote ER] 1,000 mg PO HS 30 Days #60 tab 04/24/23 [Rx] Venlafaxine HCl [Effexor XR] 225 mg PO DAILY 30 Days #30 tab 04/24/23 [Rx] fluPHENAZine decanoate [Prolixin Decanoate] 25 mg IM Q14D #1 ml 04/24/23 [Rx] Follow up Appointment(s)/Referral(s): [facility] [Outside] - 04/25/23 1:00 pm (04/25@ 1pm with Nguyen Greenfield 05/02@ 9:30am with Dr. Cheung) Maximilian Rivera DO [Primary Care Provider] - 1-2 days Patient Instructions/Handouts: Depression (DC) Activity/Diet/Wound Care/Special Instructions: Avoid the use of street drugs and alcohol. Take all medications as prescribed. When you are in need of refills on your medications, please contact your medical provider and/or outpatient psychiatrist to have this done. Please go to scheduled outpatient appointments for aftercare treatment. If symptoms return or become worse, call the crisis line at and/or go to the nearest emergency room for evaluation. Discharge Disposition: HOME SELF-CARE
[2023-04-30] MEDS ORDERED: fluPHENAZine DECANOATE 25 MG/ML 5ML MDV IM SCH (09:00)
== END 2023-04-24 11:16 | disposition home or self-care (01) | DRG 885 ==
LOC: EC 18:28 → 3MHU 22:25
PROVIDERS: ADMIT Psychiatry & Neurology Psychiatry; ATTEND Psychiatry & Neurology Psychiatry
DX: F31.30 Bipolar disorder, current episode depressed, mild or moderate severity, unspecified (principal); R45.851 Suicidal ideations; F79 Unspecified intellectual disabilities; G40.909 Epilepsy, unspecified, not intractable, without status epilepticus; G80.9 Cerebral palsy, unspecified; I10 Essential (primary) hypertension; Z79.899 Other long term (current) drug therapy; Z88.5 Allergy status to narcotic agent; Z88.8 Allergy status to other drugs, medicaments and biological substances
CPT/HCPCS: 80053; 80061; 80306; 81001; 81025; 83036; 84439; 84443; 85025; 87635; 99285

== ENCOUNTER 2023-06-18 22:48 | Inpatient (IN) | payer MEDICARE, OTHER ==
[2023-06-18] MEDS ORDERED: SODIUM CHLORIDE 0.9% 1,000 ML IV STA (23:30)
--- NOTE | 2023-06-19 00:02 | ED ---
Overdose HPI - General Chief Complaint: Overdose Stated Complaint: Suicidal Time Seen by Provider: 06/18/23 23:27 Source: patient, RN notes reviewed, old records reviewed Mode of arrival: ambulatory Limitations: no limitations - History of Present Illness Initial Comments: This is a 33-year-old female to the emergency department for evaluation. Patient did take significant overdose today Depakote overdose as a suicide attempt. Patient not providing much of history of present illness MD Complaint: intentional overdose -: unknown Intent: unwilling to say Associated Symptoms: depression Treatments Prior to Arrival: none - Related Data Home Medications Medication Instructions Recorded Confirmed Levothyroxine Sodium [Synthroid] 50 mcg PO DAILY 06/19/23 06/24/23 Verapamil HCl [Verapamil ER] 120 mg PO DAILY 06/19/23 06/24/23 Previous Rx's Medication Instructions Recorded Benztropine Mesylate [Cogentin] 0.5 mg PO BID 30 Days #60 tab 04/24/23 Divalproex ER [Depakote ER] 1,000 mg PO HS 30 Days #60 tab 04/24/23 Venlafaxine HCl [Effexor XR] 225 mg PO DAILY 30 Days #30 tab 04/24/23 fluPHENAZine decanoate [Prolixin 25 mg IM QMONTHLY #1 each 04/25/23 Decanoate] Allergies Allergy/AdvReac Type Severity Reaction Status Date / Time amoxicillin Allergy Rash/Hives Verified 06/24/23 18:08 lamotrigine [From Lamictal] Allergy Rash/Hives Verified 06/24/23 18:08 - full body morphine Allergy Itching Verified 06/24/23 18:08 Review of Systems ROS Statement: Those systems with pertinent positive or pertinent negative responses have been documented in the HPI. ROS Other: All systems not noted in ROS Statement are negative. Past Medical History Past Medical History: Seizure Disorder Additional Past Medical History / Comment(s): cerebral palsy, History of Any Multi-Drug Resistant Organisms: None Reported Past Surgical History: Orthopedic Surgery Additional Past Surgical History / Comment(s): femurs rotated and achilles tendon lengthened and one yr. later metal hardware/plates were removed. Past Anesthesia/Blood Transfusion Reactions: No Reported Reaction Past Psychological History: Anxiety, Bipolar, Depression Smoking Status: Never smoker Past Alcohol Use History: None Reported Past Drug Use History: None Reported - Past Family History Father Family Medical History: No Reported History Mother Family Medical History: No Reported History General Exam Limitations: no limitations General appearance: alert, in no apparent distress, anxious Head exam: Present: atraumatic, normocephalic, normal inspection Eye exam: Present: normal appearance, PERRL, EOMI. Absent: scleral icterus, conjunctival injection, periorbital swelling ENT exam: Present: normal exam, mucous membranes moist Neck exam: Present: normal inspection. Absent: tenderness, meningismus, lymphadenopathy Respiratory exam: Present: normal lung sounds bilaterally. Absent: respiratory distress, wheezes, rales, rhonchi, stridor Cardiovascular Exam: Present: regular rate, normal rhythm, normal heart sounds. Absent: systolic murmur, diastolic murmur, rubs, gallop, clicks GI/Abdominal exam: Present: soft, normal bowel sounds. Absent: distended, tenderness, guarding, rebound, rigid Extremities exam: Present: normal inspection, full ROM, normal capillary refill. Absent: tenderness, pedal edema, joint swelling, calf tenderness Back exam: Present: normal inspection Neurological exam: Present: alert, oriented X3, CN II-XII intact Psychiatric exam: Present: normal affect, normal mood Skin exam: Present: warm, dry, intact, normal color. Absent: rash Course Vital Signs 06/18/23 06/19/23 06/19/23 22:49 03:53 11:00 Temperature 98.5 F 98.2 F Pulse Rate 100 92 91 Respiratory 20 16 16 Rate Blood Pressure 124/85 123/78 116/73 O2 Sat by Pulse 99 100 97 Oximetry - Reevaluation(s) Reevaluation #1: 06/19/23 01:39 Medical record is reviewed Reevaluation #2: 06/19/23 01:39 Patient informed results and questions answered Reevaluation #3: 06/19/23 01:39 Patient has no change in symptoms here in the ER Reevaluation #4: 06/19/23 01:39 Was pt. sent in by a medical professional or institution (, PA, [employer], urgent care, hospital, or shelter...) When possible be specific @ -no Did you speak to anyone other than the patient for history (EMS, parent, family, police, friend...)? What history was obtained from this source @ -no Did you review nursing and triage notes (agree or disagree)? Why? @ -agree Are old charts reviewed (outside hosp., previous admission, EMS record, old EKG, old radiological studies, urgent care reports/EKG's, shelter records)? Report findings @ -yes Differential Diagnosis (chest pain, altered mental status, abdominal pain women, abdominal pain men, vaginal bleeding, weakness, fever, dyspnea, syncope, headache, dizziness, GI bleed, back pain, seizure, CVA, palpatations, mental health, musculoskeletal)? @ -prior EKG interpreted by me (3pts min.). @ -yes X-rays interpreted by me (1pt min.). @ -no CT interpreted by me (1pt min.). @ -no U/S interpreted by me (1pt. min.). @ -no What testing was considered but not performed or refused? (CT, X-rays, U/S, labs)? Why? @ -none What meds were considered but not given or refused? Why? @ -none Did you discuss the management of the patient with other professionals (professionals i.e. , PA, [employer], lab, RT, psych nurse, social problems specialist, track service worker, teacher, targeting acquisition officer, case finisher)? Give summary @ -no Was smoking cessation discussed for >3mins.? @ -no Was critical care preformed (if so, how long)? @ -yes31 Were there social determinants of health that impacted care today? How? (Homelessness, low income, unemployed, alcoholism, drug addiction, transportation, low edu. Level, literacy, decrease access to med. care, long-term, rehab)? @ -none Was there de-escalation of care discussed even if they declined (Discuss DNR or withdrawal of care, Hospice)? DNR status @ -no What co-morbidities impacted this encounter? (DM, HTN, Smoking, COPD, CAD, Cancer, CVA, ARF, Chemo, Hep., AIDS, mental health diagnosis, sleep apnea, morbid obesity)? @ -none Was patient admitted / discharged? Hospital course, mention meds given and route, prescriptions, significant lab abnormalities, going to OR and other pertinent info. @ - 33 female with significant suicide attempt and overdose. Patient will be admitted for monitoring of ammonia level secondary to Depakote overdose and psychiatric evaluation and treatment Admitted Undiagnosed new problem with uncertain prognosis? @ -no Drug Therapy requiring intensive monitoring for toxicity (Heparin, Nitro, Insulin, Cardizem)? @ -no Were any procedures done? @ -no Diagnosis/symptom? @ -Depakote overdose, suicidal attempt Acute, or Chronic, or Acute on Chronic? @ -Acute Uncomplicated (without systemic symptoms) or Complicated (systemic symptoms)? @ -Complicated Side effects of treatment? @ -no Exacerbation, Progression, or Severe Exacerbation? @ -exacerbation Poses a threat to life or bodily function? How? (Chest pain, [place], [place], pneumonia, PE, COPD, DKA, ARF, appy, cholecystitis, CVA, Diverticulitis, Homicidal, Suicidal, threat to staff... and all critical care pts) @ -yes with severe overdose - Consultations Consultation #1: Spoke with [facility] regarding admission there agreeable Medical Decision Making - Medical Decision Making 33 female with significant suicide attempt and overdose. Patient will be admitted for monitoring of ammonia level secondary to Depakote overdose and psychiatric evaluation and treatment - Lab Data Result diagrams: 06/23/23 06:24 06/23/23 06:24 Lab Results 06/18/23 06/18/23 06/18/23 Range/Units 23:57 23:57 23:57 WBC 8.8 (3.8-10.6) k/uL RBC 4.52 (3.80-5.40) m/uL Hgb 13.6 (11.4-16.0) gm/dL Hct 42.0 (34.0-46.0) % MCV 93.0 (80.0-100.0) fL MCH 30.0 (25.0-35.0) pg MCHC 32.2 (31.0-37.0) g/dL RDW 14.5 (11.5-15.5) % Plt Count 200 (150-450) k/uL MPV 7.4 Neutrophils % 55 % Lymphocytes % 33 % Monocytes % 8 % Eosinophils % 1 % Basophils % 0 % Neutrophils # 4.9 (1.3-7.7) k/uL Lymphocytes # 2.9 (1.0-4.8) k/uL Monocytes # 0.7 (0-1.0) k/uL Eosinophils # 0.1 (0-0.7) k/uL Basophils # 0.0 (0-0.2) k/uL Sodium 138 (137-145) mmol/L Potassium 4.3 (3.5-5.1) mmol/L Chloride 102 (98-107) mmol/L Carbon Dioxide 27 (22-30) mmol/L Anion Gap 9 mmol/L BUN 18 H (7-17) mg/dL Creatinine 0.79 (0.52-1.04) mg/dL Est GFR (CKD-EPI)AfAm >90 (>60 ml/min/1.73 sqM) Est GFR (CKD-EPI)NonAf >90 (>60 ml/min/1.73 sqM) Glucose 85 (74-99) mg/dL Calcium 9.7 (8.4-10.2) mg/dL Total Bilirubin 0.4 (0.2-1.3) mg/dL AST 38 H (14-36) U/L ALT 25 (4-34) U/L Alkaline Phosphatase 72 (38-126) U/L Ammonia <9 (<30) umol/L Total Protein 7.2 (6.3-8.2) g/dL Albumin 3.8 (3.5-5.0) g/dL Lipase 86 (23-300) U/L Salicylates <1.0 mg/dL Urine Opiates Screen (NotDetected) Ur Oxycodone Screen (NotDetected) Urine Methadone Screen (NotDetected) Ur Propoxyphene Screen (NotDetected) Acetaminophen <10.0 ug/mL Ur Barbiturates Screen (NotDetected) Valproic Acid 237.6 H* ug/mL U Tricyclic Antidepress (NotDetected) Ur Phencyclidine Scrn (NotDetected) Ur Amphetamines Screen (NotDetected) U Methamphetamines Scrn (NotDetected) U Benzodiazepines Scrn (NotDetected) Urine Cocaine Screen (NotDetected) U Marijuana (THC) Screen (NotDetected) Serum Alcohol <10 mg/dL 06/19/23 Range/Units 01:22 WBC (3.8-10.6) k/uL RBC (3.80-5.40) m/uL Hgb (11.4-16.0) gm/dL Hct (34.0-46.0) % MCV (80.0-100.0) fL MCH (25.0-35.0) pg MCHC (31.0-37.0) g/dL RDW (11.5-15.5) % Plt Count (150-450) k/uL MPV Neutrophils % % Lymphocytes % % Monocytes % % Eosinophils % % Basophils % % Neutrophils # (1.3-7.7) k/uL Lymphocytes # (1.0-4.8) k/uL Monocytes # (0-1.0) k/uL Eosinophils # (0-0.7) k/uL Basophils # (0-0.2) k/uL Sodium (137-145) mmol/L Potassium (3.5-5.1) mmol/L Chloride (98-107) mmol/L Carbon Dioxide (22-30) mmol/L Anion Gap mmol/L BUN (7-17) mg/dL Creatinine (0.52-1.04) mg/dL Est GFR (CKD-EPI)AfAm (>60 ml/min/1.73 sqM) Est GFR (CKD-EPI)NonAf (>60 ml/min/1.73 sqM) Glucose (74-99) mg/dL Calcium (8.4-10.2) mg/dL Total Bilirubin (0.2-1.3) mg/dL AST (14-36) U/L ALT (4-34) U/L Alkaline Phosphatase (38-126) U/L Ammonia (<30) umol/L Total Protein (6.3-8.2) g/dL Albumin (3.5-5.0) g/dL Lipase (23-300) U/L Salicylates mg/dL Urine Opiates Screen Not Detected (NotDetected) Ur Oxycodone Screen Not Detected (NotDetected) Urine Methadone Screen Not Detected (NotDetected) Ur Propoxyphene Screen Not Detected (NotDetected) Acetaminophen ug/mL Ur Barbiturates Screen Not Detected (NotDetected) Valproic Acid ug/mL U Tricyclic Antidepress Not Detected (NotDetected) Ur Phencyclidine Scrn Not Detected (NotDetected) Ur Amphetamines Screen Not Detected (NotDetected) U Methamphetamines Scrn Not Detected (NotDetected) U Benzodiazepines Scrn Not Detected (NotDetected) Urine Cocaine Screen Not Detected (NotDetected) U Marijuana (THC) Screen Not Detected (NotDetected) Serum Alcohol mg/dL - EKG Data -: EKG Interpreted by Me (EKG sinus 79 NE 162 QRS 82 QTC 398) Disposition Clinical Impression: Major depressive disorder, severe, Suicidal ideation, Acute psychosis, Acute anxiety, Suicidal behavior, Major depressive disorder Narrative: Depakote Overdose, Poisoning Disposition: ADMITTED IP TO THIS [facility] Condition: Good Is patient prescribed a controlled substance at d/c from ED?: No Time of Disposition: 01:35
[2023-06-19 00:16] LABS: Basophils % (A) 0 %; Eosinophils # (A) 0.1 k/uL (0-0.7); Eosinophils % (A) 1 %; HGB 13.6 gm/dL (11.4-16.0); Lymphocytes # (A) 2.9 k/uL (1.0-4.8); Lymphocytes % (A) 33 %; MCHC 32.2 g/dL (31.0-37.0); Mean Platelet Volume 7.4; Monocytes # (A) 0.7 k/uL (0-1.0); Monocytes % (A) 8 %; Neutrophils # (A) 4.9 k/uL (1.3-7.7); Neutrophils % (A) 55 %; Platelet Count 200 k/uL (150-450); RBC 4.52 m/uL (3.80-5.40); RDW 14.5 % (11.5-15.5); WBC 8.8 k/uL (3.8-10.6)
[2023-06-19 00:31] LABS: ALT 25 U/L (4-34); AST 38 U/L (14-36); Acetaminophen <10.0 ug/mL; African American GFR (CKD) >90 (>60 ml/min/1.73 sqM); Albumin 3.8 g/dL (3.5-5.0); Alcohol <10 mg/dL; Alkaline Phosphatase 72 U/L (38-126); Anion Gap 9 mmol/L; Blood Urea Nitrogen 18 mg/dL (7-17); Calcium 9.7 mg/dL (8.4-10.2); Carbon Dioxide 27 mmol/L (22-30); Chloride 102 mmol/L (98-107); Glucose 85 mg/dL (74-99); Lipase 86 U/L (23-300); Non-African American GFR(CKD) >90 (>60 ml/min/1.73 sqM); Potassium 4.3 mmol/L (3.5-5.1); Salicylate <1.0 mg/dL; Sodium 138 mmol/L (137-145); Total Bilirubin 0.4 mg/dL (0.2-1.3); Total Protein 7.2 g/dL (6.3-8.2)
[2023-06-19 00:58] LABS: Valproic Acid (Depakene) 237.6 ug/mL
[2023-06-19] MEDS ORDERED: NALOXONE 0.4 MG/ML 1 ML VIAL IV PRN (01:37)
[2023-06-19] MEDS ORDERED: ONDANSETRON 4 MG/2 ML VIAL IVP PRN (01:37)
[2023-06-19 01:56] LABS: Amphetamine Screen,Urine Not Detected (NotDetected); Barbiturate Screen,Urine Not Detected (NotDetected); Benzodiazepines Screen,Urine Not Detected (NotDetected); Cocaine Screen,Urine Not Detected (NotDetected); Methadone Screen, Urine Not Detected (NotDetected); Opiate Screen,Urine Not Detected (NotDetected); Oxycodone Screen, Urine Not Detected (NotDetected); Phencyclidine Screen,Urine Not Detected (NotDetected); Tricyclic Antidepressant,Urine Not Detected (NotDetected); Urn Cannabinoid Scrn Not Detected (NotDetected)
[2023-06-19] MEDS: SODIUM CHLORIDE 0.9% 1,000 ML IV SCH ×4 (07:15→21:41)
[2023-06-19] MEDS: LACTULOSE 20 GM/30 ML CUP PO SCH ×3 (11:08→21:38)
[2023-06-19] MEDS: LEVOTHYROXINE 50 MCG TAB PO SCH (11:08)
[2023-06-19] MEDS: VERAPAMIL SR 120 MG TABLET.ER PO SCH (11:34)
--- NOTE | 2023-06-19 13:36 | P.CN ---
Psychiatric Consult - . Consult date: 06/19/23 Consult:: 06/19/23 12:52 IDENTIFYING DATA: Patient is a 33-year-old female who lives with her mom who is her guardian, her sister, her [id number], and her nephew and niece and is on SSI and SSA. She is admitted for suicidal ideations Reason for consultation: Overdose and suicide ideations HPI: Patient was seen today in the ER after a reported overdose on her Depakote. Going to ER report patient apparently admitted to an intentional overdose as a suicide attempt and was a poor historian. Patient's UDS is negative, Depakote level was 237.6 as a steadily rising. Patients mother was agreeable to stick to telegraphic typewriter operator chief and states that patient had an increase in depression for the past few weeks and stopped taking some of her medications and stop the follow-up. She claims that she overdosed at nighttime and will crop in colder. She claims that she got hold of medications in the bathroom. She states that she will be removing the medication about keeping them locked in her room at this time. She states that she is also missing [facility] appointments. Patient was seen lying in bed today and appeared to be disheveled in appearance, states that she was feeling depressed and anxious. She claims that this been going on for the past 2 weeks and states that it was caused by "not eating" and states that she was "too picky". Claims that she has been forgetting some of her medications and not going appointments, states that she overdosed in a suicide attempt and told her mother afterwards. Claims that her sleep and appetite are improving at this time.Patient denies any homicidal ideations intent or plan. At this time latisha ent denies any auditory or visual hallucinations. Patient denies any flight of ideas racing thoughts and increased in goal directed behavior. Denies substance use PAST PSYCHIATRIC HISTORY: -h/o bipolar disorder, depression with psychotic features -multiple admissions in the past the mental health unit, last admission was in April 2023. He is currently taking prolixin D 25 mg q2 weeks, depakote 1000 hs, melatonin 10 hs, remeron 7.5 hs, Effexor -past meds: abilify maintena, lithium, Lexapro, Cogentin, Seroquel radha, cog, ser -Current Meds: depakote 1000 hs, cogentin 0.5 tid, Effexor 150 daily, prolixin D 25 mg q4 weeks PMH: CP, intellectual disability ALLERGIES: as per EMR CHEMICAL DEPENDENCY HISTORY: as per HPI FAMILY PSYCHIATRIC/SUBSTANCE USE HISTORY: father has psychosis SOCIAL HISTORY: Her mother is her guardian, she lives with her mother, sister, [id number], nephew, and a niece. She is on SSI and SSA. No legal issues MENTAL STATUS EXAM: General Appearance: Patient appears to be older than stated age is alert, directable, and attempts to cooperate. Patient appears has a disheveled appearance. Has tremors that are likely BL from her CP Behavior: Patient is seated without any agitated behavior. Attempts to cooperate Speech: Patient's speech is fluent and nonpressured. Low volume and low rate Mood/Affect: Patient reports their mood is "depressed and anxious", affect is congruent and constricted. Suicidality/Homicidality: Patient denies having any homicidal ideation intent or plan. He has suicidal ideations without intent or plan Perceptions: Patient denies any visual hallucinations and denies any auditory hallucinations Though content/process: There is no evidence of any delusional thought content and thought process is linear and goal-directed. On [place] Memory and concentration: AOX3, grossly intact for the purposes of this session. Judgment and insight: poor/impulsive IMPRESSIONS: Bipolar disorder, currently depressed Overdose by medications Suicide attempt Intellectual disability PLAN: -At this time patient DOES meet criteria for inpatient psychiatric admission. -Would recommend the following medication changes/additions: Continue current medications at this time. Continue monitoring Depakote level and holding it at this time until it improves. -Continue 1:1 sitter for safety until patient is safely transferred to the mental health unit. -Cannot leave AMA at this time. Patient will need a petition and certification if attempting to leave AMA. -When medically stable, patient is eligible for transfer to a psych bed when available. -Communicated plan to patient's nurse -Psychiatry will sign off at this time -Please contact with any questions.
--- NOTE | 2023-06-19 14:16 | P.HPIM ---
History of Present Illness H&P Date: 06/19/23 Chief Complaint: Depression suicidal ideation * 33-year-old female with past medical history of depression, history of bipolar disorder, previous hospitalization in behavioral health unit present to the emergency department after patient overdosed on Depakote * Patient admitted that shethe overdosed with a suicide attempt * At the time of presentation Depakote level was 237. Patient has been noncompliant with her outpatient follow-up per family. * Workup initiated in ER included normal renal profile, liver profile showed a LT of 25 AST of 30 and bilirubin within normal limits * Serum ammonia level was less than 9 however continue to trend up to 63 and 104 * Serum valproic acid levels trended up 297 and then 290 * Poison control was contacted and patient was given activated charcoal REVIEW OF SYSTEMS: Breasts more suicidal ideation CONSTITUTIONAL: No fever, no malaise, no fatigue. HEENT: No recent visual problems or hearing problems. Denied any sore throat. CARDIOVASCULAR: No chest pain, orthopnea, PND, no palpitations, no syncope. PULMONARY: No shortness of breath, no cough, no hemoptysis. GASTROINTESTINAL: No diarrhea, no nausea, no vomiting, no abdominal pain. NEUROLOGICAL: No headaches, no weakness, no numbness. HEMATOLOGICAL: Denies any bleeding or petechiae. GENITOURINARY: Denies any burning micturition, frequency, or urgency. MUSCULOSKELETAL/RHEUMATOLOGICAL: Denies any joint pain, swelling, or any muscle pain. ENDOCRINE: Denies any polyuria or polydipsia. = PHYSICAL EXAMINATION: GENERAL: The patient is alert and oriented person and situation, suicidal ideation, ill appearance HEENT: Pupils are round and equally reacting to light. EOMI. No scleral icterus. CARDIOVASCULAR: S1 and S2 present. No murmurs, rubs, or gallops. PULMONARY: Chest is clear to auscultation, no wheezing or crackles. ABDOMEN: Soft, nontender, nondistended, normoactive bowel sounds. No palpable organomegaly. MUSCULOSKELETAL: No joint swelling or deformity. EXTREMITIES: No cyanosis, clubbing, or pedal edema. NEUROLOGICAL: Alert however intellectually delayed Past Medical History Past Medical History: Seizure Disorder Additional Past Medical History / Comment(s): cerebral palsy, History of Any Multi-Drug Resistant Organisms: None Reported Past Surgical History: Orthopedic Surgery Additional Past Surgical History / Comment(s): femurs rotated and achilles tendon lengthened and one yr. later metal hardware/plates were removed. Past Anesthesia/Blood Transfusion Reactions: No Reported Reaction Past Psychological History: Anxiety, Bipolar, Depression Smoking Status: Never smoker Past Alcohol Use History: None Reported Past Drug Use History: None Reported - Past Family History Father Family Medical History: No Reported History Mother Family Medical History: No Reported History Medications and Allergies Home Medications Medication Instructions Recorded Confirmed Type Benztropine Mesylate [Cogentin] 0.5 mg PO BID 30 Days #60 tab 04/24/23 06/19/23 Rx Divalproex ER [Depakote ER] 1,000 mg PO HS 30 Days #60 tab 04/24/23 06/19/23 Rx Venlafaxine HCl [Effexor XR] 225 mg PO DAILY 30 Days #30 tab 04/24/23 06/19/23 Rx fluPHENAZine decanoate [Prolixin 25 mg IM QMONTHLY #1 each 04/25/23 06/19/23 Rx Decanoate] Levothyroxine Sodium [Synthroid] 50 mcg PO DAILY 06/19/23 06/19/23 History Verapamil HCl [Verapamil ER] 120 mg PO DAILY 06/19/23 06/19/23 History Allergies Allergy/AdvReac Type Severity Reaction Status Date / Time amoxicillin Allergy Rash/Hives Verified 06/19/23 07:36 lamotrigine [From Lamictal] Allergy Rash/Hives Verified 06/19/23 07:36 - full body morphine Allergy Itching Verified 06/19/23 07:36 Physical Exam Vitals: Vital Signs Temp Pulse Resp BP Pulse Ox 06/19/23 11:00 98.2 F 91 16 116/73 97 06/19/23 03:53 92 16 123/78 100 06/18/23 22:49 98.5 F 100 20 124/85 99 Intake and Output 06/18/23 06/19/23 06/19/23 22:59 06:59 14:59 Other: Weight 97.522 kg Results CBC & Chem 7: 06/18/23 23:57 06/18/23 23:57 Labs: Abnormal Lab Results - Last 24 Hours (Table) 06/18/23 06/19/23 06/19/23 Range/Units 23:57 04:32 08:25 BUN 18 H (7-17) mg/dL AST 38 H (14-36) U/L Ammonia 63 H (<30) umol/L Valproic Acid 237.6 H* 297.9 H* ug/mL 06/19/23 06/19/23 Range/Units 08:25 13:20 BUN (7-17) mg/dL AST (14-36) U/L Ammonia 104 H (<30) umol/L Valproic Acid 290.8 H* ug/mL Thrombosis Risk Factor Assmnt - DVT/VTE Prophylaxis DVT/VTE Prophylaxis: Mechanical Prophylaxis ordered Assessment and Plan Assessment: * Intentional overdose with Depakote * Hyperammonia * Acute metabolic encephalopathy * History of bipolar disorder with severe depression * History of suicidal ideation with previous psychiatric hospitalization * History of hypertension * History of developmental intellectual disability * Consult obtained from psychiatry, patient started on IV fluid resuscitation * Poison Control Center contacted patient started on activated charcoal to be given 75 g with Zofran for nausea followed by 25 mg every 2 hours with follow- up on valproic acid levels * Continue patient on verapamil * Home medications placed on hold * Continue to maintain one-to-one safety precautions will need to be transferred to behavioral health unit once medically ready * Patient cannot leave AGAINST MEDICAL ADVICE
[2023-06-20] MEDS: SODIUM CHLORIDE 0.9% 1,000 ML IV SCH ×2 (04:40→20:25)
[2023-06-20] MEDS: LEVOTHYROXINE 50 MCG TAB PO SCH (06:36)
[2023-06-20] MEDS: LACTULOSE 20 GM/30 ML CUP PO SCH ×3 (09:15→20:25)
[2023-06-20] MEDS: VERAPAMIL SR 120 MG TABLET.ER PO SCH (09:16)
[2023-06-20 12:01] LABS: HCT 35.6 % (37.2-46.3); HGB 10.9 d/dL (12.0-15.0); Immature Platelet Fraction 2.6 % (1.1-6.1); MCH 29.5 pg (27.0-32.0); MCHC 30.6 d/dL (32.0-37.0); MCV 96.5 FL (80.0-97.0); Mean Platelet Volume 12.9 FL (9.5-12.2); NRBC Per 100 WBC 0 X 10*3/uL (0.00-0.01); Platelet Count 27 X 10*3/uL (140-440); RBC 3.69 X 10*6/uL (4.10-5.20); RDW 16.2 % (11.5-14.5)
[2023-06-20 12:48] LABS: ALT 18 U/L (4-34); AST 27 U/L (14-36)
--- NOTE | 2023-06-20 13:24 | P.PN ---
Subjective Progress Note Date: 06/20/23 * 33-year-old female with past medical history of depression, history of bipolar disorder, previous hospitalization in behavioral health unit present to the emergency department after patient overdosed on Depakote * Patient admitted that shethe overdosed with a suicide attempt * At the time of presentation Depakote level was 237. Patient has been noncompliant with her outpatient follow-up per family. * Workup initiated in ER included normal renal profile, liver profile showed a LT of 25 AST of 30 and bilirubin within normal limits * Serum ammonia level was less than 9 however continue to trend up to 63 and 104 * Serum valproic acid levels trended up 297 and then 290 * Poison control was contacted and patient was given activated charcoal * 06/20: Patient seen and evaluated bedside, patient is alert and oriented 3. Patient gets nausea from charcoal unable to tolerate, follow-up on CMP, Depa kote levels, ammonia levels. As needed Zofran ordered continue IV hydration and the recommended maximum safety precautions while inpatient Objective - Vital Signs Vital signs: Vital Signs Temp 98.4 F 06/20/23 07:26 Pulse 83 06/20/23 07:26 Resp 18 06/20/23 07:26 BP 91/63 06/20/23 07:26 Pulse Ox 97 06/20/23 09:30 FiO2 Intake & Output 06/19/23 06/20/23 06/20/23 18:59 06:59 18:59 Intake Total 1560 Balance 1560 Weight 97.522 kg Intake: Intake, IV Titration 1560 Amount Sodium Chloride 0.9% 1, 1560 000 ml @ 100 mls/hr IV . Q10H [facility] Rx#:[id number] Other: # Voids 1 1 # Bowel Movements 2 3 - Exam GENERAL: The patient is alert and oriented person and situation, suicidal katelyn ation, ill appearance HEENT: Pupils are round and equally reacting to light. EOMI. No scleral icterus. CARDIOVASCULAR: S1 and S2 present. No murmurs, rubs, or gallops. PULMONARY: Chest is clear to auscultation, no wheezing or crackles. ABDOMEN: Soft, nontender, nondistended, normoactive bowel sounds. No palpable organomegaly. MUSCULOSKELETAL: No joint swelling or deformity. EXTREMITIES: No cyanosis, clubbing, or pedal edema. NEUROLOGICAL: Alert however intellectually delayed - Labs CBC & Chem 7: 06/20/23 06:39 06/18/23 23:57 Labs: Abnormal Lab Results - Last 24 Hours (Table) 06/19/23 06/19/23 06/19/23 Range/Units 13:20 13:20 17:25 RBC (4.10-5.20) X 10*6/uL Hgb (12.0-15.0) d/dL Hct (37.2-46.3) % MCHC (32.0-37.0) d/dL RDW (11.5-14.5) % Plt Count (140-440) X 10*3/uL MPV (9.5-12.2) FL Ammonia 104 H (<30) umol/L Valproic Acid 322.0 H* 258.6 H* ug/mL 06/19/23 06/20/23 06/20/23 Range/Units 19:09 06:39 06:39 RBC 3.69 L (4.10-5.20) X 10*6/uL Hgb 10.9 L (12.0-15.0) d/dL Hct 35.6 L (37.2-46.3) % MCHC 30.6 L (32.0-37.0) d/dL RDW 16.2 H (11.5-14.5) % Plt Count 27 L (140-440) X 10*3/uL MPV 12.9 H (9.5-12.2) FL Ammonia 51 H (<30) umol/L Valproic Acid 243.5 H* ug/mL Assessment and Plan Assessment: * Intentional overdose with Depakote * Hyperammonia * Acute metabolic encephalopathy * History of bipolar disorder with severe depression * History of suicidal ideation with previous psychiatric hospitalization * History of hypertension * History of developmental intellectual disability * Consult obtained from psychiatry, patient started on IV fluid resuscitation, activated charcoal protocol given however patient intolerant having nausea despite use of Zofran * Poison Control Center contacted patient was started on activated charcoal to be given 75 g with Zofran for nausea followed by 25 mg every 2 hours with follow-up on valproic acid levels. * Continue patient on verapamil * Home medications placed on hold, resume Cogentin 06/20 * Continue to maintain one-to-one safety precautions will need to be transferred to behavioral health unit once medically ready * Patient cannot leave AGAINST MEDICAL ADVICE
[2023-06-20 14:16] LABS: ALT 16 U/L (8-44); AST 27 U/L (13-35); Albumin 3.1 d/dL (3.8-4.9); Albumin/Globulin Ratio 1.48 Ratio (1.60-3.17); Alkaline Phosphatase 53 U/L (41-126); BUN/Creat Ratio 12.43 Ratio (12.00-20.00); Blood Urea Nitrogen 8.7 mg/dL (9.0-27.0); Calcium 7.7 mg/dL (8.7-10.3); Carbon Dioxide 21.9 mmol/L (21.6-31.8); Chloride 109 mmol/L (96-109); Globulin 2.1 d/dL (1.6-3.3); Glucose 63 mg/dL (70-110); Potassium 4.2 mmol/L (3.5-5.5); Sodium 141 mmol/L (135-145); Total Bilirubin 0.3 mg/dL (0.3-1.2); Total Protein 5.2 d/dL (6.2-8.2); Valproic Acid (Depakene) 182.6 UG/ML (50.0-100.0)
[2023-06-20] MEDS: BENZTROPINE MESYLATE 0.5 MG TAB PO SCH (20:25)
[2023-06-21] MEDS: SODIUM CHLORIDE 0.9% 1,000 ML IV SCH ×2 (02:13→10:11)
[2023-06-21] MEDS: LEVOTHYROXINE 50 MCG TAB PO SCH (06:29)
[2023-06-21 09:16] LABS: ALT 14 U/L (8-44); AST 20 U/L (13-35); Alkaline Phosphatase 54 U/L (41-126); BUN/Creat Ratio 12.29 Ratio (12.00-20.00); Blood Urea Nitrogen 8.6 mg/dL (9.0-27.0); Calcium 8.6 mg/dL (8.7-10.3); Carbon Dioxide 26.2 mmol/L (21.6-31.8); Chloride 107 mmol/L (96-109); Glucose 80 mg/dL (70-110); Magnesium 2.1 mg/dL (1.5-2.4); Phosphorus 2.8 mg/dL (2.4-5.1); Potassium 3.9 mmol/L (3.5-5.5); Sodium 140 mmol/L (135-145); Total Bilirubin 0.3 mg/dL (0.3-1.2); Valproic Acid (Depakene) 95.6 UG/ML (50.0-100.0)
[2023-06-21] MEDS: BENZTROPINE MESYLATE 0.5 MG TAB PO SCH ×2 (10:12→21:27)
[2023-06-21] MEDS: VERAPAMIL SR 120 MG TABLET.ER PO SCH (10:12)
[2023-06-21] MEDS: LACTULOSE 20 GM/30 ML CUP PO SCH (10:15)
[2023-06-21 10:45] LABS: HCT 33.2 % (37.2-46.3); HGB 10.7 d/dL (12.0-15.0); MCH 29.9 pg (27.0-32.0); MCHC 32.2 d/dL (32.0-37.0); MCV 92.7 FL (80.0-97.0); Mean Platelet Volume 9.9 FL (9.5-12.2); NRBC Per 100 WBC 0 X 10*3/uL (0.00-0.01); Platelet Count 111 X 10*3/uL (140-440); RBC 3.58 X 10*6/uL (4.10-5.20); RDW 15.4 % (11.5-14.5); WBC 5.77 X 10*3/uL (4.50-10.00)
--- NOTE | 2023-06-21 13:11 | P.PN ---
Subjective Progress Note Date: 06/21/23 * 33-year-old female with past medical history of depression, history of bipolar disorder, previous hospitalization in behavioral health unit present to the emergency department after patient overdosed on Depakote * Patient admitted that shethe overdosed with a suicide attempt * At the time of presentation Depakote level was 237. Patient has been noncompliant with her outpatient follow-up per family. * Workup initiated in ER included normal renal profile, liver profile showed a LT of 25 AST of 30 and bilirubin within normal limits * Serum ammonia level was less than 9 however continue to trend up to 63 and 104 * Serum valproic acid levels trended up 297 and then 290 * Poison control was contacted and patient was given activated charcoal * 06/20: Patient seen and evaluated bedside, patient is alert and oriented 3. Patient gets nausea from charcoal unable to tolerate, follow-up on CMP, Depak ote levels, ammonia levels. As needed Zofran ordered continue IV hydration and the recommended maximum safety precautions while inpatient * 06/21: Patient seen and evaluated bedside. Patient alert and oriented 3. Patient is drowsy however easily arousable. Patient does follow commands Objective - Vital Signs Vital signs: Vital Signs Temp 97.2 F L 06/21/23 08:00 Pulse 69 06/21/23 08:00 Resp 20 06/21/23 08:00 BP 120/79 06/21/23 08:00 Pulse Ox 99 06/21/23 08:10 FiO2 Intake & Output 06/20/23 06/21/23 06/21/23 18:59 06:59 18:59 Other: Voiding Method External Catheter # Voids 2 5 # Bowel Movements 3 - Exam GENERAL: The patient is alert and oriented person and situation, suicidal ideation, ill appearance HEENT: PERRLA CARDIOVASCULAR: S1 and S2 present. No murmurs, rubs, or gallops. PULMONARY: Chest is clear to auscultation, no wheezing or crackles. ABDOMEN: Soft, nontender, nondistended, normoactive bowel sounds. No palpable organomegaly. MUSCULOSKELETAL: No joint swelling or deformity. EXTREMITIES: No cyanosis, clubbing, or pedal edema. NEUROLOGICAL: Alert however intellectually delayed - Labs CBC & Chem 7: 06/21/23 06:20 06/21/23 06:20 Labs: Abnormal Lab Results - Last 24 Hours (Table) 06/20/23 06/20/23 06/21/23 Range/Units 06:39 15:01 06:20 RBC 3.58 L (4.10-5.20) X 10*6/uL Hgb 10.7 L (12.0-15.0) d/dL Hct 33.2 L (37.2-46.3) % RDW 15.4 H (11.5-14.5) % Plt Count 111 L (140-440) X 10*3/uL BUN 8.7 L (9.0-27.0) mg/dL Glucose 63 L (70-110) mg/dL Calcium 7.7 L (8.7-10.3) mg/dL Total Protein 5.2 L (6.2-8.2) d/dL Albumin 3.1 L (3.8-4.9) d/dL Albumin/Globulin Ratio 1.48 L (1.60-3.17) Ratio Valproic Acid 182.6 H* 173.4 H* (50.0-100.0) UG/ML 06/21/23 Range/Units 06:20 RBC (4.10-5.20) X 10*6/uL Hgb (12.0-15.0) d/dL Hct (37.2-46.3) % RDW (11.5-14.5) % Plt Count (140-440) X 10*3/uL BUN 8.6 L (9.0-27.0) mg/dL Glucose (70-110) mg/dL Calcium 8.6 L (8.7-10.3) mg/dL Total Protein 5.0 L (6.2-8.2) d/dL Albumin 3.0 L (3.8-4.9) d/dL Albumin/Globulin Ratio 1.50 L (1.60-3.17) Ratio Valproic Acid (50.0-100.0) UG/ML Assessment and Plan Assessment: Assessment and plan * Intentional overdose with Depakote * Hyperammonia * Acute metabolic encephalopathy * History of bipolar disorder with severe depression * History of suicidal ideation with previous psychiatric hospitalization * History of hypertension * History of developmental intellectual disability * Consult obtained from psychiatry, patient started on IV fluid resuscitation, activated charcoal protocol given however patient intolerant having nausea despite use of Zofran * ON 06/19 >>Poison Control Center contacted patient was started on activated charcoal to be given 75 g with Zofran for nausea followed by 25 mg every 2 hours with follow-up on valproic acid levels. * Valproic acid levels trending down and have improved, ammonia levels improved * Continue patient on verapamil * Home medications placed on hold, resume Cogentin 06/20 * Continue to maintain one-to-one safety precautions will need to be transferred to behavioral health unit once medically ready * Patient cannot leave AGAINST MEDICAL ADVICE
[2023-06-22] MEDS: LEVOTHYROXINE 50 MCG TAB PO SCH (06:26)
[2023-06-22] MEDS: SODIUM CHLORIDE 0.9% 1,000 ML IV SCH ×3 (08:00→19:46)
[2023-06-22] MEDS: BENZTROPINE MESYLATE 0.5 MG TAB PO SCH ×2 (08:38→19:45)
[2023-06-22] MEDS: VERAPAMIL SR 120 MG TABLET.ER PO SCH (08:38)
[2023-06-22] MEDS: VENLAFAXINE HCL ER 75 MG CAP PO SCH (08:38)
[2023-06-22 09:00] LABS: ALT 17 U/L (4-34); AST 30 U/L (14-36); African American GFR (CKD) >90 (>60 ml/min/1.73 sqM); Albumin 2.7 g/dL (3.5-5.0); Albumin/Globulin Ratio 0.9; Alkaline Phosphatase 58 U/L (38-126); Anion Gap 5 mmol/L; Blood Urea Nitrogen 11 mg/dL (7-17); Calcium 8.5 mg/dL (8.4-10.2); Carbon Dioxide 26 mmol/L (22-30); Chloride 106 mmol/L (98-107); Globulin 2.9 g/dL; Glucose 73 mg/dL (74-99); Non-African American GFR(CKD) >90 (>60 ml/min/1.73 sqM); Potassium 3.7 mmol/L (3.5-5.1); Sodium 137 mmol/L (137-145); Total Bilirubin 0.4 mg/dL (0.2-1.3); Total Protein 5.6 g/dL (6.3-8.2)
[2023-06-22 09:05] LABS: Valproic Acid (Depakene) 61.8 ug/mL
[2023-06-22 09:22] LABS: HCT 35.1 % (37.2-46.3); HGB 11.2 d/dL (12.0-15.0); MCH 29.5 pg (27.0-32.0); MCHC 31.9 d/dL (32.0-37.0); MCV 92.4 FL (80.0-97.0); Mean Platelet Volume 10.7 FL (9.5-12.2); NRBC Per 100 WBC 0 X 10*3/uL (0.00-0.01); Platelet Count 107 X 10*3/uL (140-440); RDW 15.3 % (11.5-14.5); WBC 6.97 X 10*3/uL (4.50-10.00)
--- NOTE | 2023-06-22 12:15 | P.PN ---
Subjective Progress Note Date: 06/22/23 * 33-year-old female with past medical history of depression, history of bipolar disorder, previous hospitalization in behavioral health unit present to the emergency department after patient overdosed on Depakote * Patient admitted that shethe overdosed with a suicide attempt * At the time of presentation Depakote level was 237. Patient has been noncompliant with her outpatient follow-up per family. * Workup initiated in ER included normal renal profile, liver profile showed a LT of 25 AST of 30 and bilirubin within normal limits * Serum ammonia level was less than 9 however continue to trend up to 63 and 104 * Serum valproic acid levels trended up 297 and then 290 * Poison control was contacted and patient was given activated charcoal * 06/20: Patient seen and evaluated bedside, patient is alert and oriented 3. Patient gets nausea from charcoal unable to tolerate, follow-up on CMP, Depak ote levels, ammonia levels. As needed Zofran ordered continue IV hydration and the recommended maximum safety precautions while inpatient * 06/21: Patient seen and evaluated bedside. Patient alert and oriented 3. Patient is drowsy however easily arousable. Patient does follow commands * 06/22: Patient seen and everted bedside. Patient is drowsy easily arousable does appear alert and oriented 3. Patient has not been out of bed. Patient requested to ambulate in anticipation of discharge to [facility] within the next 24 hours. Ammonia levels normalized, valproic acid levels normalized. Objective - Vital Signs Vital signs: Vital Signs Temp 98.5 F 06/21/23 19:59 Pulse 75 06/21/23 19:59 Resp 16 06/21/23 20:00 BP 115/70 06/21/23 19:59 Pulse Ox 96 06/21/23 19:59 FiO2 Intake & Output 06/21/23 06/21/23 06/22/23 06:59 18:59 06:59 Output Total 1000 750 Balance -1000 -750 Output: Urine 1000 750 Other: Voiding Method External Catheter # Voids 5 - Exam GENERAL: The patient is alert and oriented person and situation, suicidal ideation, ill appearance HEENT: PERRLA CARDIOVASCULAR: S1 and S2 present. No murmurs, rubs, or gallops. PULMONARY: Chest is clear to auscultation, no wheezing or crackles. ABDOMEN: Soft, nontender, nondistended, normoactive bowel sounds. No palpable organomegaly. MUSCULOSKELETAL: No joint swelling or deformity. EXTREMITIES: No cyanosis, clubbing, or pedal edema. NEUROLOGICAL: Alert however intellectually delayed - Labs CBC & Chem 7: 06/22/23 06:20 06/22/23 06:20 Labs: Abnormal Lab Results - Last 24 Hours (Table) 06/21/23 06/21/23 Range/Units 06:20 06:20 RBC 3.58 L (4.10-5.20) X 10*6/uL Hgb 10.7 L (12.0-15.0) d/dL Hct 33.2 L (37.2-46.3) % RDW 15.4 H (11.5-14.5) % Plt Count 111 L (140-440) X 10*3/uL BUN 8.6 L (9.0-27.0) mg/dL Calcium 8.6 L (8.7-10.3) mg/dL Total Protein 5.0 L (6.2-8.2) d/dL Albumin 3.0 L (3.8-4.9) d/dL Albumin/Globulin Ratio 1.50 L (1.60-3.17) Ratio Assessment and Plan Assessment: Assessment and plan * Intentional overdose with Depakote * Hyperammonia RESOLVED * Acute metabolic encephalopathy IMPROVED * History of bipolar disorder with severe depression * History of suicidal ideation with previous psychiatric hospitalization * History of hypertension * History of developmental intellectual disability * Consult obtained from psychiatry, patient was started on IV fluid resuscitation, activated charcoal protocol given however patient intolerant having nausea despite use of Zofran * ON 06/19 >>Poison Control Center contacted patient was started on activated charcoal to be given 75 g with Zofran for nausea followed by 25 mg every 2 hours with follow-up on valproic acid levels. * Valproic acid levels trending down and have improved, ammonia levels improved, valproic acid within normal limits hence resumed on 06/22/23 * Continue patient on verapamil * Home medications, resumed Cogentin 06/20, * Continue to maintain one-to-one safety precautions will need to be transferred to behavioral health unit once medically ready * Patient cannot leave AGAINST MEDICAL ADVICE
[2023-06-22] MEDS: DIVALPROEX ER 500 MG TAB.ER.24H PO SCH (19:45)
[2023-06-23] MEDS: LEVOTHYROXINE 50 MCG TAB PO SCH (06:05)
[2023-06-23] MEDS: SODIUM CHLORIDE 0.9% 1,000 ML IV SCH ×2 (06:05→19:45)
[2023-06-23] MEDS: VENLAFAXINE HCL ER 75 MG CAP PO SCH (08:58)
[2023-06-23] MEDS: BENZTROPINE MESYLATE 0.5 MG TAB PO SCH ×2 (08:58→21:29)
[2023-06-23] MEDS: VERAPAMIL SR 120 MG TABLET.ER PO SCH (08:58)
[2023-06-23 10:53] LABS: HCT 34.3 % (37.2-46.3); HGB 11.1 d/dL (12.0-15.0); MCH 30.1 pg (27.0-32.0); MCHC 32.4 d/dL (32.0-37.0); Mean Platelet Volume 12.3 FL (9.5-12.2); NRBC Per 100 WBC 0.03 X 10*3/uL (0.00-0.01); Platelet Count 89 X 10*3/uL (140-440); RBC 3.69 X 10*6/uL (4.10-5.20); RDW 15.5 % (11.5-14.5); WBC 6.64 X 10*3/uL (4.50-10.00)
[2023-06-23 11:24] LABS: Valproic Acid (Depakene) 55.9 UG/ML (50.0-100.0)
[2023-06-23 11:36] LABS: ALT 18 U/L (8-44); AST 32 U/L (13-35); Albumin 3.2 d/dL (3.8-4.9); Albumin/Globulin Ratio 1.39 Ratio (1.60-3.17); Alkaline Phosphatase 61 U/L (41-126); BUN/Creat Ratio 12.33 Ratio (12.00-20.00); Blood Urea Nitrogen 7.4 mg/dL (9.0-27.0); Calcium 8.5 mg/dL (8.7-10.3); Chloride 107 mmol/L (96-109); Globulin 2.3 d/dL (1.6-3.3); Glucose 69 mg/dL (70-110); Potassium 4.2 mmol/L (3.5-5.5); Sodium 141 mmol/L (135-145); Total Bilirubin 0.3 mg/dL (0.3-1.2); Total Protein 5.5 d/dL (6.2-8.2)
--- NOTE | 2023-06-23 13:44 | P.DS ---
Providers Date of admission: 06/19/23 01:37 Expected date of discharge: 06/23/23 Attending physician: Wilfrido Rogers Consults: 06/19/23 01:37 Consult Physician Routine Consulting Provider: Berlin Grajeda Consult Reason/Comments: OD,SI Do you want consulting provider notified?: Already Contacted Primary care physician: Maximilian Miguel Layton Hospital Course: Discharge diagnoses; Intentional overdose with Depakote * Hyperammonia RESOLVED * Acute metabolic encephalopathy IMPROVED * History of bipolar disorder with severe depression * History of suicidal ideation with previous psychiatric hospitalization * History of hypertension * History of developmental intellectual disability Hospital course; 33-year-old female with past medical history of depression, history of bipolar disorder, previous hospitalization in behavioral health unit present to the emergency department after patient overdosed on Depakote Patient admitted that shethe overdosed with a suicide attempt At the time of presentation Depakote level was 237. Patient has been noncompliant with her outpatient follow-up per family. Workup initiated in ER included normal renal profile, liver profile showed a LT of 25 AST of 30 and bilirubin within normal limits Serum ammonia level was less than 9 however continue to trend up to 63 and 104 Serum valproic acid levels trended up 297 and then 290 Poison control was contacted and patient was given activated charcoal 06/20: Patient seen and evaluated bedside, patient is alert and oriented 3. Patient gets nausea from charcoal unable to tolerate, follow-up on CMP, Depakote levels, ammonia levels. As needed Zofran ordered continue IV hydration and the recommended maximum safety precautions while inpatient 06/21: Patient seen and evaluated bedside. Patient alert and oriented 3. Patient is drowsy however easily arousable. Patient does follow commands 06/22: Patient seen and everted bedside. Patient is drowsy easily arousable does appear alert and oriented 3. Patient has not been out of bed. Patient requested to ambulate in anticipation of discharge to psych within the next 24 hours. Ammonia levels normalized, valproic acid levels normalized. 06/23. Patient seen and examined. Patient medically stable for discharge to inpatient psych PHYSICAL EXAMINATION: GENERAL: The patient is alert, not in any acute distress. Well developed, well nourished. HEENT: Pupils are round and equally reacting to light. EOMI. No scleral icterus. No conjunctival pallor. Normocephalic, atraumatic. No pharyngeal erythema. No t hyromegaly. CARDIOVASCULAR: S1 and S2 present. No murmurs, rubs, or gallops. PULMONARY: Chest is clear to auscultation, no wheezing or crackles. ABDOMEN: Soft, nontender, nondistended, normoactive bowel sounds. No palpable organomegaly. MUSCULOSKELETAL: No joint swelling or deformity. EXTREMITIES: No cyanosis, clubbing, or pedal edema. NEUROLOGICAL: Gross neurological examination did not reveal any focal deficits. SKIN: No rashes. Dictation was produced using [employer] dictation software. please excuse any grammatical, word or spelling errors. Patient Condition at Discharge: Good Plan - Discharge Summary New Discharge Prescriptions: Continue Venlafaxine HCl [Effexor XR] 225 mg PO DAILY 30 Days #30 tab Levothyroxine Sodium [Synthroid] 50 mcg PO DAILY Verapamil HCl [Verapamil ER] 120 mg PO DAILY Benztropine Mesylate [Cogentin] 0.5 mg PO BID 30 Days #60 tab Divalproex ER [Depakote ER] 1,000 mg PO HS 30 Days #60 tab fluPHENAZine decanoate [Prolixin Decanoate] 25 mg IM QMONTHLY #1 each Discharge Medication List Benztropine Mesylate [Cogentin] 0.5 mg PO BID 30 Days #60 tab 04/24/23 [Rx] Divalproex ER [Depakote ER] 1,000 mg PO HS 30 Days #60 tab 04/24/23 [Rx] Venlafaxine HCl [Effexor XR] 225 mg PO DAILY 30 Days #30 tab 04/24/23 [Rx] fluPHENAZine decanoate [Prolixin Decanoate] 25 mg IM QMONTHLY #1 each 04/25/23 [Rx] Levothyroxine Sodium [Synthroid] 50 mcg PO DAILY 06/19/23 [History] Verapamil HCl [Verapamil ER] 120 mg PO DAILY 06/19/23 [History] Follow up Appointment(s)/Referral(s): Maximilian Rivera DO [Primary Care Provider] - 1-2 days Discharge Disposition: TRANSFER TO PSYCH HOSP/UNIT
[2023-06-23] MEDS: DIVALPROEX ER 500 MG TAB.ER.24H PO SCH (21:28)
[2023-06-24] MEDS: LEVOTHYROXINE 50 MCG TAB PO SCH (06:48)
[2023-06-24] MEDS: BENZTROPINE MESYLATE 0.5 MG TAB PO SCH (08:50)
[2023-06-24] MEDS: VENLAFAXINE HCL ER 75 MG CAP PO SCH (08:50)
[2023-06-24] MEDS: VERAPAMIL SR 120 MG TABLET.ER PO SCH (08:50)
--- NOTE | 2023-06-24 12:45 | P.PN ---
Subjective Progress Note Date: 06/24/23 * 33-year-old female with past medical history of depression, history of bipolar disorder, previous hospitalization in behavioral health unit present to the emergency department after patient overdosed on Depakote * Patient admitted that shethe overdosed with a suicide attempt * At the time of presentation Depakote level was 237. Patient has been noncompliant with her outpatient follow-up per family. * Workup initiated in ER included normal renal profile, liver profile showed a LT of 25 AST of 30 and bilirubin within normal limits * Serum ammonia level was less than 9 however continue to trend up to 63 and 104 * Serum valproic acid levels trended up 297 and then 290 * Poison control was contacted and patient was given activated charcoal * 06/20: Patient seen and evaluated bedside, patient is alert and oriented 3. Patient gets nausea from charcoal unable to tolerate, follow-up on CMP, Depak ote levels, ammonia levels. As needed Zofran ordered continue IV hydration and the recommended maximum safety precautions while inpatient * 06/21: Patient seen and evaluated bedside. Patient alert and oriented 3. Patient is drowsy however easily arousable. Patient does follow commands * 06/22: Patient seen and everted bedside. Patient is drowsy easily arousable does appear alert and oriented 3. Patient has not been out of bed. Patient requested to ambulate in anticipation of discharge to [facility] within the next 24 hours. Ammonia levels normalized, valproic acid levels normalized. * 06/24: Patient seen and evaluated bedside. Waiting for placement, ready for discharge. No overnight events noted Objective - Vital Signs Vital signs: Vital Signs Temp 98.5 F 06/24/23 01:56 Pulse 77 06/24/23 01:56 Resp 17 06/24/23 01:56 BP 110/73 06/24/23 01:56 Pulse Ox 96 06/24/23 01:56 FiO2 Intake & Output 06/23/23 06/24/23 06/24/23 18:59 06:59 18:59 Intake Total 1080 Output Total 1600 500 Balance -520 -500 Intake: Oral 1080 Output: Urine 1600 500 Other: Voiding Method External Catheter Toilet External Catheter # Voids 1 # Bowel Movements 1 - Exam GENERAL: The patient is alert and oriented person and situation, suicidal ideation, HEENT: PERRLA CARDIOVASCULAR: S1 and S2 present. No murmurs, rubs, or gallops. PULMONARY: Chest is clear to auscultation, no wheezing or crackles. ABDOMEN: Soft, nontender, nondistended, normoactive bowel sounds. No palpable organomegaly. MUSCULOSKELETAL: No joint swelling or deformity. EXTREMITIES: No cyanosis, clubbing, or pedal edema. NEUROLOGICAL: Alert however intellectually delayed - Labs CBC & Chem 7: 06/23/23 06:24 06/23/23 06:24 Assessment and Plan Assessment: Assessment and plan * Intentional overdose with Depakote * Hyperammonia RESOLVED * Acute metabolic encephalopathy IMPROVED * History of bipolar disorder with severe depression * History of suicidal ideation with previous psychiatric hospitalization * History of hypertension * History of developmental intellectual disability * Consult obtained from psychiatry, patient was started on IV fluid resuscitation, activated charcoal protocol given however patient intolerant having nausea despite use of Zofran * ON 06/19 >>Poison Control Center contacted patient was started on activated charcoal to be given 75 g with Zofran for nausea followed by 25 mg every 2 hours with follow-up on valproic acid levels. * Valproic acid levels trending down and have improved, ammonia levels improved, valproic acid within normal limits hence resumed on 06/22/23 * Continue patient on verapamil * Home medications, resumed Cogentin 06/20, , Depakote was resumed 06/22 * Continue to maintain one-to-one safety precautions will need to be transferred to behavioral health unit once medically ready * Patient cannot leave AGAINST MEDICAL ADVICE * Waiting for placement
[2023-06-24 15:44] VITALS: BP 123/87; PULSE 110; RESP 16; TEMP 97.9
== END 2023-06-24 17:05 | DRG 917 ==
LOC: EC 22:48 → 4SSUR 06-19 01:37
PROVIDERS: ADMIT Hospitalist; ATTEND Hospitalist
DX: T42.6X2A Poisoning by other antiepileptic and sedative-hypnotic drugs, intentional self-harm, initial encounter (principal); G93.41 Metabolic encephalopathy; E72.20 Disorder of urea cycle metabolism, unspecified; F31.4 Bipolar disorder, current episode depressed, severe, without psychotic features; G80.9 Cerebral palsy, unspecified; G40.909 Epilepsy, unspecified, not intractable, without status epilepticus; Z20.822 Contact with and (suspected) exposure to COVID-19; I10 Essential (primary) hypertension; F79 Unspecified intellectual disabilities; F41.9 Anxiety disorder, unspecified; Z91.199 Patient's noncompliance with other medical treatment and regimen due to unspecified reason; Z79.890 Hormone replacement therapy; Z79.899 Other long term (current) drug therapy; Z88.0 Allergy status to penicillin; Z88.5 Allergy status to narcotic agent; Z88.8 Allergy status to other drugs, medicaments and biological substances
CPT/HCPCS: 36415; 80053; 80143; 80164; 80179; 80306; 80320; 82140; 83690; 83735; 84100; 84450; 84460; 85025; 85027; 87635; 93005; 94760; 96361; 96374; 99291

== ENCOUNTER 2023-06-24 14:50 | Inpatient (IN) | payer MEDICARE, MEDICAID ==
[2023-06-24] MEDS ORDERED: ACETAMINOPHEN TAB 325 MG TAB PO PRN (15:37)
[2023-06-24] MEDS ORDERED: MAG HYDROX/AL HYDROX/SIMETH 30 ML CUP PO PRN (15:37)
[2023-06-24] MEDS ORDERED: OLANZapine 10 MG VIAL IM PRN (15:37)
[2023-06-24] MEDS ORDERED: IBUPROFEN 600 MG TAB PO PRN (15:37)
[2023-06-24] MEDS ORDERED: MAGNESIUM HYDROXIDE 2,400 MG/30 ML CUP PO PRN (15:37)
[2023-06-24] MEDS ORDERED: OLANZapine 5 MG TAB PO PRN (15:37)
[2023-06-24] MEDS: DIVALPROEX ER 500 MG TAB.ER.24H PO SCH (20:50)
[2023-06-24] MEDS: BENZTROPINE MESYLATE 0.5 MG TAB PO SCH (20:50)
[2023-06-25] MEDS: LEVOTHYROXINE 50 MCG TAB PO SCH (06:36)
[2023-06-25] MEDS: VERAPAMIL SR 120 MG TABLET.ER PO SCH (08:52)
[2023-06-25] MEDS: BENZTROPINE MESYLATE 0.5 MG TAB PO SCH ×2 (08:52→20:36)
[2023-06-25] MEDS ORDERED: VENLAFAXINE HCL ER 75 MG CAP PO SCH (09:00)
--- NOTE | 2023-06-25 09:32 | P.DS ---
Providers Date of admission: 06/24/23 17:01 Expected date of discharge: 06/25/23 Attending physician: Berlin Grajeda MD Consults: 06/24/23 15:37 Consult Physician Routine Consulting Provider: Wilfrido Rogers Consult Reason/Comments: H&P and medical Do you want consulting provider notified?: Yes Primary care physician: [facility] Course: * 33-year-old female with past medical history of depression, history of bipolar disorder, previous hospitalization in behavioral health unit present to the emergency department after patient overdosed on Depakote * Patient admitted that shethe overdosed with a suicide attempt * At the time of presentation Depakote level was 237. Patient has been noncompliant with her outpatient follow-up per family. * Workup initiated in ER included normal renal profile, liver profile showed a LT of 25 AST of 30 and bilirubin within normal limits * Serum ammonia level was less than 9 however continue to trend up to 63 and 104 * Serum valproic acid levels trended up 297 and then 290 * Poison control was contacted and patient was given activated charcoal * 06/20: Patient seen and evaluated bedside, patient is alert and oriented 3. Patient gets nausea from charcoal unable to tolerate, follow-up on CMP, Depakote levels, ammonia levels. As needed Zofran ordered continue IV hydration and the recommended maximum safety precautions while inpatient * 06/21: Patient seen and evaluated bedside. Patient alert and oriented 3. Patient is drowsy however easily arousable. Patient does follow commands * 06/22: Patient seen and everted bedside. Patient is drowsy easily arousable does appear alert and oriented 3. Patient has not been out of bed. Patient requested to ambulate in anticipation of discharge to psych within the next 24 hours. Ammonia levels normalized, valproic acid levels normalized. * 06/24: Patient seen and evaluated bedside. Waiting for placement, ready for discharge. No overnight events noted. Discharged to inpatient psych GENERAL: The patient is alert and oriented person and situation, suicidal ideation, HEENT: PERRLA CARDIOVASCULAR: S1 and S2 present. No murmurs, rubs, or gallops. PULMONARY: Chest is clear to auscultation, no wheezing or crackles. ABDOMEN: Soft, nontender, nondistended, normoactive bowel sounds. No palpable organomegaly. MUSCULOSKELETAL: No joint swelling or deformity. EXTREMITIES: No cyanosis, clubbing, or pedal edema. NEUROLOGICAL: Alert however intellectually delayed Assessment and plan * Intentional overdose with Depakote * Hyperammonia RESOLVED * Acute metabolic encephalopathy IMPROVED * History of bipolar disorder with severe depression * History of suicidal ideation with previous psychiatric hospitalization * History of hypertension * History of developmental intellectual disability * Consult obtained from psychiatry, patient was started on IV fluid resuscitation, activated charcoal protocol given however patient intolerant having nausea despite use of Zofran * ON 06/19 >>Poison Control Center contacted patient was started on activated charcoal to be given 75 g with Zofran for nausea followed by 25 mg every 2 hours with follow-up on valproic acid levels. * Valproic acid levels trending down and have improved, ammonia levels improved, valproic acid within normal limits hence resumed on 06/22/23 * Continue patient on verapamil * Home medications, resumed Cogentin 06/20, , Depakote was resumed 06/22 * Continue to maintain one-to-one safety precautions will need to be transferred to behavioral health unit once medically ready * Patient cannot leave AGAINST MEDICAL ADVICE * Discharged to [facility] Patient Condition at Discharge: Fair Plan - Discharge Summary New Discharge Prescriptions: No Action Venlafaxine HCl [Effexor XR] 225 mg PO DAILY 30 Days #30 tab Levothyroxine Sodium [Synthroid] 50 mcg PO DAILY Verapamil HCl [Verapamil ER] 120 mg PO DAILY Benztropine Mesylate [Cogentin] 0.5 mg PO BID 30 Days #60 tab Divalproex ER [Depakote ER] 1,000 mg PO HS 30 Days #60 tab fluPHENAZine decanoate [Prolixin Decanoate] 25 mg IM QMONTHLY #1 each Discharge Medication List Benztropine Mesylate [Cogentin] 0.5 mg PO BID 30 Days #60 tab 04/24/23 [Rx] Divalproex ER [Depakote ER] 1,000 mg PO HS 30 Days #60 tab 04/24/23 [Rx] Venlafaxine HCl [Effexor XR] 225 mg PO DAILY 30 Days #30 tab 04/24/23 [Rx] fluPHENAZine decanoate [Prolixin Decanoate] 25 mg IM QMONTHLY #1 each 04/25/23 [Rx] Levothyroxine Sodium [Synthroid] 50 mcg PO DAILY 06/19/23 [History] Verapamil HCl [Verapamil ER] 120 mg PO DAILY 06/19/23 [History] Patient Instructions/Handouts: Seizure/Epilepsy Discharge Instructions & Follow-Up
[2023-06-25] MEDS ORDERED: fluPHENAZine DECANOATE 25 MG/ML 5ML MDV IM SCH (11:15)
--- NOTE | 2023-06-25 11:24 | P.HP ---
Psychiatric H&P - . H&P Date: 06/25/23 History & Physical: Allergies Allergy/AdvReac Type Severity Reaction Status Date / Time amoxicillin Allergy Rash/Hives Verified 06/24/23 18:08 lamotrigine From Lamictal Allergy Rash/Hives Verified 06/24/23 18:08 - full body morphine Allergy Itching Verified 06/24/23 18:08 Vital Signs Temp 98.3 F 06/25/23 07:05 Pulse 78 06/25/23 07:05 Resp 16 06/25/23 07:05 BP 102/56 06/25/23 07:05 Pulse Ox 98 06/25/23 07:05 FiO2 Intake & Output 06/24/23 06/25/23 06/25/23 18:59 06:59 18:59 Weight 93.638 kg 06/25/23 08:30 IDENTIFYING DATA: Patient is a 33-year-old female who lives with her mom who is her guardian, her sister, her [id number], and her nephew and niece and is on SSI and SSD HPI: Patient was seen initially by [employer] as a psychiatric consultation and note goes as following "Patient was seen today in the ER after a reported overdose on her Depakote. Going to ER report patient apparently admitted to an intentional overdose as a suicide attempt and was a poor historian. Patient's UDS is negative, Depakote level was 237.6 as a steadily rising. Patients mother was agreeable to stick to [employer] and states that patient had an increase in depression for the past few weeks and stopped taking some of her medications and stop the follow-up. She claims that she overdosed at nighttime and will crop in colder. She claims that she got hold of medications in the bathroom. She states that she will be removing the medication about keeping them locked in her room at this time. She states that she is also missing [facility] appointments. Patient was seen lying in bed today and appeared to be disheveled in appearance, states that she was feeling depressed and anxious. She claims that this been going on for the past 2 weeks and states that it was caused by "not eating" and states that she was "too picky". Claims that she has been forgetting some of her medications and not going appointments, states that she overdosed in a suicide attempt and told her mother afterwards. Claims that her sleep and appetite are improving at this time.Patient denies any homicidal ideations intent or plan. At this time patient denies any auditory or visual hallucinations. Patient denies any flight of ideas racing thoughts and increased in goal directed behavior. Denies substance use" Patient was seen again today for psych assessment. she claims that she regrets overdosing on her seizure meds and was apologizing for it. She claims that she is doing a bit better today, continues to endorse some depression and anxiety. She claims that she is willing to go to some groups. Hygiene and grooming are mildly improving. She is denying any suicidal or homicidal ideations intent or plan, denying any auditory or visual hallucinations today. PAST PSYCHIATRIC HISTORY: -h/o bipolar disorder, depression with psychotic features -multiple admissions in the past the mental health unit, last admission was in April 2023. He is currently taking prolixin D 25 mg q2 weeks, depakote 1000 hs, melatonin 10 hs, remeron 7.5 hs, Effexor -past meds: abilify maintena, lithium, Lexapro, Cogentin, Seroquel radha, cog, ser -Current Meds: depakote 1000 hs, cogentin 0.5 tid, Effexor 225 daily, prolixin D 25 mg q4 weeks, last dose given 2 weeks ago. PMH: CP, intellectual disability ALLERGIES: as per EMR CHEMICAL DEPENDENCY HISTORY: as per HPI FAMILY PSYCHIATRIC/SUBSTANCE USE HISTORY: father has psychosis SOCIAL HISTORY: Her mother is her guardian, she lives with her mother, sister, [id number], nephew, and a niece. She is on SSI and SSA. No legal issues MENTAL STATUS EXAM: General Appearance: Patient appears to be older than stated age is alert, directable, and attempts to cooperate. Patient appears has a disheveled appearance. Has tremors that are likely BL from her CP Behavior: Patient is seated without any agitated behavior. Attempts to cooperate Speech: Patient's speech is fluent and nonpressured. Low volume and low rate Mood/Affect: Patient reports their mood is "depressed and anxious", affect is congruent and constricted. Suicidality/Homicidality: Patient denies having any homicidal ideation intent or plan. He has suicidal ideations without intent or plan Perceptions: Patient denies any visual hallucinations and denies any auditory hallucinations Though content/process: There is no evidence of any delusional thought content and thought process is linear and goal-directed. Memory and concentration: AOX3, grossly intact for the purposes of this session. Judgment and insight: poor/impulsive, improving mildly Strengths: good social support and stable housing Weakness: Patient is impulsive, chronic mental illness IMPRESSIONS: Bipolar disorder, currently depressed Overdose by medications Suicide attempt Intellectual disability PLAN: -Patient is admitted under voluntary status to MHU for stabilization of psychiatric symptoms and safety. Patient has signed adult voluntary form and medication consent and is placed in patient's chart. -Medications : Will start patient on Cogentin 0.5 mg twice a day, increase Effexor XR 20 and 25 mg daily for mood/anxiety, Depakote ER 1000 mg daily at bedtime for seizures, Prolixin D 25 mg every 2 weeks, she is due for next dose today. -Ativan and Haldol PRN for agitation/aggression -Patient was informed of the risks, benefits and side effects of the medication and patient verbally consented to taking the medications. Patient signed med consent form and was placed in chart. -Internal Medicine consult to perform medical evaluation and physical. -NRT - not needed as patient does not smoke -SW on board for discharge planning. Encourage patient to participate in groups to work on coping skills. patient is on next step program through [facility]. again will communicate with mother to have medications and any potential weapons locked away.
--- NOTE | 2023-06-25 12:19 | P.CONS ---
History of Present Illness - Reason for Consult Consult date: 06/25/23 - Chief Complaint Suicidal ideation - History of Present Illness * 33-year-old female with past medical history of depression, history of bipolar disorder, previous hospitalization in behavioral health unit present to the emergency department after patient overdosed on Depakote * Patient admitted that shethe overdosed with a suicide attempt * At the time of presentation Depakote level was 237. Patient has been noncompliant with her outpatient follow-up per family. * Workup initiated in ER included normal renal profile, liver profile showed a LT of 25 AST of 30 and bilirubin within normal limits * Serum ammonia level was less than 9 however continue to trend up to 63 and 104 * Serum valproic acid levels trended up 297 and then 290 * Poison control was contacted and patient was given activated charcoal * 06/20: Patient seen and evaluated bedside, patient is alert and oriented 3. Patient gets nausea from charcoal unable to tolerate, follow-up on CMP, Depa kote levels, ammonia levels. As needed Zofran ordered continue IV hydration and the recommended maximum safety precautions while inpatient * 06/21: Patient seen and evaluated bedside. Patient alert and oriented 3. Patient is drowsy however easily arousable. Patient does follow commands * 06/22: Patient seen and everted bedside. Patient is drowsy easily arousable does appear alert and oriented 3. Patient has not been out of bed. Patient requested to ambulate in anticipation of discharge to psych within the next 24 hours. Ammonia levels normalized, valproic acid levels normalized. * 06/24: Patient seen and evaluated bedside. Waiting for placement, ready for discharge. No overnight events noted. Discharged to inpatient psych * 06/25: Patient seen and evaluated bedside. Plan to continue management in behavioral health unit. REVIEW OF SYSTEMS: CONSTITUTIONAL: No fever, no malaise, no fatigue. HEENT: No recent visual problems or hearing problems. Denied any sore throat. CARDIOVASCULAR: No chest pain, orthopnea, PND, no palpitations, no syncope. PULMONARY: No shortness of breath, no cough, no hemoptysis. GASTROINTESTINAL: No diarrhea, no nausea, no vomiting, no abdominal pain. NEUROLOGICAL: No headaches, no weakness, no numbness. HEMATOLOGICAL: Denies any bleeding or petechiae. GENITOURINARY: Denies any burning micturition, frequency, or urgency. MUSCULOSKELETAL/RHEUMATOLOGICAL: Denies any joint pain, swelling, or any muscle pain. ENDOCRINE: Denies any polyuria or polydipsia. PHYSICAL EXAMINATION: GENERAL: The patient is alert and oriented x3, not in any acute distress. Well developed, well nourished. HEENT: Pupils are round and equally reacting to light. EOMI. No scleral icterus. No conjunctival pallor. Normocephalic, atraumatic. No pharyngeal erythema. No thyromegaly. CARDIOVASCULAR: S1 and S2 present. No murmurs, rubs, or gallops. PULMONARY: Chest is clear to auscultation, no wheezing or crackles. ABDOMEN: Soft, nontender, nondistended, normoactive bowel sounds. No palpable organomegaly. MUSCULOSKELETAL: No joint swelling or deformity. EXTREMITIES: No cyanosis, clubbing, or pedal edema. NEUROLOGICAL: Gross neurological examination did not reveal any focal deficits. SKIN: No rashes. Past Medical History Past Medical History: Seizure Disorder Additional Past Medical History / Comment(s): cerebral palsy, History of Any Multi-Drug Resistant Organisms: None Reported Past Surgical History: Orthopedic Surgery Additional Past Surgical History / Comment(s): femurs rotated and achilles tendon lengthened and one yr. later metal hardware/plates were removed. Past Anesthesia/Blood Transfusion Reactions: No Reported Reaction Past Psychological History: Anxiety, Bipolar, Depression, Schizophrenia Additional Psychological History / Comment(s): Hx. of [facility] Smoking Status: Never smoker Past Alcohol Use History: None Reported Past Drug Use History: None Reported - Past Family History Father Family Medical History: No Reported History Mother Family Medical History: No Reported History Medications and Allergies Home Medications Medication Instructions Recorded Confirmed Type Benztropine Mesylate [Cogentin] 0.5 mg PO BID 30 Days #60 tab 04/24/23 06/24/23 Rx Divalproex ER [Depakote ER] 1,000 mg PO HS 30 Days #60 tab 04/24/23 06/24/23 Rx Venlafaxine HCl [Effexor XR] 225 mg PO DAILY 30 Days #30 tab 04/24/23 06/24/23 Rx fluPHENAZine decanoate [Prolixin 25 mg IM QMONTHLY #1 each 04/25/23 06/24/23 Rx Decanoate] Levothyroxine Sodium [Synthroid] 50 mcg PO DAILY 06/19/23 06/24/23 History Verapamil HCl [Verapamil ER] 120 mg PO DAILY 06/19/23 06/24/23 History Allergies Allergy/AdvReac Type Severity Reaction Status Date / Time amoxicillin Allergy Rash/Hives Verified 06/24/23 18:08 lamotrigine [From Lamictal] Allergy Rash/Hives Verified 06/24/23 18:08 - full body morphine Allergy Itching Verified 06/24/23 18:08 Physical Exam Vitals: Vital Signs Temp Pulse Resp BP Pulse Ox 06/25/23 07:05 98.3 F 78 16 102/56 98 06/24/23 17:37 97.4 F L 98 16 120/77 99 Intake and Output 06/24/23 06/25/23 06/25/23 22:59 06:59 14:59 Other: Weight 93.638 kg Assessment and Plan Assessment: * Intentional overdose with Depakote * Hyperammonia RESOLVED * Acute metabolic encephalopathy IMPROVED * History of bipolar disorder with severe depression * History of suicidal ideation with previous psychiatric hospitalization * History of hypertension * History of developmental intellectual disability * Continue management in behavioral health unit. * Continue current medication to psychiatry including Depakote, Synthyroid, Effexor
[2023-06-25] MEDS: DIVALPROEX ER 500 MG TAB.ER.24H PO SCH (20:36)
[2023-06-26] MEDS: LEVOTHYROXINE 50 MCG TAB PO SCH (06:21)
[2023-06-26] MEDS: BENZTROPINE MESYLATE 0.5 MG TAB PO SCH ×2 (09:28→20:53)
[2023-06-26] MEDS: VENLAFAXINE HCL ER 150 MG CAP PO SCH (09:28)
[2023-06-26] MEDS: VERAPAMIL SR 120 MG TABLET.ER PO SCH (09:28)
--- NOTE | 2023-06-26 12:37 | P.PN ---
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 She sta rose marie that she is doing a bit better today and claims that she took the higher dose of Effexor. She claims that he is agreeable to continue with medications. She received a Prolixin D yesterday tolerated it well. She has been interacting well with the director [employer] other staff members. Has been going to some groups however was feeling a bit tired today. States that she slept fairly last night, has a fair appetite at this time. She continues to apologize for the overdose. She has mildly improving insight and judgment however this remains limited. At this time she is denying any auditory visual hallucinations denying any suicidal or homicidal ideations intent or plan. Mental status examination: General Appearance: Patient appears to be older than stated age is alert, directable, and attempts to cooperate. Patient appears to have improving appearance. Behavior: Patient is seated without any agitated behavior. Attempts to cooperate Speech: Patient's speech is fluent and nonpressured. Low volume and low rate Mood/Affect: Patient reports their mood is "a bit better", affect is congruent and constricted. Suicidality/Homicidality: Patient denies having any homicidal ideation intent or plan. He has suicidal ideations without intent or plan Perceptions: Patient denies any visual hallucinations and denies any auditory hallucinations Though content/process: There is no evidence of any delusional thought content and thought process is linear and goal-directed. Apologetic. Memory and concentration: AOX3, grossly intact for the purposes of this session. Judgment and insight: poor/impulsive, improving mildly IMPRESSIONS: Bipolar disorder, currently depressed Overdose by medications Suicide attempt Intellectual disability PLAN: -Patient is admitted under voluntary status to MHU for stabilization of psychiatric symptoms and safety. Patient has signed adult voluntary form and medication consent and is placed in patient's chart. -Medications : Cogentin 0.5 mg twice a day, continuous Effexor XR 300 mg daily for mood/anxiety, Depakote ER 1000 mg daily at bedtime for seizures, Prolixin D 25 mg every 2 weeks, last dose given on 06/25, next dose due on 07/09 -Ativan and Haldol PRN for agitation/aggression -NRT - not needed as patient does not smoke -SW on board for discharge planning. Encourage patient to participate in groups to work on coping skills. patient is on next step program through [facility]. again will communicate with mother to have medications and any potential weapons locked away. likely discharge back home early next week.
[2023-06-26] MEDS: DIVALPROEX ER 500 MG TAB.ER.24H PO SCH (20:53)
[2023-06-27] MEDS: LEVOTHYROXINE 50 MCG TAB PO SCH (06:49)
[2023-06-27] MEDS: VENLAFAXINE HCL ER 150 MG CAP PO SCH (09:21)
[2023-06-27] MEDS: VERAPAMIL SR 120 MG TABLET.ER PO SCH (09:21)
[2023-06-27] MEDS: BENZTROPINE MESYLATE 0.5 MG TAB PO SCH ×2 (09:21→20:44)
--- NOTE | 2023-06-27 11:59 | P.PN ---
Progress Note - Text Progress Note Date: 06/27/23 Interval history: Patient was seen today wandering the hallways, she was agreeable to speak to ivette gonzalez in the office. She states that she is doing a bit better today. She was fairly focused on discharge planning and states that she has a appointment on Friday to have her wisdom teeth out. She claims that she hasn't taken the medications and claims that they have been helping. Denying any side effects at this time. Claims that she is able to sleep fairly at bedtime and has been trying to go to groups. Claims that her mood and anxiety from gradually improving. She continues to be apologetic for what had occurred. States that she slept fairly last night, has a fair appetite at this time. She has mildly improving insight and judgment however this remains limited. At this time she is denying any auditory visual hallucinations denying any suicidal or homicidal ideations intent or plan. Mental status examination: General Appearance: Patient appears to be older than stated age is alert, directable, and attempts to cooperate. Patient appears to have improving appearance. Behavior: Patient is seated without any agitated behavior. Attempts to cooperate Speech: Patient's speech is fluent and nonpressured. Low volume and low rate Mood/Affect: Patient reports their mood is "better", affect is congruent and constricted. Suicidality/Homicidality: Patient denies having any homicidal ideation intent or plan. no suicidal ideations without intent or plan Perceptions: Patient denies any visual hallucinations and denies any auditory hallucinations Though content/process: There is no evidence of any delusional thought content and thought process is linear and goal-directed. Apologetic. Memory and concentration: AOX3, grossly intact for the purposes of this session. Judgment and insight: chronically impulsive, improving mildly IMPRESSIONS: Bipolar disorder, currently depressed Overdose by medications Suicide attempt Intellectual disability PLAN: -Patient is admitted under voluntary status to MHU for stabilization of psychiatric symptoms and safety. Patient has signed adult voluntary form and medication consent and is placed in patient's chart. -Medications : Cogentin 0.5 mg twice a day, Effexor XR 300 mg daily for mood/anxiety, Depakote ER 1000 mg daily at bedtime for seizures, Prolixin D 25 mg every 2 weeks, last dose given on 06/25, next dose due on 07/09 -Ativan and Haldol PRN for agitation/aggression -NRT - not needed as patient does not smoke -SW on board for discharge planning. Encourage patient to participate in groups to work on coping skills. patient is on next step program [facility]. SW again to communicate with mother to have medications and any potential weapons locked away. likely discharge back home friday
[2023-06-27] MEDS: DIVALPROEX ER 500 MG TAB.ER.24H PO SCH (20:44)
[2023-06-28] MEDS: LEVOTHYROXINE 50 MCG TAB PO SCH (07:03)
[2023-06-28] MEDS: BENZTROPINE MESYLATE 0.5 MG TAB PO SCH ×2 (08:50→20:48)
[2023-06-28] MEDS: VENLAFAXINE HCL ER 150 MG CAP PO SCH (08:50)
[2023-06-28] MEDS: VERAPAMIL SR 120 MG TABLET.ER PO SCH (08:51)
--- NOTE | 2023-06-28 11:00 | P.PN ---
Subjective Progress Note Date: 06/28/23 Principal diagnosis: IMPRESSIONS: Bipolar disorder, currently depressed Overdose by medications Suicide attempt Intellectual disabilit Interval history: Patient was seen today wandering the hallways, she was agreeable to speak to report writer in the office. She states that she is doing a bit better today. She claims that she hasn't taken the medications and claims that they have been helping. She is complaining of constipation. Claims that she is able to sleep fairly well and has been trying to go to groups. Claims that her mood and anxiety are gradually improving. She continues to be apologetic for what had occurred. States that she has a fair appetite at this time. Her insight and judgment remains limited. At this time she is denying any auditory visual hallucinations denying any suicidal or homicidal ideations intent or plan. We reviewed the things that would've kept her from attempting suicide if she had remembered them. And discussed how she could improve her ability to focus on them. For example she is a person of shankar and forgot all about asking God for help. She also just felt, "I was a disappointment to my family but then I realize I would hurt them even more fight kill myself and I'm glad I didn't do it." Mental status examination: Decreased eye contact General Appearance: Patient appears to be older than stated age is alert, directable, and attempts to cooperate. Reasonable self-care Behavior: Patient is seated without any agitated behavior. Attempts to cooperate Speech: Patient's speech is fluent and nonpressured. Low volume and low rate Mood/Affect: Patient reports their mood is "better", affect is congruent and constricted. Suicidality/Homicidality: Patient denies having any homicidal ideation intent or plan. no suicidal ideations without intent or plan Perceptions: Patient denies any visual hallucinations and denies any auditory hallucinations Though content/process: There is no evidence of any delusional thought content and thought process is linear and goal-directed. Memory and concentration: AOX3, grossly intact for the purposes of this session. Judgment and insight: chronically impulsive, improving mildly IMPRESSIONS: Bipolar disorder, currently depressed Overdose by medications Suicide attempt Intellectual disability Assessment: Patient still seems foggy in her thinking her balance is terrible. PLAN: -Patient is admitted under voluntary status to MHU for stabilization of psychiatric symptoms and safety. Patient has signed adult voluntary form and medication consent and is placed in patient's chart. -Medications : Cogentin 0.5 mg twice a day, Effexor XR 300 mg daily for mood/anxiety, Depakote ER 1000 mg daily at bedtime for seizures, Prolixin D 25 mg every 2 weeks, last dose given on 06/25, next dose due on 07/09 -Ativan and Haldol PRN for agitation/aggression -NRT - not needed as patient does not smoke -SW on board for discharge planning. Encourage patient to participate in groups to work on coping skills. patient is on next step program through [facility]. SW again to communicate with mother to have medications and any potential weapons locked away. likely discharge back home friday Objective - Vital Signs Vital signs: Vital Signs Temp 98.6 F 06/27/23 06:49 Pulse 70 06/27/23 06:49 Resp 18 06/27/23 06:49 BP 136/63 06/26/23 09:32 Pulse Ox 99 06/26/23 06:42 FiO2
[2023-06-28] MEDS: PSYLLIUM HUSK 100% 6 GM PACKET PO SCH ×2 (16:38→20:50)
[2023-06-28] MEDS: DIVALPROEX ER 500 MG TAB.ER.24H PO SCH (20:48)
[2023-06-29] MEDS: LEVOTHYROXINE 50 MCG TAB PO SCH (06:42)
[2023-06-29] MEDS: VERAPAMIL SR 120 MG TABLET.ER PO SCH (08:04)
[2023-06-29] MEDS: PSYLLIUM HUSK 100% 6 GM PACKET PO SCH ×2 (08:04→21:20)
[2023-06-29] MEDS: VENLAFAXINE HCL ER 150 MG CAP PO SCH (08:05)
[2023-06-29] MEDS: BENZTROPINE MESYLATE 0.5 MG TAB PO SCH ×2 (08:05→20:41)
--- NOTE | 2023-06-29 08:21 | P.PN ---
Subjective Progress Note Date: 06/29/23 Principal diagnosis: IMPRESSIONS: Bipolar disorder, currently depressed Overdose by medications Suicide attempt Intellectual disabilit Interval history: Patient was seen today, she was agreeable to speak to manual writer in the office. She was that the medication window and took her medicine readily. He was interesting that when the nurse offered to help her pick up man to a cup of medicine but she assured the nurse that she couldn't handle it herself. She is working hard at self-care. She says she is going to groups and understands that when she gets out she needs to have more open communication with her mother and sister let them know how she is feeling.. States that she has a fair appetite at this time. At this time she is denying any auditory visual hallucinations denying any suicidal or homicidal ideations intent or plan. Mental status examination: Improved eye contact General Appearance: Patient appears to be older than stated age is alert, directable, and attempts to cooperate. Reasonable self-care she put on a nice combination of the pink sweater and black pants and I think took some care of her periods also taking good care of her hair. Behavior: Patient is seated without any agitated behavior. She was cooperative Speech: Patient's speech is fluent and nonpressured. Low volume and low rate Mood/Affect: Patient reports their mood is "better". She says she would like to go home and feels she is ready but is willing to listen to the team's opinion on that. I asked her what she would do differently to do well after discharge and she was still somewhat vague. Suicidality/Homicidality: Patient denies having any homicidal ideation intent or plan. no suicidal ideations without intent or plan Perceptions: Patient denies any visual hallucinations and denies any auditory hallucinations Though content/process: There is no evidence of any delusional thought content and thought process is linear and goal-directed. Memory and concentration: AOX3, grossly intact for the purposes of this session. Judgment and insight: chronically impulsive, improving. IMPRESSIONS: Bipolar disorder, currently depressed Overdose by medications Suicide attempt Intellectual disability Assessment: Patient seems clear in her thinking her balance is better. She says she does have more trouble as the day goes on. PLAN: -Patient is admitted under voluntary status to MHU for stabilization of psychiatric symptoms and safety. Patient has signed adult voluntary form and medication consent and is placed in patient's chart. -Medications : Cogentin 0.5 mg twice a day, Effexor XR 300 mg daily for mood/anxiety, Depakote ER 1000 mg daily at bedtime for seizures, Prolixin D 25 mg every 2 weeks, last dose given on 06/25, next dose due on 07/09 -Ativan and Haldol PRN for agitation/aggression -NRT - not needed as patient does not smoke -SW on board for discharge planning. Encourage patient to participate in groups to work on coping skills. patient is on next step program through [facility]. SW again to communicate with mother to have medications and any potential weapons locked away. likely discharge back home friday Objective - Vital Signs Vital signs: Vital Signs Temp 98.6 F 06/27/23 06:49 Pulse 71 06/29/23 07:00 Resp 16 06/29/23 07:00 BP 136/78 06/29/23 07:00 Pulse Ox 99 06/29/23 07:00 FiO2
[2023-06-29] MEDS: DIVALPROEX ER 500 MG TAB.ER.24H PO SCH (20:41)
[2023-06-30] MEDS: LEVOTHYROXINE 50 MCG TAB PO SCH (06:32)
[2023-06-30 06:49] VITALS: BP 137/76; PULSE 76; RESP 18; TEMP 98.2
[2023-06-30] MEDS: VERAPAMIL SR 120 MG TABLET.ER PO SCH (08:41)
[2023-06-30] MEDS: VENLAFAXINE HCL ER 150 MG CAP PO SCH (08:41)
[2023-06-30] MEDS: BENZTROPINE MESYLATE 0.5 MG TAB PO SCH (08:41)
[2023-06-30] MEDS: PSYLLIUM HUSK 100% 6 GM PACKET PO SCH (08:41)
--- NOTE | 2023-06-30 10:23 | P.DS ---
Providers Date of admission: 06/24/23 17:01 Expected date of discharge: 06/30/23 Attending physician: Berlin Grajeda MD Consults: 06/24/23 15:37 Consult Physician Routine Consulting Provider: Wilfrido Rogers Consult Reason/Comments: H&P and medical Do you want consulting provider notified?: Yes Primary care physician: Maximilian iRvera - Discharge Diagnosis(es) (1) Bipolar disorder current episode depressed Current Visit: Yes Status: Acute Priority: High (2) Overdose of medication Current Visit: Yes Status: Acute Priority: High (3) Suicide attempt Current Visit: Yes Status: Acute Priority: High (4) Intellectual disability Current Visit: Yes Status: Acute Priority: Medium Hospital Course: Admission HPI: Admission note was completed by telegraphic typewriter installer "Patient is a 33-year-old female who lives with her mom who is her guardian, her sister, her [id number], and her nephew and niece and is on SSI and SSD. Patient was seen initially by telegraphic typewriter installer as a psychiatric consultation and note goes as following "Patient was seen today in the ER after a reported overdose on her Depakote. Going to ER report patient apparently admitted to an intentional overdose as a suicide attempt and was a poor historian. Patient's UDS is negative, Depakote level was 237.6 as a steadily rising. Patients mother was agreeable to stick to telegraphic typewriter installer and states that patient had an increase in depression for the past few weeks and stopped taking some of her medications and stop the follow-up. She claims that she overdosed at nighttime and will crop in colder. She claims that she got hold of medications in the bathroom. She states that she will be removing the medication about keeping them locked in her room at this time. She states that she is also missing [facility] appointments. Patient was seen lying in bed today and appeared to be disheveled in appearance, states that she was feeling depressed and anxious. She claims that this been going on for the past 2 weeks and states that it was caused by "not eating" and states that she was "too picky". Claims that she has been forgetting some of her medications and not going appointments, states that she overdosed in a suicide attempt and told her mother afterwards. Claims that her sleep and appetite are improving at this time.Patient denies any homicidal ideations intent or plan. At this time patient denies any auditory or visual hallucinations. Patient denies any flight of ideas racing thoughts and increased in goal directed behavior. Denies substance use" Patient was seen again today for psych assessment. she claims that she regrets overdosing on her seizure meds and was apologizing for it. She claims that she is doing a bit better today, continues to endorse some depression and anxiety. She claims that she is willing to go to some groups. Hygiene and grooming are mildly improving. She is denying any suicidal or homicidal ideations intent or plan, denying any auditory or visual hallucinations today." Hospital course: Upon admission to the unit patient was directable and agreeable to commence treatment and signed adult voluntary form. Patient got along well with other patients on the unit and followed unit protocol. Patient was compliant with the medications and denied any side effects throughout hospital course. Patient was started on Cogentin 0.5 mg twice a day for EPS prophylaxis, Effexor XR increased to 300 mg daily for mood/anxiety, Depakote ER 1000 mg daily at bedtime for seizure disorder, Prolixin D 25 mg IM every 2 weeks, last dose given on the unit on 06/25 index dose will be due at [facility] on 07/09.. Patient spoke of her stressors and engaged in therapy both group and individual. Patient was also seen by medical team for history and physical exam. Throughout the course of the hospitalization patient gradually improved with regards to mood, anxiety, sleep and returned back to their baseline level of functioning. On the day of discharge patient denied any suicidal or homicidal ideations intent or plan denied any auditory or visual hallucinations. Patient endorsed wanting to live for her health and family. The patient denied any access to guns or weapons. Patient denied any paranoia and did not endorse any delusions. Patient does not have a significant history of substance abuse and was counseled on abstaining from all substances including alcohol and marijuana. Patient was also counseled on the medications and need for regular compliance and was encouraged to follow- up with their outpatient appointment for mental health and also for primary care. [Prior to discharge a family meeting will be arranged by social media specialist to answer any questions and ensure safety upon discharge. [employer] L[employer] Grinder Apprentice spoke with patients mother earlier in person to discuss safety and hopme envt and to keep m edications and any weapons/guns locked away from patient as patient is impulsive, mother verbally undertstood and agreed. Sw also to discuss this with mother erika. Mental status exam: General Appearance: Patient appears to be using a walker, poor dentition,stated age is alert, pleasant, and cooperative. Patient is in no acute distress and has improved hygiene and grooming Behavior: Patient is calmly seated without any agitated behavior. Speech: Patient's speech is fluent and nonpressured. Mood/Affect: Patient reports their mood is "good", affect is congruent and euthymic. Suicidality/Homicidality: Patient denies having any suicidal or homicidal ideation intent or plan. Perceptions: Patient denies any auditory or visual hallucinations. Though content/process: There is no evidence of any delusional thought content and thought process is linear and goal-directed. [place] Memory and concentration: AOX3, grossly intact for the purposes of this session. Can spell "WORLD" backwards correctly. Judgment and insight: chronically impulsive improved with guarded prognosis Impression: Bipolar disorde current depressed overdose of medication suicide attempt intellectual disability Plan: -Continue with discharge today as patient has improved and stabilized psychiatrically and is not currently an imminent threat to herself and/or others. Patient will remain at chronically elevated risk for harm to self and/or others due to her impulsivity. -Continue medications: Prolixin D 25 mg IM every 2 weeks, last dose given on the unit on 06/25 index dose will be due at [facility] on 07/09. Effexor XR 300 mg daily for mood/anxiety, Depakote ER 1000 mg daily at bedtime for seizure disorder, Cogentin 0.5 mg twice a day for EPS prophylaxis. -Patient was counseled on the need for medication compliance and appropriate follow-up at mental health and also primary care for medical issues. Patient verbalized understanding and agreed. -Social work to arrange for and conduct family meeting to ensure safety upon discharge and answer any questions/concerns. Social work also to arrange for patients follow up appointments with [facility] for psychiatric care along with follow up with primary care provider. Patient will be seen and monitored more frequently by next step program through [facility]. -Patient counseled on abstaining from recreational drugs and marijuana and alcohol. Was informed/educated on the adverse effects on their physical and mental health. Patient verbally agreed and understood. -Patient was instructed to return to the hospital or seek immediate medical care if their psychiatric or medical symptoms do worsen or reoccur. Allergies Allergy/AdvReac Type Severity Reaction Status Date / Time amoxicillin Allergy Rash/Hives Verified 06/24/23 18:08 lamotrigine [From Lamictal] Allergy Rash/Hives Verified 06/24/23 18:08 - full body morphine Allergy Itching Verified 06/24/23 18:08 Vital Signs Temp 98.2 F 06/30/23 06:47 Pulse 76 06/30/23 06:47 Resp 18 06/30/23 06:47 BP 137/76 06/30/23 06:47 Pulse Ox 94 L 06/29/23 18:50 FiO2 Intake & Output 06/29/23 06/30/23 06/30/23 18:59 06:59 18:59 Weight 93.638 kg Patient Condition at Discharge: Stable Plan - Discharge Summary Discharge Rx Participant: No New Discharge Prescriptions: New Venlafaxine HCl ER [Effexor XR] 300 mg PO DAILY 30 Days #60 cap fluPHENAZine decanoate [Prolixin Decanoate] 25 mg IM Q14D #1 ml Continue Divalproex ER [Depakote ER] 1,000 mg PO HS 30 Days #60 tab Levothyroxine Sodium [Synthroid] 50 mcg PO DAILY 30 Days #30 tab Verapamil HCl [Verapamil ER] 120 mg PO DAILY 30 Days #30 tab Benztropine Mesylate [Cogentin] 0.5 mg PO BID 30 Days #60 tab Discontinued Venlafaxine HCl [Effexor XR] 225 mg PO DAILY 30 Days #30 tab fluPHENAZine decanoate [Prolixin Decanoate] 25 mg IM QMONTHLY #1 each Discharge Medication List Benztropine Mesylate [Cogentin] 0.5 mg PO BID 30 Days #60 tab 06/30/23 [Rx] Divalproex ER [Depakote ER] 1,000 mg PO HS 30 Days #60 tab 06/30/23 [Rx] Levothyroxine Sodium [Synthroid] 50 mcg PO DAILY 30 Days #30 tab 06/30/23 [Rx] Venlafaxine HCl ER [Effexor XR] 300 mg PO DAILY 30 Days #60 cap 06/30/23 [Rx] Verapamil HCl [Verapamil ER] 120 mg PO DAILY 30 Days #30 tab 06/30/23 [Rx] fluPHENAZine decanoate [Prolixin Decanoate] 25 mg IM Q14D #1 ml 06/30/23 [Rx] Follow up Appointment(s)/Referral(s): [facility] [Outside] - 07/01/23 11:00 am (07/01/2023 11:00AM - 12:00PM DEVAN HEARTETHEL 07/09/2023 9:00AM - 9:30AM KETAN DICK 08/12/2023 2:30PM - 3:00PM KETAN DICK med review ) Maximilian Rivera DO [Primary Care Provider] - 1 Week Patient Instructions/Handouts: Bipolar Disorder (DC) Activity/Diet/Wound Care/Special Instructions: Avoid the use of street drugs and alcohol. Take all medications as prescribed. When you are in need of refills on your medications, please contact your medical provider and/or outpatient psychiatrist/provider to have this done. Please go to your scheduled outpatient appointment for aftercare treatment. If symptoms return or become worse, call the crisis line at and/or go to the nearest emergency room for evaluation. National Suicide Hotline 165. Discharge Disposition: HOME SELF-CARE
== END 2023-06-30 14:00 | disposition home or self-care (01) | DRG 885 ==
LOC: 3MHU 17:01
PROVIDERS: ADMIT Psychiatry & Neurology Psychiatry; ATTEND Psychiatry & Neurology Psychiatry
DX: F31.9 Bipolar disorder, unspecified (principal); G93.41 Metabolic encephalopathy; E72.20 Disorder of urea cycle metabolism, unspecified; F79 Unspecified intellectual disabilities; T42.6X2D Poisoning by other antiepileptic and sedative-hypnotic drugs, intentional self-harm, subsequent encounter; Z91.148 Patient's other noncompliance with medication regimen for other reason; I10 Essential (primary) hypertension; F41.9 Anxiety disorder, unspecified; G80.9 Cerebral palsy, unspecified; Z91.199 Patient's noncompliance with other medical treatment and regimen due to unspecified reason; Z91.51 Personal history of suicidal behavior; Z79.899 Other long term (current) drug therapy; Z28.310 Unvaccinated for COVID-19; Z88.0 Allergy status to penicillin; Z88.8 Allergy status to other drugs, medicaments and biological substances; Z88.5 Allergy status to narcotic agent

== ENCOUNTER → 2023-10-21 | Outpatient (CLI) | payer MEDICARE, OTHER ==
--- NOTE | 2023-10-27 12:39 | CT ---
EXAMINATION TYPE: CT brain wo con CT DLP: 1199 mGycm, Automated exposure control for dose reduction was used. DATE OF EXAM: 10/21/2023 3:01 PM COMPARISON: MRI brain 06/12/2016. CLINICAL INDICATION:Female, 33 years old with history of R29.6 REPEATED FALLS, multiple falls, memory changes TECHNIQUE: Brain: Axial CT images of the brain were obtained with coronal and sagittal reformats created and rev iewed. Contrast used: None. Oral contrast used: None. FINDINGS: Similar appearance of thinning of the corpus callosum with abnormal but roughly symmetric shape to th e ventricular system with mild prominence of the posterior horns, atria, occipital and temporal horns which looks to be unchanged. Mild/moderate periventricular foci of low attenuation seem to correspon d to the previous MRI periventricular increased T2 FLAIR signal abnormalities. Findings are presumed developmental. No loss of enriquez/white matter distinction, mass effect, or midline shift. No parenchymal or extra-axia l increased attenuation to suggest hemorrhage. Basal cisterns are patent. No evidence of brain hernia tion. No acute osseous abnormalities. Visualized paranasal sinuses are clear. There is mild nasal septal de viation to the left with small osseous spur. Maxillary sinuses are noted to be partially septated. No significant opacification of mastoid air cells. MRI is more sensitive for detecting acute processes such as infarct, and may be considered if clinica lly warranted. IMPRESSION: 1. No acute intracranial CT abnormality. 2. Thinning of the corpus callosum with abnormal shape of the ventricles and periventricular white m atter changes redemonstrated, likely developmental.
== END | disposition home or self-care (01) ==
LOC: RADCTMAIN 14:40
PROVIDERS: ATTEND Family Medicine
DX: R29.6 Repeated falls (principal); G93.9 Disorder of brain, unspecified
CPT/HCPCS: 70450

== ENCOUNTER → 2024-07-16 | Outpatient (CLI) | payer MEDICARE, OTHER | END | disposition home or self-care (01) | LOC: LABWHC1 15:32 | PROVIDERS: ATTEND Psychiatry & Neurology Neurology | DX: G40.009 Localization-related (focal) (partial) idiopathic epilepsy and epileptic syndromes with seizures of localized onset, not intractable, without status epilepticus (principal) | CPT/HCPCS: 36415; 80375 ==

== ENCOUNTER 2024-07-21 00:53 | Inpatient (IN) | payer MEDICARE, MEDICAID ==
--- NOTE | 2024-07-21 01:31 | ED ---
Psych HPI - General Chief Complaint: Psychiatric Symptoms Stated Complaint: Mental health Time Seen by Provider: 07/21/24 01:05 Source: patient Mode of arrival: wheelchair - History of Present Illness Initial Comments: 34-year-old female with history of cerebral palsy, seizure disorder, and schizophrenia presenting with chief complaint of suicidal ideation. Mother states that the patient has been here frequently for her symptoms, they were going on a good stretch of her not requiring intervention but today she noticed her falling into a similar pattern with previous mental health crises. No thoughts of wanting to harm others. She is having delusional thoughts. - Related Data Previous Rx's Medication Instructions Recorded Benztropine Mesylate [Cogentin] 0.5 mg PO BID 30 Days #60 tab 06/30/23 Divalproex ER [Depakote ER] 1,000 mg PO HS 30 Days #60 tab 06/30/23 Levothyroxine Sodium [Synthroid] 50 mcg PO DAILY 30 Days #30 tab 06/30/23 Venlafaxine HCl ER [Effexor XR] 300 mg PO DAILY 30 Days #60 cap 06/30/23 Verapamil HCl [Verapamil ER] 120 mg PO DAILY 30 Days #30 tab 06/30/23 fluPHENAZine decanoate [Prolixin 25 mg IM Q14D #1 ml 06/30/23 Decanoate] Allergies Allergy/AdvReac Type Severity Reaction Status Date / Time amoxicillin Allergy Rash/Hives Verified 07/21/24 04:55 lamotrigine [From Lamictal] Allergy Rash/Hives Verified 07/21/24 04:55 - full body morphine Allergy Itching Verified 07/21/24 04:55 Review of Systems ROS Statement: Those systems with pertinent positive or pertinent negative responses have been documented in the HPI. ROS Other: All systems not noted in ROS Statement are negative. Past Medical History Past Medical History: Seizure Disorder Additional Past Medical History / Comment(s): cerebral palsy, History of Any Multi-Drug Resistant Organisms: None Reported Past Surgical History: No Surgical Hx Reported, Orthopedic Surgery Additional Past Surgical History / Comment(s): femurs rotated and achilles tendon lengthened and one yr. later metal hardware/plates were removed. Past Anesthesia/Blood Transfusion Reactions: No Reported Reaction Past Psychological History: Anxiety, Bipolar, Depression, Schizophrenia Smoking Status: Never smoker Past Alcohol Use History: None Reported Past Drug Use History: None Reported - Past Family History Father Family Medical History: No Reported History Mother Family Medical History: No Reported History General Exam General appearance: alert, in no apparent distress Head exam: Present: atraumatic, normocephalic, normal inspection Eye exam: Present: normal appearance, EOMI Respiratory exam: Absent: respiratory distress Neurological exam: Present: alert, oriented X3 Psychiatric exam: Present: flat affect Skin exam: Present: normal color Course Vital Signs 07/21/24 00:56 Temperature 97.8 F Pulse Rate 125 H Respiratory 16 Rate Blood Pressure 147/90 O2 Sat by Pulse 99 Oximetry Medical Decision Making - Medical Decision Making Was pt. sent in by a medical professional or institution (, PA, WINDSCREEN FITTER, urgent care, hospital, or retirement...) When possible be specific @ -[No] Did you speak to anyone other than the patient for history (EMS, parent, family, police, friend...)? What history was obtained from this source @ -History mainly obtained from mother Did you review nursing and triage notes (agree or disagree)? Why? @ -[I reviewed and agree with nursing and triage notes] Were old charts reviewed (outside hosp., previous admission, EMS record, old EKG, old radiological studies, urgent care reports/EKG's, retirement records)? Report findings @ -[No old charts were reviewed] Differential Diagnosis (chest pain, altered mental status, abdominal pain women, abdominal pain men, vaginal bleeding, weakness, fever, dyspnea, syncope, headache, dizziness, GI bleed, back pain, seizure, CVA, palpatations, mental health, musculoskeletal)? @ -Differential Mental Health Depression, anxiety, bipolar, psychosis, schizophrenia, borderline personality, situational depression, adjustment disorder, behavioral disorder, brain tumor, malingering, substance abuse, encephalopathy, medication reaction, dementia, hypothyroidism, degenerative neurologic disorder, lupus.... This is not meant to be all-inclusive list EKG interpreted by me (3pts min.). @ -[As above] X-rays interpreted by me (1pt min.). @ -[None done] CT interpreted by me (1pt min.). @ -[None done] U/S interpreted by me (1pt. min.). @ -[None done] What testing was considered but not performed or refused? (CT, X-rays, U/S, labs)? Why? @ -[None] What meds were considered but not given or refused? Why? @ -[None] Did you discuss the management of the patient with other professionals (professionals i.e. , PA, WINDSCREEN FITTER, lab, RT, psych nurse, health social work professor, barrel endshake adjuster, teacher, court collections officer, embedded case manager)? Give summary @ -[No] Was smoking cessation discussed for >3mins.? @ -[No] Was critical care preformed (if so, how long)? @ -[No] Were there social determinants of health that impacted care today? How? (Homelessness, low income, unemployed, alcoholism, drug addiction, transportation, low edu. Level, literacy, decrease access to med. care, intermediate, rehab)? @ -[No] Was there de-escalation of care discussed even if they declined (Discuss DNR or withdrawal of care, Hospice)? DNR status @ -[No] What co-morbidities impacted this encounter? (DM, HTN, Smoking, COPD, CAD, Cancer, CVA, ARF, Chemo, Hep., AIDS, mental health diagnosis, sleep apnea, morbid obesity)? @ -[None] Was patient admitted / discharged? Hospital course, mention meds given and route, prescriptions, significant lab abnormalities, going to OR and other pertinent info. @ -34-year-old female presenting with suicidal ideation. She is medically cleared and awaiting evaluation by EPS. Undiagnosed new problem with uncertain prognosis? @ -[No] Drug Therapy requiring intensive monitoring for toxicity (Heparin, Nitro, Insulin, Cardizem)? @ -[No] Were any procedures done? @ -[No] Diagnosis/symptom? @ -[default] Acute, or Chronic, or Acute on Chronic? @ -[default] Uncomplicated (without systemic symptoms) or Complicated (systemic symptoms)? @ -[default] Side effects of treatment? @ -[No] Exacerbation, Progression, or Severe Exacerbation? @ -[No] Poses a threat to life or bodily function? How? (Chest pain, [place], [place], pneumonia, PE, COPD, DKA, ARF, appy, cholecystitis, CVA, Diverticulitis, Homicidal, Suicidal, threat to staff... and all critical care pts) @ -[No] - Lab Data Result diagrams: 07/21/24 06:54 07/21/24 06:54 Lab Results 07/21/24 07/21/24 Range/Units 01:26 03:41 Serum Alcohol <10 mg/dL Influenza Type A (PCR) Not Detected (Not Detectd) Influenza Type B (PCR) Not Detected (Not Detectd) RSV (PCR) Not Detected (Not Detectd) SARS-CoV-2 (PCR) Not Detected (Not Detectd) Disposition Clinical Impression: Acute psychosis Disposition: ADMITTED IP TO THIS HOSP Condition: Serious
[2024-07-21] MEDS ORDERED: ACETAMINOPHEN TAB 325 MG TAB PO PRN (04:46)
[2024-07-21] MEDS ORDERED: MAGNESIUM HYDROXIDE 2,400 MG/30 ML CUP PO PRN (04:46)
[2024-07-21] MEDS ORDERED: OLANZapine 10 MG VIAL IM PRN (04:46)
[2024-07-21] MEDS ORDERED: IBUPROFEN 600 MG TAB PO PRN (04:46)
[2024-07-21] MEDS ORDERED: MELATONIN 3 MG TABLET PO PRN (04:54)
[2024-07-21 07:17] LABS: Basophils % (A) 0 %; Eosinophils % (A) 0 %; HCT 39.3 % (34.0-46.0); HGB 12.4 gm/dL (11.4-16.0); Hypochromasia Slight; Lymphocytes # (A) 1.5 k/uL (1.0-4.8); Lymphocytes % (A) 13 %; MCH 28.2 pg (25.0-35.0); MCHC 31.5 g/dL (31.0-37.0); MCV 89.5 fL (80.0-100.0); Mean Platelet Volume 7.4; Monocytes # (A) 0.4 k/uL (0-1.0); Monocytes % (A) 4 %; Neutrophils # (A) 9.3 k/uL (1.3-7.7); Neutrophils % (A) 81 %; Platelet Count 369 k/uL (150-450); RBC 4.39 m/uL (3.80-5.40); RDW 13.5 % (11.5-15.5); WBC 11.4 k/uL (3.8-10.6)
[2024-07-21 07:33] LABS: Valproic Acid (Depakene) <10.0 ug/mL
[2024-07-21 07:57] LABS: ALT 12 U/L (4-34); AST 21 U/L (14-36); African American GFR (CKD) >90 (>60 ml/min/1.73 sqM); Albumin 4.7 g/dL (3.5-5.0); Alkaline Phosphatase 86 U/L (38-126); Anion Gap 14 mmol/L; Bilirubin, Delta 0.2 mg/dL (0.0-0.2); Bilirubin,Unconjugated 0.3 mg/dL (0.0-1.1); Blood Urea Nitrogen 14 mg/dL (7-17); Calcium 9.8 mg/dL (8.4-10.2); Carbon Dioxide 23 mmol/L (22-30); Chloride 102 mmol/L (98-107); Glucose 110 mg/dL (74-99); Non-African American GFR(CKD) >90 (>60 ml/min/1.73 sqM); Sodium 139 mmol/L (137-145); Total Bilirubin 0.5 mg/dL (0.2-1.3); Total Protein 7.6 g/dL (6.3-8.2)
[2024-07-21] MEDS: VENLAFAXINE HCL ER 150 MG CAP PO SCH (09:17)
[2024-07-21] MEDS: BENZTROPINE MESYLATE 0.5 MG TAB PO SCH (09:17)
[2024-07-21 10:42] LABS: Chol/HDL Ratio 3.38 Ratio; LDL Cholesterol,Calculated 133.1 mg/dL (0.0-131.0)
--- NOTE | 2024-07-21 12:11 | P.HP ---
Psychiatric H&P - . H&P Date: 07/21/24 History & Physical: Allergies Allergy/AdvReac Type Severity Reaction Status Date / Time amoxicillin Allergy Rash/Hives Verified 07/21/24 04:55 lamotrigine [From Lamictal] Allergy Rash/Hives Verified 07/21/24 04:55 - full body morphine Allergy Itching Verified 07/21/24 04:55 Vital Signs Temp 97.0 F L 07/21/24 06:24 Pulse 120 H 07/21/24 06:24 Resp 15 07/21/24 06:24 BP 130/74 07/21/24 06:24 Pulse Ox 98 07/21/24 06:24 FiO2 Intake & Output 07/20/24 07/21/24 07/21/24 18:59 06:59 18:59 Weight 90.889 kg Laboratory Last Values WBC 11.4 k/uL (3.8-10.6) H 07/21/24 06:54 RBC 4.39 m/uL (3.80-5.40) 07/21/24 06:54 Hgb 12.4 gm/dL (11.4-16.0) 07/21/24 06:54 Hct 39.3 % (34.0-46.0) 07/21/24 06:54 MCV 89.5 fL (80.0-100.0) 07/21/24 06:54 MCH 28.2 pg (25.0-35.0) 07/21/24 06:54 MCHC 31.5 g/dL (31.0-37.0) 07/21/24 06:54 RDW 13.5 % (11.5-15.5) 07/21/24 06:54 Plt Count 369 k/uL (150-450) 07/21/24 06:54 MPV 7.4 07/21/24 06:54 Neutrophils % 81 % 07/21/24 06:54 Lymphocytes % 13 % 07/21/24 06:54 Monocytes % 4 % 07/21/24 06:54 Eosinophils % 0 % 07/21/24 06:54 Basophils % 0 % 07/21/24 06:54 Neutrophils # 9.3 k/uL (1.3-7.7) H 07/21/24 06:54 Lymphocytes # 1.5 k/uL (1.0-4.8) 07/21/24 06:54 Monocytes # 0.4 k/uL (0-1.0) 07/21/24 06:54 Eosinophils # 0.0 k/uL (0-0.7) 07/21/24 06:54 Basophils # 0.0 k/uL (0-0.2) 07/21/24 06:54 Hypochromasia Slight 07/21/24 06:54 Sodium 139 mmol/L (137-145) 07/21/24 06:54 Potassium 4.0 mmol/L (3.5-5.1) 07/21/24 06:54 Chloride 102 mmol/L (98-107) 07/21/24 06:54 Carbon Dioxide 23 mmol/L (22-30) 07/21/24 06:54 Anion Gap 14 mmol/L 07/21/24 06:54 BUN 14 mg/dL (7-17) 07/21/24 06:54 Creatinine 0.65 mg/dL (0.52-1.04) 07/21/24 06:54 Est GFR (CKD-EPI)AfAm >90 (>60 ml/min/1.73 sqM) 07/21/24 06:54 Est GFR (CKD-EPI)NonAf >90 (>60 ml/min/1.73 sqM) 07/21/24 06:54 Glucose 110 mg/dL (74-99) H 07/21/24 06:54 Calcium 9.8 mg/dL (8.4-10.2) 07/21/24 06:54 Total Bilirubin 0.5 mg/dL (0.2-1.3) 07/21/24 06:54 Conjugated Bilirubin 0.0 mg/dL (0.0-0.3) 07/21/24 06:54 Unconjugated Bilirubin 0.3 mg/dL (0.0-1.1) 07/21/24 06:54 Delta Bilirubin 0.2 mg/dL (0.0-0.2) 07/21/24 06:54 AST 21 U/L (14-36) 07/21/24 06:54 ALT 12 U/L (4-34) 07/21/24 06:54 Alkaline Phosphatase 86 U/L (38-126) 07/21/24 06:54 Total Protein 7.6 g/dL (6.3-8.2) 07/21/24 06:54 Albumin 4.7 g/dL (3.5-5.0) 07/21/24 06:54 TSH 8.880 mIU/L (0.465-4.680) H 07/21/24 06:54 Valproic Acid <10.0 ug/mL 07/21/24 06:54 Serum Alcohol <10 mg/dL 07/21/24 01:26 Influenza Type A (PCR) Not Detected (Not Detectd) 07/21/24 03:41 Influenza Type B (PCR) Not Detected (Not Detectd) 07/21/24 03:41 RSV (PCR) Not Detected (Not Detectd) 07/21/24 03:41 SARS-CoV-2 (PCR) Not Detected (Not Detectd) 07/21/24 03:41 07/21/24 09:04 IDENTIFYING DATA: Patient is a 34-year-old female who lives with her mom who is her guardian, her sister, her [id number], and her nephew and niece and is on SSI and SSD HPI: Patient presented to the hospital on 07/20. As per EPS note, "Pt presents voluntary to EC /c c/o suicidal thoughts /s a plan and delusional thoughts; "I always want to kill myself. I feel like I'm killing everybody. I just feel like I should go to retirement. I really think it's real. I just feel like the best place for me is retirement. I need to get here because I'm not right. I'm fucked up." Pt's mother/guardian Giuliana George is /c pt and states "she thinks her Dad is going to hurt her." Pt states she has audio and visual hallucinations; mumbling voices and pt sees Tweety Bird. Pt states she "is [place] to go [place] [facility] a week but I haven't gone in months because I don't want to." Mother/guardian Giuliana states "she was doing so good; we made a year not being in the hospital. But I know her symptoms; we've gone home before and she's tried to grab the steering wheel from me. She's overdosed. I have hid all the meds, but I can't hide everything she can hurt herself with, like kitchen knives. I just feel like this is the beginning of her going downhill." When asked if she can keep herself safe if discharged from , pt replies "I don't know. I really don't know." Upon today's assessment, she states that she is having strange thoughts that are running through her head, and she says weird things, that she normally wouldn't say. She states she feels alone, and she does not know what to do with herself. She is endorsing racing thoughts, and she is paranoid that her mom and dad are going to kill her. She has been having these thoughts all her life, and for the past 2 weeks, it has gotten worse. She states that [facility] has lowered her dose of Prolixin. She claims that she is very confused right now, with her thoughts, and that she would never hurt herself, or anyone else, she just don't know how to deal with the thoughts. She feels that the world is on her shoulders. She states she is sleeping pretty good, and her appetite has been poor. Patient admits to passive suicidal thoughts, denies homicidal ideations intent or plan. At this time patient endorses auditory and visual hallucinations of seeing and hearing her family. Patient states she believes she has been on drugs and alcohol before, unknowingly. Because she said she would not do these things. PAST PSYCHIATRIC HISTORY: Patient states that she was last admitted to this unit 06/2023. She follows up with [facility], on Prolixin D, 12.5mg q2 weeks. Next dose due today, 07/21. Patient admits to history of suicide attempts in the past, mainly by overdosing PMH:As per ER note ALLERGIES: as per EMR CHEMICAL DEPENDENCY HISTORY: as per HPI FAMILY PSYCHIATRIC/SUBSTANCE USE HISTORY: father has psychosis SOCIAL HISTORY: Her mother is her guardian, she lives with her mother, sister, [id number], nephew, and a niece. She is on SSI and SSA. No legal issues MENTAL STATUS EXAM: General Appearance: Patient appears to be older than stated age is alert, directable, and attempts to cooperate]. Patient appears to have poor hygiene and grooming. Using a walker, dressed in a gown Behavior: Patient is seated without any agitated behavior. Tearful at times. Apologetic. Speech: Patient's speech is fluent and nonpressured. Soft spoken. Mood/Affect: Patient reports their mood is depressed, anxious and confused, affect is congruent and constricted. Suicidality/Homicidality: Patient denies having any homicidal ideation intent or plan. Endorses passive suicidal ideations, no intent or plan Perceptions: Patient endorses visual hallucinations and auditory hallucinations Though content/process: There is no evidence of any delusional thought content and thought process is linear and goal-directed. mildly paranoid Memory and concentration: AOX3, grossly intact for the purposes of this session. Can spell "WORLD" backwards Judgment and insight: poor STRENGTHS/WEAKNESSES: strength is that patient is resilient. Weakness is that patient [has poor judgment and is impulsive] INTELLECT: average IMPRESSIONS: Bipolar disorder, currently depressed Intellectual disability PLAN: -Patient is admitted under voluntary status to MHU for stabilization of psychiatric symptoms and safety. Patient has signed adult voluntary form and refused to sign medication consent and is placed in patient's chart. -Medications : Will start patient on melatonin 3mg qhs for sleep, cogentin 0.5mg bid for eps symptoms, Effexor 300mg daily for mood stabilization, increase/change home dose of Prolixin D to 25mg IM q21 weeks, first dose today, 07/21, next dose 08/11, for psychosis, depakote 1000mg qhs for psychosis/mood stabilization -Ativan [and Haldol] PRN for agitation/aggression -Patient was informed of the risks, benefits and side effects of the medication and patient verbally consented to taking the medications. -Internal Medicine consult to perform medical evaluation and physical. -NRT - nicotine patch -SW on board for discharge planning. Encourage patient to participate in groups to work on coping skills. 07/21/24 11:38 07/21/24 12:05
[2024-07-21] MEDS: fluPHENAZine DECANOATE 25 MG/ML 5ML MDV IM SCH (13:27)
--- NOTE | 2024-07-21 13:43 | P.MDCNMH ---
History of Present Illness H&P Date: 07/21/24 History of present illness; patient 34-year-old lady with past medical his significant for seizure disorder, cerebral palsy, schizophrenia presented to the ER for suicidal ideations. Patient was having thoughts of hurting herself, states that she wants to . Patient having auditory hallucinations hearing mumbling voices and seeing tweety bird. Because of the symptoms, patient brought to the ER. Initial lab work done in the ER showed WBC 11.4, hemoglobin 12.4, platelet count 69, sodium 100 and potassium 4, BUN 40 0.65, glucose 110, bilirubin 0.5, AST 20, ALT 12, cholesterol 2 4, LDL 133, HDL 60 Serum alcohol less than 10, Influenza A not detected Influenza B not detected RSV not detected COVID-19 not detected Patient admitted to psychiatry REVIEW OF SYSTEMS: CONSTITUTIONAL: No fever, no malaise, no fatigue. HEENT: No recent visual problems or hearing problems. Denied any sore throat. CARDIOVASCULAR: No chest pain, orthopnea, PND, no palpitations, no syncope. PULMONARY: No shortness of breath, no cough, no hemoptysis. GASTROINTESTINAL: No diarrhea, no nausea, no vomiting, no abdominal pain. NEUROLOGICAL: No headaches, no weakness, no numbness. HEMATOLOGICAL: Denies any bleeding or petechiae. GENITOURINARY: Denies any burning micturition, frequency, or urgency. MUSCULOSKELETAL/RHEUMATOLOGICAL: Denies any joint pain, swelling, or any muscle pain. ENDOCRINE: Denies any polyuria or polydipsia. The rest of the 14-point review of systems is negative. PHYSICAL EXAMINATION: GENERAL: The patient is alert and oriented x3, ill looking, cerebral palsy HEENT: Pupils are round and equally reacting to light. EOMI. No scleral icterus. No conjunctival pallor. Normocephalic, atraumatic. No pharyngeal erythema. No thyromegaly. CARDIOVASCULAR: S1 and S2 present. No murmurs, rubs, or gallops. PULMONARY: Chest is clear to auscultation, no wheezing or crackles. ABDOMEN: Soft, nontender, nondistended, normoactive bowel sounds. No palpable organomegaly. MUSCULOSKELETAL: No joint swelling or deformity. EXTREMITIES: No cyanosis, clubbing, or pedal edema. NEUROLOGICAL: Gross neurological examination did not reveal any focal deficits. SKIN: No rashes. Assessment and plan Suicidal ideation Major depression Schizophrenia Cerebral palsy Monitor vital signs Elopement precaution Suicide precaution Continue psych meds per psychiatry team Labs and medication were reviewed.. Continue same treatment. Continue with symptomatic treatment. Resume home medication. Monitor labs and vitals. DVT and GI prophylaxis. Further recommendations as per clinical course of the patient Dictation was produced using [employer] dictation software. please excuse any grammatical, word or spelling errors. Past Medical History Past Medical History: Seizure Disorder Additional Past Medical History / Comment(s): cerebral palsy, History of Any Multi-Drug Resistant Organisms: None Reported Past Surgical History: No Surgical Hx Reported, Orthopedic Surgery Additional Past Surgical History / Comment(s): femurs rotated and achilles tendon lengthened and one yr. later metal hardware/plates were removed. Past Anesthesia/Blood Transfusion Reactions: No Reported Reaction Past Psychological History: Anxiety, Bipolar, Depression Additional Psychological History / Comment(s): Hx. of [facility] Smoking Status: Never smoker Past Alcohol Use History: None Reported Past Drug Use History: None Reported - Past Family History Father Family Medical History: No Reported History Mother Family Medical History: No Reported History Medications and Allergies Home Medications Medication Instructions Recorded Confirmed Type Benztropine Mesylate [Cogentin] 0.5 mg PO BID 30 Days #60 tab 06/30/23 07/21/24 Rx Divalproex ER [Depakote ER] 1,000 mg PO HS 30 Days #60 tab 06/30/23 07/21/24 Rx Levothyroxine Sodium [Synthroid] 50 mcg PO DAILY 30 Days #30 tab 06/30/23 07/21/24 Rx Venlafaxine HCl ER [Effexor XR] 300 mg PO DAILY 30 Days #60 cap 06/30/23 07/21/24 Rx Verapamil HCl [Verapamil ER] 120 mg PO DAILY 30 Days #30 tab 06/30/23 07/21/24 Rx fluPHENAZine decanoate [Prolixin 25 mg IM Q14D #1 ml 06/30/23 07/21/24 Rx Decanoate] Allergies Allergy/AdvReac Type Severity Reaction Status Date / Time amoxicillin Allergy Rash/Hives Verified 07/21/24 04:55 lamotrigine [From Lamictal] Allergy Rash/Hives Verified 07/21/24 04:55 - full body morphine Allergy Itching Verified 07/21/24 04:55 Physical Exam Vitals: Vital Signs Temp Pulse Pulse Resp BP BP Pulse Ox 07/21/24 06:24 97.0 F L 120 H 15 130/74 98 07/21/24 00:56 97.8 F 125 H 16 147/90 99 Intake and Output 07/20/24 07/21/24 07/21/24 22:59 06:59 14:59 Other: Weight 90.889 kg Cranial Nerve Examination - Cranial Nerves Cranial Nerve I- Olfactory: Intact Cranial Nerve II- Optic: Intact (Cranial nerves II to XII intact) Cranial Nerve III- Oculomotor: Intact Cranial Nerve IV- Trochlear: Intact Cranial Nerve V- Trigeminal: Intact Cranial Nerve - Abducens: Intact Cranial Nerve VII- Facial: Intact Cranial Nerve VIII- Auditory: Intact Cranial Nerve IX- Glossopharyngeal: Intact Cranial Nerve X- Vagus: Intact Cranial Nerve XI- Accessory: Intact Cranial Nerve XII- Hypoglossal: Intact Results CBC & Chem 7: 07/21/24 06:54 07/21/24 06:54 Labs: Abnormal Lab Results - Last 24 Hours (Table) 07/21/24 07/21/24 Range/Units 06:54 06:54 WBC 11.4 H (3.8-10.6) k/uL Neutrophils # 9.3 H (1.3-7.7) k/uL Glucose 110 H (74-99) mg/dL Cholesterol 204.00 H (0.00-200.00) mg/dL LDL Cholesterol, Calc 133.1 H (0.0-131.0) mg/dL HDL Cholesterol 60.40 H (40.00-60.00) mg/dL TSH 8.880 H (0.465-4.680) mIU/L
[2024-07-21] MEDS: OLANZapine 5 MG TAB PO PRN (16:41)
[2024-07-21 17:28] LABS: Appearance,Urine Clear (Clear); Bacteria,Urine Rare /hpf; Bilirubin,Urine Negative (Negative); Blood,Urine Moderate (Negative); Color,Urine Colorless; Glucose,Urine (UA) Negative (Negative); Ketones,Urine Negative (Negative); Leukocyte Esterase,Urine Negative (Negative); Nitrite,Urine Negative (Negative); Protein,Urine Negative (Negative); RBC,Urine 16 /hpf (0-5); Specific Gravity,Urine 1.003 (1.001-1.035); Squamous Epithelial Cell,Urine 1 /hpf (0-4); Urobilinogen,Urine <2.0 mg/dL (<2.0); WBC,Urine 3 /hpf (0-5)
[2024-07-21 17:58] LABS: Amphetamine Screen,Urine Not Detected (NotDetected); Barbiturate Screen,Urine Not Detected (NotDetected); Benzodiazepines Screen,Urine Not Detected (NotDetected); Cocaine Screen,Urine Not Detected (NotDetected); Methadone Screen, Urine Not Detected (NotDetected); Opiate Screen,Urine Not Detected (NotDetected); Oxycodone Screen, Urine Not Detected (NotDetected); Phencyclidine Screen,Urine Not Detected (NotDetected); Tricyclic Antidepressant,Urine Not Detected (NotDetected); Urn Cannabinoid Scrn Not Detected (NotDetected)
[2024-07-21] MEDS: DIVALPROEX ER 500 MG TAB.ER.24H PO SCH (20:44)
[2024-07-22] MEDS: LEVOTHYROXINE 50 MCG TAB PO SCH (09:08)
--- NOTE | 2024-07-22 10:53 | P.PN ---
Progress Note - Text Progress Note Date: 07/22/24 Interval History: Patient was seen [wandering the hallways] and was directable and agreeable to speak with ad writer in the office. She states that she is trying today, but she is a bit sleepy. She states she did not get much sleep last night, she claims that she feels like she blacks out for a while, and she does not know how to explain it. She stated that her appetite is improving. She is endorsing AH, stating that she is hearing that she is going to be safe here. At this time patient denies any suicidal or homicidal ideations, intent or plan. Patient denies any visual hallucinations and is endorsing paranoia and delusions, that her mom is , but she knows that her mom is not . Patient denies any side effects from the medications and has been compliant with meds. MENTAL STATUS EXAM: General Appearance: Patient appears to be older than stated age is alert, directable, and attempts to cooperate]. Patient appears to have improved hygiene and grooming. Using a wheel chair, dressed casually Behavior: Patient is seated without any agitated behavior. Apologetic. Speech: Patient's speech is fluent and nonpressured. Soft spoken. Mood/Affect: Patient reports their mood is depressed, anxious and tired, affect is congruent and constricted. improving mildly Suicidality/Homicidality: Patient denies having any homicidal ideation intent or plan. Endorses passive suicidal ideations, no intent or plan Perceptions: Patient endorses visual hallucinations and auditory hallucinations Though content/process: There is no evidence of any delusional thought content and thought process is linear and goal-directed. mildly paranoid Memory and concentration: AOX3, grossly intact for the purposes of this session. Judgment and insight: poor, improving mildly IMPRESSIONS: Bipolar disorder, currently depressed Intellectual disability PLAN: -Patient is admitted under voluntary status to [facility]HU for stabilization of psychiatric symptoms and safety. Patient has signed adult voluntary form and refused to sign medication consent and is placed in patient's chart. -Medications : increase melatonin 6mg qhs for sleep, cogentin 0.5mg bid for eps symptoms, Effexor 300mg daily for mood stabilization, Prolixin D to 25mg IM q21 weeks given on 07/21, next dose 08/11, for psychosis, depakote 1000mg qhs for psychosis/mood stabilization -Ativan [and Haldol] PRN for agitation/aggression -NRT - nicotine patch -SW on board for discharge planning. Encourage patient to participate in groups to work on coping skills.
[2024-07-22] MEDS: MELATONIN 3 MG TABLET PO SCH (21:17)
[2024-07-22] MEDS: traZODone HCL 50 MG TAB PO PRN (21:17)
[2024-07-23] MEDS ORDERED: BENZTROPINE MESYLATE 0.5 MG TAB PO PRN (12:46)
--- NOTE | 2024-07-23 12:50 | P.PN ---
Progress Note - Text Progress Note Date: 07/23/24 Interval History: Patient was seen in her room, resting, and was directable and agreeable to speak with writer editor at the bedside. She states that she is feeling confused today. She stated that she does not know if she slept at night last night, so she is resting in bed currently. Patient allegedly had called the police to allege that her father was raping and drugging her, the police called the unit, to speak with the patient, the patient was vague, and stated that it happened at night. The patient has had this delusion on prior admissions. She stated that her appetite is improving. She is endorsing AH, At this time patient denies any suicidal or homicidal ideations, intent or plan. Patient denies any visual hallucinations and is endorsing paranoia and delusions, Patient denies any side effects from the medications and has been compliant with meds. MENTAL STATUS EXAM: General Appearance: Patient appears to be older than stated age is alert, directable, and attempts to cooperate. Patient appears to have improved hygiene and grooming. Using a wheel chair, dressed casually Behavior: Patient is laying without any agitated behavior. Speech: Patient's speech is fluent and nonpressured. Soft spoken. Mood/Affect: Patient reports their mood is depressed, anxious and tired, affect is congruent and constricted. improving mildly Suicidality/Homicidality: Patient denies having any homicidal ideation intent or plan. Denies suicidal ideations, no intent or plan Perceptions: Patient endorses visual hallucinations and auditory hallucinations Though content/process: There is evidence of any delusional thought content , paranoid, making police reports Memory and concentration: AOX3, grossly intact for the purposes of this session. Judgment and insight: poor, improving mildly IMPRESSIONS: Bipolar disorder, currently depressed Intellectual disability PLAN: -Patient is admitted under voluntary status to [facility] for stabilization of psychiatric symptoms and safety. Patient has signed adult voluntary form and refused to sign medication consent and is placed in patient's chart. -Medications : increase melatonin 10 mg qhs for sleep, changed cogentin 0.5 mg bid prn for eps symptoms/muscle spasms, Effexor 300mg daily for mood stabilization, Prolixin D to 25mg IM q21 weeks given on 07/21, next dose 08/11, for psychosis, depakote 1000mg qhs for psychosis/mood stabilization. benadryl 25 mg qhs for insomnia. -Ativan [and Haldol] PRN for agitation/aggression -NRT - nicotine patch -SW on board for discharge planning. Encourage patient to participate in groups to work on coping skills. Will keep patient until she stabilizes psychiatrically, likely early to mid next week discharge if she is improving.
[2024-07-23] MEDS: MELATONIN 5 MG TABLET PO SCH (20:46)
[2024-07-23] MEDS: diphenhydrAMINE 25 MG CAP PO SCH (20:46)
--- NOTE | 2024-07-24 15:13 | P.PN ---
Subjective Progress Note Date: 07/24/24 the patient we can can go very far with wheelchairs so we elected to talk in her room she is still paranoid that her father was just a bad man is planning to kill everybody in her family. She does not feel like to staff his body against her or other patients she does sometimes wonder for dad to come in here and hurt her.the patient was apologetic and asked her what she was oriented about she says she has thoughts racing in her head that sometimes negative and she tries to control. That's what she was oriented about. her onlymedication concern is she is somewhat constipated MENTAL STATUS EXAM: the patient was lying in bed poor eye contact low energy says the medicines are making her tired General Appearance: Patient appears to be older than stated age is alert, directable, and attempts to cooperate. Patient appears to have reasonable hygiene and grooming. Using a wheel chair, dressed casually Behavior: Patient is laying without any agitated behavior. Speech: Patient's speech is fluent and nonpressured. Soft spoken. Mood/Affect: Patient reports their mood is depressed, anxious and tired, affect is congruent and constricted. improving mildly Suicidality/Homicidality: Patient denies having any homicidal ideation intent or plan. Denies suicidal ideations, no intent or plan Perceptions: Patient endorses visual hallucinations and auditory hallucinations Though content/process: There is evidence of any delusional thought content , paranoid, making police reports Memory and concentration: AOX3, grossly intact for the purposes of this session. Judgment and insight: poor, improving mildly IMPRESSIONS: Bipolar disorder, currently depressed and psychotic Intellectual disability PLAN: add some MiraLAX that his work for her in the past -Patient is admitted under voluntary status to [facility] for stabilization of psychiatric symptoms and safety. Patient has signed adult voluntary form and refused to sign medication consent and is placed in patient's chart. -Medications : increase melatonin 10 mg qhs for sleep, changed cogentin 0.5 mg bid prn for eps symptoms/muscle spasms, Effexor 300mg daily for mood stabilization, Prolixin D to 25mg IM q21 weeks given on 07/21, next dose 08/11, for psychosis, depakote 1000mg qhs for psychosis/mood stabilization. benadryl 25 mg qhs for insomnia. -Ativan [and Haldol] PRN for agitation/aggression -NRT - nicotine patch -SW on board for discharge planning. Encourage patient to participate in groups to work on coping skills. Will keep patient until she stabilizes psychiatrically, likely early to mid next week discharge if she is improving. Objective - Vital Signs Vital signs: Vital Signs Temp 96.7 F L 07/24/24 06:00 Pulse 83 07/24/24 06:00 Resp 18 07/24/24 06:00 BP 131/87 07/24/24 06:00 Pulse Ox 96 07/24/24 06:00 FiO2 - Labs CBC & Chem 7: 07/21/24 06:54 07/21/24 06:54
[2024-07-24] MEDS: polyethylene glycoL 3350 17 GM POWD.PACK PO SCH (20:50)
[2024-07-25] MEDS: polyethylene glycoL 3350 17 GM POWD.PACK PO SCH (08:59)
--- NOTE | 2024-07-25 09:44 | P.PN ---
Subjective Progress Note Date: 07/25/24 the patient was walking in the [place] with her walker she went to breakfast and ate a good breakfast she slept well. Of course, like all patients, she is focused on getting out as early as possible. she says that she needs to listen to more positive music and hanging out with her family more and do more positive things in order to not become so depressed again and take her medications she denies any negative side effects on the medications and she got the MiraLAX and is positive about that. MENTAL STATUS EXAM: good eye contact more energy than yesterday alert. She does apologize for every little thing but actually interacts fairly well and then apologizes for humerus interaction. So still little too anxious. General Appearance: Patient appears to be older than stated age is alert, directable, and attempts to cooperate. Patient appears to have reasonable hygiene and grooming. Using a wheel chair, dressed casually Behavior: Patientdoes not have any agitated behavior. Speech: Patient's speech is fluent and nonpressured. Soft spoken. Mood/Affect: Patient reports their mood is depressed, anxious and tired, affect is congruent and constricted. improving mildly Suicidality/Homicidality: Patient denies having any homicidal ideation intent or plan. Denies suicidal ideations, no intent or plan Perceptions: Patient endorses visual hallucinations and auditory hallucinations Though content/process: There is evidence of any delusional thought content , paranoid, making police reports Memory and concentration: AOX3, grossly intact for the purposes of this session. Judgment and insight: poor, improving mildly IMPRESSIONS: Bipolar disorder, currently depressed and psychotic Intellectual disability PLAN: add some MiraLAX that his work for her in the past -Patient is admitted under voluntary status to [facility] for stabilization of psychiatric symptoms and safety. Patient has signed adult voluntary form and refused to sign medication consent and is placed in patient's chart. -Medications : increase melatonin 10 mg qhs for sleep, changed cogentin 0.5 mg bid prn for eps symptoms/muscle spasms, Effexor 300mg daily for mood stabilization, Prolixin D to 25mg IM q21 weeks given on 07/21, next dose 08/11, for psychosis, depakote 1000mg qhs for psychosis/mood stabilization. benadryl 25 mg qhs for insomnia. -Ativan [and Haldol] PRN for agitation/aggression -NRT - nicotine patch -SW on board for discharge planning. Encourage patient to participate in groups to work on coping skills. Will keep patient until she stabilizes psychiatrically, likely early to mid next week discharge if she is improving. Objective - Vital Signs Vital signs: Vital Signs Temp 96.7 F L 07/24/24 06:00 Pulse 83 07/24/24 06:00 Resp 18 07/24/24 06:00 BP 131/87 07/24/24 06:00 Pulse Ox 96 07/24/24 06:00 FiO2 - Labs CBC & Chem 7: 07/21/24 06:54 07/21/24 06:54
--- NOTE | 2024-07-26 18:00 | P.PN ---
Progress Note - Text Progress Note Date: 07/26/24 Interval History: Patient was seen in her room, resting, and was directable and agreeable to speak with grant writer at the bedside. She states her mood is "well" and she wants to go home. She appears somewhat childlike and guarded about her delusion. She stated that her appetite is improving. At this time patient denies any suicidal or homicidal ideations, intent or plan. Patient denies any visual or auditory hallucinations, and is currently denying paranoid delusions, only states her father is someone she "shouldn't be around him". Patient denies any side effects from the medications and has been compliant with meds. MENTAL STATUS EXAM: General Appearance: Patient appears to be stated age is alert, is laying in bed, dressed in casual street attire, improved hygiene and grooming. Behavior: Patient is laying without any agitated behavior. Speech: Patient's speech is fluent and nonpressured. Soft spoken. Mood/Affect: Patient reports their mood is "well", affect is congruent and constricted. Suicidality/Homicidality: Patient denies having any suicidal or homicidal ideation intent or plan. Perceptions: Patient endorses visual hallucinations and auditory hallucinations Though content/process: There is evidence of delusional thought content that she appears to minimize today (see above), thoughts process is linear and organized. Memory and concentration: AOX3, grossly intact for the purposes of this session. Judgment and insight: poor, improving mildly IMPRESSIONS: Bipolar disorder, currently depressed Intellectual disability PLAN: -Patient is admitted under voluntary status to [facility] for stabilization of psychiatric symptoms and safety. Patient has signed adult voluntary form and refused to sign medication consent and is placed in patient's chart. -Medications: Continue melatonin 10 mg qhs for sleep, cogentin 0.5 mg bid prn for eps symptoms/muscle spasms, Effexor XR 300 mg daily for mood stabilization, Prolixin Dec 25mg IM q21 weeks given on 07/21/24 (next dose 08/11/24) for psychosis, Depakote ER 1000 mg qhs for psychosis/mood stabilization, Benadryl 25 mg qhs for insomnia. -Ativan and Haldol PRN for agitation/aggression -NRT - nicotine patch -SW on board for discharge planning. Encourage patient to participate in groups to work on coping skills. She is hopeful for discharge tomorrow 07/27.
[2024-07-27 09:23] VITALS: TEMP 97.4
--- NOTE | 2024-07-27 15:41 | P.PN ---
Progress Note - Text Progress Note Date: 07/27/24 Chief complaint: Bipolar disorder Interval History: Patient was seen met in the hallway by the telephone and was directable and agreeable to speak with me there. Patient was cordial and respectful and had voiced that she is ready to go home. She was denying any manic symptoms including racing thoughts, mood swings and feels that her depression is at her baseline. She notes that she has no psychotic thoughts. Overall she is doing well. Spoke with the patient's mother she is ready for the patient to return home. She did advise that all prescription [facility].. At this time patient denies any suicidal or homical ideations, intent or plan. Patient denies any auditory, visual hallucinations and denies any paranoia or delusions. Patient denies any side effects from the medications and has been compliant with meds. Mental Status Exam: General Appearance: Patient appeared slightly overweight and needed a walker to ambulate. Groomed and pleasant Behavior: [Patient is calmly seated without any agitated behavior.] Speech: Patient's speech is fluent and nonpressured. Mood/Affect: Mood is improving mildly, affect is congruent and constricted. Suicidality/Homicidality: Patient denies having any suicidal or homicidal ideation intent or plan. Perceptions: Patient denies any visual hallucinations [and denies any auditory hallucinations] Though content/process: [There is no evidence of any delusional thought content and thought process is linear and goal-directed.] Memory and concentration: AOX3, grossly intact for the purposes of this session Judgment and insight: Improving mildly Diagnosis: Bipolar disorder type I most recent episode depressed Intellectual disability Assessment: Patient's presenting at baseline at this time speaking with the patient's mother she is confident that she is at baseline at this time treatment team affirms thi s and current plans are more and likely discharge the patient tomorrow. Plan: -Patient continues to meet criteria for inpatient psychiatric admission for symptom stabilization and safety. Patient has signed [adult voluntary form and] [medication consent] and was placed in patient's chart. -Medications: Depakote 1000 mg nightly for bipolar disorder Prolixin 25 mg IM q. 21 weeks next shot due August 11 Effexor XR 300 mg take 1 tablet by mouth once daily for depression/anxiety Benadryl 25 mg take 1 tablet by mouth at night as needed for sleep Melatonin 10 mg take 1 tablet by mouth at night for sleep Cogentin 0.5 mg twice daily RN for EPS breakthrough -When necessary Ativan and Haldol for agitation/aggression. -NRT - nicotine patch -SW on board for discharge planning. Encouraged the patient to participate in milieu.
[2024-07-28 07:24] VITALS: BP 117/82; PULSE 91; RESP 16
--- NOTE | 2024-07-28 11:22 | P.DS ---
Providers Date of admission: 07/21/24 04:31 Expected date of discharge: 07/28/24 Attending physician: Berlin Grajeda MD Consults: 07/21/24 04:46 Consult Physician Routine Consulting Provider: [facility] Consult Reason/Comments: For H & P for Medical Follow Up Do you want consulting provider notified?: Yes, Notify in am Primary care physician: Maximilian Rivera - Discharge Diagnosis(es) (1) Bipolar disorder Current Visit: Yes Status: Chronic Priority: High (2) Intellectual disability Current Visit: No Status: Chronic Priority: Medium Hospital Course: Admission HPI: Admission note was completed by Dr. Grajeda as "HPI: Patient presented to the hospital on 07/20. As per EPS note, "Pt presents voluntary to EC /c c/o suicidal thoughts /s a plan and delusional thoughts; "I always want to kill myself. I feel like I'm killing everybody. I just feel like I should go to nursing home. I really think it's real. I just feel like the best place for me is nursing home. I need to get here because I'm not right. I'm fucked up." Pt's mother/guardian Giuliana George is /c pt and states "she thinks her Dad is going to hurt her." Pt states she has audio and visual hallucinations; mumbling voices and pt sees Tweety Bird. Pt states she "[facility] but I haven't gone in months because I don't want to." Mother/guardian Giuliana states "she was doing so good; we made a year not being in the hospital. But I know her symptoms; we've gone home before and she's tried to grab the steering wheel from me. She's overdosed. I have hid all the meds, but I can't hide everything she can hurt herself with, like kitchen knives. I just feel like this is the beginning of her going downhill." When asked if she can keep herself safe if discharged from EC, pt replies "I don't know. I really don't know." Upon today's assessment, she states that she is having strange thoughts that are running through her head, and she says weird things, that she normally wouldn't say. She states she feels alone, and she does not know what to do with herself. She is endorsing racing thoughts, and she is paranoid that her mom and dad are going to kill her. She has been having these thoughts all her life, and for the past 2 weeks, it has gotten worse. She states that [facility] has lowered her dose of Prolixin. She claims that she is very confused right now, with her thoughts, and that she would never hurt herself, or anyone else, she just don't know how to deal with the thoughts. She feels that the world is on her shoulders. She states she is sleeping pretty good, and her appetite has been poor. Patient admits to passive suicidal thoughts, denies homicidal ideations intent or plan. At this time patient endorses auditory and visual hallucinations of seeing and hearing her family. Patient states she believes she has been on drugs and alcohol before, unknowingly. Because she said she would not do these things." Hospital course: Upon admission to the unit patient was directable and agreeable to commence treatment and signed adult voluntary form. Patient got along well with other patients on the unit and followed unit protocol. Patient was compliant with the medications and denied any side effects throughout hospital course. Patient was started on on her home medications. Patient spoke of her stressors and engaged in therapy both group and individual. Patient was also seen by medical team for history and physical exam. Throughout the course of the hospitalization patient gradually improved with regards to mood, sleep and returned back to their baseline level of functioning became more future oriented with improved insight and judgment. On the day of discharge patient denied any suicidal or homicidal ideations intent or plan denied any auditory or visual hallucinations. Patient endorsed wanting to live for their health and family. The patient denied any access to guns or weapons. Patient denied any paranoia and did not endorse any delusions. Patient does not have a significant history of substance abuse. Patient was also counseled on the medications and need for regular compliance and was encouraged to follow-up with their outpatient appointment for mental health and also for primary care. Prior to discharge a family meeting will be arranged by drug abuse social worker to answer any questions and ensure safety upon discharge incuding making sure that guns/weapons are either removed from the home or locked away. Day of discharge patient denied any suicidal or homicidal ideations. She notes that she was not have any mood swings and was ready to return home. Mental status exam: General Appearance: Patient appears to be her stated age is alert, pleasant, and cooperative. Patient is in no acute distress and has improved hygiene and grooming Behavior: Patient is calmly seated without any agitated behavior. Speech: Patient's speech is fluent and nonpressured. Mood/Affect: Patient reports their mood is "better good", affect is congruent a nd euthymic. Suicidality/Homicidality: Patient denies having any suicidal or homicidal ideation intent or plan. Perceptions: Patient denies any auditory or visual hallucinations. Though content/process: There is no evidence of any delusional thought content and thought process is linear and goal-directed. More future oriented Memory and concentration: AOX3, grossly intact for the purposes of this session. Can spell "WORLD" backwards correctly. Judgment and insight: Fair judgment and good insight improved with guarded prognosis Impression: Ready for discharge Plan: -Continue with discharge today as patient has improved and stabilized psychiatrically and is not currently an imminent threat to themself and/or others. Patient will remain at chronically elevated risk for harm to self and/or others due to their impulsivity and substance abuse. -Continue medications: Prolixin 25 mg due to 08/11, Effexor 300, Depakote 1000 at night, melatonin 3 at night, Cogentin 0.5 twice daily as needed, and hydroxyzine 25 mg -Patient was counseled on the need for medication compliance and appropriate follow-up at mental health and also primary care for medical issues. Patient verbalized understanding and agreed. -Social work to help coordinate patients discharge today arrange for and conduct family meeting to ensure safety upon discharge and answer any questions/concerns. also to ensure safe home environment that guns/weapons are either removed from the home or locked away. Social work also to arrange for patients follow up appointments with [facility] for psychiatric care along with follow up with primary care provider. -Patient counseled on abstaining from recreational drugs and marijuana and alcohol. Was informed/educated on the adverse effects on their physical and mental health. Patient verbally agreed and understood. -Patient was instructed to return to the hospital or seek immediate medical care if their psychiatric or medical symptoms do worsen or reoccur. Patient Condition at Discharge: Stable Plan - Discharge Summary Discharge Rx Participant: Yes New Discharge Prescriptions: New diphenhydrAMINE [Benadryl] 25 mg PO HS #30 cap Melatonin 10 mg PO HS #30 tab Acetaminophen Tab [Tylenol] 650 mg PO Q4HR PRN tab PRN Reason: Mild Pain (Scale 1 To 3) Continue Levothyroxine Sodium [Synthroid] 50 mcg PO DAILY 30 Days #30 tab Verapamil HCl [Verapamil ER] 120 mg PO DAILY 30 Days #30 tab Venlafaxine HCl ER [Effexor XR] 300 mg PO DAILY 30 Days #60 cap Benztropine Mesylate [Cogentin] 0.5 mg PO BID 30 Days #60 tab Divalproex ER [Depakote ER] 1,000 mg PO HS 30 Days #60 tab fluPHENAZine decanoate [Prolixin Decanoate] 25 mg IM Q14D #1 ml Discharge Medication List Levothyroxine Sodium [Synthroid] 50 mcg PO DAILY 30 Days #30 tab 06/30/23 [Rx] Verapamil HCl [Verapamil ER] 120 mg PO DAILY 30 Days #30 tab 06/30/23 [Rx] Acetaminophen Tab [Tylenol] 650 mg PO Q4HR PRN tab 07/28/24 [Rx] Benztropine Mesylate [Cogentin] 0.5 mg PO BID 30 Days #60 tab 07/28/24 [Rx] Divalproex ER [Depakote ER] 1,000 mg PO HS 30 Days #60 tab 07/28/24 [Rx] Melatonin 10 mg PO HS #30 tab 07/28/24 [Rx] Venlafaxine HCl ER [Effexor XR] 300 mg PO DAILY 30 Days #60 cap 07/28/24 [Rx] diphenhydrAMINE [Benadryl] 25 mg PO HS #30 cap 07/28/24 [Rx] fluPHENAZine decanoate [Prolixin Decanoate] 25 mg IM Q14D #1 ml 07/28/24 [Rx] Follow up Appointment(s)/Referral(s): [facility] [Outside] - 07/28/24 3:00 pm (07/28/2024 3:00PM - 4:00PM EFRAIN MCLEAN 08/03/2024 12:30PM - 1:30PM DEVAN GRESHAM 08/04/2024 2:30PM - 3:00PM DECLAN JOSE G 08/04/2024 3:00PM - 4:00PM EFRAIN MCLEAN 08/10/2024 9:00AM - 10:00AM RERE RENTERIA 08/30/2024 3:00PM - 3:30PM Maximilian Perales, [Primary Care Provider] - 1-2 days Activity/Diet/Wound Care/Special Instructions: Avoid the use of street drugs and alcohol. Take all medications as prescribed. When you are in need of refills on your medications, please contact your medical provider and/or outpatient psychiatrist/provider to have this done. Please go to your scheduled outpatient appointment for aftercare treatment. If symptoms return or become worse, call the crisis line at and/or go to the nearest emergency room for evaluation. National Suicide Hotline 988 Discharge Disposition: HOME SELF-CARE
== END 2024-07-28 12:50 | disposition home or self-care (01) | DRG 885 ==
LOC: EC 00:53 → 3MHU 04:31
PROVIDERS: ADMIT Psychiatry & Neurology Psychiatry; ATTEND Psychiatry & Neurology Psychiatry
DX: F31.30 Bipolar disorder, current episode depressed, mild or moderate severity, unspecified (principal); R45.851 Suicidal ideations; F20.9 Schizophrenia, unspecified; F79 Unspecified intellectual disabilities; G40.909 Epilepsy, unspecified, not intractable, without status epilepticus; G80.9 Cerebral palsy, unspecified; K59.00 Constipation, unspecified; Z79.890 Hormone replacement therapy; Z79.899 Other long term (current) drug therapy; Z91.51 Personal history of suicidal behavior
CPT/HCPCS: 36415; 80053; 80061; 80164; 80306; 80320; 81001; 81025; 82248; 83036; 84439; 84443; 85025; 87636; 99285

== ENCOUNTER → 2025-02-18 | Outpatient (CLI) | payer MEDICARE, OTHER ==
--- NOTE | 2025-02-18 13:19 | MM ---
Reason for Exam: Screening (asymptomatic). Baseline mammogram. Patient History: Menarche at age 13. Patient has no children. Mother had breast cancer at or over age 50. Last menstrual period: 01/22/2025 Risk Values: Alba 5 year model risk: 0.5%. NCI Lifetime model risk: 17.6%. Prior Study Comparison: Patient's first Mammogram. Tissue Density: The breasts are heterogeneously dense, which may obscure small masses. Findings: Analyzed By CAD. Right breast: There is no suspicious group of microcalcifications or new suspicious mass. Left breast: There is no suspicious group of microcalcifications or new suspicious mass. Overall Assessment: Negative, BI-RAD 1 Management: Screening Mammogram of both breasts in [address] [facility] will attempt to contact patient to return for supplemental views and ultrasound if indicated. Patient should continue monthly self-breast exams. A clinical breast exam by your physician is recommended on an annual basis. This exam should not preclude additional follow-up of suspicious palpable abnormalities. Note on Alba scores and lifetime risk: 1. A Alba score greater than 3% is considered moderate risk. If this is the case, consider specialist referral to assess eligibility for a risk reducing agent. 2. If overall lifetime risk for the development of breast cancer is 20% or higher, the patient may qualify for future screening with alternating mammogram and breast MRI. [facility], , 02/18/2025 1:16 PM. Electronically signed and approved by: Rm Rondon DO
== END | disposition home or self-care (01) ==
LOC: RADMAMWWP 12:02
PROVIDERS: ATTEND Family Medicine
DX: Z12.31 Encounter for screening mammogram for malignant neoplasm of breast (principal); R92.333 Mammographic heterogeneous density, bilateral breasts; Z80.3 Family history of malignant neoplasm of breast
CPT/HCPCS: 77067